=== PATIENT | male | born 1970 | race Hispanic/Latino ===

== ENCOUNTER 2017-09-02 09:49 | Inpatient (IN) | payer MEDICAID ==
[2017-09-02 09:49] VITALS: BMI 30.6
[2017-09-02 10:08] VITALS: O2SAT 96
--- NOTE | 2017-09-02 10:21 | ED PDOC ---
Arrival/HPI - General Chief Complaint: Psychiatric Evaluation Time Seen by Provider: 09/02/17 09:49 Historian: Patient - History of Present Illness Narrative History of Present Illness (Text): 09/02/17 10:13 47yo male with history of Anxiety in ED for anxiety. He notes worsening tremors and agitation. the mother who is by the bedside states he has been pacing a lot and very tremulous. although the patient denies hallucination, the mother states he mentioned seeing his ex on they drive way this morning. Patient medication was recently change this month. He denies SI/HI, drug use, any somatic complaint. Past Medical History - Provider Review Nursing Documentation Reviewed: Yes - Infectious Disease Hx of Infectious Diseases: None - Tetanus Immunization Tetanus Immunization: Unknown - Cardiac Hx Cardiac Disorders: Yes Hx Hypertension: Yes - Pulmonary Hx Respiratory Disorders: Yes Hx Asthma: Yes Hx Chronic Obstructive Pulmonary Disease (COPD): Yes - Neurological Hx Neurological Disorder: Yes Hx Vertigo: Yes - HEENT Hx HEENT Disorder: No - Renal Hx Renal Disorder: No - Endocrine/Metabolic Hx Endocrine Disorders: No - Hematological/Oncological Hx Blood Disorders: No - Integumentary Hx Dermatological Disorder: No - Musculoskeletal/Rheumatological Hx Musculoskeletal Disorders: Yes Hx Arthritis: Yes Hx Back Pain: Yes Other/Comment: degenerative disc disease - Gastrointestinal Hx Gastrointestinal Disorders: No - Genitourinary/Gynecological Hx Genitourinary Disorders: No - Psychiatric Hx Anxiety: Yes Hx Depression: Yes Hx Panic Disorder: Yes Hx Substance Use: No (hx of) - Surgical History Hx Musculoskeletal Surgery: Yes (reconstruction of lower spine) Hx Orthopedic Surgery: Yes (right knee, right shoulder) - Anesthesia Hx Anesthesia: Yes Hx Anesthesia Reactions: No Hx Malignant Hyperthermia: No - Suicidal Assessment Feels Threatened In Home Enviroment: No Family/Social History - Physician Review Nursing Documentation Reviewed: Yes Family/Social History: Unknown Family HX Smoking Status: Current Some Days Smoker Hx Alcohol Use: Yes Frequency of alcohol use: Socially Hx Substance Use: No (hx of) Substance used: cocaine Allergies/Home Meds Allergies/Adverse Reactions: Allergies varenicline [From Chantix] Allergy (Verified 09/02/17 09:57) VOMITING Home Medications: Home Meds Medication Instructions Recorded Confirmed Losartan [Cozaar] 100 mg PO DAILY 10/14/15 09/02/17 QUEtiapine [SEROquel] 100 mg PO HS 10/14/15 09/02/17 Meloxicam [Mobic] 1 tab PO DAILY 09/02/17 09/02/17 Nortriptyline [Pamelor] 10 mg PO DAILY 09/02/17 09/02/17 Orphenadrine [Norflex] 100 mg PO BID 09/02/17 09/02/17 busPIRone [Buspar] 15 mg PO TID PRN 09/02/17 09/02/17 oxyCODONE [oxyCONTIN Extended 50 mg PO QID 09/02/17 09/02/17 Release Tab] Review of Systems - Physician Review All systems were reviewed & negative as marked: Yes - Review of Systems Constitutional: Normal Eyes: Normal ENT: Normal Respiratory: Normal Cardiovascular: Normal Gastrointestinal: Normal Genitourinary Male: Normal Musculoskeletal: Normal Skin: Normal Neurological: Normal Endocrine: Normal Hemo/Lymphatic: Normal Psychiatric: Anxiety Physical Exam Vital Signs Reviewed: Yes Vital Signs Temp Pulse Resp BP Pulse Ox 09/02/17 09:57 98.7 F 110 H 18 142/92 H 96 Temperature: Afebrile Blood Pressure: Normal Pulse: Tachycardic Respiratory Rate: Normal Appearance: Positive for: Well-Appearing, Non-Toxic, Comfortable, Other (Tremor of upper extremity noted) Pain Distress: None Mental Status: Positive for: Alert and Oriented X 3 - Systems Exam Head: Present: Atraumatic, Normocephalic Pupils: Present: PERRL Extroacular Muscles: Present: EOMI Conjunctiva: Present: Normal Mouth: Present: Moist Mucous Membranes Neck: Present: Normal Range of Motion Respiratory/Chest: Present: Clear to Auscultation, Good Air Exchange. No: Respiratory Distress, Accessory Muscle Use Cardiovascular: Present: Regular Rate and Rhythm, Normal S1, S2. No: Murmurs Abdomen: Present: Normal Bowel Sounds. No: Tenderness, Distention, Peritoneal Signs Back: Present: Normal Inspection Upper Extremity: Present: Normal Inspection. No: Cyanosis, Edema Lower Extremity: Present: Normal Inspection. No: Edema Neurological: Present: GCS=15, CN II-XII Intact, Speech Normal Skin: Present: Warm, Dry, Normal Color. No: Rashes Psychiatric: Present: Alert, Oriented x 3, Normal Insight, Normal Concentration , Anxious Medical Decision Making ED Course and Treatment: 09/02/17 11:02 PT present for stated history. He was seen in ED by PES screener Gallo, she DC with Dr. Morrell and she accepted pt for admission for Psychosis. - Lab Interpretations Lab Results: 09/02/17 10:45 Lab Results 09/02/17 10:45: WBC 6.7, RBC 5.39, Hgb 17.4, Hct 48.0, MCV 89.1, MCH 32.3, MCHC 36.3, RDW 12.3, Plt Count 165, MPV 10.7, Gran % 78.0 H, Lymph % (Auto) 16.2 L, [place] % (Auto) 5.1, Eos % (Auto) 0.5 L, Baso % (Auto) 0.2, Gran # 5.19, Lymph # 1.1 L, [place] # 0.3, Eos # 0.0, Baso # 0.01 Disposition/Present on Arrival - Present on Arrival Any Indicators Present on Arrival: No History of DVT/PE: No History of Uncontrolled Diabetes: No Urinary Catheter: No History of Decub. Ulcer: No History Surgical Site Infection Following: None - Disposition Have Diagnosis and Disposition been Completed?: Yes Diagnosis: Psychosis Disposition: HOSPITALIZED Disposition Time: 11:00 Condition: FAIR Referrals: PCP,NO [Primary Care Provider] - Follow up with primary Forms: Qianmi ([place])
[2017-09-02 10:56] LABS: BASO # 0.01 K/mm3 (0.0-2.0); BASO % 0.2 % (0.0-3.0); EOS % 0.5 % (1.5-5.0); GRAN # 5.19 (1.4-6.5); LYMPH # 1.1 (1.2-3.4); LYMPH % 16.2 % (22.0-35.0); MEAN CELL VOLUME 89.1 fl (80.0-105.0); MEAN CORPUSCULAR HEMOGLOBIN 32.3 pg (25.0-35.0); MEAN CORPUSCULAR HGB CONC 36.3 g/dl (31.0-37.0); MEAN PLATELET VOLUME 10.7 fl (7.0-11.0); MONO # 0.3 (0.1-0.6); MONO % 5.1 % (1.0-6.0); RED CELL DISTRIBUTION WIDTH 12.3 % (11.5-14.5); WHITE BLOOD COUNT 6.7 10^3/ul (4.5-11.0)
[2017-09-02 11:15] LABS: ALB/GLOB RATIO 1.7 (1.1-1.8); ALKALINE PHOSPHATASE 77 U/L (38-126); ALT/SGPT 36 U/L (7-56); AST/SGOT 28 U/L (17-59); BLOOD UREA NITROGEN 17 mg/dL (7-21); CALCIUM 9.8 mg/dL (8.4-10.5); CARBON DIOXIDE 28 mmol/L (21-33); CHLORIDE 101 mmol/L (98-107); GFR AFRICAN-AMERICAN > 60; GLUCOSE,RANDOM 164 mg/dL (70-110); POTASSIUM 3.4 mmol/L (3.6-5.0); SODIUM 142 mmol/L (132-148); TOTAL PROTEIN 7.3 g/dL (5.8-8.3)
[2017-09-02] MEDS ORDERED: Albuterol HFA 90 mcg/actuation (8 g) IH PRN (13:11)
[2017-09-02 13:42] LABS: URINE BILIRUBIN SMALL (NEGATIVE); URINE BLOOD NEGATIVE (NEGATIVE); URINE GLUCOSE (UA) NEGATIVE (NEGATIVE); URINE KETONE TRACE mg/dL (NEGATIVE); URINE LEUKOCYTE ESTERASE NEGATIVE Leu/uL (NEGATIVE); URINE PROTEIN 30 mg/dL (<30 mg/dL)
[2017-09-02 13:46] LABS: URINE APPEARANCE CLEAR (CLEAR); URINE COLOR YELLOW (YELLOW)
[2017-09-02 14:06] LABS: URINE BACTERIA TRACE (NEG); URINE CALCIUM OXALATE CRYSTALS FEW /hpf; URINE EPITHELIAL CELLS 0 - 2 /hpf (0-5); URINE RBC NEGATIVE /hpf (0-2); URINE WBC 0 - 2 /hpf (0-6)
--- NOTE | 2017-09-02 15:41 | PCM.BM ---
<Lauren Odom - Last Filed: 09/02/17 19:33> Treatment Plan Problems - Problems identified on initial assessmt ANXIETY Date Initiated: 09/02/17 Time Initiated: 16:30 Assessment reference: NA Status: Active Priority: 1 Treatment assets and liabiliti Patient Assests: cooperative, ADL independent Patient Liabilities: substance abuse - Milieu Protocol Maintain good personal hygiene: daily Encourage regular showers, daily Remind patient to perform daily oral care, daily Assist patient to perform ADL's Maintain personal safety: every shift Educate patient to report safety concerns to staff, every shift Monitor environment for contraband/sharps Medication safety: Monitor for expected outcome, potential side effects: every shift, Assess barriers to learning: every shift, Assess readiness for medication education: every shift Discharge/Continuing Care - Education Needs Education Needs: Patient Medication, Patient Diagnosis/Disease Process, Patient Coping Skills, Patient Community resources, Patient Activities of Daily Living, Patient Pain, Patient Nutrition, Patient Uses of Medical Equipment, Patient Health Practices/Safety, Patient Personal Hygiene/Grooming, Patient Aftercare Safety Plan - Discharge Discharge Criteria: Tolerates medication w/o severe side effects, Free of Suicidal thoughts, Free of Homicidal thoughts, Free of paranoid thoughts, Free of agitation, Normal sleep pattern, Ability to care for self, No longer exhibiting s/s of withdrawal, Reduction of target symptoms Discharge to:: Home <Porsche Gutierrez - Last Filed: 09/05/17 13:53> - Diagnosis (1) Unspecified psychosis Status: Acute Interventions: 09/03/17 15:20 Psychoeducation/psychotherapy Psychopharmacology/adjustment of medications as needed/ monitoring possible side effects Evaluate pt on daily basis Compliance with medications and follow up appointments Long acting medication if pt is noncompliant with pill form Suicide and homicide risk assessment and prevention, coping strategies, safety plan Relapse prevention Reduction of symptoms Improve functional status Possible assertive community treatment Cognitive behavioral therapy Family involvement Possible social skill training as outpatient (2) Bipolar disorder Status: Acute Interventions: 09/03/17 15:20 Psychoeducation Psychopharmacology/adjustment of medications as needed/ monitoring possible side effects Monitor blood level of mood stabilizers Evaluate pt on daily basis Compliance with medications and follow up appointments Suicide and homicide risk assessment and prevention, coping strategies, safety plan Relapse prevention Reduction of symptoms Improve functional status Family involvement As outpatient: cognitive behavioral therapy (3) Substance-induced psychotic disorder with hallucinations Status: Acute Interventions: 09/05/17 13:53 Monitoring withdrawal symptoms Medical detoxification Pharmacotherapy for alcohol/benzos/opioid dependence Maintaining sobriety Relapse prevention Possible rehabilitation Motivational interviewing 12-step programs: AA meetings <Madeline Little Y - Last Filed: 09/05/17 16:08> Family Contact Family involvement: Family/SO is involved Family contact: Patient agrees to contact Family contact name: Estefany Marcelo(mother) Family contacted how many times per week?: 2 - Outside Agency [facility] Care involvment: Not involved Agency contact name: [facility] Agency contact number: [phone]
--- NOTE | 2017-09-02 16:07 | PCM.PSYCH ---
Initial Psychiatric Evaluation - Initial Psychiatric Evaluation Type of Admission: Voluntary Legal Status: Capacity (patient has capacity to sign consent for treatment) Chief Complaint (in patient's own words): "I don't know" Patient's Reaction to Hospitalization: pt was admitted for disorganized thoughts and behavior History of Present Illness and Precipitating Events: shortly pt is 47yo male with self reported h/o panic attacks, third psychiatric admission, most recent was two years ago, multiple medical comorbidities such as degenerative disease of the spine, arthritis and asthma, was admitted to the psychiatric inpatient unit for evaluation of disorganized thoughts and behavior, pt's mother brought pt to the hospital. Due to the severity of patients symptoms and disorganized behavior, pt could not be maintained as outpatient setting, needs further evaluation and stabilization in acute psychiatric unit. PES called for collaterals from mother, pt has recent change in behavior, pacing at night in bedroom, sleep disturbance for past 7 days, responding to internal stimuli, hallucinations, suspects overmedicating. pt was Seen in the treatment team room, remembered this poem writer by name, there is no option to have a meaningful conversation, pt's answers were not related to the questions being asked, pt obviously is disorganized, restless, sweating, pt does not remember the name of medications what he is currently taking, pt also reported his meds were changed recently and pt was feeling very angry about it. pt then said "I don't want to be disrespectful, but I want to go, I had a rough night..." Pt reported no episodes of depression in the past and denied being depressed at the time of the evaluation. Pt denied using drugs, h/o cocaine, but was clean for the past 18 years, UDS was not obtained in the ED, will order stat. no psychotic symptoms were elicited. Past psych h/o: two admissions, denied suicidal attempts Past medical h/o: asthma, chronic back pain, surgeries in the past due to degenerative disc disease, arthritis. Family h/o: anxiety and depression, no suicidality Social: , unemployed, in the relationships now, has 19yo son and has good relationships with him and ex . denied assess to the guns. pt denied smoking Treatment goals: "I don't know" [facility] [place] [phone] seroquel was decreased from 150 to 100mg paxil was decreased from 50mg po to 40mg po hs pt was on xanax 2mg po qid but it was d/c recently pt was on buspar 15mg po tid flonase lozartan 100mg daily entolin prn oxycodone 15mg po qid norflex 100mg po bid nortriptilin 10mg po daily miloxicam 7.5mg daily all meds were filled on August 29 Labs: 09/02/17 10:45 09/02/17 10:45 Lab Results 09/02/17 13:35: Urine Color Yellow, Urine Appearance Clear, Urine pH 6.0, Ur Specific [place] 1.025, Urine Protein 30 H, Urine Glucose (UA) Negative, Urine Ketones Trace H, Urine Blood Negative, Urine Nitrate Negative, Urine Bilirubin Small H, Urine Urobilinogen 1.0 H, Ur Leukocyte Esterase Negative, Urine RBC Negative, Urine WBC 0 - 2, Ur Epithelial Cells 0 - 2, Calcium Oxalate Crystal Few, Urine Bacteria Trace 09/02/17 10:45: Alcohol, Quantitative < 10 09/02/17 10:45: Salicylates < 1 L, Acetaminophen < 10.0 L 09/02/17 10:45: Sodium 142, Potassium 3.4 L, Chloride 101, Carbon Dioxide 28, Anion Gap 16, BUN 17, Creatinine 1.2, Est GFR ( Amer) > 60, Est GFR (Non- Af Amer) > 60, Random Glucose 164 H, Calcium 9.8, Total Bilirubin 1.0, AST 28, ALT 36, Alkaline Phosphatase 77, Total Protein 7.3, Albumin 4.6, Globulin 2.7, Albumin/Globulin Ratio 1.7 09/02/17 10:45: WBC 6.7, RBC 5.39, Hgb 17.4, Hct 48.0, MCV 89.1, MCH 32.3, MCHC 36.3, RDW 12.3, Plt Count 165, MPV 10.7, Gran % 78.0 H, Lymph % (Auto) 16.2 L, [place] % (Auto) 5.1, Eos % (Auto) 0.5 L, Baso % (Auto) 0.2, Gran # 5.19, Lymph # 1.1 L, [place] # 0.3, Eos # 0.0, Baso # 0.01 Vital Signs Temp Pulse Resp BP Pulse Ox 09/02/17 09:57 98.7 F 110 H 18 142/92 H 96 MSE: Pt deemed to be unreliable historian, restless, seems to be either withdrawing or high on drugs, Pt looks stated age, acceptable personal hygiene, good ADLs, psychomotor agitation and irritability is obvious, speech was: disorganized, overproductive, no eye contact, mood described: "I don't know...", affect: constricted, thought process: disorganized, circumstantial and tangential, thought content: pt deneid SI/ HI, pt denied v/a/t hallucinations, denied paranoid ideation, but pt is disorganized, insight/judgment: impaired, impulses are unpredictable. Impression: as per h/o bipolar II h/o cocaine abuse and dependence, reported sobriety for the past 16 years psychosis NOS r/o substance induced psychosis r/o benzos withdrawals Treatment plan: Milieu/structure/supportive therapy Medical consult appreciated, see medical team note for more detailed info consultation for discharge plan and social issues Med management seroquel 150mg hs for mood stabilization paxil will be resumed 40mg po hs for depression and anxiety d.c xanax klonopin 1mg po bid for anxiety will continue buspar 15mg po tid for anxiety flonase will be continued lozartan 100mg daily will be continued oxycodone 15mg po qid will be continued norflex 100mg po bid will be d/c nortriptilin 10mg po daily will be dc miloxicam 7.5mg daily resumed Family involvement Follow up on labs Will monitor closely evaluation for d/c planning Pt was educated about risk/benefits and alternatives of medications, coping strategies (safety plan, suicide prevention), relapse prevention, importance of follow up with psychiatrist and therapist, stay away from drugs/alcohol/smoking Current Medications: Active Medications Generic Name Dose Route Start Last Admin Trade Name Freq PRN Reason Stop Dose Admin Albuterol 2 puff 09/02/17 13:11 Ventolin Hfa 90 Mcg/Actuation (8 G) IH [id number] PRN Shortness of Breath Buspirone HCl 15 mg 09/02/17 18:00 Buspar PO TID MALENA Protocol Clonazepam 1 mg 09/02/17 16:00 Klonopin PO BID MALENA Protocol Fluticasone Propionate 1 actuation 09/03/17 08:00 Flonase NS DAILY MALENA Lorazepam 2 mg 09/02/17 12:42 Ativan PO Q6H PRN Agitation Protocol Lorazepam 2 mg 09/02/17 12:43 Ativan IM Q6H PRN Agitation Protocol Losartan Potassium 100 mg 09/03/17 08:00 Cozaar PO DAILY MALENA Meloxicam 7.5 mg 09/03/17 08:00 Mobic PO DAILY MALENA Paroxetine HCl 40 mg 09/02/17 22:00 Paxil PO HS AMLENA Quetiapine Fumarate 150 mg 09/02/17 22:00 Seroquel PO HS MALENA Protocol Ziprasidone 20 mg 09/02/17 12:44 Geodon Cap PO Q6H PRN Agitation Protocol Ziprasidone 20 mg 09/02/17 12:45 Geodon Inj IM Q6H PRN Agitation Protocol Past Psychiatric History - Past Psychiatric History Pertinent Medical Hx (Current Medical&Sleep Prob, Allergies): Allergies Allergy/AdvReac Type Severity Reaction Status Date / Time varenicline [From Chantix] Allergy VOMITING Verified 09/02/17 09:57 PARoxetine [Paxil] 40 mg PO HS #0 tab 04/27/15 Losartan [Cozaar] 100 mg PO DAILY 10/14/15 QUEtiapine [SEROquel] 100 mg PO HS 10/14/15 Meloxicam [Mobic] 1 tab PO DAILY 09/02/17 Nortriptyline [Pamelor] 10 mg PO DAILY 09/02/17 Orphenadrine [Norflex] 100 mg PO BID 09/02/17 busPIRone [Buspar] 15 mg PO TID PRN 09/02/17 oxyCODONE [oxyCONTIN Extended Release Tab] 50 mg PO QID 09/02/17 DSM 5 DX - Recommended/Plan of Treatment Projected ELOS: 7days Prognosis: guarded Discharge Plan and Discharge Criteria: Pt will be not depressed or manic, will be more hopeful, will be not psychotic or anxious, will be not having thoughts of harming self or others, will be tolerating medications well, will not have major side effects, will be able to function, will not pose threat to self or others. - Smoking Cessation Smoking Cessation Initiated: No Reason for not providing: pt denied smoking
--- NOTE | 2017-09-02 16:17 | CARD ---
APPROVED REPORT EKG Measurement Heart [id number] <Conclusion> Sinus tachycardia PRWP NSSTW changes Prolonged QTc Possible IMI, age unknown
--- NOTE | 2017-09-02 16:19 | CARD ---
APPROVED REPORT EKG Measurement Heart [id number] <Conclusion> Normal sinus rhythm Normal ECG
[2017-09-02] MEDS ORDERED: Magnesium Hydroxide Susp 30 ml UD PO PRN (23:19)
[2017-09-02] MEDS ORDERED: Alum-Mag Hydrox-Simethicone Susp (30 mL) PO PRN (23:19)
[2017-09-03 06:55] VITALS: RESP 20
[2017-09-03] MEDS ORDERED: Potassium Chloride 20 mEq ER Tab PO STA (07:25)
[2017-09-03 08:01] LABS: BLOOD UREA NITROGEN 17 mg/dL (7-21); CALCIUM 9.5 mg/dL (8.4-10.5); CARBON DIOXIDE 26 mmol/L (21-33); CHLORIDE 103 mmol/L (98-107); CHOLESTEROL 170 mg/dL (130-200); GFR AFRICAN-AMERICAN > 60; GLUCOSE,RANDOM 141 mg/dL (70-110); POTASSIUM 3.9 mmol/L (3.6-5.0); SODIUM 140 mmol/L (132-148)
[2017-09-03 08:18] LABS: FREE T4 1.19 ng/dL (0.78-2.19)
[2017-09-03 08:32] LABS: THYROID STIMULATING HORMONE 1.1 mIU/mL (0.46-4.68)
[2017-09-03] MEDS: Potassium Chloride 20 mEq ER Tab PO ONE ×2 (08:56→08:59)
[2017-09-03] MEDS: Meloxicam 7.5 MG TAB PO SCH (08:57)
[2017-09-03] MEDS: Fluticasone Nasal 50 mcg/Spray NS SCH (08:58)
--- NOTE | 2017-09-03 09:19 | CP.PCM.CON ---
<Lyndon Montemayor - Last Filed: 09/03/17 13:17> History of Present Illness - History of Present Illness History of Present Illness: CC: Anxiety HPI: Patient is a 47 year old male with a past medical history that includes anxiety , HTN, COPD, asthma, arthritis and degenerative disc disease who presented to the [facility] for worsening tremors and agitation. Patient was evaluated by psychiatry and admitted to the psychiatric inpatient unit for evaluation of disorganized thoughts and irregular behavior. The patient credits his recent alteration in mood due to a recent change in his medications. The patient reports feeling increased agitation and insomnia over the past week. Per chart checking patient was noted to have auditory hallucinations per his family upon admission. Patient reports chronic history of hypertension that is treated with Losartan 100mg Daily and chronic back pain that is treated with oxycodone 15mg four times a day. Patient denies chest pain, shortness of breath, abdominal discomfort, fever, chills, nausea, vomiting, change in bowel habits. PMH: Asthma, COPD, Chronic back pain, Degenerative disc disease, arthritis, HTN PSH: Right knee surgery, Multiple back surgeries involving pin placement FMH: History of anxiety and depression SocH: Tobacco: Reports current smoker, ETOH: Social, ID: Hx of cocaine use All: Chantix Meds: unable to recall all medications, per chart review - Meloxicam 1 tab daily - Oxycodone 15mg 4xday - Buspirone 15mg TID PRN - Orphenadrine 100mg BID - Nortriptyline 10mg Daily - Quetiapine 100 mg HS - Paroxetine 40mg PO HS - Losartan 100mg Daily PMD: Bijan Campbell Review of Systems - Constitutional Constitutional: absent: Chills, Fever - EENT Eyes: absent: Blurred Vision, Change in Vision Ears: absent: Decreased Hearing Nose/Mouth/Throat: absent: Epistaxis, Nasal Congestion, Nasal Discharge - Cardiovascular Cardiovascular: absent: Chest Pain, Dyspnea, Irregular Heart Rhythm - Respiratory Respiratory: absent: Cough, Dyspnea - Gastrointestinal Gastrointestinal: absent: Abdominal Pain, Change in Bowel Habits, Change in Stool Character - Genitourinary Genitourinary: absent: Difficulty Urinating, Dysuria - Musculoskeletal Musculoskeletal: Back Pain Additional comments: chronic in nature - Neurological Neurological: absent: Focal Weakness, Weakness - Psychiatric Psychiatric: Anxiety. absent: Auditory Hallucinations, Suicidal Ideation, Visual Hallucinations Past Patient History - Infectious Disease Hx of Infectious Diseases: None - Tetanus Immunizations Tetanus Immunization: Unknown - Past Social History Smoking Status: Current Some Days Smoker Alcohol: Social Drugs: Cocaine (history) - CARDIAC Hx Cardiac Disorders: Yes Hx Hypertension: Yes - PULMONARY Hx Asthma: Yes Hx Chronic Obstructive Pulmonary Disease (COPD): Yes Hx Tuberculosis: No - NEUROLOGICAL HX Cerebrovascular Accident: No Hx Seizures: No - HEENT Hx HEENT Problems: No - RENAL Hx Chronic Kidney Disease: No - ENDOCRINE/METABOLIC Hx Endocrine Disorders: No - HEMATOLOGICAL/ONCOLOGICAL Hx Cancer: No Hx Human Immunodeficiency Virus (HIV): No - INTEGUMENTARY Hx Dermatological Problems: No - MUSCULOSKELETAL/RHEUMATOLOGICAL Hx Musculoskeletal Disorders: Yes Hx Arthritis: Yes Hx Back Pain: Yes Other/Comment: degenerative disc disease - GASTROINTESTINAL Hx Gastrointestinal Disorders: No - GENITOURINARY/GYNECOLOGICAL Hx Sexually Transmitted Disorders: No - PSYCHIATRIC Hx Anxiety: Yes Hx Substance Use: Yes - SURGICAL HISTORY Hx Musculoskeletal Surgery: Yes (reconstruction of lower spine) Hx Orthopedic Surgery: Yes (right knee, right shoulder) - ANESTHESIA Hx Anesthesia: Yes Hx Anesthesia Reactions: No Hx Malignant Hyperthermia: No Meds Allergies/Adverse Reactions: Allergies Allergy/AdvReac Type Severity Reaction Status Date / Time varenicline [From Chantix] Allergy VOMITING Verified 09/03/17 00:15 - Medications Medications: Current Medications Acetaminophen (Tylenol 325mg Tab) 650 mg PO Q4H PRN PRN Reason: Pain, Mild (1-3) Al Hydrox/Mg Hydrox/Simethicone (Maalox Plus 30 Ml) 30 ml PO DAILY PRN PRN Reason: Upset Stomach Albuterol (Ventolin Hfa 90 Mcg/Actuation (8 G)) 2 puff IH [id number] PRN PRN Reason: Shortness of Breath Buspirone HCl (Buspar) 15 mg PO TID MALENA PRN Reason: Protocol Last Admin: 09/02/17 17:51 Dose: 15 mg Clonazepam (Klonopin) 1 mg PO BID MALENA PRN Reason: Protocol Last Admin: 09/02/17 17:51 Dose: 1 mg Fluticasone Propionate (Flonase) 1 actuation NS DAILY MALENA Lorazepam (Ativan) 2 mg PO Q6H PRN; Protocol PRN Reason: Agitation Last Admin: 09/03/17 03:52 Dose: 2 mg Lorazepam (Ativan) 2 mg IM Q6H PRN; Protocol PRN Reason: Agitation Losartan Potassium (Cozaar) 100 mg PO DAILY MALENA Magnesium Hydroxide (Milk Of Magnesia) 30 ml PO DAILY PRN PRN Reason: Constipation Meloxicam (Mobic) 7.5 mg PO DAILY MALENA Paroxetine HCl (Paxil) 40 mg PO HS MALENA Last Admin: 09/02/17 21:56 Dose: 40 mg Quetiapine Fumarate (Seroquel) 150 mg PO HS MALENA PRN Reason: Protocol Last Admin: 09/02/17 21:56 Dose: 150 mg Ziprasidone (Geodon Cap) 20 mg PO Q6H PRN; Protocol PRN Reason: Agitation Ziprasidone (Geodon Inj) 20 mg IM Q6H PRN; Protocol PRN Reason: Agitation Physical Exam - Constitutional Appears: Agitated - Head Exam Head Exam: ATRAUMATIC, NORMAL INSPECTION, NORMOCEPHALIC - Eye Exam Eye Exam: EOMI, PERRL - ENT Exam ENT Exam: Mucous Membranes Moist Additional comments: poor dentation - Neck Exam Neck exam: Positive for: Full Rom - Respiratory Exam Respiratory Exam: Clear to Auscultation Bilateral, NORMAL BREATHING PATTERN - Cardiovascular Exam Cardiovascular Exam: REGULAR RHYTHM, +S1, +S2 - GI/Abdominal Exam GI & Abdominal Exam: Normal Bowel Sounds, Soft - Rectal Exam Rectal Exam: Deferred - Extremities Exam Extremities exam: Positive for: full ROM. Negative for: calf tenderness, tenderness - Back Exam Back exam: absent: CVA tenderness (L), CVA tenderness (R) - Neurological Exam Neurological exam: Alert, CN II-XII Intact, Normal Gait, Oriented x3, Reflexes Normal - Psychiatric Exam Psychiatric exam: Anxious Additional comments: Patient exhibited irritability, poor eye contact, circumstantial and tangential speech, denial of suicidal ideation, homicidal ideation, denied visual, auditory hallucinations - Skin Skin Exam: Dry, Normal Color Additional comments: multiple tattoo present Results - Vital Signs Recent Vital Signs: Last Vital Signs Temp 97.7 F 09/03/17 06:52 Pulse 75 09/03/17 06:52 Resp 20 09/03/17 06:52 BP 160/98 H 09/03/17 06:52 Pulse Ox 96 09/02/17 09:57 - Labs Result Diagrams: 09/02/17 10:45 09/03/17 07:00 Labs: Laboratory Results - last 24 hr 09/02/17 09/02/17 09/03/17 13:35 15:50 07:00 Sodium Potassium Chloride Carbon Dioxide Anion Gap BUN Creatinine Est GFR ( Amer) Est GFR (Non-Af Amer) Random Glucose Calcium Triglycerides Cholesterol LDL Cholesterol Direct HDL Cholesterol Free T4 1.19 TSH 3rd Generation 1.10 Urine Color Yellow Urine Appearance Clear Urine pH 6.0 Ur Specific [place] 1.025 Urine Protein 30 H Urine Glucose (UA) Negative Urine Ketones Trace H Urine Blood Negative Urine Nitrate Negative Urine Bilirubin Small H Urine Urobilinogen 1.0 H Ur Leukocyte Esterase Negative Urine RBC Negative Urine WBC 0 - 2 Ur Epithelial Cells 0 - 2 Calcium Oxalate Crystal Few Urine Bacteria Trace Urine Opiates Screen Positive H Urine Methadone Screen Negative Ur Barbiturates Screen Negative Ur Phencyclidine Scrn Negative Ur Amphetamines Screen Negative U Benzodiazepines Scrn Positive H U Oth Cocaine Metabols Negative U Cannabinoids Screen Negative 09/03/17 07:00 Sodium 140 Potassium 3.9 Chloride 103 Carbon Dioxide 26 Anion Gap 15 BUN 17 Creatinine 1.1 Est GFR ( Amer) > 60 Est GFR (Non-Af Amer) > 60 Random Glucose 141 H Calcium 9.5 Triglycerides 131 Cholesterol 170 LDL Cholesterol Direct 127 HDL Cholesterol 32 Free T4 TSH 3rd Generation Urine Color Urine Appearance Urine pH Ur Specific [place] Urine Protein Urine Glucose (UA) Urine Ketones Urine Blood Urine Nitrate Urine Bilirubin Urine Urobilinogen Ur Leukocyte Esterase Urine RBC Urine WBC Ur Epithelial Cells Calcium Oxalate Crystal Urine Bacteria Urine Opiates Screen Urine Methadone Screen Ur Barbiturates Screen Ur Phencyclidine Scrn Ur Amphetamines Screen U Benzodiazepines Scrn U Oth Cocaine Metabols U Cannabinoids Screen Assessment & Plan - Assessment and Plan (Free Text) Assessment: Patient is a 47 year old male with past medical history of asthma, COPD, HTN, degenerative disease of the spine, arthritis and anxiety who was admitted to the inpatient psychiatric unit for treatment of his anxiety and irregular behavior. The patient has a chronic history of hypertension, COPD and chronic back pain secondary to degenerative disc disease and arthritis. Plan: 1. Anxiety and history of bipolar disorder - Management per psychiatry team 2. Hypertension - Continue home dose of Losartan 100mg - Monitor BP, if BP elevated consider adding norvasc 5mg PO Daily - Adhere to 2 gram sodium diet 3. Chronic Back Pain - Patient on home dose of oxycodone 15mg PO four times a day - Dosage confirmed with patient and [facility] where he [place] his medication - Continue his at home medication Case and plan discussed with attending - Date & Time Date: 09/03/17 Time: 09:28 <Iraj Reddy - Last Filed: 09/03/17 15:18> Meds - Medications Medications: Current Medications Acetaminophen (Tylenol 325mg Tab) 650 mg PO Q4H PRN PRN Reason: Pain, Mild (1-3) Al Hydrox/Mg Hydrox/Simethicone (Maalox Plus 30 Ml) 30 ml PO DAILY PRN PRN Reason: Upset Stomach Albuterol (Ventolin Hfa 90 Mcg/Actuation (8 G)) 2 puff IH [id number] PRN PRN Reason: Shortness of Breath Buspirone HCl (Buspar) 15 mg PO TID MALENA PRN Reason: Protocol Last Admin: 09/03/17 13:17 Dose: 15 mg Clonazepam (Klonopin) 1 mg PO BID MALENA PRN Reason: Protocol Last Admin: 09/03/17 08:57 Dose: 1 mg Fluticasone Propionate (Flonase) 1 actuation NS DAILY [facility] Last Admin: 09/03/17 08:58 Dose: 1 spr Lorazepam (Ativan) 2 mg PO Q6H PRN; Protocol PRN Reason: Agitation Last Admin: 09/03/17 03:52 Dose: 2 mg Lorazepam (Ativan) 2 mg IM Q6H PRN; Protocol PRN Reason: Agitation Losartan Potassium (Cozaar) 100 mg PO DAILY [facility] Last Admin: 09/03/17 08:57 Dose: 100 mg Magnesium Hydroxide (Milk Of Magnesia) 30 ml PO DAILY PRN PRN Reason: Constipation Meloxicam (Mobic) 7.5 mg PO DAILY [facility] Last Admin: 09/03/17 08:57 Dose: 7.5 mg Nicotine (Nicoderm Cq) 1 patch TD DAILY [facility] Last Admin: 09/03/17 09:43 Dose: 1 patch Oxycodone HCl (Oxycodone Immediate Release Tab) 15 mg PO QID [facility] Last Admin: 09/03/17 13:10 Dose: 15 mg Paroxetine HCl (Paxil) 40 mg PO HS [facility] Last Admin: 09/02/17 21:56 Dose: 40 mg Quetiapine Fumarate (Seroquel) 150 mg PO AMHS [facility] PRN Reason: Protocol Ziprasidone (Geodon Cap) 20 mg PO Q6H PRN; Protocol PRN Reason: Agitation Ziprasidone (Geodon Inj) 20 mg IM Q6H PRN; Protocol PRN Reason: Agitation Results - Vital Signs Recent Vital Signs: Last Vital Signs Temp 97.7 F 09/03/17 06:52 Pulse 75 09/03/17 06:52 Resp 20 09/03/17 06:52 BP 160/98 H 09/03/17 06:52 Pulse Ox 96 09/02/17 09:57 - Labs Result Diagrams: 09/02/17 10:45 09/03/17 07:00 Labs: Laboratory Results - last 24 hr 09/02/17 09/03/17 09/03/17 15:50 07:00 07:00 Sodium 140 Potassium 3.9 Chloride 103 Carbon Dioxide 26 Anion Gap 15 BUN 17 Creatinine 1.1 Est GFR ( Amer) > 60 Est GFR (Non-Af Amer) > 60 Random Glucose 141 H Calcium 9.5 Triglycerides 131 Cholesterol 170 LDL Cholesterol Direct 127 HDL Cholesterol 32 Free T4 1.19 TSH 3rd Generation 1.10 Urine Opiates Screen Positive H Urine Methadone Screen Negative Ur Barbiturates Screen Negative Ur Phencyclidine Scrn Negative Ur Amphetamines Screen Negative U Benzodiazepines Scrn Positive H U Oth Cocaine Metabols Negative U Cannabinoids Screen Negative Attending/Attestation - Attestation I have personally seen and examined this patient.: Yes I have fully participated in the care of the patient.: Yes I have reviewed all pertinent clinical information: Yes Notes (Text): 09/03/17 15:14 MEDICAL CONSULTATION 47 year old male with past medical history of hypertension, chronic back pain and anxiety who is currently admitted for evaluation for disorganized thoughts and behavior. Continue with management as per psychiatrist. He is on losartan for hypertension. BP is elevated this morning; if persistent can consider adding norvasc. He reports he is on oxycodone for history of chronic back pain. Dose should be confirmed prior to resuming. Chart and labs were reviewed. Initially had mild hypokalemia on admission which improved today. Thank you Dr. Gutierrez for allowing us to participate in the care of this patient. Please re-consult as needed. Iraj Reddy MD Hospitalist.
[2017-09-03] MEDS ORDERED: oxyCODONE 15 mg Immediate Release Tab PO ONE (09:45)
[2017-09-03] MEDS: oxyCODONE 5 mg Immediate Release Tab PO SCH ×3 (13:10→21:40)
--- NOTE | 2017-09-03 15:48 | PCM.PYCHPN ---
Psychiatric Progress Note - Psychiatric Progress Note Patient seen today, length of contact: 30min Patient Chief Complaint: I don't feel like kicking balloons around but I don't feel 100%...I'm like 60/ 40." Medical Problems: asthma, chronic back pain, surgeries in the past due to degenerative disc disease, arthritis. Diagnostic Results: 09/02/17 10:45 09/03/17 07:00 Lab Results 09/03/17 07:00: Sodium 140, Potassium 3.9, Chloride 103, Carbon Dioxide 26, Anion Gap 15, BUN 17, Creatinine 1.1, Est GFR ( Amer) > 60, Est GFR (Non- Af Amer) > 60, Random Glucose 141 H, Calcium 9.5, Triglycerides 131, Cholesterol 170, LDL Cholesterol Direct 127, HDL Cholesterol 32 09/03/17 07:00: Free T4 1.19, TSH 3rd Generation 1.10 09/02/17 15:50: Urine Opiates Screen Positive H, Urine Methadone Screen Negative , Ur Barbiturates Screen Negative, Ur Phencyclidine Scrn Negative, Ur Amphetamines Screen Negative, U Benzodiazepines Scrn Positive H, U Oth Cocaine Metabols Negative, U Cannabinoids Screen Negative 09/02/17 13:35: Urine Color Yellow, Urine Appearance Clear, Urine pH 6.0, Ur Specific [place] 1.025, Urine Protein 30 H, Urine Glucose (UA) Negative, Urine Ketones Trace H, Urine Blood Negative, Urine Nitrate Negative, Urine Bilirubin Small H, Urine Urobilinogen 1.0 H, Ur Leukocyte Esterase Negative, Urine RBC Negative, Urine WBC 0 - 2, Ur Epithelial Cells 0 - 2, Calcium Oxalate Crystal Few, Urine Bacteria Trace 09/02/17 10:45: Alcohol, Quantitative < 10 09/02/17 10:45: Salicylates < 1 L, Acetaminophen < 10.0 L 09/02/17 10:45: Sodium 142, Potassium 3.4 L, Chloride 101, Carbon Dioxide 28, Anion Gap 16, BUN 17, Creatinine 1.2, Est GFR ( Amer) > 60, Est GFR (Non- Af Amer) > 60, Random Glucose 164 H, Calcium 9.8, Total Bilirubin 1.0, AST 28, ALT 36, Alkaline Phosphatase 77, Total Protein 7.3, Albumin 4.6, Globulin 2.7, Albumin/Globulin Ratio 1.7 09/02/17 10:45: WBC 6.7, RBC 5.39, Hgb 17.4, Hct 48.0, MCV 89.1, MCH 32.3, MCHC 36.3, RDW 12.3, Plt Count 165, MPV 10.7, Gran % 78.0 H, Lymph % (Auto) 16.2 L, [place] % (Auto) 5.1, Eos % (Auto) 0.5 L, Baso % (Auto) 0.2, Gran # 5.19, Lymph # 1.1 L, [place] # 0.3, Eos # 0.0, Baso # 0.01 Vital Signs Temp Pulse Resp BP Pulse Ox 09/03/17 06:52 97.7 F 75 20 160/98 H 09/02/17 16:00 73 105/101 H 09/02/17 09:57 98.7 F 110 H 18 142/92 H 96 DSM 5 Symptoms Update: shortly pt is 47yo male with self reported h/o panic attacks, third psychiatric admission, most recent was two years ago, multiple medical comorbidities such as degenerative disease of the spine, arthritis and asthma, was admitted to the psychiatric inpatient unit for evaluation of disorganized thoughts and behavior, pt's mother brought pt to the hospital. pt was see at the treatment team meeting, pt presented to be irritable, angry, pt is very intrusive, pt was cursing, said that he went to the pain management doctor "I suspect to increase dose of medications but she took me off...", this check writer salesperson asked permission to speak to pt's mothers, pt said "make sure you tell her you have a camera", when was asked what does he mean by such statement pt said that his mother thinks that this check writer salesperson is "crazy", then pt said that this check writer salesperson making some tricks by asking if he hears any voices, pt said "I know who they are...they are the nurses at the desk." when was asked about depression "I don't feel like kicking balloons around but I don't feel 100%...I' m like 60/40." pt then said "I am taking at the morning..", when was asked what he takes at the morning, pt was not able to articulate, became tangential and circumstantial, then was fixated on one of the nurses, came very closed to her and pt needed to be escorted from the room. MSE: Pt deemed to be unreliable historian, restless, seems to be either withdrawing or high on drugs, Pt looks stated age, acceptable personal hygiene, good ADLs, psychomotor agitation and irritability is obvious, speech was: disorganized, overproductive, no eye contact, mood described: "I don't feel like kicking balloons around but I don't feel 100%...I'm like 60/40.", affect: constricted, thought process: disorganized, circumstantial and tangential, thought content: pt deneid SI/ HI, pt is hallucinating, paranoid, disorganized, insight/judgment : impaired, impulses are unpredictable. Impression: psychosis NOS as per h/o bipolar II h/o cocaine abuse and dependence, reported sobriety for the past 16 years r/o substance induced psychosis r/o benzos withdrawals Treatment plan: Milieu/structure/supportive therapy Medical consult appreciated, see medical team note for more detailed info consultation for discharge plan and social issues Med management seroquel 150mg amhs for psychosis paxil will be resumed 40mg po hs for depression and anxiety d.c xanax klonopin 1mg po bid for anxiety will continue buspar 15mg po tid for anxiety flonase will be continued lozartan 100mg daily will be continued oxycodone 15mg po qid will be continued miloxicam 7.5mg daily resumed Family involvement Follow up on labs Will monitor closely evaluation for d/c planning Pt was educated about risk/benefits and alternatives of medications, coping strategies (safety plan, suicide prevention), relapse prevention, importance of follow up with psychiatrist and therapist, stay away from drugs/alcohol/smoking Medication Change: Yes (seroquel increased) Medical Record Reviewed: Yes Consults ordered or reviewed: medical consult appreciated Mental Status Examination - Homicidal Ideation Homicidal Ideation: No Goal/Treatment Plan - Goal/Treatment Plan Need for Continued Stay: Remain at risks for inpatient hospitalization, Severe depression anxiety, Discharge may exacerbated symptoms, Severe functional impairment Estimated Date of D/C: 09/08/17
[2017-09-04] MEDS: Fluticasone Nasal 50 mcg/Spray NS SCH (09:02)
[2017-09-04] MEDS: Meloxicam 7.5 MG TAB PO SCH (09:03)
[2017-09-04] MEDS: oxyCODONE 5 mg Immediate Release Tab PO SCH ×4 (09:04→21:37)
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
[2017-09-04 22:37] VITALS: PULSE 78
[2017-09-05 06:57] VITALS: BP 121/88; TEMP 97.1
[2017-09-05] MEDS: Meloxicam 7.5 MG TAB PO SCH (08:00)
[2017-09-05] MEDS: oxyCODONE 5 mg Immediate Release Tab PO SCH ×4 (08:01→22:19)
[2017-09-05] MEDS: Fluticasone Nasal 50 mcg/Spray NS SCH (08:03)
--- NOTE | 2017-09-05 09:05 | RAD ---
HISTORY: for medical clearance COMPARISON: 04/12/2015. FINDINGS: LUNGS: The lungs are well inflated and clear. PLEURA: No significant pleural effusion identified, no pneumothorax apparent. CARDIOVASCULAR: Normal. OSSEOUS STRUCTURES: No significant abnormalities. VISUALIZED UPPER ABDOMEN: Normal. OTHER FINDINGS: None. IMPRESSION: No active pulmonary disease.
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
[2017-09-05] MEDS ORDERED: Influenza Vaccine 60 mcg/0.5 mL SYR (4YR UP) IM ONE (22:06)
--- NOTE | 2017-09-06 10:48 | PCM.PYCHDC ---
Discharge Summary - Discharge Note Reason for Hospitalization: pt is 47yo male with self reported h/o panic attacks, third psychiatric admission, most recent was two years ago, multiple medical comorbidities such as degenerative disease of the spine, arthritis and asthma, was admitted to the psychiatric inpatient unit for evaluation of disorganized thoughts and behavior, pt's mother brought pt to the hospital. Laboratory Data: Laboratory Tests 09/02/17 09/02/17 09/02/17 10:45 10:45 10:45 WBC 6.7 RBC 5.39 Hgb 17.4 Hct 48.0 MCV 89.1 MCH 32.3 MCHC 36.3 RDW 12.3 Plt Count 165 MPV 10.7 Gran % 78.0 H Lymph % (Auto) 16.2 L [place] % (Auto) 5.1 Eos % (Auto) 0.5 L Baso % (Auto) 0.2 Gran # 5.19 Lymph # 1.1 L [place] # 0.3 Eos # 0.0 Baso # 0.01 Sodium 142 Potassium 3.4 L Chloride 101 Carbon Dioxide 28 Anion Gap 16 BUN 17 Creatinine 1.2 Est GFR ( Amer) > 60 Est GFR (Non-Af Amer) > 60 Random Glucose 164 H Calcium 9.8 Total Bilirubin 1.0 AST 28 ALT 36 Alkaline Phosphatase 77 Total Protein 7.3 Albumin 4.6 Globulin 2.7 Albumin/Globulin Ratio 1.7 Triglycerides Cholesterol LDL Cholesterol Direct HDL Cholesterol Free T4 TSH 3rd Generation Urine Color Urine Appearance Urine pH Ur Specific [place] Urine Protein Urine Glucose (UA) Urine Ketones Urine Blood Urine Nitrate Urine Bilirubin Urine Urobilinogen Ur Leukocyte Esterase Urine RBC Urine WBC Ur Epithelial Cells Calcium Oxalate Crystal Urine Bacteria Salicylates < 1 L Urine Opiates Screen Urine Methadone Screen Acetaminophen < 10.0 L Ur Barbiturates Screen Ur Phencyclidine Scrn Ur Amphetamines Screen U Benzodiazepines Scrn U Oth Cocaine Metabols U Cannabinoids Screen Alcohol, Quantitative RPR 09/02/17 09/02/17 09/02/17 10:45 13:35 15:50 WBC RBC Hgb Hct MCV MCH MCHC RDW Plt Count MPV Gran % Lymph % (Auto) [place] % (Auto) Eos % (Auto) Baso % (Auto) Gran # Lymph # [place] # Eos # Baso # Sodium Potassium Chloride Carbon Dioxide Anion Gap BUN Creatinine Est GFR ( Amer) Est GFR (Non-Af Amer) Random Glucose Calcium Total Bilirubin AST ALT Alkaline Phosphatase Total Protein Albumin Globulin Albumin/Globulin Ratio Triglycerides Cholesterol LDL Cholesterol Direct HDL Cholesterol Free T4 TSH 3rd Generation Urine Color Yellow Urine Appearance Clear Urine pH 6.0 Ur Specific [place] 1.025 Urine Protein 30 H Urine Glucose (UA) Negative Urine Ketones Trace H Urine Blood Negative Urine Nitrate Negative Urine Bilirubin Small H Urine Urobilinogen 1.0 H Ur Leukocyte Esterase Negative Urine RBC Negative Urine WBC 0 - 2 Ur Epithelial Cells 0 - 2 Calcium Oxalate Crystal Few Urine Bacteria Trace Salicylates Urine Opiates Screen Positive H Urine Methadone Screen Negative Acetaminophen Ur Barbiturates Screen Negative Ur Phencyclidine Scrn Negative Ur Amphetamines Screen Negative U Benzodiazepines Scrn Positive H U Oth Cocaine Metabols Negative U Cannabinoids Screen Negative Alcohol, Quantitative < 10 RPR 09/03/17 09/03/17 09/03/17 07:00 07:00 07:00 WBC RBC Hgb Hct MCV MCH MCHC RDW Plt Count MPV Gran % Lymph % (Auto) [place] % (Auto) Eos % (Auto) Baso % (Auto) Gran # Lymph # [place] # Eos # Baso # Sodium 140 Potassium 3.9 Chloride 103 Carbon Dioxide 26 Anion Gap 15 BUN 17 Creatinine 1.1 Est GFR ( Amer) > 60 Est GFR (Non-Af Amer) > 60 Random Glucose 141 H Calcium 9.5 Total Bilirubin AST ALT Alkaline Phosphatase Total Protein Albumin Globulin Albumin/Globulin Ratio Triglycerides 131 Cholesterol 170 LDL Cholesterol Direct 127 HDL Cholesterol 32 Free T4 1.19 TSH 3rd Generation 1.10 Urine Color Urine Appearance Urine pH Ur Specific [place] Urine Protein Urine Glucose (UA) Urine Ketones Urine Blood Urine Nitrate Urine Bilirubin Urine Urobilinogen Ur Leukocyte Esterase Urine RBC Urine WBC Ur Epithelial Cells Calcium Oxalate Crystal Urine Bacteria Salicylates Urine Opiates Screen Urine Methadone Screen Acetaminophen Ur Barbiturates Screen Ur Phencyclidine Scrn Ur Amphetamines Screen U Benzodiazepines Scrn U Oth Cocaine Metabols U Cannabinoids Screen Alcohol, Quantitative RPR Nonreactive Consultations:: List each consultation separately and include: 1. Reason for request. 2. Findings. 3. Follow-up Consultations: PATIENT SEEN BY DR. HUNTER AND DR. ASTORGA Summary of Hospital Course include:: 1. Description of specific treatment plan utilized for patients during their course of treatmen. 2. Summarize the time- course for resolution of acute symptoms and/or regressed behaviors. 3. Describe issues identified and worked on during hospitalization. 4. Describe medication utilized. 5. Describe medical problems identified and treated. 6. Reassessment of suicide risk Summary of Hospital Course: PER DR. LOPEZ'S PROGRESS NOTE ON 09/05/17 shortly pt is 47yo male with self reported h/o panic attacks, third psychiatric admission, most recent was two years ago, multiple medical comorbidities such as degenerative disease of the spine, arthritis and asthma, was admitted to the psychiatric inpatient unit for evaluation of disorganized thoughts and behavior, pt's mother brought pt to the hospital. pt submitted 48 hr notice screening by [facility], patient was accepted, waiting for bed to be available. his admission patient presented to be completely psychotic, disorganized, attack nurse twice already. Today patient needed to have I am of Geodon 20 mg and Ativan 2 mg at the morning time. Patient gave permission to talk to his mother Estefany phone number is [phone] Estefany reported that patient did not have similar episodes in the past, her impression was that patient was taking more medication than she should, patient was seeing things and hearing things, these episodes were lasting for past week or may be more, she was not sure. Estefany was notified about screening process and at present moment patient is waiting for a [facility] transfer. Estefany was appreciated. pt calmed down, then ate. MSE: Pt deemed to be unreliable historian, restless, psychomotor agitation and irritability is obvious, speech was: disorganized, overproductive, no eye contact, mood described: "I don't feel like kicking balloons around but I don't feel 100%...I'm like 60/40, I know you deleted all pictures from the computers" , pt is delusional, there is no pictures in the computers, affect: constricted, thought process: disorganized, circumstantial and tangential, thought content: pt deneid SI/ HI, pt is hallucinating, paranoid, disorganized, insight/judgment : impaired, impulses are unpredictable. Impression: psychosis NOS as per h/o bipolar II h/o cocaine abuse and dependence, reported sobriety for the past 16 years r/o substance induced psychosis r/o benzos withdrawals Treatment plan: 1:1 initiated [place] [facility] [place] PRIOR TO THIS DOCTOR'S ARRIVAL ON THE UNIT AT 7 AM. THIS PROVIDER WAS UNABLE TO INTERVIEW PATIENT AND COULD NOT COMPLETE MENTAL STATUS EXAM - Final Diagnosis (DSM 5) Condition upon Discharge: GUARDED DSM 5: psychosis NOS as per h/o bipolar II h/o cocaine abuse and dependence, reported sobriety for the past 16 years r/o substance induced psychosis r/o benzos withdrawals Disposition: OTHER INSTITUTION Follow-up Treatment Plan: [place]SFERR[place] [facility] - Smoking Cessation Smoking Cessation Medication prescribed: No - Antipsychotic Medications Pt discharged on 2 or more routine antipsychotic medications: No
== END 2017-09-06 03:43 | DRG 430 ==
LOC: ED 09:49 → ERH 11:00 → PSYC 11:48
PROVIDERS: ADMIT Psychiatry & Neurology Psychiatry; ATTEND Psychiatry & Neurology Psychiatry
PROC: 3E0234Z Introduction of Serum, Toxoid and Vaccine into Muscle, Percutaneous Approach (ICD-10-PCS; principal; 2017-09-06)
DX: F29 Unspecified psychosis not due to a substance or known physiological condition (principal); F11.20 Opioid dependence, uncomplicated; I10 Essential (primary) hypertension; E87.6 Hypokalemia; J44.9 Chronic obstructive pulmonary disease, unspecified; F31.81 Bipolar II disorder; F14.21 Cocaine dependence, in remission; F17.200 Nicotine dependence, unspecified, uncomplicated; F19.959 Other psychoactive substance use, unspecified with psychoactive substance-induced psychotic disorder, unspecified; F41.0 Panic disorder [episodic paroxysmal anxiety]; G47.00 Insomnia, unspecified; M19.90 Unspecified osteoarthritis, unspecified site; Z79.899 Other long term (current) drug therapy; Z91.19 Patient's noncompliance with other medical treatment and regimen; M51.36 Other intervertebral disc degeneration, lumbar region; R40.2412 Glasgow coma scale score 13-15, at arrival to emergency department; Z88.8 Allergy status to other drugs, medicaments and biological substances; M54.9 Dorsalgia, unspecified; G89.29 Other chronic pain; Z23 Encounter for immunization

== ENCOUNTER 2017-09-22 13:03 | Emergency (ER) | payer MEDICAID ==
[2017-09-22 13:03] VITALS: BMI 30.6
--- NOTE | 2017-09-22 13:52 | ED PDOC ---
Arrival/HPI - General Chief Complaint: Psychiatric Evaluation Time Seen by Provider: 09/22/17 13:26 Historian: Patient - History of Present Illness Narrative History of Present Illness (Text): 09/22/17 13:50 47-year-old male presents today with homicidal ideation. Patient states he was in the hospital a few weeks ago and they did not do any medication adjustments. Patient states over the past few days he's been feeling very angry and wants to hurt people. Patient states he gets evita and excitement out of hurting people. He denies chest pain or shortness of breath. Patient states he has a history of COPD and has cough for 2 days. He states the cough is nonproductive. He denies abdominal pain. No fevers or chills. Denies urinary symptoms. Denies drug use. Denies dizziness or weakness. Denies suicidal ideation. No other complaints Past Medical History - Provider Review Nursing Documentation Reviewed: Yes - Travel History Have you recently traveled outside [place] w/in the past 3 mons?: No - Infectious Disease Hx of Infectious Diseases: None - Tetanus Immunization Tetanus Immunization: Unknown - Cardiac Hx Cardiac Disorders: Yes Hx Hypertension: Yes - Pulmonary Hx Asthma: Yes Hx Chronic Obstructive Pulmonary Disease (COPD): Yes Hx Tuberculosis: No - Neurological HX Cerebrovascular Accident: No Hx Seizures: No - HEENT Hx HEENT Disorder: No - Renal Hx Renal Disorder: No - Endocrine/Metabolic Hx Endocrine Disorders: No - Hematological/Oncological Hx Cancer: No - Integumentary Hx Dermatological Disorder: No - Musculoskeletal/Rheumatological Hx Musculoskeletal Disorders: Yes Hx Arthritis: Yes Hx Back Pain: Yes Other/Comment: degenerative disc disease - Gastrointestinal Hx Gastrointestinal Disorders: No - Genitourinary/Gynecological Hx Sexually Transmitted Diseases: No - Psychiatric Hx Anxiety: Yes Hx Depression: Yes Hx Panic Disorder: Yes Hx Substance Use: Yes Other/Comment: SOCIOPATH - Surgical History Hx Musculoskeletal Surgery: Yes (reconstruction of lower spine) Hx Orthopedic Surgery: Yes (right knee, right shoulder) - Anesthesia Hx Anesthesia: Yes Hx Anesthesia Reactions: No Hx Malignant Hyperthermia: No - Suicidal Assessment Feels Threatened In Home Enviroment: No Family/Social History - Physician Review Nursing Documentation Reviewed: Yes Family/Social History: Unknown Family HX Smoking Status: Current Some Days Smoker Hx Alcohol Use: No Hx Substance Use: Yes Substance used: cocaine Allergies/Home Meds Allergies/Adverse Reactions: Allergies varenicline [From Jhonatanx] Allergy (Verified 09/22/17 13:05) VOMITING Home Medications: Home Meds Medication Instructions Recorded Confirmed Losartan [Cozaar] 100 mg PO DAILY 10/14/15 09/22/17 QUEtiapine [SEROquel] 100 mg PO HS 10/14/15 09/22/17 Meloxicam [Mobic] 1 tab PO DAILY 09/02/17 09/22/17 Nortriptyline [Pamelor] 10 mg PO DAILY 09/02/17 09/22/17 Orphenadrine [Norflex] 100 mg PO BID 09/02/17 09/22/17 busPIRone [Buspar] 15 mg PO TID PRN 09/02/17 09/22/17 oxyCODONE [oxyCONTIN Extended 50 mg PO QID 09/02/17 09/22/17 Release Tab] Review of Systems - Review of Systems Constitutional: absent: Fatigue, Fevers Respiratory: Cough. absent: SOB Cardiovascular: absent: Chest Pain, Palpitations Gastrointestinal: absent: Abdominal Pain, Nausea, Vomiting Genitourinary Male: absent: Dysuria, Frequency, Hematuria Musculoskeletal: absent: Arthralgias, Back Pain, Neck Pain Skin: absent: Rash, Pruritis, Other Neurological: absent: Headache, Dizziness Psychiatric: Other (Homicidal ideation). absent: Anxiety, Depression Physical Exam Vital Signs Reviewed: Yes Vital Signs Temp Pulse Resp BP Pulse Ox 09/22/17 21:22 98.9 F 99 H 18 131/91 H 97 09/22/17 19:46 90 18 118/84 97 09/22/17 18:27 94 H 18 107/81 96 09/22/17 15:51 90 18 124/90 96 09/22/17 13:07 98.5 F 124 H 16 105/70 95 Temperature: Afebrile Blood Pressure: Normal Pulse: Tachycardic Respiratory Rate: Normal Appearance: Positive for: Well-Appearing, Non-Toxic, Comfortable Pain Distress: None Mental Status: Positive for: Alert and Oriented X 3 - Systems Exam Head: Present: Atraumatic Neck: Present: Normal Range of Motion Respiratory/Chest: Present: Clear to Auscultation, Good Air Exchange. No: Respiratory Distress, Accessory Muscle Use Cardiovascular: Present: Tachycardic Abdomen: No: Tenderness, Distention, Rebound, Guarding Back: Present: Normal Inspection Upper Extremity: Present: Normal ROM Lower Extremity: Present: Normal ROM. No: Edema Neurological: Present: GCS=15, Speech Normal Skin: Present: Warm, Dry, Normal Color. No: Rashes Psychiatric: Present: Alert, Oriented x 3, Agitated, Homicidal Ideation. No: Suicidal Ideation Medical Decision Making ED Course and Treatment: 09/22/17 13:52 Patient is nontoxic well-appearing in no distress. tachycardic, agitated. CBC Wbc; 12.8 CMP WNL Tylenol WNL Salicylate WNL Alcohol level WNL Urine drug screen: opiates, benzos UA; wnl cxr: no infiltrate ekg : Sinus tachycardia at 107 bpm normal axis normal intervals no ST elevations pt requesting ativan injection; states he feels very anxious. pt is medically cleared for PES evaluation/admission/transfer Patient was seen and evaluated by PES screener: skylar 09/22/17 20:[address] case signed out to dr[address] mchugh; pending accepting physician for PES transfer. - Lab Interpretations Lab Results: 09/22/17 13:47 09/22/17 13:47 Lab Results 09/22/17 14:09: Urine Opiates Screen Positive H, Urine Methadone Screen Negative , Ur Barbiturates Screen Negative, Ur Phencyclidine Scrn Negative, Ur Amphetamines Screen Negative, U Benzodiazepines Scrn Positive H, U Oth Cocaine Metabols Negative, U Cannabinoids Screen Negative 09/22/17 14:09: Urine Color Yellow, Urine Appearance Clear, Urine pH 6.0, Ur Specific [place] >= 1.030, Urine Protein 30 H, Urine Glucose (UA) Negative, Urine Ketones Trace H, Urine Blood Negative, Urine Nitrate Negative, Urine Bilirubin Small H, Urine Urobilinogen 0.2, Ur Leukocyte Esterase Negative, Urine RBC Negative, Urine WBC 1 - 3, Ur Epithelial Cells 0 - 2, Urine Bacteria Few, Urine Other Mucus 09/22/17 13:47: Alcohol, Quantitative < 10 09/22/17 13:47: Salicylates < 1 L, Acetaminophen < 10.0 L 09/22/17 13:47: Sodium 140, Potassium 3.6, Chloride 100, Carbon Dioxide 26, Anion Gap 18, BUN 17, Creatinine 1.5, Est GFR ( Amer) > 60, Est GFR (Non- Af Amer) 50, Random Glucose 175 H, Calcium 10.1, Total Bilirubin 1.0, AST 20, ALT 27, Alkaline Phosphatase 103, Total Protein 8.1, Albumin 4.5, Globulin 3.6, Albumin/Globulin Ratio 1.3 09/22/17 13:47: WBC 12.8 H D, RBC 5.44, Hgb 17.5, Hct 49.4, MCV 90.8, MCH 32.2, MCHC 35.4, RDW 12.2, Plt Count 196, MPV 9.9, Gran % 81.6 H, Lymph % (Auto) 14.0 L, [place] % (Auto) 3.7, Eos % (Auto) 0.5 L, Baso % (Auto) 0.2, Gran # 10.43 H, Lymph # 1.8, [place] # 0.5, Eos # 0.1, Baso # 0.02 - RAD Interpretation Radiology Orders: 09/22/17 13:29 CHEST PORTABLE [RAD] Stat - Medication Orders Current Medication Orders: Discontinued Medications Albuterol/Ipratropium (Duoneb 3 Mg/0.5 Mg (3 Ml) Ud) 3 ml IH STAT STA Stop: 09/22/17 19:53 Last Admin: 09/22/17 19:58 Dose: 3 ml Lorazepam (Ativan) 1 mg IM ONCE ONE PRN Reason: Protocol Stop: 09/22/17 14:29 Last Admin: 09/22/17 14:59 Dose: 1 mg IM Administration Charges Document 09/22/17 14:59 IT (Rec: 09/22/17 14:59 IT [id number]) Injection Site MAR Injection Site Left Deltoid Charges for Administration # of IM Administrations 1 Lorazepam (Ativan) 1 mg IM ONCE ONE PRN Reason: Protocol Stop: 09/22/17 16:23 Last Admin: 09/22/17 16:35 Dose: 1 mg IM Administration Charges Document 09/22/17 16:35 IT (Rec: 09/22/17 16:35 IT [id number]) Injection Site MAR Injection Site Right Deltoid Charges for Administration # of IM Administrations 1 Lorazepam (Ativan) 1 mg IM ONCE ONE PRN Reason: Protocol Stop: 09/22/17 20:21 Last Admin: 09/22/17 20:47 Dose: 1 mg IM Administration Charges Document 09/22/17 20:47 RD (Rec: 09/22/17 20:47 RD [id number]) Injection Site MAR Injection Site Left Deltoid Charges for Administration # of IM Administrations 1 Disposition/Present on Arrival - Present on Arrival Any Indicators Present on Arrival: No History of DVT/PE: No History of Uncontrolled Diabetes: No Urinary Catheter: No History of Decub. Ulcer: No History Surgical Site Infection Following: None - Disposition Have Diagnosis and Disposition been Completed?: Yes Diagnosis: Homicidal ideation Disposition: Transfer [facility] ([facility]) Disposition Time: 21:30 Patient Plan: Transfer To ([facility]; dr. new) Condition: FAIR Referrals: Patsy Campbell MD [Primary Care Provider] - Follow up with primary Forms: [employer] (Luxembourgish)
[2017-09-22 13:59] LABS: BASO # 0.02 K/mm3 (0.0-2.0); BASO % 0.2 % (0.0-3.0); EOS # 0.1 (0.0-0.7); EOS % 0.5 % (1.5-5.0); GRAN # 10.43 (1.4-6.5); GRAN % 81.6 % (50.0-68.0); HEMATOCRIT 49.4 % (42.0-52.0); LYMPH # 1.8 (1.2-3.4); MEAN CELL VOLUME 90.8 fl (80.0-105.0); MEAN CORPUSCULAR HEMOGLOBIN 32.2 pg (25.0-35.0); MEAN CORPUSCULAR HGB CONC 35.4 g/dl (31.0-37.0); MEAN PLATELET VOLUME 9.9 fl (7.0-11.0); MONO # 0.5 (0.1-0.6); MONO % 3.7 % (1.0-6.0); RED CELL DISTRIBUTION WIDTH 12.2 % (11.5-14.5); WHITE BLOOD COUNT 12.8 10^3/ul (4.5-11.0)
[2017-09-22 14:08] LABS: ALB/GLOB RATIO 1.3 (1.1-1.8); ALKALINE PHOSPHATASE 103 U/L (38-126); ALT/SGPT 27 U/L (7-56); AST/SGOT 20 U/L (17-59); BLOOD UREA NITROGEN 17 mg/dL (7-21); CALCIUM 10.1 mg/dL (8.4-10.5); CARBON DIOXIDE 26 mmol/L (21-33); CHLORIDE 100 mmol/L (98-107); GFR AFRICAN-AMERICAN > 60; GLUCOSE,RANDOM 175 mg/dL (70-110); POTASSIUM 3.6 mmol/L (3.6-5.0); SODIUM 140 mmol/L (132-148); TOTAL PROTEIN 8.1 g/dL (5.8-8.3)
[2017-09-22 14:16] LABS: URINE BILIRUBIN SMALL (NEGATIVE); URINE BLOOD NEGATIVE (NEGATIVE); URINE GLUCOSE (UA) NEGATIVE (NEGATIVE); URINE KETONE TRACE mg/dL (NEGATIVE); URINE LEUKOCYTE ESTERASE NEGATIVE Leu/uL (NEGATIVE); URINE PROTEIN 30 mg/dL (<30 mg/dL); URINE UROBILINOGEN 0.2 E.U./dL (<1 E.U./dL)
[2017-09-22 14:26] LABS: URINE APPEARANCE CLEAR (CLEAR); URINE COLOR YELLOW (YELLOW)
[2017-09-22 14:27] LABS: URINE BACTERIA FEW (NEG); URINE EPITHELIAL CELLS 0 - 2 /hpf (0-5); URINE RBC NEGATIVE /hpf (0-2)
--- NOTE | 2017-09-22 15:04 | RAD ---
HISTORY: pes eval COMPARISON: No prior. FINDINGS: LUNGS: The lungs are well inflated and clear. There are fibrotic changes in the right mid lung and left upper lobe. No focal consolidation. PLEURA: No significant pleural effusion identified, no pneumothorax apparent. CARDIOVASCULAR: Normal. OSSEOUS STRUCTURES: No significant abnormalities. VISUALIZED UPPER ABDOMEN: Normal. OTHER FINDINGS: None. IMPRESSION: No active pulmonary disease.
[2017-09-22 19:47] VITALS: O2SAT 97
[2017-09-22] MEDS ORDERED: Albuterol-Ipratrop 3 mg / 0.5 (3 ml) UD IH STA (19:52)
[2017-09-22 21:22] VITALS: PULSE 99
[2017-09-22 21:23] VITALS: BP 131/91; RESP 18
[2017-09-22 21:25] VITALS: TEMP 98.9
--- NOTE | 2017-09-22 23:11 | CARD ---
APPROVED REPORT EKG Measurement Heart [id number] <Conclusion> Sinus tachycardia Otherwise normal ECG
== END 2017-09-22 21:30 | disposition short-term general hospital (02) ==
LOC: ED 13:03
DX: R45.850 Homicidal ideations (principal); F17.200 Nicotine dependence, unspecified, uncomplicated; I10 Essential (primary) hypertension; J44.9 Chronic obstructive pulmonary disease, unspecified
CPT/HCPCS: 71010; 80053; 80320; 80324; 80329; 80345; 80346; 80349; 80353; 80358; 80361; 81001; 83992; 85025; 90791; 93005; 96372; 99285; J2060

== ENCOUNTER 2017-10-02 21:25 | Observation (INO) | payer MEDICAID ==
[2017-10-02 21:32] VITALS: BMI 30.1
--- NOTE | 2017-10-02 21:48 | ED PDOC ---
Arrival/HPI - General Chief Complaint: Syncope Time Seen by Provider: 10/02/17 21:31 Historian: Patient - History of Present Illness Narrative History of Present Illness (Text): 10/02/17 21:48 47 year old male, whose past medical history includes, Bipolar II disorder, depression, anxiety, TIA, HTN, and COPD, presents to the emergency department complaining of possible seizure today and twitching episodes for the past 2 days. Patient reports he was at the refrigerator when he began to feel dizzy and and fell. He describes the dizziness as a "spinning" sensation but about to pass out. Patient has difficulty describing the episode. He reports he hit his right cheek and right wrist when he fell. Patient reports change in medication after switching PMD and began having twitching episodes in bed witnessed by his mother for the past 2 days. She says that he has been having episodes where he tightens up all his extremities. Patient reports nausea, but denies smoking ( quit for 2 weeks), substance abuse, any fever, loss of consciousness, vision change, chills, chest pain, shortness of breath, vomiting, diarrhea, urinary symptoms, back pain, neck pain, weakness headache, suicidal ideation, homicidal ideation, or any other complaints. PMD: Dr. Patsy Campbell Symptom Onset: Sudden Quality: Unable to Describe Activities at Onset: Light Context: Home Past Medical History - Provider Review Nursing Documentation Reviewed: Yes - Infectious Disease Hx of Infectious Diseases: None - Tetanus Immunization Tetanus Immunization: Unknown - Cardiac Hx Hypertension: Yes - Pulmonary Hx Asthma: Yes Hx Chronic Obstructive Pulmonary Disease (COPD): Yes - Neurological HX Cerebrovascular Accident: No Hx Seizures: No - HEENT Hx HEENT Disorder: No - Renal Hx Renal Disorder: No - Endocrine/Metabolic Hx Endocrine Disorders: No - Hematological/Oncological Hx Anemia: Yes - Integumentary Hx Dermatological Disorder: No - Musculoskeletal/Rheumatological Hx Arthritis: Yes - Gastrointestinal Hx Gastrointestinal Disorders: No - Genitourinary/Gynecological Hx Sexually Transmitted Diseases: No - Psychiatric Hx Anxiety: Yes Hx Depression: Yes Hx Substance Use: No - Surgical History Hx Musculoskeletal Surgery: Yes (reconstruction of lower spine) Hx Orthopedic Surgery: Yes (right knee, right shoulder) - Anesthesia Hx Anesthesia: Yes Hx Anesthesia Reactions: No Hx Malignant Hyperthermia: No - Suicidal Assessment Feels Threatened In Home Enviroment: No Family/Social History - Physician Review Nursing Documentation Reviewed: Yes Family/Social History: Diabetes Smoking Status: Current Some Days Smoker Hx Alcohol Use: Yes Hx Substance Use: No Substance used: cocaine formerly Allergies/Home Meds Allergies/Adverse Reactions: Allergies varenicline [From Chantix] Allergy (Verified 09/22/17 13:05) VOMITING Home Medications: Home Meds Medication Instructions Recorded Confirmed Losartan [Cozaar] 100 mg PO DAILY 10/14/15 10/02/17 Meloxicam [Mobic] 1 tab PO DAILY 09/02/17 10/02/17 Nortriptyline [Pamelor] 10 mg PO DAILY 09/02/17 10/02/17 Orphenadrine [Norflex] 100 mg PO BID 09/02/17 10/02/17 busPIRone [Buspar] 15 mg PO TID PRN 09/02/17 10/02/17 oxyCODONE [oxyCONTIN Extended 50 mg PO QID 09/02/17 10/02/17 Release Tab] Review of Systems - Physician Review All systems were reviewed & negative as marked: Yes - Review of Systems Constitutional: absent: Fevers, Other (Chills) Eyes: absent: Vision Changes Respiratory: absent: SOB Cardiovascular: Other (near syncope). absent: Chest Pain Gastrointestinal: Nausea. absent: Diarrhea, Vomiting Genitourinary Male: absent: Dysuria, Frequency, Hematuria Musculoskeletal: absent: Back Pain, Neck Pain Neurological: Dizziness. absent: Headache, Other (Weakness) Psychiatric: absent: Suicidal Ideation (/homicidal ideation) Physical Exam Vital Signs Reviewed: Yes Vital Signs Temp Pulse Resp BP Pulse Ox 10/02/17 22:08 109 H 18 127/94 H 95 10/02/17 21:32 98.1 F 114 H 18 102/60 95 Temperature: Afebrile Blood Pressure: Normal Pulse: Tachycardic Respiratory Rate: Normal Appearance: Positive for: Well-Appearing, Non-Toxic, Comfortable Pain Distress: None Mental Status: Positive for: Alert and Oriented X 3 - Systems Exam Head: Present: Normocephalic, Abrasion (Small abrasion to the right maxilla and right cheek. ) Pupils: Present: PERRL Extroacular Muscles: Present: EOMI Conjunctiva: Present: Normal Mouth: Present: Moist Mucous Membranes Pharnyx: Present: Normal. No: ERYTHEMA, EXUDATE Neck: Present: Normal Range of Motion Respiratory/Chest: Present: Clear to Auscultation, Good Air Exchange. No: Respiratory Distress, Accessory Muscle Use Cardiovascular: Present: Regular Rate and Rhythm, Normal S1, S2. No: Murmurs Abdomen: Present: Normal Bowel Sounds. No: Tenderness, Distention, Peritoneal Signs Back: Present: Normal Inspection Upper Extremity: Present: Normal Inspection. No: Cyanosis, Edema Lower Extremity: Present: Normal Inspection. No: Edema Neurological: Present: GCS=15, CN II-XII Intact, Speech Normal, Motor Func Grossly Intact, Normal Sensory Function, Normal Cerebellar Funct, Norm Deep Tendon Reflexes, Gait Normal, Memory Normal Skin: Present: Warm, Dry, Normal Color. No: Rashes Psychiatric: Present: Alert, Oriented x 3, Normal Insight, Normal Concentration Medical Decision Making ED Course and Treatment: 10/02/17 21:48 Impression: 47 year old male presents to the emergency department s/p possible reported seizure associated with twitching episodes for the past 2 days. Patient reports change of medication. Differential Diagnosis included but are not limited to: Seizure VS Vertigo VS near-syncopal cardiac etiology Plan: -- CT Head W/O Contrast -- EKG -- Labs -- Antivert -- IV Fluids -- Zofran Inj -- Urinalysis -- Reassess and disposition Prior Visits: Notes and results from previous visits were reviewed. Patient was last seen in the emergency department on 09/22/17 presents complaining of homicidal ideation. Patient was transferred to [facility]. Progress Notes: EKG shows Sinus Tachycardic at 107 BPM with QRS 102. Other intervals normal. Normal axis and no ST/T changes. Interpreted by me. EXAM: CT Head Without Intravenous Contrast Dictated and Authenticated by: Jorge Diamond MD 10/02/2017 10:34 PM IMPRESSION: 1. No acute intracranial abnormality. 2. Incidental/non-acute findings are described above. 10/02/17 23:25 Patient with noted history of near syncope; possible vertigo; given meclizine without any improvement. CT brain negative and normal neuro exam. Labs and ekg are nondiagnostic. Patient with PMHx including HTN and TIA - will observe further on tele for neuro and cardiology assessment, given symptoms. Case discussed with Dr. Denton who is aware and agrees with the plan. Patient will be placed on Telemetry observation for near-syncope episodes. - Lab Interpretations Lab Results: 10/02/17 22:15 10/02/17 22:15 Lab Results 10/02/17 22:52: Urine Opiates Screen Pending, Urine Methadone Screen Negative, Ur Barbiturates Screen Negative, Ur Phencyclidine Scrn Negative, Ur Amphetamines Screen Negative, U Benzodiazepines Scrn Negative, U Oth Cocaine Metabols Negative, U Cannabinoids Screen Negative 10/02/17 22:52: Urine Color Yellow, Urine Appearance Clear, Urine pH 6.5, Ur Specific [place] 1.025, Urine Protein 30 H, Urine Glucose (UA) Negative, Urine Ketones Trace H, Urine Blood Negative, Urine Nitrate Negative, Urine Bilirubin Negative, Urine Urobilinogen 0.2, Ur Leukocyte Esterase Negative, Urine RBC Pending, Urine WBC Pending 10/02/17 22:15: Sodium 140, Potassium 3.8, Chloride 102, Carbon Dioxide 28, Anion Gap 15, BUN 16, Creatinine 1.1, Est GFR ( Amer) > 60, Est GFR (Non- Af Amer) > 60, Random Glucose 114 H, Calcium 10.0, Magnesium 1.9, Total Bilirubin 0.7, AST 27, ALT 35, Alkaline Phosphatase 96, Lactate Dehydrogenase 377, Total Creatine Kinase 53, Troponin I < 0.01, Total Protein 7.5, Albumin 4.2 , Globulin 3.3, Albumin/Globulin Ratio 1.3, Lipase 49 10/02/17 22:15: Alcohol, Quantitative < 10 10/02/17 22:15: WBC 7.8 D, RBC 5.15, Hgb 16.8, Hct 46.3, MCV 89.9, MCH 32.6, MCHC 36.3, RDW 11.9, Plt Count 229, MPV 10.6, Gran % 62.5, Lymph % (Auto) 30.1, [place] % (Auto) 5.9, Eos % (Auto) 1.2 L, Baso % (Auto) 0.3, Gran # 4.89, Lymph # 2.4, [place] # 0.5, Eos # 0.1, Baso # 0.02 I have reviewed the lab results: Yes - RAD Interpretation Radiology Orders: 10/02/17 21:50 HEAD W/O CONTRAST [CT] Stat - EKG Interpretation Interpreted by ED Physician: Yes Type: 12 lead EKG - Medication Orders Current Medication Orders: Discontinued Medications Sodium Chloride (Sodium Chloride 0.9%) 1,000 mls @ 999 mls/hr IV .Q1H1M STA Stop: 10/02/17 22:51 Last Admin: 10/02/17 22:06 Dose: 999 mls/hr eMAR Start Stop Document 10/02/17 22:06 GMD (Rec: 10/02/17 22:06 GMD [id number]) Intravenous Solution Start Date 10/02/17 Start Time 22:06 End Date 10/02/17 End time 23:07 Total Infusion Time 61 Meclizine HCl (Antivert) 25 mg PO STAT STA Stop: 10/02/17 21:52 Last Admin: 10/02/17 22:25 Dose: 25 mg Ondansetron HCl (Zofran Inj) 4 mg IVP STAT STA Stop: 10/02/17 21:52 Last Admin: 10/02/17 22:25 Dose: 4 mg IVP Administration Document 10/02/17 22:25 RD (Rec: 10/02/17 22:25 RD [id number]) Charges for Administration # of IVP Administrations 1 - Scribe Statement The provider has reviewed the documentation as recorded by the Kitty Ignacio Provider Scribe Attestation: All medical record entries made by the Manjeetibsyed were at my direction and personally dictated by me. I have reviewed the chart and agree that the record accurately reflects my personal performance of the history, physical exam, medical decision making, and the department course for this patient. I have also personally directed, reviewed, and agree with the discharge instructions and disposition. Disposition/Present on Arrival - Present on Arrival Any Indicators Present on Arrival: No History of DVT/PE: No History of Uncontrolled Diabetes: No Urinary Catheter: No History of Decub. Ulcer: No History Surgical Site Infection Following: None - Disposition Have Diagnosis and Disposition been Completed?: Yes Diagnosis: Near syncope Disposition: HOSPITALIZED Disposition Time: 23:20 Patient Plan: Observation, Telemetry Patient Problems: Current Active Problems Problem Status Onset Near syncope Acute Condition: FAIR Referrals: Patsy Campbell MD [Primary Care Provider] - Follow up with primary Forms: [id number] (Thai)
[2017-10-02] MEDS ORDERED: Sodium Chloride 0.9% 1,000 ML IV STA (21:51)
[2017-10-02 22:31] LABS: BASO # 0.02 K/mm3 (0.0-2.0); BASO % 0.3 % (0.0-3.0); EOS # 0.1 (0.0-0.7); EOS % 1.2 % (1.5-5.0); GRAN # 4.89 (1.4-6.5); GRAN % 62.5 % (50.0-68.0); HEMATOCRIT 46.3 % (42.0-52.0); LYMPH # 2.4 (1.2-3.4); LYMPH % 30.1 % (22.0-35.0); MEAN CELL VOLUME 89.9 fl (80.0-105.0); MEAN CORPUSCULAR HEMOGLOBIN 32.6 pg (25.0-35.0); MEAN CORPUSCULAR HGB CONC 36.3 g/dl (31.0-37.0); MEAN PLATELET VOLUME 10.6 fl (7.0-11.0); MONO # 0.5 (0.1-0.6); MONO % 5.9 % (1.0-6.0); RED CELL DISTRIBUTION WIDTH 11.9 % (11.5-14.5); WHITE BLOOD COUNT 7.8 10^3/ul (4.5-11.0)
--- NOTE | 2017-10-02 22:34 | CT ---
EXAM: CT Head Without Intravenous Contrast CLINICAL HISTORY: 47 years old, male; Signs and symptoms; Dizziness and other: Siezure; Additional info: Dizziness and seizure TECHNIQUE: Axial computed tomography images of the head/brain without intravenous contrast. All CT scans at this facility use one or more dose reduction techniques, viz.: automated exposure control; ma/kV adjustment per patient size (including targeted exams where dose is matched to indication; i.e. head); or iterative reconstruction technique. COMPARISON: No relevant prior studies available. FINDINGS: Brain: Mild atrophy. No intracranial hemorrhage. No mass. No definite edema. Ventricles: No hydrocephalus. Bones/joints: No acute fracture. Chronic deformity floor of LEFT orbit. Soft tissues: Unremarkable. Sinuses: Scattered minimal mucosal thickening. Mastoid air cells: No mastoid effusion. Orbits: Unremarkable as visualized. IMPRESSION: 1. No acute intracranial abnormality. 2. Incidental/non-acute findings are described above.
[2017-10-02 22:53] LABS: ALB/GLOB RATIO 1.3 (1.1-1.8); ALKALINE PHOSPHATASE 96 U/L (38-126); ALT/SGPT 35 U/L (7-56); AST/SGOT 27 U/L (17-59); BILIRUBIN,TOTAL 0.7 mg/dL (0.2-1.3); BLOOD UREA NITROGEN 16 mg/dL (7-21); CARBON DIOXIDE 28 mmol/L (21-33); CHLORIDE 102 mmol/L (98-107); GFR AFRICAN-AMERICAN > 60; GLUCOSE,RANDOM 114 mg/dL (70-110); LIPASE 49 U/L (23-300); MAGNESIUM 1.9 mg/dL (1.7-2.2); POTASSIUM 3.8 mmol/L (3.6-5.0); SODIUM 140 mmol/L (132-148); TOTAL PROTEIN 7.5 g/dL (5.8-8.3)
[2017-10-02 23:04] LABS: TROPONIN I < 0.01 ng/mL
[2017-10-02 23:13] LABS: PH,URINE 6.5 (4.7-8.0); URINE BILIRUBIN NEGATIVE (NEGATIVE); URINE BLOOD NEGATIVE (NEGATIVE); URINE GLUCOSE (UA) NEGATIVE (NEGATIVE); URINE KETONE TRACE mg/dL (NEGATIVE); URINE LEUKOCYTE ESTERASE NEGATIVE Leu/uL (NEGATIVE); URINE PROTEIN 30 mg/dL (<30 mg/dL); URINE UROBILINOGEN 0.2 E.U./dL (<1 E.U./dL)
[2017-10-02 23:18] LABS: URINE APPEARANCE CLEAR (CLEAR); URINE COLOR YELLOW (YELLOW)
[2017-10-02 23:37] LABS: URINE RBC 0 - 2 /hpf (0-2)
[2017-10-02 23:38] LABS: URINE WBC 0 - 2 /hpf (0-6)
[2017-10-02 23:41] LABS: URINE BACTERIA FEW (NEG)
[2017-10-03] MEDS ORDERED: Albuterol-Ipratrop 3 mg / 0.5 (3 ml) UD IH PRN (00:42)
[2017-10-03] MEDS ORDERED: ORPHENADRINE 100 MG PO SCH (00:45)
--- NOTE | 2017-10-03 00:47 | CP.PCM.HP ---
<Chong Garcia - Last Filed: 10/03/17 01:35> History of Present Illness - History of Present Illness History of Present Illness: Mr. Marcelo is a 47yo M with PMH bipolar disorder, anxiety, psychosis, TIA, HTN, COPD, asthma, arthritis and DJD for which he is on chronic opiates who presents to ED for symptoms of shakiness that wakes him from his sleep, feeling like he is "being folded up", feeling like his "breath is sucked out of him" x2 days and dizziness and a fall that occurred today. pt states that he has recently seen in the psych unit at [facility] and his medications were adjusted. Pt also states that he sees a psych PA who took him off his buspirone, orphenadrine , nortriptyline and only kept him on Paroxetine and Seroquel because he was taking too many medications. The patient states that the PA did not ask him how he felt about this adjustment in medication and he is not pleased with the change. The pt also states that his PMD Bijan Campbell won't write any prescriptions for him; when asked why, he states he doesn't know. Patient also has a pain MD Dr. Mac in [place]. pt denies any loss of urine/bowel control , tongue biting, foaming at the mouth, LOC or head trauma. pt denies cp, sob ( except for when he experiences those episodes), fevers/chills, abdominal pain or focal weakness/deficits. 12-pt ROS was reviewed and is otherwise unremarkable. In ED, pt was given Zofran and Meclizine. 1 L NS bolus was also given. PMD: Dr. Patsy Campbell PMH as above PSH: 12 screws in his spine, Right knee surgery Meds: Seroquel, Paxil, Oxycodone IR 15mg PO QID and Losartan SHx: current smoker, denies ETOH, former cocaine but denies ever using heroin Present on Admission - Present on Admission Any Indicators Present on Admission: No History of DVT/PE: No History of Uncontrolled Diabetes: No Urinary Catheter: No Decubitus Ulcer Present: No Review of Systems - Review of Systems All systems: reviewed and no additional remarkable complaints except (as per HPI ) Past Patient History - Infectious Disease Hx of Infectious Diseases: None - Tetanus Immunizations Tetanus Immunization: Unknown - Past Social History Smoking Status: Current Some Days Smoker Alcohol: None Drugs: Denies Home Situation {Lives}: With Family - CARDIAC Hx Hypertension: Yes - PULMONARY Hx Asthma: Yes Hx Chronic Obstructive Pulmonary Disease (COPD): Yes - NEUROLOGICAL HX Cerebrovascular Accident: No Hx Seizures: No Hx Transient Ischemic Attacks (TIA): Yes - HEENT Hx HEENT Problems: No - RENAL Hx Chronic Kidney Disease: No - ENDOCRINE/METABOLIC Hx Endocrine Disorders: No - INTEGUMENTARY Hx Dermatological Problems: No - MUSCULOSKELETAL/RHEUMATOLOGICAL Hx Arthritis: Yes Hx Back Pain: Yes Hx Degenerative Joint Disease: Yes - GASTROINTESTINAL Hx Gastrointestinal Disorders: No - GENITOURINARY/GYNECOLOGICAL Hx Genitourinary Disorders: No - PSYCHIATRIC Hx Anxiety: Yes Hx Bipolar Disorder: Yes Hx Substance Use: No - SURGICAL HISTORY Hx Surgeries: Yes Hx Musculoskeletal Surgery: Yes (reconstruction of lower spine) Hx Orthopedic Surgery: Yes (right knee, right shoulder) - ANESTHESIA Hx Anesthesia: Yes Hx Anesthesia Reactions: No Hx Malignant Hyperthermia: No Meds Allergies/Adverse Reactions: Allergies Allergy/AdvReac Type Severity Reaction Status Date / Time varenicline [From Chantix] Allergy VOMITING Verified 09/22/17 13:05 Physical Exam - Constitutional Appears: Well, Non-toxic, No Acute Distress - Head Exam Head Exam: ATRAUMATIC, NORMAL INSPECTION, NORMOCEPHALIC - Eye Exam Eye Exam: EOMI, Normal appearance, PERRL Pupil Exam: NORMAL ACCOMODATION - ENT Exam ENT Exam: Mucous Membranes Moist, Normal Exam - Neck Exam Neck exam: Positive for: Normal Inspection - Respiratory Exam Respiratory Exam: Clear to Auscultation Bilateral, NORMAL BREATHING PATTERN. absent: Rales, Rhonchi, Wheezes - Cardiovascular Exam Cardiovascular Exam: Tachycardia, REGULAR RHYTHM, +S1, +S2 - GI/Abdominal Exam GI & Abdominal Exam: Normal Bowel Sounds, Soft. absent: Distended, Tenderness - Extremities Exam Extremities exam: Positive for: normal inspection. Negative for: pedal edema - Back Exam Back exam: NORMAL INSPECTION - Neurological Exam Neurological exam: Alert, Oriented x3 - Psychiatric Exam Psychiatric exam: Normal Affect, Normal Mood - Skin Skin Exam: Normal Color, Warm Results - Vital Signs Recent Vital Signs: Last Vital Signs Temp 98.1 F 10/02/17 21:32 Pulse 94 H 10/03/17 00:16 Resp 16 10/03/17 00:16 BP 134/75 10/03/17 00:16 Pulse Ox 95 10/03/17 00:16 - Labs Result Diagrams: 10/02/17 22:15 10/02/17 22:15 Assessment & Plan - Assessment and Plan (Free Text) Assessment: 47yo M with PMH bipolar disorder with recent psych med adjustment, anxiety, psychosis, TIA, HTN, COPD, asthma, arthritis and DJD for which he is on chronic opiates who presents to the ED due to dizziness and periodic limb movements. CT Head was negative for intracranial abnormalities. History provided does not support seizures. Labs ordered to rule out metabolite or infectious abnormalities. Sleep disturbance, irritability and anxiety likely due to polypharmacy and medication adjustment, likely benzo withdrawal (since xanax was recently removed). Plan: 1. Sleep disturbance, periodic limb movements and irritability - likely 2/2 benzo withdrawals due to abrupt cessation - psych consulted for medication adjustment, recs appreciated - ativan prn - seizure precautions - neuro checks q4 - thiamine, RF, DUARTE and iron deficiency work up ordered as electrolyte abnormalities could cause similar symptoms - Magnesium was wnl - pt admitted to telemetry for monitoring - CT Head showed no intracranial abnormalities - EKG showed sinus tachycardia - UA unremarkable - UDS positive only for opiates - Thyroid panel from 09/22/17 showed normal TSH 1.1 and free T4 1.19 - will not consulted neurology or cardiology at this time, as symptoms seem medication-induced - PT eval 2. Hx chronic back pain on opiates - continue oxycodone IR 15mg QID (Verified on last visit) - Motrin PRN 3. Hx HTN - continue Losartan 100mg PO daily - monitor VS - low salt heart healthy diet 4. COPD/Asthma - not currently wheezing and O2sat is good on RA - Duoneb PRN 5. Bipolar/Anxiety disorder - cont Paxil 40mg daily - cont Seroquel 200mg HS - psych is consulted PTX/SCDs HHD Patient was seen, examined and discussed with attending, Dr. Jesse Garcia PGY1 <Moiz Denton - Last Filed: 10/05/17 00:26> Results - Vital Signs Recent Vital Signs: Last Vital Signs Temp 99.2 F 10/04/17 06:00 Pulse 109 H 10/04/17 10:00 Resp 20 10/04/17 06:00 BP 135/87 10/04/17 06:00 Pulse Ox 95 10/04/17 06:00 - Labs Result Diagrams: 10/04/17 05:45 10/04/17 05:45 Labs: Laboratory Results - last 24 hr 10/03/17 10/04/17 10/04/17 05:30 05:45 05:45 WBC 8.8 D RBC 5.14 Hgb 16.6 Hct 45.6 MCV 88.7 MCH 32.3 MCHC 36.4 RDW 11.9 Plt Count 208 MPV 10.6 Sodium 139 Potassium 3.5 L Chloride 102 Carbon Dioxide 26 Anion Gap 15 BUN 12 Creatinine 1.0 Est GFR ( Amer) > 60 Est GFR (Non-Af Amer) > 60 Random Glucose 120 H Calcium 9.8 Total Bilirubin 1.0 AST 19 ALT 32 Alkaline Phosphatase 83 Total Protein 7.2 Albumin 4.0 Globulin 3.2 Albumin/Globulin Ratio 1.3 Rheumatoid Factor <14
[2017-10-03] MEDS: Pantoprazole 40 mg EC Tab PO SCH (05:39)
[2017-10-03] MEDS: oxyCODONE 15 mg Immediate Release Tab PO PRN ×3 (05:39→20:47)
[2017-10-03 05:56] LABS: HEMATOCRIT 43.4 % (42.0-52.0); MEAN CELL VOLUME 90.8 fl (80.0-105.0); MEAN CORPUSCULAR HGB CONC 35.3 g/dl (31.0-37.0); MEAN PLATELET VOLUME 10.3 fl (7.0-11.0); WHITE BLOOD COUNT 6.7 10^3/ul (4.5-11.0)
[2017-10-03 06:53] LABS: ALB/GLOB RATIO 1.2 (1.1-1.8); ALKALINE PHOSPHATASE 86 U/L (38-126); ALT/SGPT 40 U/L (7-56); AST/SGOT 21 U/L (17-59); BILIRUBIN,TOTAL 0.6 mg/dL (0.2-1.3); BLOOD UREA NITROGEN 16 mg/dL (7-21); CALCIUM 9.3 mg/dL (8.4-10.5); CARBON DIOXIDE 28 mmol/L (21-33); CHLORIDE 105 mmol/L (98-107); GFR AFRICAN-AMERICAN > 60; GLUCOSE,RANDOM 120 mg/dL (70-110); POTASSIUM 3.7 mmol/L (3.6-5.0); SODIUM 141 mmol/L (132-148); TOTAL PROTEIN 6.7 g/dL (5.8-8.3)
[2017-10-03] MEDS ORDERED: Meloxicam 7.5 MG TAB PO SCH (10:00)
--- NOTE | 2017-10-03 11:28 | CP.PCM.PN ---
Subjective - Date & Time of Evaluation Date of Evaluation: 10/03/17 Time of Evaluation: 11:23 - Subjective Subjective: Patient A1C is 6.8. Will need o/p follow up for diabetes. Current glucose is 120. Objective - Vital Signs/Intake and Output Vital Signs (last 24 hours): Temp Pulse Resp BP Pulse Ox 98.2 F 104 H 20 126/89 94 L 10/03/17 06:00 10/03/17 10:00 10/03/17 06:00 10/03/17 06:00 10/03/17 06:00 Intake and Output: 10/03/17 10/03/17 06:59 18:59 Intake Total 240 Balance 240 - Medications Medications: Current Medications Albuterol/Ipratropium (Duoneb 3 Mg/0.5 Mg (3 Ml) Ud) 3 ml IH [id number] PRN PRN Reason: Shortness of Breath Ibuprofen (Motrin Tab) 400 mg PO Q6H PRN PRN Reason: Pain, Mild (1-3) Lorazepam (Ativan) 2 mg IVP Q4H PRN; Protocol PRN Reason: Anxiety Last Admin: 10/03/17 05:40 Dose: 2 mg Losartan Potassium (Cozaar) 100 mg PO DAILY [facility] Last Admin: 10/03/17 09:10 Dose: 100 mg Oxycodone HCl (Oxycodone Immediate Release Tab) 15 mg PO Q6H PRN PRN Reason: Pain, severe (8-10) Last Admin: 10/03/17 05:39 Dose: 15 mg Pantoprazole Sodium (Protonix Ec Tab) 40 mg PO 0600 [facility] Last Admin: 10/03/17 05:39 Dose: 40 mg Paroxetine HCl (Paxil) 40 mg PO DAILY [facility] Last Admin: 10/03/17 09:10 Dose: 40 mg Quetiapine Fumarate (Seroquel Xr) 200 mg PO HS [facility] PRN Reason: Protocol - Labs Labs: 10/03/17 05:30 10/03/17 05:30
[2017-10-03 11:42] LABS: FOLATE > 20.0 ng/mL
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
[2017-10-03 21:30] LABS: URINE BILIRUBIN NEGATIVE (NEGATIVE); URINE BLOOD NEGATIVE (NEGATIVE); URINE GLUCOSE (UA) NEGATIVE (NEGATIVE); URINE KETONE NEGATIVE (NEGATIVE); URINE LEUKOCYTE ESTERASE NEGATIVE Leu/uL (NEGATIVE); URINE PROTEIN NEGATIVE mg/dL (<30 mg/dL); URINE UROBILINOGEN 0.2 E.U./dL (<1 E.U./dL)
[2017-10-03 21:36] LABS: URINE APPEARANCE CLEAR (CLEAR); URINE COLOR YELLOW (YELLOW)
[2017-10-03] MEDS ORDERED: QUETIAPINE 200 MG PO SCH (22:00)
[2017-10-03] MEDS ORDERED: QUEtiapine 200 mg XR Tab PO SCH (22:00)
[2017-10-03 23:07] VITALS: RESP 20
[2017-10-04] MEDS: oxyCODONE 15 mg Immediate Release Tab PO PRN (06:07)
[2017-10-04 06:15] LABS: HEMATOCRIT 45.6 % (42.0-52.0); MEAN CELL VOLUME 88.7 fl (80.0-105.0); MEAN CORPUSCULAR HEMOGLOBIN 32.3 pg (25.0-35.0); MEAN CORPUSCULAR HGB CONC 36.4 g/dl (31.0-37.0); MEAN PLATELET VOLUME 10.6 fl (7.0-11.0); RED CELL DISTRIBUTION WIDTH 11.9 % (11.5-14.5); WHITE BLOOD COUNT 8.8 10^3/ul (4.5-11.0)
[2017-10-04 06:30] LABS: ALB/GLOB RATIO 1.3 (1.1-1.8); ALKALINE PHOSPHATASE 83 U/L (38-126); ALT/SGPT 32 U/L (7-56); AST/SGOT 19 U/L (17-59); BLOOD UREA NITROGEN 12 mg/dL (7-21); CALCIUM 9.8 mg/dL (8.4-10.5); CARBON DIOXIDE 26 mmol/L (21-33); CHLORIDE 102 mmol/L (98-107); GFR AFRICAN-AMERICAN > 60; GLUCOSE,RANDOM 120 mg/dL (70-110); POTASSIUM 3.5 mmol/L (3.6-5.0); SODIUM 139 mmol/L (132-148); TOTAL PROTEIN 7.2 g/dL (5.8-8.3)
[2017-10-04] MEDS: Pantoprazole 40 mg EC Tab PO SCH (06:42)
[2017-10-04 07:53] VITALS: BP 135/87; TEMP 99.2; O2SAT 95
[2017-10-04] MEDS ORDERED: Potassium Chloride 20 mEq ER Tab PO SCH (08:00)
--- NOTE | 2017-10-04 09:34 | CARD ---
APPROVED REPORT EKG Measurement Heart [id number] <Conclusion> Sinus tachycardia PRWP No change
[2017-10-04] MEDS ORDERED: Influenza Vaccine 60 mcg/0.5 mL SYR (4YR UP) IM ONE (10:47)
[2017-10-04 11:18] VITALS: PULSE 109
--- NOTE | 2017-10-04 13:35 | CP.PCM.DIS ---
<Toni Romero - Last Filed: 10/04/17 13:21> Provider - Provider Date of Admission: 10/02/17 23:25 Attending physician: Tatyana Denton MD Primary care physician: Patsy Campbell MD Consults: Psych - Dr. Gutierrez Time Spent in preparation of Discharge (in minutes): 45 Diagnosis - Discharge Diagnosis (1) Bipolar disorder Status: Chronic Priority: Medium (2) Depression Status: Chronic Priority: Low (3) FAYE (generalized anxiety disorder) Status: Chronic Priority: Low (4) Panic attack Status: Chronic Priority: Medium Hospital Course - Lab Results Lab Results: Most Recent Lab Values WBC 8.8 10^3/ul (4.5-11.0) D 10/04/17 05:45 RBC 5.14 10^6/uL (3.5-6.1) 10/04/17 05:45 Hgb 16.6 g/dL (14.0-18.0) 10/04/17 05:45 Hct 45.6 % (42.0-52.0) 10/04/17 05:45 MCV 88.7 fl (80.0-105.0) 10/04/17 05:45 MCH 32.3 pg (25.0-35.0) 10/04/17 05:45 MCHC 36.4 g/dl (31.0-37.0) 10/04/17 05:45 RDW 11.9 % (11.5-14.5) 10/04/17 05:45 Plt Count 208 10^3/uL (120.0-450.0) 10/04/17 05:45 MPV 10.6 fl (7.0-11.0) 10/04/17 05:45 Gran % 62.5 % (50.0-68.0) 10/02/17 22:15 Lymph % (Auto) 30.1 % (22.0-35.0) 10/02/17 22:15 Carroll % (Auto) 5.9 % (1.0-6.0) 10/02/17 22:15 Eos % (Auto) 1.2 % (1.5-5.0) L 10/02/17 22:15 Baso % (Auto) 0.3 % (0.0-3.0) 10/02/17 22:15 Gran # 4.89 (1.4-6.5) 10/02/17 22:15 Lymph # 2.4 (1.2-3.4) 10/02/17 22:15 Carroll # 0.5 (0.1-0.6) 10/02/17 22:15 Eos # 0.1 (0.0-0.7) 10/02/17 22:15 Baso # 0.02 K/mm3 (0.0-2.0) 10/02/17 22:15 Sodium 139 mmol/L (132-148) 10/04/17 05:45 Potassium 3.5 mmol/L (3.6-5.0) L 10/04/17 05:45 Chloride 102 mmol/L (98-107) 10/04/17 05:45 Carbon Dioxide 26 mmol/L (21-33) 10/04/17 05:45 Anion Gap 15 (10-20) 10/04/17 05:45 BUN 12 mg/dL (7-21) 10/04/17 05:45 Creatinine 1.0 mg/dl (0.8-1.5) 10/04/17 05:45 Est GFR ( Amer) > 60 10/04/17 05:45 Est GFR (Non-Af Amer) > 60 10/04/17 05:45 Random Glucose 120 mg/dL (70-110) H 10/04/17 05:45 Hemoglobin A1c 6.8 % (4.2-6.5) H 10/03/17 05:30 Calcium 9.8 mg/dL (8.4-10.5) 10/04/17 05:45 Magnesium 1.9 mg/dL (1.7-2.2) 10/02/17 22:15 Iron 71 ug/dL (45-180) 10/03/17 05:30 TIBC 248.3 ug/dL (250-450) L 10/03/17 05:30 % Saturation 29 (20-55) 10/03/17 05:30 Transferrin 188.80 mg/dL (206-381) L 10/03/17 05:30 Ferritin 308.0 ng/mL 10/03/17 05:30 Total Bilirubin 1.0 mg/dL (0.2-1.3) 10/04/17 05:45 AST 19 U/L (17-59) 10/04/17 05:45 ALT 32 U/L (7-56) 10/04/17 05:45 Alkaline Phosphatase 83 U/L (38-126) 10/04/17 05:45 Lactate Dehydrogenase 377 U/L (333-699) 10/02/17 22:15 Total Creatine Kinase 53 U/L (35-230) 10/02/17 22:15 Troponin I < 0.01 ng/mL 10/02/17 22:15 Total Protein 7.2 g/dL (5.8-8.3) 10/04/17 05:45 Albumin 4.0 g/dL (3.0-4.8) 10/04/17 05:45 Globulin 3.2 gm/dL 10/04/17 05:45 Albumin/Globulin Ratio 1.3 (1.1-1.8) 10/04/17 05:45 Lipase 49 U/L (23-300) 10/02/17 22:15 Folate > 20.0 ng/mL 10/03/17 05:30 Urine Color Yellow (YELLOW) 10/03/17 21:25 Urine Appearance Clear (CLEAR) 10/03/17 21:25 Urine pH 6.0 (4.7-8.0) 10/03/17 21:25 Ur Specific [place] <= 1.005 (1.005-1.035) 10/03/17 21:25 Urine Protein Negative mg/dL (<30 mg/dL) 10/03/17 21:25 Urine Glucose (UA) Negative mg/dL (NEGATIVE) 10/03/17 21:25 Urine Ketones Negative mg/dL (NEGATIVE) 10/03/17 21:25 Urine Blood Negative (NEGATIVE) 10/03/17 21:25 Urine Nitrate Negative (NEGATIVE) 10/03/17 21:25 Urine Bilirubin Negative (NEGATIVE) 10/03/17 21:25 Urine Urobilinogen 0.2 E.U./dL (<1 E.U./dL) 10/03/17 21:25 Ur Leukocyte Esterase Negative Sharath/uL (NEGATIVE) 10/03/17 21:25 Urine RBC 0 - 2 /hpf (0-2) 10/02/17 22:52 Urine WBC 0 - 2 /hpf (0-6) 10/02/17 22:52 Urine Bacteria Few (NEG) 10/02/17 22:52 Urine Opiates Screen Positive (NEGATIVE) H 10/02/17 22:52 Urine Methadone Screen Negative (NEGATIVE) 10/02/17 22:52 Ur Barbiturates Screen Negative (NEGATIVE) 10/02/17 22:52 Ur Phencyclidine Scrn Negative (NEGATIVE) 10/02/17 22:52 Ur Amphetamines Screen Negative (NEGATIVE) 10/02/17 22:52 U Benzodiazepines Scrn Negative (NEGATIVE) 10/02/17 22:52 U Oth Cocaine Metabols Negative (NEGATIVE) 10/02/17 22:52 U Cannabinoids Screen Negative (NEGATIVE) 10/02/17 22:52 Alcohol, Quantitative < 10 mg/dL (0-10) 10/02/17 22:15 Rheumatoid Factor <14 IU/mL (<14) 10/03/17 05:30 - Hospital Course Hospital Course: 47 y/o M with PMH of bipolar disorder with recent psych med adjustment, anxiety , psychosis, TIA, HTN, COPD, asthma, arthritis and DJD for which he is on chronic opiates who presented with dizziness and periodic limb movements, admitted for possible seizures. Pt's story did not appear to demonstrate seizure like activity. CT Head was negative for intracranial abnormalities. Pt was recently seen by a psych PA who adjusted his medications by stopping a few medications. This may have contributed to his symptoms of dizziness and periodic limb movement. Patients UDS was positive for opiates. There were no electrolyte abnormalities. Pt was found to have elevated HgA1c of 6.8% and lifestyle modifications were suggested. Pt was also seen psychiatrist, who stated patient may possibly be misusing and abusing benzodiazepines and painkillers. Psychiatry recommended patient take medication as prescribed and to continue current medical regimen. Pt should follow up with PMD within 1 week and Neurology for possible restless leg syndrome. Pt should also continue to take medications as prescribed. Discharge Exam - Head Exam Head Exam: ATRAUMATIC, NORMAL INSPECTION, NORMOCEPHALIC - ENT Exam ENT Exam: Mucous Membranes Moist - Respiratory Exam Respiratory Exam: NORMAL BREATHING PATTERN, UNREMARKABLE - Cardiovascular Exam Cardiovascular Exam: RRR, +S1, +S2 - GI/Abdominal Exam GI & Abdominal Exam: Normal Bowel Sounds, Soft. absent: Tenderness - Extremities Exam Extremities exam: normal inspection - Neurological Exam Neurological exam: Alert, CN II-XII Intact, Oriented x3 - Psychiatric Exam Psychiatric exam: Normal Affect, Normal Mood - Skin Skin Exam: Intact, Normal Color, Warm Discharge Plan - Follow Up Plan Condition: FAIR Disposition: HOME/ ROUTINE Instructions: Bipolar Disorder (DC), Depression (DC), Near Syncope (ED) Additional Instructions: Follow up with PMD within 1 week Follow up with Psychiatrist within 2 weeks Follow up with PMD to schedule outpatient sleep study Follow up with PMD/Neurologist for diagnosis of restless leg syndrome Please take medications as prescribed Referrals: Patsy Campbell MD [Primary Care Provider] - <Tatyana Denton - Last Filed: 10/04/17 16:15> Provider - Provider Date of Admission: 10/02/17 23:25 Attending physician: Tatyana Denton MD Primary care physician: Patsy Campbell MD Hospital Course - Lab Results Lab Results: Most Recent Lab Values WBC 8.8 10^3/ul (4.5-11.0) D 10/04/17 05:45 RBC 5.14 10^6/uL (3.5-6.1) 10/04/17 05:45 Hgb 16.6 g/dL (14.0-18.0) 10/04/17 05:45 Hct 45.6 % (42.0-52.0) 10/04/17 05:45 MCV 88.7 fl (80.0-105.0) 10/04/17 05:45 MCH 32.3 pg (25.0-35.0) 10/04/17 05:45 MCHC 36.4 g/dl (31.0-37.0) 10/04/17 05:45 RDW 11.9 % (11.5-14.5) 10/04/17 05:45 Plt Count 208 10^3/uL (120.0-450.0) 10/04/17 05:45 MPV 10.6 fl (7.0-11.0) 10/04/17 05:45 Gran % 62.5 % (50.0-68.0) 10/02/17 22:15 Lymph % (Auto) 30.1 % (22.0-35.0) 10/02/17 22:15 Carroll % (Auto) 5.9 % (1.0-6.0) 10/02/17 22:15 Eos % (Auto) 1.2 % (1.5-5.0) L 10/02/17 22:15 Baso % (Auto) 0.3 % (0.0-3.0) 10/02/17 22:15 Gran # 4.89 (1.4-6.5) 10/02/17 22:15 Lymph # 2.4 (1.2-3.4) 10/02/17 22:15 Carroll # 0.5 (0.1-0.6) 10/02/17 22:15 Eos # 0.1 (0.0-0.7) 10/02/17 22:15 Baso # 0.02 K/mm3 (0.0-2.0) 10/02/17 22:15 Sodium 139 mmol/L (132-148) 10/04/17 05:45 Potassium 3.5 mmol/L (3.6-5.0) L 10/04/17 05:45 Chloride 102 mmol/L (98-107) 10/04/17 05:45 Carbon Dioxide 26 mmol/L (21-33) 10/04/17 05:45 Anion Gap 15 (10-20) 10/04/17 05:45 BUN 12 mg/dL (7-21) 10/04/17 05:45 Creatinine 1.0 mg/dl (0.8-1.5) 10/04/17 05:45 Est GFR ( Amer) > 60 10/04/17 05:45 Est GFR (Non-Af Amer) > 60 10/04/17 05:45 Random Glucose 120 mg/dL (70-110) H 10/04/17 05:45 Hemoglobin A1c 6.8 % (4.2-6.5) H 10/03/17 05:30 Calcium 9.8 mg/dL (8.4-10.5) 10/04/17 05:45 Magnesium 1.9 mg/dL (1.7-2.2) 10/02/17 22:15 Iron 71 ug/dL (45-180) 10/03/17 05:30 TIBC 248.3 ug/dL (250-450) L 10/03/17 05:30 % Saturation 29 (20-55) 10/03/17 05:30 Transferrin 188.80 mg/dL (206-381) L 10/03/17 05:30 Ferritin 308.0 ng/mL 10/03/17 05:30 Total Bilirubin 1.0 mg/dL (0.2-1.3) 10/04/17 05:45 AST 19 U/L (17-59) 10/04/17 05:45 ALT 32 U/L (7-56) 10/04/17 05:45 Alkaline Phosphatase 83 U/L (38-126) 10/04/17 05:45 Lactate Dehydrogenase 377 U/L (333-699) 10/02/17 22:15 Total Creatine Kinase 53 U/L (35-230) 10/02/17 22:15 Troponin I < 0.01 ng/mL 10/02/17 22:15 Total Protein 7.2 g/dL (5.8-8.3) 10/04/17 05:45 Albumin 4.0 g/dL (3.0-4.8) 10/04/17 05:45 Globulin 3.2 gm/dL 10/04/17 05:45 Albumin/Globulin Ratio 1.3 (1.1-1.8) 10/04/17 05:45 Lipase 49 U/L (23-300) 10/02/17 22:15 Folate > 20.0 ng/mL 10/03/17 05:30 Urine Color Yellow (YELLOW) 10/03/17 21:25 Urine Appearance Clear (CLEAR) 10/03/17 21:25 Urine pH 6.0 (4.7-8.0) 10/03/17 21:25 Ur Specific [place] <= 1.005 (1.005-1.035) 10/03/17 21:25 Urine Protein Negative mg/dL (<30 mg/dL) 10/03/17 21:25 Urine Glucose (UA) Negative mg/dL (NEGATIVE) 10/03/17 21: Urine Ketones Negative mg/dL (NEGATIVE) 10/03/17 21:25 Urine Blood Negative (NEGATIVE) 10/03/17 21:25 Urine Nitrate Negative (NEGATIVE) 10/03/17 21: Urine Bilirubin Negative (NEGATIVE) 10/03/17 21:25 Urine Urobilinogen 0.2 E.U./dL (<1 E.U./dL) 10/03/17 21:25 Ur Leukocyte Esterase Negative Sharath/uL (NEGATIVE) 10/03/17 21:25 Urine RBC 0 - 2 /hpf (0-2) 10/02/17 22:52 Urine WBC 0 - 2 /hpf (0-6) 10/02/17 22:52 Urine Bacteria Few (NEG) 10/02/17 22:52 Urine Opiates Screen Positive (NEGATIVE) H 10/02/17 22:52 Urine Methadone Screen Negative (NEGATIVE) 10/02/17 22:52 Ur Barbiturates Screen Negative (NEGATIVE) 10/02/17 22:52 Ur Phencyclidine Scrn Negative (NEGATIVE) 10/02/17 22:52 Ur Amphetamines Screen Negative (NEGATIVE) 10/02/17 22:52 U Benzodiazepines Scrn Negative (NEGATIVE) 10/02/17 22:52 U Oth Cocaine Metabols Negative (NEGATIVE) 10/02/17 22:52 U Cannabinoids Screen Negative (NEGATIVE) 10/02/17 22:52 Alcohol, Quantitative < 10 mg/dL (0-10) 10/02/17 22:15 Rheumatoid Factor <14 IU/mL (<14) 10/03/17 05:30 Attending/Attestation - Attestation I have personally seen and examined this patient.: Yes I have fully participated in the care of the patient.: Yes I have reviewed all pertinent clinical information, including history, physical exam and plan: Yes Notes (Text): I have seen and examined the patient at bedside. Agree with the above note with the following additions/ exceptions: Briefly this is 47 year old male with history of bipolar disorder, anxiety, psychosis, HTN, COPD, asthma, athritis and DJD s/p back surgery, chronic pain who was admitted with periodic involuntary limb movement during sleep which was waking him up from sleep. Overnight, nurses did not report any of these episodes. He reports that he had multiple sleep studies in the past which was normal. He does not drink caffeine. Iron studies were also normal. Psych consult was obtained who recommended to continue all the medications. As per psychiatrist, there is no indication to adjust medications. This patient is known to psychiatrist who evaluated the patient and he appears much better than his last visit therefore no medications were adjusted. This morning patient feels better and reports that he was able to sleep. His HBA1C was 6.8. Life style modifications were advised. He needs to have a repeat a1c in 2-3 months. Advised patient to follow up with Dr Adrian Guardado within [address] Tatyana Denton
== END 2017-10-04 11:34 | disposition home or self-care (01) ==
LOC: ED 21:25 → ERH 23:25 → 2RSO 10-03 00:31
PROVIDERS: ADMIT Hospitalist; ATTEND Hospitalist
DX: R55 Syncope and collapse (principal); F31.9 Bipolar disorder, unspecified; F41.0 Panic disorder [episodic paroxysmal anxiety]; F41.1 Generalized anxiety disorder; J44.9 Chronic obstructive pulmonary disease, unspecified; I10 Essential (primary) hypertension; G89.29 Other chronic pain; M54.9 Dorsalgia, unspecified; M19.90 Unspecified osteoarthritis, unspecified site; G47.61 Periodic limb movement disorder; R42 Dizziness and giddiness; Z79.891 Long term (current) use of opiate analgesic; Z86.73 Personal history of transient ischemic attack (TIA), and cerebral infarction without residual deficits
CPT/HCPCS: 36415; 70450; 80053; 80320; 80324; 80345; 80346; 80349; 80353; 80358; 80361; 81001; 81003; 82550; 82728; 82746; 83036; 83615; 83690; 83735; 83992; 84425; 84466; 84484; 85025; 85027; 86039; 86431; 87086; 93005; 96361; 96374; 96375; 96376; 97116; 97161; 99285; G0378; G8978; G8979; G8980; J2060; J2405; J7040

== ENCOUNTER 2017-10-10 21:30 | Emergency (ER) | payer MEDICAID ==
[2017-10-10 21:35] VITALS: BMI 28.7
[2017-10-10 22:28] LABS: BASO # 0.02 K/mm3 (0.0-2.0); BASO % 0.2 % (0.0-3.0); EOS # 0.1 (0.0-0.7); EOS % 1.5 % (1.5-5.0); GRAN # 5.97 (1.4-6.5); GRAN % 65.6 % (50.0-68.0); HEMATOCRIT 47.6 % (42.0-52.0); LYMPH # 2.5 (1.2-3.4); LYMPH % 26.9 % (22.0-35.0); MEAN CELL VOLUME 89.5 fl (80.0-105.0); MEAN CORPUSCULAR HEMOGLOBIN 32.5 pg (25.0-35.0); MEAN CORPUSCULAR HGB CONC 36.3 g/dl (31.0-37.0); MEAN PLATELET VOLUME 10.6 fl (7.0-11.0); MONO # 0.5 (0.1-0.6); MONO % 5.8 % (1.0-6.0); RED CELL DISTRIBUTION WIDTH 12.1 % (11.5-14.5); WHITE BLOOD COUNT 9.1 10^3/ul (4.5-11.0)
[2017-10-10 23:00] LABS: ALB/GLOB RATIO 1.4 (1.1-1.8); ALKALINE PHOSPHATASE 82 U/L (38-126); ALT/SGPT 31 U/L (7-56); AST/SGOT 22 U/L (17-59); BILIRUBIN,TOTAL 0.9 mg/dL (0.2-1.3); BLOOD UREA NITROGEN 16 mg/dL (7-21); CALCIUM 9.6 mg/dL (8.4-10.5); CARBON DIOXIDE 24 mmol/L (21-33); CHLORIDE 104 mmol/L (98-107); GFR AFRICAN-AMERICAN > 60; GLUCOSE,RANDOM 112 mg/dL (70-110); POTASSIUM 3.6 mmol/L (3.6-5.0); SODIUM 142 mmol/L (132-148); TOTAL PROTEIN 7.7 g/dL (5.8-8.3)
[2017-10-10] MEDS ORDERED: oxyCODONE 15 mg Immediate Release Tab PO STA (23:49)
[2017-10-11 02:14] LABS: URINE BILIRUBIN NEGATIVE (NEGATIVE); URINE BLOOD NEGATIVE (NEGATIVE); URINE GLUCOSE (UA) NEGATIVE (NEGATIVE); URINE KETONE NEGATIVE (NEGATIVE); URINE LEUKOCYTE ESTERASE NEGATIVE Leu/uL (NEGATIVE); URINE PROTEIN 30 mg/dL (<30 mg/dL)
[2017-10-11 02:17] LABS: URINE APPEARANCE CLEAR (CLEAR); URINE COLOR YELLOW (YELLOW)
[2017-10-11 02:49] LABS: URINE RBC 0 - 2 /hpf (0-2)
--- NOTE | 2017-10-11 03:05 | ED PDOC ---
Arrival/HPI - General Historian: Patient - General Chief Complaint: Shortness Of Breath Time Seen by Provider: 10/10/17 22:27 - History of Present Illness Narrative History of Present Illness (Text): 10/11/17 03:03 47-year-old male with past medical history of bipolar disorder, presents to the emergency room requesting PES evaluation. Patient states that he feels anxious today and he feels that he is suffocating, he states that he wants to be admitted at this hospital for inpatient psychiatric care. At this time he denies any suicidal ideation, homicide ideation, auditory or visual hallucinations. Otherwise denies any headache, dizziness, fever, chest pain, shortness of breath, nausea, vomiting, abdominal pain. Has no additional complaints otherwise. PMD Dr. Campbell (Tiffanie Estrella PA-C) Past Medical History - Provider Review Nursing Documentation Reviewed: Yes - Infectious Disease Hx of Infectious Diseases: None - Tetanus Immunization Tetanus Immunization: Unknown - Cardiac Hx Hypertension: Yes - Pulmonary Hx Asthma: Yes Hx Chronic Obstructive Pulmonary Disease (COPD): Yes - Neurological HX Cerebrovascular Accident: No Hx Seizures: No Hx Transient Ischemic Attacks (TIA): Yes - HEENT Hx HEENT Disorder: No - Renal Hx Renal Disorder: No - Endocrine/Metabolic Hx Endocrine Disorders: No - Hematological/Oncological Hx Anemia: Yes - Integumentary Hx Dermatological Disorder: No - Musculoskeletal/Rheumatological Hx Arthritis: Yes Hx Back Pain: Yes Hx Degenerative Joint Disease: Yes - Gastrointestinal Hx Gastrointestinal Disorders: No - Genitourinary/Gynecological Hx Genitourinary Disorders: No - Psychiatric Hx Anxiety: Yes Hx Bipolar Disorder: Yes Hx Substance Use: No Other/Comment: OCD - Surgical History Hx Musculoskeletal Surgery: Yes (reconstruction of lower spine) Hx Orthopedic Surgery: Yes (right knee, right shoulder) - Anesthesia Hx Anesthesia: Yes Hx Anesthesia Reactions: No Hx Malignant Hyperthermia: No - Suicidal Assessment Feels Threatened In Home Enviroment: No Family/Social History - Physician Review Nursing Documentation Reviewed: Yes Family/Social History: Unknown Family HX Smoking Status: Former Smoker Hx Alcohol Use: Yes Hx Substance Use: No Substance used: cocaine formerly Allergies/Home Meds Allergies/Adverse Reactions: Allergies carisoprodol [From Soma] Allergy (Verified 10/10/17 21:35) DIZZINESS varenicline [From Chantix] Allergy (Verified 09/22/17 13:05) VOMITING Home Medications: Home Meds Medication Instructions Recorded Confirmed QUEtiapine [Seroquel XR] 200 mg PO HS 10/03/17 10/10/17 oxyCODONE [oxyCODONE Immediate 15 mg PO Q6H 10/03/17 10/10/17 Release Tab] Albuterol HFA [Ventolin HFA 90 1 puff IH QID 10/10/17 10/10/17 mcg/actuation (8 g)] Losartan [Cozaar] 1 tab PO DAILY 10/10/17 10/10/17 Nortriptyline [Pamelor] 1 tab PO DAILY 10/10/17 10/10/17 Paroxetine HCl [Paxil] 1 tab PO DAILY 10/10/17 10/10/17 clonazePAM [Klonopin] 1 tab PO QID 10/10/17 10/10/17 Review of Systems - Review of Systems Constitutional: Normal. absent: Fatigue, Weight Change, Fevers Respiratory: Normal. absent: SOB, Cough, Wheezing Cardiovascular: Normal. absent: Chest Pain, Palpitations, Edema Gastrointestinal: Normal. absent: Abdominal Pain, Diarrhea, Vomiting Musculoskeletal: Normal. absent: Arthralgias, Back Pain, Neck Pain Skin: Normal Neurological: Normal. absent: Headache, Dizziness, Focal Weakness Psychiatric: Normal, Other (History of bipolar disorder). absent: Anxiety, Depression Physical Exam - Physical Exam Narrative Physical Exam (Text): 10/11/17 03:05 GENERAL APPEARANCE: Patient is awake, alert, oriented x 3, in no acute distress. SKIN: Warm, dry; (-) cyanosis. HEAD: (-) scalp swelling, (-) scalp tenderness. EYES: (-) conjunctival pallor, (-) scleral icterus, (-) nystagmus. ENMT: Mucous membranes moist. Airway patent: (-) stridor. NECK: (-) tenderness, (-) stiffness, (-) lymphadenopathy. CHEST AND RESPIRATORY: (-) rales, (-) rhonchi, (-) wheezes; breath sounds equal. ABDOMEN: Soft, (-) distention, (-) tenderness, (-) guarding. NEURO AND PSYCH: Mental status as above. Affect: normal. Memory: Intact. decontamination worker: Pupils equal and reactive; EOMI; (-) facial asymmetry; tongue and uvula midline. Strength and DTRs symmetric. (Sameer DONALD,Tiffanie Leach) Vital Signs Temp Pulse Resp BP Pulse Ox 10/11/17 00:26 155/101 H 10/10/17 21:42 157/117 H 10/10/17 21:41 98.2 F 113 H 18 163/109 H 96 Medical Decision Making ED Course and Treatment: 10/11/17 03:06 47-year-old male with past medical history of bipolar disorder, presents to the emergency room requesting PES evaluation. Plan: -- Labs -- IV -- Urinalysis -- EKG -- CXR -- PES evaluation Patient is requesting his dose of his Klonopin 2 mg and oxycodone IR 15 mg which he both takes in the evening. Patient given a dose of both medications. CXR : NAD, as read by MINI EKG: NSR at 92 bpm, (-) acute ST changes, as read by MINI. Labs reviewed and are wnl : pt's urine drug screen is (+) for opiates Patient is medically cleared for PES evaluation. Patient seen and evaluated by PES. On re-evaluation, patient is awake, alert and oriented x3, sitting comfortably in bed in no acute distress, states that he currently feels anxious and is requesting for a dose of Ativan and Haldol at this time. Patient given a dose of ativan 1 mg IM and haldol 5 mg IM. Disposition by PES is still pending, case endorsed to Dr. Engel. (Tiffanie Estrella PA-C) 10/11/17 03:18 Case endorsed to me by MINI Estrella. Pending PES Evaluation. (Gerard Engel) - Lab Interpretations Lab Results: 10/10/17 22:15 10/10/17 22:15 Lab Results 10/11/17 02:03: Urine Opiates Screen Positive H, Urine Methadone Screen Negative , Ur Barbiturates Screen Negative, Ur Phencyclidine Scrn Negative, Ur Amphetamines Screen Negative, U Benzodiazepines Scrn Negative, U Oth Cocaine Metabols Negative, U Cannabinoids Screen Negative 10/11/17 02:03: Urine Color Yellow, Urine Appearance Clear, Urine pH 6.0, Ur Specific [place] >= 1.030, Urine Protein 30 H, Urine Glucose (UA) Negative, Urine Ketones Negative, Urine Blood Negative, Urine Nitrate Negative, Urine Bilirubin Negative, Urine Urobilinogen 1.0 H, Ur Leukocyte Esterase Negative, Urine RBC 0 - 2, Urine WBC 1 - 3, Ur Epithelial Cells None 10/10/17 22:23: Alcohol, Quantitative < 10 10/10/17 22:15: Salicylates Cancelled, Acetaminophen Cancelled 10/10/17 22:15: Sodium 142, Potassium 3.6, Chloride 104, Carbon Dioxide 24, Anion Gap 18, BUN 16, Creatinine 1.0, Est GFR ( Amer) > 60, Est GFR (Non- Af Amer) > 60, Random Glucose 112 H, Calcium 9.6, Total Bilirubin 0.9, AST 22, ALT 31, Alkaline Phosphatase 82, Total Protein 7.7, Albumin 4.4, Globulin 3.3, Albumin/Globulin Ratio 1.4 10/10/17 22:15: WBC 9.1, RBC 5.32, Hgb 17.3, Hct 47.6, MCV 89.5, MCH 32.5, MCHC 36.3, RDW 12.1, Plt Count 197, MPV 10.6, Gran % 65.6, Lymph % (Auto) 26.9, [place] % (Auto) 5.8, Eos % (Auto) 1.5, Baso % (Auto) 0.2, Gran # 5.97, Lymph # 2.5, Carter # 0.5, Eos # 0.1, Baso # 0.02 - RAD Interpretation Radiology Orders: 10/10/17 22:08 CHEST ONE VIEW [RAD] Stat - Medication Orders Current Medication Orders: Discontinued Medications Clonazepam (Klonopin) 2 mg PO STAT STA PRN Reason: Protocol Stop: 10/10/17 23:50 Last Admin: 10/11/17 00:22 Dose: 2 mg Haloperidol Lactate (Haldol) 5 mg IM STAT STA PRN Reason: Protocol Stop: 10/11/17 03:12 Last Admin: 10/11/17 04:11 Dose: 5 mg IM Administration Charges Document 10/11/17 04:11 MARCIA (Rec: 10/11/17 04:11 MARCIA [id number]) Injection Site MAR Injection Site Left Deltoid Charges for Administration # of IM Administrations 1 Lorazepam (Ativan) 1 mg IM ONCE ONE PRN Reason: Protocol Stop: 10/11/17 03:12 Last Admin: 10/11/17 04:11 Dose: 1 mg IM Administration Charges Document 10/11/17 04:11 MARCIA (Rec: 10/11/17 04:12 MARCIA [id number]) Injection Site MAR Injection Site Left Deltoid Charges for Administration # of IM Administrations 1 Oxycodone HCl (Oxycodone Immediate Release Tab) 15 mg PO STAT STA Stop: 10/10/17 23:50 Last Admin: 10/11/17 00:22 Dose: 15 mg - PA / SOFTWARE REVERSE ENGINEER / Resident Statement / has reviewed & agrees with the documentation as recorded. Disposition/Present on Arrival - Present on Arrival Any Indicators Present on Arrival: No History of DVT/PE: No History of Uncontrolled Diabetes: No Urinary Catheter: No History of Decub. Ulcer: No History Surgical Site Infection Following: None - Disposition Have Diagnosis and Disposition been Completed?: Yes Disposition Time: 03:00 - Disposition Diagnosis: Bipolar disorder Patient Problems: Current Active Problems Problem Status Onset Bipolar disorder Chronic Condition: STABLE Forms: [employer]s (Croatian)
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
--- NOTE | 2017-10-11 08:39 | RAD ---
HISTORY: sob COMPARISON: Chest x-ray performed 09/22/17 TECHNIQUE: Chest, one view. FINDINGS: Examination limited by habitus. LUNGS: No focal consolidation. Please note that chest x-ray has limited sensitivity for the detection of pulmonary masses. PLEURA: No significant pleural effusion identified. No definite pneumothorax . CARDIOVASCULAR: The cardiomediastinal silhouette appears within normal limits of size. OSSEOUS STRUCTURES: No acute osseous abnormality identified. VISUALIZED UPPER ABDOMEN: Unremarkable. OTHER FINDINGS: None. IMPRESSION: No focal consolidation, significant pleural effusion, or definite pneumothorax identified.
[2017-10-11] MEDS ORDERED: oxyCODONE 15 mg Immediate Release Tab PO STA ×2 (08:43→17:07)
--- NOTE | 2017-10-11 19:30 | ED PDOC ---
Physical Exam Vital Signs Temp Pulse Resp BP Pulse Ox 10/11/17 22:51 88 18 121/72 97 10/11/17 17:22 94 H 18 125/80 96 10/11/17 12:00 79 18 140/79 98 10/11/17 10:00 98.4 F 80 18 140/80 98 10/11/17 08:00 98.6 F 84 18 136/84 98 10/11/17 06:00 88 18 146/84 99 10/11/17 00:26 155/101 H 10/10/17 21:42 157/117 H 10/10/17 21:41 98.2 F 113 H 18 163/109 H 96 Medical Decision Making ED Course and Treatment: 10/11/17 19:15 The patient was transferred [place] Dr. Cor[place]es, the patient is currently pending [facility] screening. 10/12/17 05:10 Pt seen by [facility] screener, and re-evaluated by [facility] screener. Psychiatrist requesting addtional [facility] screening. 10/12/[address] Corrales, pending additional [facility] screening. - Lab Interpretations Lab Results: 10/10/17 22:15 10/10/17 22:15 Lab Results 10/11/17 05:57: Salicylates < 1 L, Acetaminophen < 10.0 L 10/11/17 02:03: Urine Opiates Screen Positive H, Urine Methadone Screen Negative , Ur Barbiturates Screen Negative, Ur Phencyclidine Scrn Negative, Ur Amphetamines Screen Negative, U Benzodiazepines Scrn Negative, U Oth Cocaine Metabols Negative, U Cannabinoids Screen Negative 10/11/17 02:03: Urine Color Yellow, Urine Appearance Clear, Urine pH 6.0, Ur Specific [place] >= 1.030, Urine Protein 30 H, Urine Glucose (UA) Negative, Urine Ketones Negative, Urine Blood Negative, Urine Nitrate Negative, Urine Bilirubin Negative, Urine Urobilinogen 1.0 H, Ur Leukocyte Esterase Negative, Urine RBC 0 - 2, Urine WBC 1 - 3, Ur Epithelial Cells None 10/10/17 22:23: Alcohol, Quantitative < 10 10/10/17 22:15: Salicylates Cancelled, Acetaminophen Cancelled 10/10/17 22:15: Sodium 142, Potassium 3.6, Chloride 104, Carbon Dioxide 24, Anion Gap 18, BUN 16, Creatinine 1.0, Est GFR ( Amer) > 60, Est GFR (Non- Af Amer) > 60, Random Glucose 112 H, Calcium 9.6, Total Bilirubin 0.9, AST 22, ALT 31, Alkaline Phosphatase 82, Total Protein 7.7, Albumin 4.4, Globulin 3.3, Albumin/Globulin Ratio 1.4 10/10/17 22:15: WBC 9.1, RBC 5.32, Hgb 17.3, Hct 47.6, MCV 89.5, MCH 32.5, MCHC 36.3, RDW 12.1, Plt Count 197, MPV 10.6, Gran % 65.6, Lymph % (Auto) 26.9, [place] % (Auto) 5.8, Eos % (Auto) 1.5, Baso % (Auto) 0.2, Gran # 5.97, Lymph # 2.5, [place] # 0.5, Eos # 0.1, Baso # 0.02 - RAD Interpretation Radiology Orders: 10/10/17 22:08 CHEST ONE VIEW [RAD] Stat - Medication Orders Current Medication Orders: Paroxetine HCl (Paxil) 30 mg PO HS MALENA Last Admin: 10/11/17 20:50 Dose: Discontinued Medications Clonazepam (Klonopin) 2 mg PO STAT STA PRN Reason: Protocol Stop: 10/10/17 23:50 Last Admin: 10/11/17 00:22 Dose: 2 mg Clonazepam (Klonopin) 2 mg PO STAT STA PRN Reason: Protocol Stop: 10/11/17 10:10 Last Admin: 10/11/17 10:21 Dose: 2 mg Clonazepam (Klonopin) 1 mg PO STAT STA PRN Reason: Protocol Stop: 10/11/17 17:08 Last Admin: 10/11/17 17:29 Dose: 1 mg Clonazepam (Klonopin) 2 mg PO STAT STA PRN Reason: Protocol Stop: 10/12/17 06:04 Last Admin: 10/12/17 06:33 Dose: 2 mg Haloperidol Lactate (Haldol) 5 mg IM STAT STA PRN Reason: Protocol Stop: 10/11/17 03:12 Last Admin: 10/11/17 04:11 Dose: 5 mg IM Administration Charges Document 10/11/17 04:11 MARCIA (Rec: 10/11/17 04:11 MARCIA [id number]) Injection Site MAR Injection Site Left Deltoid Charges for Administration # of IM Administrations 1 Haloperidol Lactate (Haldol) 5 mg IM STAT STA PRN Reason: Protocol Stop: 10/11/17 20:58 Last Admin: 10/11/17 21:50 Dose: 5 mg IM Administration Charges Document 10/11/17 21:50 GMD (Rec: 10/11/17 21:50 [id number] Injection Site MAR Injection Site Left Deltoid Charges for Administration # of IM Administrations 1 Lorazepam (Ativan) 1 mg IM ONCE ONE PRN Reason: Protocol Stop: 10/11/17 03:12 Last Admin: 10/11/17 04:11 Dose: 1 mg IM Administration Charges Document 10/11/17 04:11 MARCIA (Rec: 10/11/17 04:12 MARCIA [id number]) Injection Site MAR Injection Site Left Deltoid Charges for Administration # of IM Administrations 1 Lorazepam (Ativan) 1 mg IM ONCE ONE Stop: 10/11/17 20:57 Last Admin: 10/11/17 21:50 Dose: 1 mg IM Administration Charges Document 10/11/17 21:50 GMD (Rec: 10/11/17 21:50 GMD [id number] Injection Site MAR Injection Site Left Deltoid Charges for Administration # of IM Administrations 1 Nortriptyline HCl (Pamelor) 10 mg PO STAT STA Stop: 10/11/17 17:08 Last Admin: 10/11/17 17:29 Dose: 10 mg Oxycodone HCl (Oxycodone Immediate Release Tab) 15 mg PO STAT STA Stop: 10/10/17 23:50 Last Admin: 10/11/17 00:22 Dose: 15 mg Oxycodone HCl (Oxycodone Immediate Release Tab) 15 mg PO STAT STA Stop: 10/11/17 08:44 Last Admin: 10/11/17 09:09 Dose: 15 mg Oxycodone HCl (Oxycodone Immediate Release Tab) 15 mg PO STAT STA Stop: 10/11/17 17:08 Last Admin: 10/11/17 17:29 Dose: 15 mg Oxycodone HCl (Oxycodone Immediate Release Tab) 15 mg PO STAT STA Stop: 10/12/17 02:20 Last Admin: 10/12/17 02:32 Dose: 15 mg Paroxetine HCl (Paxil) 10 mg PO STAT STA Stop: 10/11/17 17:17 Last Admin: 10/11/17 17:29 Dose: 10 mg Paroxetine HCl (Paxil) 40 mg PO HS MALENA Quetiapine Fumarate (Seroquel Xr) 150 mg PO STAT STA PRN Reason: Protocol Stop: 10/11/17 18:37 Last Admin: 10/12/17 01:41 Dose: 150 mg - Scribe Statement The provider has reviewed the documentation as recorded by the Manjeetibsyed Pederson Provider Scribe Attestation: All medical record entries made by the Kitty were at my direction and personally dictated by me. I have reviewed the chart and agree that the record accurately reflects my personal performance of the history, physical exam, medical decision making, and the department course for this patient. I have also personally directed, reviewed, and agree with the discharge instructions and disposition. Disposition/Present on Arrival - Present on Arrival Any Indicators Present on Arrival: No History of DVT/PE: No History of Uncontrolled Diabetes: No Urinary Catheter: No History of Decub. Ulcer: No History Surgical Site Infection Following: None - Disposition Have Diagnosis and Disposition been Completed?: No Diagnosis: Bipolar disorder Disposition Time: 07:00 Patient Problems: Current Active Problems Problem Status Onset Bipolar disorder Chronic Condition: STABLE Forms: [employer] (Irish)
[2017-10-11] MEDS: QUEtiapine 150 mg XR Tab PO STA (20:51)
--- NOTE | 2017-10-11 22:01 | CARD ---
APPROVED REPORT EKG Measurement Heart [id number] <Conclusion> Normal sinus rhythm Normal ECG
[2017-10-12] MEDS: QUEtiapine 150 mg XR Tab PO STA (01:41)
[2017-10-12] MEDS ORDERED: oxyCODONE 15 mg Immediate Release Tab PO STA ×2 (02:19→09:00)
--- NOTE | 2017-10-12 07:42 | ED PDOC ---
Physical Exam Vital Signs Temp Pulse Resp BP Pulse Ox 10/12/17 06:58 83 16 127/83 96 10/11/17 22:51 88 18 121/72 97 10/11/17 17:22 94 H 18 125/80 96 10/11/17 12:00 79 18 140/79 98 10/11/17 10:00 98.4 F 80 18 140/80 98 10/11/17 08:00 98.6 F 84 18 136/84 98 10/11/17 06:00 88 18 146/84 99 10/11/17 00:26 155/101 H 10/10/17 21:42 157/117 H 10/10/17 21:41 98.2 F 113 H 18 163/109 H 96 Medical Decision Making ED Course and Treatment: 10/12/17 07:05 Case endorsed to me by Dr. Escudero, pending additional [facility] screening. Patient was medically cleared and seen by [facility]. 10/12/17 08:12 Patient is seen by P[facility] Dr. Mercedes directly. Patient is not accepted to [facility] and is cleared for discharge. - Lab Interpretations Lab Results: 10/10/17 22:15 10/10/17 22:15 Lab Results 10/11/17 05:57: Salicylates < 1 L, Acetaminophen < 10.0 L 10/11/17 02:03: Urine Opiates Screen Positive H, Urine Methadone Screen Negative , Ur Barbiturates Screen Negative, Ur Phencyclidine Scrn Negative, Ur Amphetamines Screen Negative, U Benzodiazepines Scrn Negative, U Oth Cocaine Metabols Negative, U Cannabinoids Screen Negative 10/11/17 02:03: Urine Color Yellow, Urine Appearance Clear, Urine pH 6.0, Ur Specific [place] >= 1.030, Urine Protein 30 H, Urine Glucose (UA) Negative, Urine Ketones Negative, Urine Blood Negative, Urine Nitrate Negative, Urine Bilirubin Negative, Urine Urobilinogen 1.0 H, Ur Leukocyte Esterase Negative, Urine RBC 0 - 2, Urine WBC 1 - 3, Ur Epithelial Cells None 10/10/17 22:23: Alcohol, Quantitative < 10 10/10/17 22:15: Salicylates Cancelled, Acetaminophen Cancelled 10/10/17 22:15: Sodium 142, Potassium 3.6, Chloride 104, Carbon Dioxide 24, Anion Gap 18, BUN 16, Creatinine 1.0, Est GFR ( Amer) > 60, Est GFR (Non- Af Amer) > 60, Random Glucose 112 H, Calcium 9.6, Total Bilirubin 0.9, AST 22, ALT 31, Alkaline Phosphatase 82, Total Protein 7.7, Albumin 4.4, Globulin 3.3, Albumin/Globulin Ratio 1.4 10/10/17 22:15: WBC 9.1, RBC 5.32, Hgb 17.3, Hct 47.6, MCV 89.5, MCH 32.5, MCHC 36.3, RDW 12.1, Plt Count 197, MPV 10.6, Gran % 65.6, Lymph % (Auto) 26.9, [place] % (Auto) 5.8, Eos % (Auto) 1.5, Baso % (Auto) 0.2, Gran # 5.97, Lymph # 2.5, [place] # 0.5, Eos # 0.1, Baso # 0.02 - RAD Interpretation Radiology Orders: 10/10/17 22:08 CHEST ONE VIEW [RAD] Stat - Medication Orders Current Medication Orders: Paroxetine HCl (Paxil) 30 mg PO HS MALENA Last Admin: 10/11/17 20:50 Dose: Discontinued Medications Clonazepam (Klonopin) 2 mg PO STAT STA PRN Reason: Protocol Stop: 10/10/17 23:50 Last Admin: 10/11/17 00:22 Dose: 2 mg Clonazepam (Klonopin) 2 mg PO STAT STA PRN Reason: Protocol Stop: 10/11/17 10:10 Last Admin: 10/11/17 10:21 Dose: 2 mg Clonazepam (Klonopin) 1 mg PO STAT STA PRN Reason: Protocol Stop: 10/11/17 17:08 Last Admin: 10/11/17 17:29 Dose: 1 mg Clonazepam (Klonopin) 2 mg PO STAT STA PRN Reason: Protocol Stop: 10/12/17 06:04 Last Admin: 10/12/17 06:33 Dose: 2 mg Haloperidol Lactate (Haldol) 5 mg IM STAT STA PRN Reason: Protocol Stop: 10/11/17 03:12 Last Admin: 10/11/17 04:11 Dose: 5 mg IM Administration Charges Document 10/11/17 04:11 MARCIA (Rec: 10/11/17 04:11 MARCIA [id number]) Injection Site MAR Injection Site Left Deltoid Charges for Administration # of IM Administrations 1 Haloperidol Lactate (Haldol) 5 mg IM STAT STA PRN Reason: Protocol Stop: 10/11/17 20:58 Last Admin: 10/11/17 21:50 Dose: 5 mg IM Administration Charges Document 10/11/17 21:50 GMD (Rec: 10/11/17 21:50 [facility]MD [id number] Injection Site MAR Injection Site Left Deltoid Charges for Administration # of IM Administrations 1 Lorazepam (Ativan) 1 mg IM ONCE ONE PRN Reason: Protocol Stop: 10/11/17 03:12 Last Admin: 10/11/17 04:11 Dose: 1 mg IM Administration Charges Document 10/11/17 04:11 MARCIA (Rec: 10/11/17 04:12 MARCIA [id number]) Injection Site MAR Injection Site Left Deltoid Charges for Administration # of IM Administrations 1 Lorazepam (Ativan) 1 mg IM ONCE ONE Stop: 10/11/17 20:57 Last Admin: 10/11/17 21:50 Dose: 1 mg IM Administration Charges Document 10/11/17 21:50 GMD (Rec: 10/11/17 21:50 GMD [facility] [place]-[id number]) Injection Site MAR Injection Site Left Deltoid Charges for Administration # of IM Administrations 1 Nortriptyline HCl (Pamelor) 10 mg PO STAT STA Stop: 10/11/17 17:08 Last Admin: 10/11/17 17:29 Dose: 10 mg Oxycodone HCl (Oxycodone Immediate Release Tab) 15 mg PO STAT STA Stop: 10/10/17 23:50 Last Admin: 10/11/17 00:22 Dose: 15 mg Oxycodone HCl (Oxycodone Immediate Release Tab) 15 mg PO STAT STA Stop: 10/11/17 08:44 Last Admin: 10/11/17 09:09 Dose: 15 mg Oxycodone HCl (Oxycodone Immediate Release Tab) 15 mg PO STAT STA Stop: 10/11/17 17:08 Last Admin: 10/11/17 17:29 Dose: 15 mg Oxycodone HCl (Oxycodone Immediate Release Tab) 15 mg PO STAT STA Stop: 10/12/17 02:20 Last Admin: 10/12/17 02:32 Dose: 15 mg Paroxetine HCl (Paxil) 10 mg PO STAT STA Stop: 10/11/17 17:17 Last Admin: 10/11/17 17:29 Dose: 10 mg Paroxetine HCl (Paxil) 40 mg PO HS MALENA Quetiapine Fumarate (Seroquel Xr) 150 mg PO STAT STA PRN Reason: Protocol Stop: 10/11/17 18:37 Last Admin: 10/12/17 01:41 Dose: 150 mg - Scribe Statement The provider has reviewed the documentation as recorded by the Kitty Ignacio Provider Scribe Attestation: All medical record entries made by the Kitty were at my direction and personally dictated by me. I have reviewed the chart and agree that the record accurately reflects my personal performance of the history, physical exam, medical decision making, and the department course for this patient. I have also personally directed, reviewed, and agree with the discharge instructions and disposition. Disposition/Present on Arrival - Present on Arrival Any Indicators Present on Arrival: No History of DVT/PE: No History of Uncontrolled Diabetes: No Urinary Catheter: No History of Decub. Ulcer: No History Surgical Site Infection Following: None - Disposition Have Diagnosis and Disposition been Completed?: Yes Diagnosis: Bipolar disorder Disposition: HOME/ ROUTINE Disposition Time: 08:00 Condition: STABLE Discharge Instructions (ExitCare): Bipolar Disorder (ED) Additional Instructions: follow up as directed by pysch worker. return to er with worsening symptoms or concerns. Referrals: Community Mental Health [Outside] - Follow up with primary [facility] at [facility] [place] [place] [Outside] - Follow up with primary Forms: [email or web address] (Korean)
[2017-10-12 08:32] VITALS: BP 132/72; PULSE 70; RESP 18; TEMP 98; O2SAT 97
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
== END 2017-10-12 09:19 | disposition home or self-care (01) ==
LOC: ED 21:30
DX: F31.9 Bipolar disorder, unspecified (principal); I10 Essential (primary) hypertension; Z87.891 Personal history of nicotine dependence
CPT/HCPCS: 71010; 80053; 80320; 80324; 80329; 80345; 80346; 80349; 80353; 80358; 80361; 81001; 83992; 85025; 90791; 93005; 96372; 99285; J1630; J2060

== ENCOUNTER 2018-03-11 21:03 | Observation (INO) | payer MEDICAID ==
[2018-03-11 21:24] VITALS: BMI 29.0
--- NOTE | 2018-03-11 23:11 | ED PDOC ---
Arrival/HPI <Demarcus Escudero - Last Filed: 03/12/18 00:44> - General Historian: Patient - History of Present Illness Time/Duration: Other (3 days) Symptom Onset: Gradual Symptom Course: Worsening <Tracey Ag - Last Filed: 03/12/18 01:49> - General Chief Complaint: Anxiety Time Seen by Provider: 03/11/18 21:39 - History of Present Illness Narrative History of Present Illness (Text): 03/11/18 23:10 47-year-old male presents today complaining of anxiety. Patient states he's been feeling dizzy for a few days and today after getting out of the shower he believes he had a syncopal episode. Patient states he fell forward and thinks he protected his case with his hands. Patient denies headaches dizziness or weakness. He denies chest pain or shortness of breath. He denies abdominal pain. No nausea or vomiting. Patient denies suicidal or homicidal ideation. Patient states he's been feeling very anxious and just hasn't been feeling well lately. He denies URI symptoms. No other complaints (Tracey Ag) Past Medical History - Provider Review Nursing Documentation Reviewed: Yes - Travel History Have you recently traveled outside [place] w/in the past 3 mons?: No - Infectious Disease Hx of Infectious Diseases: None - Tetanus Immunization Tetanus Immunization: Unknown - Cardiac Hx Hypertension: Yes - Pulmonary Hx Asthma: Yes Hx Chronic Obstructive Pulmonary Disease (COPD): Yes - Neurological Hx Seizures: No Hx Transient Ischemic Attacks (TIA): Yes - HEENT Hx HEENT Disorder: No - Renal Hx Renal Disorder: No - Endocrine/Metabolic Hx Endocrine Disorders: No - Hematological/Oncological Hx Anemia: Yes - Integumentary Hx Dermatological Disorder: No - Musculoskeletal/Rheumatological Hx Arthritis: Yes Hx Fractures: Yes - Gastrointestinal Hx Gastrointestinal Disorders: No - Genitourinary/Gynecological Hx Sexually Transmitted Diseases: No - Psychiatric Hx Anxiety: Yes Hx Bipolar Disorder: Yes Hx Depression: Yes Hx Substance Use: No - Surgical History Hx Musculoskeletal Surgery: Yes (reconstruction of lower spine) Hx Orthopedic Surgery: Yes (right knee, right shoulder) - Anesthesia Hx Anesthesia: Yes Hx Anesthesia Reactions: No Hx Malignant Hyperthermia: No - Suicidal Assessment Feels Threatened In Home Enviroment: No <Tracey Ag - Last Filed: 03/12/18 01:49> Family/Social History - Physician Review Nursing Documentation Reviewed: Yes Family/Social History: Unknown Family HX Smoking Status: Current Some Days Smoker Hx Alcohol Use: Yes Hx Substance Use: No Substance used: cocaine formerly <Tracey Ag - Last Filed: 03/12/18 01:49> Allergies/Home Meds <Demarcus Escudero - Last Filed: 03/12/18 00:44> <Tracey Ag - Last Filed: 03/12/18 01:49> Allergies/Adverse Reactions: Allergies carisoprodol [From Soma] Allergy (Verified 10/10/17 21:35) DIZZINESS varenicline [From Chantix] Allergy (Verified 09/22/17 13:05) VOMITING Home Medications: Home Meds Medication Instructions Recorded Confirmed QUEtiapine [Seroquel XR] 200 mg PO HS 10/03/17 11/04/17 oxyCODONE [oxyCODONE Immediate 10 mg PO Q6H 10/03/17 11/04/17 Release Tab] Albuterol HFA [Ventolin HFA 90 2 puff IH Q6 PRN 10/10/17 11/04/17 mcg/actuation (8 g)] Losartan [Cozaar] 1 tab PO DAILY 10/10/17 11/04/17 Nortriptyline [Pamelor] 1 tab PO DAILY 10/10/17 11/04/17 Paroxetine HCl [Paxil] 1 tab PO DAILY 10/10/17 11/04/17 clonazePAM [Klonopin] 0.5 tab PO QID 10/10/17 11/04/17 Albuterol Sulfate 2.5 mg NEB Q6 PRN 11/04/17 11/04/17 Diclofenac Sodium 1 applic TP BID 11/04/17 11/04/17 Fluticasone Nasal [Flonase] 2 spr NS BID 11/04/17 11/04/17 Haloperidol [Haldol] 5 mg PO BID 11/04/17 11/04/17 Pantoprazole [Protonix] 40 mg PO DAILY 11/04/17 11/04/17 Review of Systems - Review of Systems Constitutional: absent: Fatigue, Fevers Eyes: absent: Vision Changes, Photophobia, Eye Pain ENT: absent: Sore Throat, Sinus Congestion Respiratory: absent: SOB, Cough Cardiovascular: Syncope. absent: Chest Pain, Palpitations Gastrointestinal: absent: Abdominal Pain, Nausea, Vomiting Genitourinary Male: absent: Dysuria Musculoskeletal: absent: Arthralgias, Back Pain, Neck Pain Skin: absent: Rash, Pruritis Neurological: Headache, Dizziness Psychiatric: Anxiety, Depression. absent: Suicidal Ideation <Tracey Ag - Last Filed: 03/12/18 01:49> Physical Exam Vital Signs Reviewed: Yes Temperature: Afebrile Blood Pressure: Hypertensive Pulse: Tachycardic Respiratory Rate: Normal Appearance: Positive for: Well-Appearing, Non-Toxic, Comfortable Pain Distress: None Mental Status: Positive for: Alert and Oriented X 3 - Systems Exam Head: Present: Atraumatic Pupils: Present: PERRL Extroacular Muscles: Present: EOMI Mouth: Present: Moist Mucous Membranes Pharnyx: Present: Normal Nose (External): Present: Atraumatic Nose (Internal): Present: Normal Inspection Neck: Present: Normal Range of Motion, Trachea Midline. No: MIDLINE TENDERNESS , Paraspinal Tenderness Respiratory/Chest: Present: Clear to Auscultation, Good Air Exchange. No: Respiratory Distress, Accessory Muscle Use Cardiovascular: Present: Regular Rate and Rhythm, Normal S1, S2. No: Murmurs Abdomen: No: Tenderness, Distention, Rebound, Guarding Back: Present: Normal Inspection. No: Midline Tenderness, Paraspinal Tenderness Upper Extremity: Present: Normal Inspection, Normal ROM Lower Extremity: Present: Normal Inspection, Normal ROM Neurological: Present: GCS=15, Speech Normal Skin: Present: Warm, Dry, Normal Color. No: Rashes Psychiatric: Present: Alert, Oriented x 3, Anxious. No: Suicidal Ideation, Homicidal Ideation <Tracey Ag - Last Filed: 03/12/18 01:49> Vital Signs Temp Pulse Resp BP Pulse Ox 03/12/18 01:09 102 H 18 134/83 100 03/12/18 00:30 101 H 18 149/78 100 03/11/18 21:19 98.1 F 106 H 18 156/84 H 99 Medical Decision Making <Demarcus Escudero - Last Filed: 03/12/18 00:44> <Tracey Ag - Last Filed: 03/12/18 01:49> ED Course and Treatment: 03/11/18 23:18 47-year-old male with Syncopal episode and anxiety. Patient complaining of anxiety and a syncopal episode in the morning. Tachycardic slightly hypertensive otherwise stable vitals. Denies suicidal or homicidal ideations CAT scan of the head: FINDINGS: Mild stable atrophy. No intracranial hemorrhage. No intracranial edema. No evidence of infarct. The sinuses and mastoid air cells are clear. There is deformity of the left orbital floor that appears chronic. IMPRESSION: No acute findings. Patient is nontoxic well-appearing in no distress vital signs are stable. xanax given for anxiety. CBC WNL CMP WNL Tylenol WNL Salicylate WNL Alcohol level WNL Urine drug screen wnl UA; wnl cxr: wnl ekg: sinus tachycardia at [address] elevations normal axis and QTC 473 asa given Po case discussed with dr. srinivasan accepts observational status admission to tele for syncope with order picker and PES consult. impression; syncope, anxiety admit observational status to tele. (Tracey Ag) - Lab Interpretations Lab Results: 03/11/18 23:08 03/11/18 23:08 Lab Results 03/12/18 00:08: Urine Opiates Screen Negative, Urine Methadone Screen Negative, Ur Barbiturates Screen Negative, Ur Phencyclidine Scrn Negative, Ur Amphetamines Screen Negative, U Benzodiazepines Scrn Negative, U Oth Cocaine Metabols Negative, U Cannabinoids Screen Negative 03/12/18 00:08: Urine Color Yellow, Urine Appearance Clear, Urine pH 6.5, Ur Specific [place] <= 1.005, Urine Protein Negative, Urine Glucose (UA) Negative, Urine Ketones Negative, Urine Blood Negative, Urine Nitrate Negative, Urine Bilirubin Negative, Urine Urobilinogen 0.2, Ur Leukocyte Esterase Negative 03/11/18 23:08: PT 11.6, INR 1.02, APTT 25.1 03/11/18 23:08: Alcohol, Quantitative < 10 03/11/18 23:08: Salicylates < 1 L, Acetaminophen < 10.0 L 03/11/18 23:08: Sodium 136, Potassium 3.4 L, Chloride 99, Carbon Dioxide 24, Anion Gap 17, BUN 20, Creatinine 1.2, Est GFR ( Amer) > 60, Est GFR (Non- Af Amer) > 60, Random Glucose 277 H, Calcium 9.7, Total Bilirubin 1.0, AST 25, ALT 33, Alkaline Phosphatase 81, Lactate Dehydrogenase 414, Total Creatine Kinase 86, Troponin I < 0.01, Total Protein 7.4, Albumin 4.3, Globulin 3.0, Albumin/Globulin Ratio 1.4 03/11/18 23:08: WBC 10.9, RBC 5.27, Hgb 17.1, Hct 46.8, MCV 88.8, MCH 32.4, MCHC 36.5, RDW 12.8, Plt Count 193, MPV 10.6, Gran % 71.3 H, Lymph % (Auto) 23.7 , Trinity % (Auto) 4.8, Eos % (Auto) 0.1 L, Baso % (Auto) 0.1, Gran # 7.74 H, Lymph # (Auto) 2.6, Trinity # (Auto) 0.5, Eos # (Auto) 0.0, Baso # (Auto) 0.01 - RAD Interpretation Radiology Orders: 03/11/18 21:40 CHEST PORTABLE [RAD] Stat 03/11/18 22:32 HEAD W/O CONTRAST [CT] Stat - Medication Orders Current Medication Orders: Aspirin (Aspirin) 325 mg PO STAT STA Stop: 03/12/18 01:40 Potassium Chloride (K-Dur 20 Meq Er Tab) 40 meq PO STAT ONE Stop: 03/12/18 01:38 Discontinued Medications Alprazolam (Xanax) 0.5 mg PO STAT STA PRN Reason: Protocol Stop: 03/11/18 23:08 Last Admin: 03/11/18 23:54 Dose: 0.5 mg - PA / SILK SCREEN REPAIRER / Resident Statement SHMUEL has reviewed & agrees with the documentation as recorded. SHMUEL has examined the patient and agrees with the treatment plan. <Demarcus Escudero - Last Filed: 03/12/18 00:44> Disposition/Present on Arrival <Demarcus Escudero - Last Filed: 03/12/18 00:44> - Present on Arrival Any Indicators Present on Arrival: No History of DVT/PE: No History of Uncontrolled Diabetes: No Urinary Catheter: No History of Decub. Ulcer: No History Surgical Site Infection Following: None - Disposition Have Diagnosis and Disposition been Completed?: Yes Disposition Time: 01:49 Patient Plan: Observation, Telemetry <Tracey Ag - Last Filed: 03/12/18 01:49> - Disposition Diagnosis: Syncope, Anxiety Disposition: HOSPITALIZED Condition: FAIR Discharge Instructions (ExitCare): Syncope (ED) Referrals: Patsy Campbell MD [Primary Care Provider] - Follow up with primary Forms: [employer] ([place])
[2018-03-12 00:04] LABS: INR 1.02 (0.93-1.08); PARTIAL THROMBOPLASTIN TIME 25.1 Seconds (25.1-36.5); PROTHROMBIN TIME 11.6 SECONDS (9.4-12.5)
[2018-03-12 00:05] LABS: ACETAMINOPHEN < 10.0 ug/ml (10.0-20.0); SALICYLATE < 1 mg/dL (2.0-20.0)
[2018-03-12 00:10] LABS: ALB/GLOB RATIO 1.4 (1.1-1.8); ALBUMIN 4.3 g/dL (3.0-4.8); ALT/SGPT 33 U/L (7-56); AST/SGOT 25 U/L (17-59); BLOOD UREA NITROGEN 20 mg/dL (7-21); CALCIUM 9.7 mg/dL (8.4-10.5); GFR AFRICAN-AMERICAN > 60; GFR NON-AFRICAN AMERICAN > 60
[2018-03-12 00:18] LABS: TROPONIN I < 0.01 ng/mL
[2018-03-12 00:24] LABS: BASO # 0.01 K/mm3 (0.0-2.0); BASO % 0.1 % (0.0-3.0); EOS % 0.1 % (1.5-5.0); GRAN # 7.74 (1.4-6.5); GRAN % 71.3 % (50.0-68.0); HEMOGLOBIN 17.1 g/dL (14.0-18.0); LYMPH # 2.6 (1.2-3.4); LYMPH % 23.7 % (22.0-35.0); MEAN CELL VOLUME 88.8 fl (80.0-105.0); MEAN CORPUSCULAR HEMOGLOBIN 32.4 pg (25.0-35.0); MEAN CORPUSCULAR HGB CONC 36.5 g/dl (31.0-37.0); MEAN PLATELET VOLUME 10.6 fl (7.0-11.0); MONO # 0.5 (0.1-0.6); MONO % 4.8 % (1.0-6.0); RBC 5.27 10^6/uL (3.5-6.1); RED CELL DISTRIBUTION WIDTH 12.8 % (11.5-14.5); WHITE BLOOD COUNT 10.9 10^3/ul (4.5-11.0)
[2018-03-12 00:25] LABS: PH,URINE 6.5 (4.7-8.0); URINE BILIRUBIN NEGATIVE (NEGATIVE); URINE BLOOD NEGATIVE (NEGATIVE); URINE GLUCOSE (UA) NEGATIVE (NEGATIVE); URINE LEUKOCYTE ESTERASE NEGATIVE Leu/uL (NEGATIVE); URINE PROTEIN NEGATIVE mg/dL (<30 mg/dL); URINE UROBILINOGEN 0.2 E.U./dL (<1 E.U./dL)
[2018-03-12 00:27] LABS: URINE APPEARANCE CLEAR (CLEAR); URINE COLOR YELLOW (YELLOW)
[2018-03-12 00:41] LABS: PHENCYCLIDINE, UR NEGATIVE (NEGATIVE)
[2018-03-12 00:47] LABS: BARBITURATES, UR NEGATIVE (NEGATIVE); BENZODIAZEPINES, UR NEGATIVE (NEGATIVE); OPIATES, UR NEGATIVE (NEGATIVE)
--- NOTE | 2018-03-12 01:22 | CT ---
EXAM: CT Head Without Intravenous Contrast EXAM DATE/TIME: 03/11/2018 10:32 PM CLINICAL HISTORY: 47 years old, male; Signs and symptoms; Syncope and collapse TECHNIQUE: Axial computed tomography images of the head/brain without intravenous contrast. All CT scans at this facility use one or more dose reduction techniques, viz.: automated exposure control; ma/kV adjustment per patient size (including targeted exams where dose is matched to indication; i.e. head); or iterative reconstruction technique. Coronal and sagittal reformatted images were created and reviewed. COMPARISON: CT - HEAD W/O CONTRAST 2017-10-02 22:12 FINDINGS: Mild stable atrophy. No intracranial hemorrhage. No intracranial edema. No evidence of infarct. The sinuses and mastoid air cells are clear. There is deformity of the left orbital floor that appears chronic. IMPRESSION: No acute findings.
[2018-03-12] MEDS ORDERED: Potassium Chloride 20 mEq ER Tab PO ONE ×2 (01:37→15:22)
--- NOTE | 2018-03-12 01:54 | CP.PCM.HP ---
<Kofi Khan - Last Filed: 03/12/18 02:30> History of Present Illness - History of Present Illness History of Present Illness: This patient is a 47 year old male with a PMHx of BiPolar Disease, anxiety, Psychosis, Vertigo, TIA, HTN, COPD, Asthma, arthritis and DJD who presents due to a pre-syncopal episode. Patient states when he got out of the shower, he got dizzy and fell. Patient states he was able to break his fall with his hands , although he is unsure if he lost his consciousness. Patient states that he felt like his legs weighed 200lbs. He denies any tongue biting or urinary/ bowel incontinence. Patient denies any fevers, chills, headache, SOB, chest pain, palpitations, abdominal pain, nausea, vomiting, diarrhea, constipation, or any urinary symptoms. At the time of examination patient rated is dizziness a 1 out of 10. ROS: As stated above PMHx: BiPolar Disease, anxiety, Psychosis, Vertigo, TIA, HTN, COPD, Asthma, arthritis and DJD PSHx: 12 screws in spine, Right knee surgery Allergies: Carisoprodol, varenicline Social Hx: 1/2 PPD for 21 years. Denies alcohol or illicit drug use. Hos: 2016 for possible seizure. History of Psych admissions FamHx: Mother/Father - Heart Disease and Diabetes Meds: Reviewed. Patient states medications have not changed since last visit. Present on Admission - Present on Admission Any Indicators Present on Admission: No Review of Systems - Review of Systems All systems: reviewed and no additional remarkable complaints except (As per HPI ) Review of Systems: As HPI Past Patient History - Infectious Disease Hx of Infectious Diseases: None - Tetanus Immunizations Tetanus Immunization: Unknown - Past Social History Smoking Status: Current Some Days Smoker - CARDIAC Hx Hypertension: Yes - PULMONARY Hx Asthma: Yes Hx Chronic Obstructive Pulmonary Disease (COPD): Yes - NEUROLOGICAL Hx Seizures: No Hx Transient Ischemic Attacks (TIA): Yes - HEENT Hx HEENT Problems: No - RENAL Hx Chronic Kidney Disease: No - ENDOCRINE/METABOLIC Hx Endocrine Disorders: No - HEMATOLOGICAL/ONCOLOGICAL Hx Anemia: Yes - INTEGUMENTARY Hx Dermatological Problems: No - MUSCULOSKELETAL/RHEUMATOLOGICAL Hx Arthritis: Yes Hx Fractures: Yes - GASTROINTESTINAL Hx Gastrointestinal Disorders: No - GENITOURINARY/GYNECOLOGICAL Hx Sexually Transmitted Disorders: No - PSYCHIATRIC Hx Anxiety: Yes Hx Bipolar Disorder: Yes Hx Depression: Yes Hx Substance Use: No - SURGICAL HISTORY Hx Musculoskeletal Surgery: Yes (reconstruction of lower spine) Hx Orthopedic Surgery: Yes (right knee, right shoulder) - ANESTHESIA Hx Anesthesia: Yes Hx Anesthesia Reactions: No Hx Malignant Hyperthermia: No Meds Allergies/Adverse Reactions: Allergies Allergy/AdvReac Type Severity Reaction Status Date / Time carisoprodol [From Soma] Allergy DIZZINESS Verified 10/10/17 21:35 varenicline [From Chantix] Allergy VOMITING Verified 09/22/17 13:05 Physical Exam - Constitutional Appears: Well, Non-toxic, No Acute Distress - Head Exam Head Exam: ATRAUMATIC, NORMAL INSPECTION, NORMOCEPHALIC - Eye Exam Eye Exam: EOMI, Normal appearance, PERRL. absent: Nystagmus, Scleral icterus Pupil Exam: NORMAL ACCOMODATION - ENT Exam ENT Exam: Mucous Membranes Moist - Neck Exam Neck exam: Positive for: Normal Inspection. Negative for: Lymphadenopathy, Thyromegaly - Respiratory Exam Respiratory Exam: Clear to Auscultation Bilateral, NORMAL BREATHING PATTERN. absent: Accessory Muscle Use, Chest Wall Tenderness, Wheezes - Cardiovascular Exam Cardiovascular Exam: Tachycardia, REGULAR RHYTHM, +S1, +S2. absent: JVD Additional comments: No Carotid Bruit - GI/Abdominal Exam GI & Abdominal Exam: Normal Bowel Sounds, Soft. absent: Tenderness - Extremities Exam Extremities exam: Positive for: normal capillary refill, normal inspection, pedal pulses present. Negative for: pedal edema, tenderness - Neurological Exam Neurological exam: Alert, CN II-XII Intact, Normal Gait, Oriented x3 Additional comments: No Motor or sensory deficit. - Psychiatric Exam Psychiatric exam: Anxious, Normal Affect - Skin Skin Exam: Dry, Intact, Normal Color, Warm Results - Vital Signs Recent Vital Signs: Last Vital Signs Temp 98.1 F 03/11/18 21:19 Pulse 102 H 03/12/18 01:09 Resp 18 03/12/18 01:09 BP 134/83 03/12/18 01:09 Pulse Ox 100 03/12/18 01:09 - Labs Result Diagrams: 03/11/18 23:08 03/11/18 23:08 Assessment & Plan - Assessment and Plan (Free Text) Assessment: 47 year old male with a PMHx of BiPolar Disease, anxiety, Psychosis, Vertigo, TIA, HTN, COPD, Asthma, arthritis and DJD admitted for evaluation and treatment of pre-syncopal episode. Plan: Pre-Syncopy Likely VasoVagal vs Vertigo vs medication induced CT Head: NEGATIVE EKG: Sinus Tachycardia with no acute ST/T wave changes Orthostatics Carotid US NeuroChecks Q4H Neurology Consult (Dr. Levine) Elevated Glucose Patient denies diabetic history HgBA1C Diabetic Education/Consumer Insight Analyst Referral if above 6.5 Hypokalemia Replenished with 40meQ Hx of HTN Home Losartan Daily Hx of COPD/Asthma DuoNebs PRN Hx of DJD/Chronic Pain Home Oxycodone Motrin PRN Hx of Bipolar disease,Psychosis,Anxiety Consider Psych Consult Home Meds: Klonopin Haloperidol Nortriptyline Seroquel Paxil Proph Lovenox Protonix Heart Healthy Moderate Cons. Diet Patient discussed with Attending (Dr. Lidia Denton) Kofi Khan, PGY-1 <Moiz Denton - Last Filed: 03/12/18 03:36> Results - Vital Signs Recent Vital Signs: Last Vital Signs Temp 98.1 F 03/11/18 21:19 Pulse 102 H 03/12/18 01:09 Resp 18 03/12/18 01:09 BP 134/83 03/12/18 01:09 Pulse Ox 100 03/12/18 01:09 - Labs Result Diagrams: 03/11/18 23:08 03/11/18 23:08
[2018-03-12] MEDS ORDERED: Albuterol 0.083% Inhal Sol (2.5 mg/3 mL) UD IH PRN (02:48)
[2018-03-12] MEDS ORDERED: Albuterol HFA 90 mcg/actuation (8 g) IH PRN (02:48)
[2018-03-12] MEDS ORDERED: Albuterol-Ipratrop 3 mg / 0.5 (3 ml) UD IH PRN (02:51)
[2018-03-12] MEDS: Pantoprazole 40 mg EC Tab PO SCH (05:36)
[2018-03-12] MEDS: oxyCODONE 10 mg Immediate Release Tab PO PRN ×4 (05:36→23:52)
[2018-03-12 06:09] LABS: BASO # 0.01 K/mm3 (0.0-2.0); BASO % 0.1 % (0.0-3.0); EOS # 0.1 (0.0-0.7); EOS % 0.7 % (1.5-5.0); GRAN # 5.75 (1.4-6.5); GRAN % 57.8 % (50.0-68.0); LYMPH # 3.4 (1.2-3.4); LYMPH % 34.4 % (22.0-35.0); MEAN PLATELET VOLUME 10.6 fl (7.0-11.0); MONO # 0.7 (0.1-0.6); RED CELL DISTRIBUTION WIDTH 12.6 % (11.5-14.5)
[2018-03-12 06:20] LABS: ALB/GLOB RATIO 1.5 (1.1-1.8); ALBUMIN 4.4 g/dL (3.0-4.8); ALT/SGPT 39 U/L (7-56); AST/SGOT 21 U/L (17-59); BLOOD UREA NITROGEN 18 mg/dL (7-21); CALCIUM 9.6 mg/dL (8.4-10.5); GFR AFRICAN-AMERICAN > 60; GFR NON-AFRICAN AMERICAN > 60
--- NOTE | 2018-03-12 07:24 | RAD ---
HISTORY: Pes COMPARISON: Portable chest 10/10/2017. FINDINGS: LUNGS: No active pulmonary disease. Trace left apical and right perihilar fibrosis noted. PLEURA: No significant pleural effusion identified, no pneumothorax apparent. CARDIOVASCULAR: Normal. OSSEOUS STRUCTURES: No significant abnormalities. VISUALIZED UPPER ABDOMEN: Normal. OTHER FINDINGS: None. IMPRESSION: No interval acute cardiopulmonary disease appreciated.
[2018-03-12] MEDS: Enoxaparin 40 mg Syringe SC SCH (09:22)
[2018-03-12 09:44] LABS: HDL CHOLESTEROL 27 mg/dL (29-60)
[2018-03-12 09:54] LABS: LDL CHOLESTEROL 120 mg/dL (0-129)
[2018-03-12] MEDS ORDERED: PAROXETINE HCL PO SCH (10:00)
[2018-03-12] MEDS: Fluticasone Nasal 50 mcg/Spray NS SCH (11:32)
--- NOTE | 2018-03-12 12:46 | CP.PCM.CON ---
History of Present Illness - History of Present Illness History of Present Illness: Neurology Consult Note - Dr. Levine CC: pre-syncopal episode HPI: 47 M with a PMHx of bipolar disorder, anxiety, vertigo, TIA, cardiac arrest , medication non-complaince, withdrawal seizures x2, and asthma presented to [facility] with complaints of a pre-syncopal episode. Pt states that he has been feeling dizzy and lightheaded for the past couple of days and his feet have felt heavier than usual. Pt was in the shower yesterday and when he went to exit the shower, his feet felt heavier, he felt himself spinning, and wound up falling but broke his fall with his arms. He denied any trauma to the head, tongue biting, urinary incontinence. He has a history of medication non- compliance. He stopped all of his medications 10/2016 and suffered 2 seizures subsequently. He also suffered a cardiac arrest roughly around the same time. He was treated at [facility] and was in rehab at [facility] until the beginning of November 2017. He started his medcations at that time and claims to have continued them until present day. He denied any trauma. He denied any similar episodes in the past. He denies any tongue biting or urinary/bowel incontinence. Patient denies any dizziness, lightheadedness, fevers, chills, headache, SOB, chest pain, palpitations, abdominal pain, nausea, vomiting, diarrhea, constipation, or any urinary symptoms. PMHx: bipolar disorder, anxiety, vertigo, TIA, cardiac arrest, medication non- complaince, withdrawal seizures x2, and asthma PSHx: 12 screws in spine, Right knee surgery SHx: 1/2 PPD for 21 years. Denies alcohol or illicit drug use. FamHx: HTN, DM Meds: MAR Reviewed Allergies: Carisoprodol, varenicline Review of Systems - Review of Systems Review of Systems: as per HPI otherwise negative Past Patient History - Infectious Disease Hx of Infectious Diseases: None - Tetanus Immunizations Tetanus Immunization: Unknown - Past Social History Smoking Status: Light Smoker < 10 Cigarettes Daily - CARDIAC Hx Cardiac Disorders: No Hx Angina: No Hx Cardia Arrhythmia: No Hx Circulatory Problems: No Hx Congestive Heart Failure: No Hx Heart Murmur: No Hx Heart Transplant: No Hx Hypercholesterolemia: No Hx Hypertension: Yes Hx Internal Defibrillator: No Hx Mitral Valve Prolapse: No Hx Pacemaker: No Hx Peripheral Edema: No Hx Peripheral Vascular Disease: No - PULMONARY Hx Respiratory Disorders: No Hx Asthma: Yes Hx Bronchitis: No Hx Chronic Obstructive Pulmonary Disease (COPD): Yes Hx Emphysema: No Hx Pneumonia: No Hx Respiratory Aspiration: No Hx Respiratory Tract Infection: No Hx Sleep Apnea: No Hx Tuberculosis: No - NEUROLOGICAL Hx Neurological Disorder: No Hx Alzheimer's Disease: No HX Cerebrovascular Accident: No Hx Dementia: No Hx Dizziness: No Hx Meningitis: No Hx Migraine: No Hx Parkinson's Disease: No Hx Seizures: No Hx Transient Ischemic Attacks (TIA): Yes - HEENT Hx HEENT Problems: No Hx Blind: No Hx Cataracts: No Hx Deafness: No Hx Difficulty Chewing: No Hx Epistaxis: No Hx Glaucoma: No Hx Macular Degeneration: No - RENAL Hx Chronic Kidney Disease: No Hx Dialysis: No Hx Kidney Stones: No Hx Neurogenic Bladder: No Hx Pyelonephritis: No Hx Renal (Kidney) Cancer: No Hx Renal Failure: No - ENDOCRINE/METABOLIC Hx Endocrine Disorders: No Hx Adrenal Cancer: No Hx Diabetes Insipidus: No Hx Diabetes Mellitus Type 1: No Hx Diabetes Mellitus Type 2: No Hx Hyperthyroidism: No Hx Hypothyroidism: No Hx Systemic Lupus Erythematosus: No - HEMATOLOGICAL/ONCOLOGICAL Hx Blood Disorders: No Hx AIDS: No Hx Anemia: Yes Hx Cancer: No Hx Chemotherapy: No Hx Cirrhosis: No Hx Hemophilia: No Hx Hepatitis A: No Hx Hepatitis B: No Hx Hepatitis C: No Hx Human Immunodeficiency Virus (HIV): No Hx Metastesis: No Hx Shingles: No Hx Sickle Cell Disease: No Hx Unexplained Bleeding: No - INTEGUMENTARY Hx Dermatological Problems: No Hx Basil Cell: No Hx Eczema: No Hx Melanoma: No Hx Psoriasis: No Hx Squamous Cell: No - MUSCULOSKELETAL/RHEUMATOLOGICAL Hx Arthritis: Yes Hx Back Pain: No Hx Degenerative Joint Disease: Yes Hx Falls: Yes Hx Fractures: No Hx Gout: No Hx Herniated Disk: No Hx Myasthenia Gravis: No Hx Osteoarthritis: No Hx Osteomyelitis: No Hx Osteoporosis: No Hx Rhabdomyolysis: No Hx Spinal Stenosis: No Hx Unsteady Gait: No - GASTROINTESTINAL Hx Gastrointestinal Disorders: No Hx Colostomy: No Hx Crohn's Disease: No Hx Diverticulitis: No Hx Gall Bladder Disease: No Hx Gastroesophageal Reflux: No Hx Ileostomy: No Hx Liver Failure: No Hx Pancreatitis: No HX Swallowing Problems: No Hx Ulcer: No - GENITOURINARY/GYNECOLOGICAL Hx Genitourinary Disorders: No Hx Hematuria: No Hx Incontinence: No Hx Prostate Problems: No Hx Sexually Transmitted Disorders: No Hx Urinary Tract Infection: No - PSYCHIATRIC Hx Psychophysiologic Disorder: Yes Hx Anxiety: Yes Hx Bipolar Disorder: Yes Hx Depression: Yes Hx Emotional Abuse: No Hx Hallucinations: No Hx Panic Symptoms: Yes Hx Paranoia: No Hx Post Traumatic Stress Disorder: No Hx Psychosis: No Hx Physical Abuse: No Hx Schizophrenia: No Hx Sexual Abuse: No Hx Substance Use: No - SURGICAL HISTORY Hx Cardiac Catheterization: No Hx Coronary Stent: No - ANESTHESIA Hx Anesthesia: Yes Hx Anesthesia Reactions: No Hx Malignant Hyperthermia: No Meds Allergies/Adverse Reactions: Allergies Allergy/AdvReac Type Severity Reaction Status Date / Time carisoprodol [From Soma] Allergy DIZZINESS Verified 10/10/17 21:35 varenicline [From Chantix] Allergy VOMITING Verified 09/22/17 13:05 - Medications Medications: Current Medications Albuterol/Ipratropium (Duoneb 3 Mg/0.5 Mg (3 Ml) Ud) 3 ml IH Q2H PRN PRN Reason: Shortness of Breath Clonazepam (Klonopin) 0.5 mg PO QID [facility] PRN Reason: Protocol Last Admin: 03/12/18 09:23 Dose: 0.5 mg Enoxaparin Sodium (Lovenox) 40 mg SC DAILY [facility] PRN Reason: Protocol Last Admin: 03/12/18 09:22 Dose: 40 mg Fluticasone Propionate (Flonase) 2 actuation NS DAILY [facility] Last Admin: 03/12/18 11:32 Dose: 1 unit Haloperidol (Haldol) 5 mg PO BID [facility] PRN Reason: Protocol Last Admin: 03/12/18 09:23 Dose: 5 mg Ibuprofen (Motrin Tab) 600 mg PO Q6H PRN PRN Reason: Pain, moderate (4-7) Losartan Potassium (Cozaar) 50 mg PO DAILY [facility] Nortriptyline HCl (Pamelor) 10 mg PO DAILY [facility] Last Admin: 03/12/18 09:23 Dose: 10 mg Oxycodone HCl (Oxycodone Immediate Release Tab) 10 mg PO Q6H PRN PRN Reason: Pain, severe (8-10) Last Admin: 03/12/18 11:44 Dose: 10 mg Pantoprazole Sodium (Protonix Ec Tab) 40 mg PO 0600 [facility] Last Admin: 03/12/18 05:36 Dose: 40 mg Paroxetine HCl (Paxil) 40 mg PO DAILY [facility] Last Admin: 03/12/18 09:22 Dose: 40 mg Quetiapine Fumarate (Seroquel Xr) 200 mg PO HS [facility] PRN Reason: Protocol Physical Exam - Constitutional Appears: No Acute Distress - Head Exam Head Exam: ATRAUMATIC, NORMAL INSPECTION, NORMOCEPHALIC - Eye Exam Eye Exam: EOMI, Normal appearance, PERRL Pupil Exam: NORMAL ACCOMODATION, PERRL - ENT Exam ENT Exam: Mucous Membranes Moist, Normal Exam - Respiratory Exam Respiratory Exam: Clear to Auscultation Bilateral, NORMAL BREATHING PATTERN - Cardiovascular Exam Cardiovascular Exam: REGULAR RHYTHM, +S1, +S2 - GI/Abdominal Exam GI & Abdominal Exam: Normal Bowel Sounds, Soft. absent: Tenderness - Neurological Exam Neurological exam: Alert, CN II-XII Intact, Normal Gait, Oriented x3, Reflexes Normal - Psychiatric Exam Psychiatric exam: Normal Affect, Normal Mood - Skin Skin Exam: Dry, Intact, Normal Color, Warm Results - Vital Signs Recent Vital Signs: Last Vital Signs Temp 97.5 F L 03/12/18 05:48 Pulse 86 03/12/18 05:48 Resp 22 03/12/18 05:48 BP 121/81 03/12/18 05:48 Pulse Ox 98 03/12/18 05:48 - Labs Result Diagrams: 03/12/18 05:55 03/12/18 05:55 Labs: Laboratory Results - last 24 hr 03/12/18 03/12/18 03/12/18 05:55 05:55 06:00 WBC 10.0 RBC 5.00 Hgb 16.0 Hct 44.5 MCV 89.0 MCH 32.0 MCHC 36.0 RDW 12.6 Plt Count 194 MPV 10.6 Gran % 57.8 Lymph % (Auto) 34.4 [place] % (Auto) 7.0 H Eos % (Auto) 0.7 L Baso % (Auto) 0.1 Gran # 5.75 Lymph # (Auto) 3.4 [place] # (Auto) 0.7 H Eos # (Auto) 0.1 Baso # (Auto) 0.01 Sodium 138 Potassium 3.5 L Chloride 99 Carbon Dioxide 25 Anion Gap 18 BUN 18 Creatinine 1.2 Est GFR ( Amer) > 60 Est GFR (Non-Af Amer) > 60 Random Glucose 211 H Calcium 9.6 Total Bilirubin 1.0 AST 21 ALT 39 Alkaline Phosphatase 80 Total Protein 7.4 Albumin 4.4 Globulin 3.0 Albumin/Globulin Ratio 1.5 Triglycerides 252 H Cholesterol 181 LDL Cholesterol Direct 120 HDL Cholesterol 27 L Assessment & Plan - Assessment and Plan (Free Text) Assessment: 47 M with a PMHx of bipolar disorder, anxiety, vertigo, TIA, cardiac arrest, medication non-complaince, withdrawal seizures x2, and asthma presented to [facility] with complaints of a pre-syncopal episode, found to have orthostatic hypotension, likely from medications vs dehydration. We will order a CTA head and neck to assess for any vertebrobasilar insufficiency. Encourage plenty of fluids, ivf. PT/OT, consider psych eval for medications.
--- NOTE | 2018-03-12 15:29 | US ---
PROCEDURE: Bilateral carotid artery duplex ultrasound HISTORY: Carotid stenosis syncope P PHYSICIAN(S): Brian Gallegos MD. TECHNIQUE: Duplex sonography and color-flow Doppler were used to evaluate the carotid bifurcations and limited segments of the vertebral arteries bilaterally. FINDINGS: There is mild diffuse smooth hypoechoic plaque noted at the carotid bifurcations bilaterally. The peak systolic velocity in the proximal right internal carotid artery is 64 cm/sec. This corresponds to a 20 to 39% proximal right ICA stenosis. Normal systolic velocities are noted in the proximal right external carotid artery. There is antegrade flow in the right vertebral artery. The peak systolic velocity in the proximal left internal carotid artery is 60 cm/sec. This corresponds to a 20 to 39% proximal left ICA stenosis. Normal systolic velocities are noted in the proximal left external carotid artery. There is antegrade flow in the left vertebral artery. IMPRESSION: 1. Bilateral 20-39% proximal ICA stenoses. 2. Antegrade flow in both vertebral arteries.
[2018-03-12] MEDS: Insulin Lispro (humaLOG) LOW Coverage SC SCH ×2 (17:12→21:11)
[2018-03-12] MEDS ORDERED: QUEtiapine 200 mg XR Tab PO SCH (22:00)
--- NOTE | 2018-03-12 22:48 | CARD ---
APPROVED REPORT EKG Measurement Heart [id number] [id number] <Conclusion> Sinus tachycardia Low voltage QRS Nonspecific T wave abnormality Abnormal ECG
[2018-03-13] MEDS: oxyCODONE 10 mg Immediate Release Tab PO PRN (05:58)
[2018-03-13] MEDS: Pantoprazole 40 mg EC Tab PO SCH (05:58)
[2018-03-13 06:06] LABS: BASO # 0.02 K/mm3 (0.0-2.0); BASO % 0.2 % (0.0-3.0); EOS # 0.1 (0.0-0.7); EOS % 1.1 % (1.5-5.0); GRAN # 5.66 (1.4-6.5); GRAN % 60.4 % (50.0-68.0); HEMOGLOBIN 17.1 g/dL (14.0-18.0); LYMPH # 3.1 (1.2-3.4); MEAN CELL VOLUME 89.2 fl (80.0-105.0); MEAN CORPUSCULAR HEMOGLOBIN 31.9 pg (25.0-35.0); MEAN CORPUSCULAR HGB CONC 35.8 g/dl (31.0-37.0); MEAN PLATELET VOLUME 10.7 fl (7.0-11.0); MONO # 0.5 (0.1-0.6); MONO % 5.3 % (1.0-6.0); RBC 5.36 10^6/uL (3.5-6.1); RED CELL DISTRIBUTION WIDTH 12.7 % (11.5-14.5); WHITE BLOOD COUNT 9.4 10^3/ul (4.5-11.0)
[2018-03-13] MEDS ORDERED: Sodium Chloride 0.9% 1,000 ML IV SCH (07:15)
[2018-03-13 07:37] LABS: ALB/GLOB RATIO 1.4 (1.1-1.8); ALBUMIN 4.4 g/dL (3.0-4.8); ALT/SGPT 39 U/L (7-56); AST/SGOT 32 U/L (17-59); BLOOD UREA NITROGEN 18 mg/dL (7-21); CALCIUM 9.4 mg/dL (8.4-10.5); GFR AFRICAN-AMERICAN > 60; GFR NON-AFRICAN AMERICAN > 60
[2018-03-13] MEDS: Insulin Lispro (humaLOG) LOW Coverage SC SCH ×2 (07:54→12:06)
[2018-03-13 09:21] VITALS: RESP 18; O2SAT 98
[2018-03-13] MEDS: Enoxaparin 40 mg Syringe SC SCH ×2 (10:05→10:12)
[2018-03-13] MEDS: Fluticasone Nasal 50 mcg/Spray NS SCH (10:05)
--- NOTE | 2018-03-13 10:16 | CP.PCM.DIS ---
Addendum entered and electronically signed by Alisha Coronado DO 03/13/18 14:28: Patient was complaining of atypical right sided chest pain that lasted a few seconds. Patient described the pain as a muscle spasm. EKG was unremarkable and troponin was negative. Patient states that symptoms resolved. We recommend patient go for outpatient stress test. Patient was discharged home with discharge instructions. Original Note: <Alisha Coronado - Last Filed: 03/13/18 13:02> Provider - Provider Date of Admission: 03/12/18 01:44 Attending physician: Miriam Wilkinson MD Primary care physician: Patsy Campbell MD Consults: Neuro: Dr Levine Time Spent in preparation of Discharge (in minutes): 32 Hospital Course - Lab Results Lab Results: Most Recent Lab Values WBC 9.4 10^3/ul (4.5-11.0) 03/13/18 05:15 RBC 5.36 10^6/uL (3.5-6.1) 03/13/18 05:15 Hgb 17.1 g/dL (14.0-18.0) 03/13/18 05:15 Hct 47.8 % (42.0-52.0) 03/13/18 05:15 MCV 89.2 fl (80.0-105.0) 03/13/18 05:15 MCH 31.9 pg (25.0-35.0) 03/13/18 05:15 MCHC 35.8 g/dl (31.0-37.0) 03/13/18 05:15 RDW 12.7 % (11.5-14.5) 03/13/18 05:15 Plt Count 208 10^3/uL (120.0-450.0) 03/13/18 05:15 MPV 10.7 fl (7.0-11.0) 03/13/18 05:15 Gran % 60.4 % (50.0-68.0) 03/13/18 05:15 Lymph % (Auto) 33.0 % (22.0-35.0) 03/13/18 05:15 [place] % (Auto) 5.3 % (1.0-6.0) 03/13/18 05:15 Eos % (Auto) 1.1 % (1.5-5.0) L 03/13/18 05:15 Baso % (Auto) 0.2 % (0.0-3.0) 03/13/18 05:15 Gran # 5.66 (1.4-6.5) 03/13/18 05:15 Lymph # (Auto) 3.1 (1.2-3.4) 03/13/18 05:15 [place] # (Auto) 0.5 (0.1-0.6) 03/13/18 05:15 Eos # (Auto) 0.1 (0.0-0.7) 03/13/18 05:15 Baso # (Auto) 0.02 K/mm3 (0.0-2.0) 03/13/18 05:15 PT 11.6 SECONDS (9.4-12.5) 03/11/18 23:08 INR 1.02 (0.93-1.08) 03/11/18 23:08 APTT 25.1 Seconds (25.1-36.5) 03/11/18 23:08 Sodium 137 mmol/L (132-148) 03/13/18 05:15 Potassium 4.0 mmol/L (3.6-5.0) 03/13/18 05:15 Chloride 101 mmol/L (98-107) 03/13/18 05:15 Carbon Dioxide 24 mmol/L (21-33) 03/13/18 05:15 Anion Gap 16 (10-20) 03/13/18 05:15 BUN 18 mg/dL (7-21) 03/13/18 05:15 Creatinine 1.1 mg/dl (0.8-1.5) 03/13/18 05:15 Est GFR ( Amer) > 60 03/13/18 05:15 Est GFR (Non-Af Amer) > 60 03/13/18 05:15 POC Glucose (mg/dL) 207 mg/dL (65-110) H 03/13/18 07:14 Random Glucose 216 mg/dL (70-110) H 03/13/18 05:15 Hemoglobin A1c 9.5 % (4.2-6.5) H D 03/11/18 23:08 Calcium 9.4 mg/dL (8.4-10.5) 03/13/18 05:15 Total Bilirubin 1.1 mg/dL (0.2-1.3) 03/13/18 05:15 AST 32 U/L (17-59) 03/13/18 05:15 ALT 39 U/L (7-56) 03/13/18 05:15 Alkaline Phosphatase 86 U/L (38-126) 03/13/18 05:15 Lactate Dehydrogenase 414 U/L (333-699) 03/11/18 23:08 Total Creatine Kinase 86 U/L (35-230) 03/11/18 23:08 Troponin I < 0.01 ng/mL 03/11/18 23:08 Total Protein 7.5 g/dL (5.8-8.3) 03/13/18 05:15 Albumin 4.4 g/dL (3.0-4.8) 03/13/18 05:15 Globulin 3.1 gm/dL 03/13/18 05:15 Albumin/Globulin Ratio 1.4 (1.1-1.8) 03/13/18 05:15 Triglycerides 252 mg/dL (35-160) H 03/12/18 06:00 Cholesterol 181 mg/dL (130-200) 03/12/18 06:00 LDL Cholesterol Direct 120 mg/dL (0-129) 03/12/18 06:00 HDL Cholesterol 27 mg/dL (29-60) L 03/12/18 06:00 Urine Color Yellow (YELLOW) 03/12/18 00:08 Urine Appearance Clear (CLEAR) 03/12/18 00:08 Urine pH 6.5 (4.7-8.0) 03/12/18 00:08 Ur Specific [place] <= 1.005 (1.005-1.035) 03/12/18 00:08 Urine Protein Negative mg/dL (<30 mg/dL) 03/12/18 00:08 Urine Glucose (UA) Negative mg/dL (NEGATIVE) 03/12/18 00:08 Urine Ketones Negative mg/dL (NEGATIVE) 03/12/18 00:08 Urine Blood Negative (NEGATIVE) 03/12/18 00:08 Urine Nitrate Negative (NEGATIVE) 03/12/18 00:08 Urine Bilirubin Negative (NEGATIVE) 03/12/18 00:08 Urine Urobilinogen 0.2 E.U./dL (<1 E.U./dL) 03/12/18 00:08 Ur Leukocyte Esterase Negative Sharath/uL (NEGATIVE) 03/12/18 00:08 Salicylates < 1 mg/dL (2.0-20.0) L 03/11/18 23:08 Urine Opiates Screen Negative (NEGATIVE) 03/12/18 00:08 Urine Methadone Screen Negative (NEGATIVE) 03/12/18 00:08 Acetaminophen < 10.0 ug/ml (10.0-20.0) L 03/11/18 23:08 Ur Barbiturates Screen Negative (NEGATIVE) 03/12/18 00:08 Ur Phencyclidine Scrn Negative (NEGATIVE) 03/12/18 00:08 Ur Amphetamines Screen Negative (NEGATIVE) 03/12/18 00:08 U Benzodiazepines Scrn Negative (NEGATIVE) 03/12/18 00:08 U Oth Cocaine Metabols Negative (NEGATIVE) 03/12/18 00:08 U Cannabinoids Screen Negative (NEGATIVE) 03/12/18 00:08 Alcohol, Quantitative < 10 mg/dL (0-10) 03/11/18 23:08 - Hospital Course Hospital Course: History of Present Illness: Patient is a 47 year old male with a PMHx of Bipolar Disease, anxiety, Psychosis , Vertigo, TIA, HTN, COPD, Asthma, arthritis and DJD who presents due to a pre- syncopal episode. Patient states when he got out of the shower, he got dizzy and fell. Patient states he was able to break his fall with his hands, although he is unsure if he lost his consciousness. Patient states that he felt like his legs weighed 200lbs. He denies any tongue biting or urinary/ bowel incontinence. Patient denies any fevers, chills, headache, SOB, chest pain, palpitations, abdominal pain, nausea, vomiting, diarrhea, constipation, or any urinary symptoms. At the time of examination patient rated is dizziness a 1 out of 10. Hospital Course: Patient was admitted to Telemetry. CT head was negative. Neurology was consulted. Carotid doppler showed 20-39% proximal ICA stenosis. Patient was found to have orthostatic hypotension which is likely multifactorial. We decreased his Cozaar to 50mg PO daily. During this admission, patient was diagnosed with Diabetes Mellitus. HgA1C was 9.5. Patient was started on Metformin and seen by Inventory Control Analyst. Prescription for Glucometer, Test strips, and Lancets were given. Patient advised that he will need to maintain diabetic diet, check his blood sugars twice a day and keep a log. Patient was also found to have hypertriglyceridemia, we started him on Lipitor 10mg PO HS. He was seen by Physical Therapy, who recommended home for disposition. On day of discharge, patient was doing well. Ambulating without difficulty, and tolerating diet. Dizziness improved. Patient requesting to have his psych medications refilled, hes specifically requested Haldol and Clonopin. Patient was told that he will need to follow up with his psychiatrist within 1 week for discharge for medication reconcilation and refills. Patient to also follow up with PMD within 1 week. Discharge Medications: Cozaar 50mg PO daily Haldol 5mg PO BID x 1 week Clonopin 0.5mg PO QID x 3 days Lipitor 10mg PO HS Discharge Diagnosis: Orthostatic Hypotension Diabetes Mellitus Hypertriglyeridemia Low HDL Discharge Exam - Head Exam Head Exam: ATRAUMATIC, NORMAL INSPECTION, NORMOCEPHALIC - Eye Exam Eye Exam: EOMI, Normal appearance Pupil Exam: NORMAL ACCOMODATION - ENT Exam ENT Exam: Mucous Membranes Moist - Neck Exam Neck exam: Full Rom - Respiratory Exam Respiratory Exam: Clear to PA & Lateral, NORMAL BREATHING PATTERN, UNREMARKABLE. absent: Rales, Rhonchi, Wheezes - Cardiovascular Exam Cardiovascular Exam: REGULAR RHYTHM, +S1, +S2 - GI/Abdominal Exam GI & Abdominal Exam: Normal Bowel Sounds, Soft, Unremarkable. absent: Guarding , Rebound, Rigid, Tenderness - Extremities Exam Extremities exam: normal inspection - Back Exam Back exam: NORMAL INSPECTION - Neurological Exam Neurological exam: Alert, Normal Gait, Oriented x3 - Psychiatric Exam Psychiatric exam: Normal Affect, Normal Mood - Skin Skin Exam: Dry, Normal Color, Warm Discharge Plan - Discharge Medications Prescriptions: Atorvastatin [Lipitor] 10 mg PO DIN #30 tab Clonazepam [Klonopin] 0.5 mg PO QID #12 tablet Haloperidol [Haldol] 5 mg PO BID #14 tab Losartan [Cozaar] 50 mg PO DAILY #30 tab metFORMIN [glucOPHAGE] 500 mg PO BID #60 tab - Follow Up Plan Condition: FAIR Disposition: HOME/ ROUTINE Instructions: Type 2 Diabetes, Heart Healthy Diet, Quitting Smoking, Diabetic Meal Planning , Syncope (ED) Additional Instructions: 1. Patient is cleared for discharge home 2. For Newly diagnosed Diabetes: Please check your blood sugar twice/day, continue Metformin as prescribed; 3. For Orthostatic Hypotension: We decreased your dose of Cozaar to 50mg PO daily, when going from laying to sitting, wait 1 minute, when going from sitting to standing, wait 1 minute, then you can ambulate 4. For Elevated Triglycerides: Please continue Lipitor 10mg PO daily 5. Please follow up with PMD within 1 week of discharge 6. Recommending outpatient stress test 7. If having any worsening symptoms, return to the ER. Referrals: Patsy Campbell MD [Primary Care Provider] - <Miriam Wilkinson - Last Filed: 03/13/18 17:01> Provider - Provider Date of Admission: 03/12/18 01:44 Attending physician: Miriam Wilkinson MD Primary care physician: Patsy Campbell MD Hospital Course - Lab Results Lab Results: Most Recent Lab Values WBC 9.4 10^3/ul (4.5-11.0) 03/13/18 05:15 RBC 5.36 10^6/uL (3.5-6.1) 03/13/18 05:15 Hgb 17.1 g/dL (14.0-18.0) 03/13/18 05:15 Hct 47.8 % (42.0-52.0) 03/13/18 05:15 MCV 89.2 fl (80.0-105.0) 03/13/18 05:15 MCH 31.9 pg (25.0-35.0) 03/13/18 05:15 MCHC 35.8 g/dl (31.0-37.0) 03/13/18 05:15 RDW 12.7 % (11.5-14.5) 03/13/18 05:15 Plt Count 208 10^3/uL (120.0-450.0) 03/13/18 05:15 MPV 10.7 fl (7.0-11.0) 03/13/18 05:15 Gran % 60.4 % (50.0-68.0) 03/13/18 05:15 Lymph % (Auto) 33.0 % (22.0-35.0) 03/13/18 05:15 [place] % (Auto) 5.3 % (1.0-6.0) 03/13/18 05:15 Eos % (Auto) 1.1 % (1.5-5.0) L 03/13/18 05:15 Baso % (Auto) 0.2 % (0.0-3.0) 03/13/18 05:15 Gran # 5.66 (1.4-6.5) 03/13/18 05:15 Lymph # (Auto) 3.1 (1.2-3.4) 03/13/18 05:15 [place] # (Auto) 0.5 (0.1-0.6) 03/13/18 05:15 Eos # (Auto) 0.1 (0.0-0.7) 03/13/18 05:15 Baso # (Auto) 0.02 K/mm3 (0.0-2.0) 03/13/18 05:15 PT 11.6 SECONDS (9.4-12.5) 03/11/18 23:08 INR 1.02 (0.93-1.08) 03/11/18 23:08 APTT 25.1 Seconds (25.1-36.5) 03/11/18 23:08 Sodium 137 mmol/L (132-148) 03/13/18 05:15 Potassium 4.0 mmol/L (3.6-5.0) 03/13/18 05:15 Chloride 101 mmol/L (98-107) 03/13/18 05:15 Carbon Dioxide 24 mmol/L (21-33) 03/13/18 05:15 Anion Gap 16 (10-20) 03/13/18 05:15 BUN 18 mg/dL (7-21) 03/13/18 05:15 Creatinine 1.1 mg/dl (0.8-1.5) 03/13/18 05:15 Est GFR ( Amer) > 60 03/13/18 05:15 Est GFR (Non-Af Amer) > 60 03/13/18 05:15 POC Glucose (mg/dL) 248 mg/dL (65-110) H 03/13/18 11:52 Random Glucose 216 mg/dL (70-110) H 03/13/18 05:15 Hemoglobin A1c 9.5 % (4.2-6.5) H D 03/11/18 23:08 Calcium 9.4 mg/dL (8.4-10.5) 03/13/18 05:15 Total Bilirubin 1.1 mg/dL (0.2-1.3) 03/13/18 05:15 AST 32 U/L (17-59) 03/13/18 05:15 ALT 39 U/L (7-56) 03/13/18 05:15 Alkaline Phosphatase 86 U/L (38-126) 03/13/18 05:15 Lactate Dehydrogenase 414 U/L (333-699) 03/11/18 23:08 Total Creatine Kinase 86 U/L (35-230) 03/11/18 23:08 Troponin I < 0.01 ng/mL 03/13/18 13:15 Total Protein 7.5 g/dL (5.8-8.3) 03/13/18 05:15 Albumin 4.4 g/dL (3.0-4.8) 03/13/18 05:15 Globulin 3.1 gm/dL 03/13/18 05:15 Albumin/Globulin Ratio 1.4 (1.1-1.8) 03/13/18 05:15 Triglycerides 252 mg/dL (35-160) H 03/12/18 06:00 Cholesterol 181 mg/dL (130-200) 03/12/18 06:00 LDL Cholesterol Direct 120 mg/dL (0-129) 03/12/18 06:00 HDL Cholesterol 27 mg/dL (29-60) L 03/12/18 06:00 Urine Color Yellow (YELLOW) 03/12/18 00:08 Urine Appearance Clear (CLEAR) 03/12/18 00:08 Urine pH 6.5 (4.7-8.0) 03/12/18 00:08 Ur Specific [place] <= 1.005 (1.005-1.035) 03/12/18 00:08 Urine Protein Negative mg/dL (<30 mg/dL) 03/12/18 00:08 Urine Glucose (UA) Negative mg/dL (NEGATIVE) 03/12/18 00:08 Urine Ketones Negative mg/dL (NEGATIVE) 03/12/18 00:08 Urine Blood Negative (NEGATIVE) 03/12/18 00:08 Urine Nitrate Negative (NEGATIVE) 03/12/18 00:08 Urine Bilirubin Negative (NEGATIVE) 03/12/18 00:08 Urine Urobilinogen 0.2 E.U./dL (<1 E.U./dL) 03/12/18 00:08 Ur Leukocyte Esterase Negative Sharath/uL (NEGATIVE) 03/12/18 00:08 Salicylates < 1 mg/dL (2.0-20.0) L 03/11/18 23:08 Urine Opiates Screen Negative (NEGATIVE) 03/12/18 00:08 Urine Methadone Screen Negative (NEGATIVE) 03/12/18 00:08 Acetaminophen < 10.0 ug/ml (10.0-20.0) L 03/11/18 23:08 Ur Barbiturates Screen Negative (NEGATIVE) 03/12/18 00:08 Ur Phencyclidine Scrn Negative (NEGATIVE) 03/12/18 00:08 Ur Amphetamines Screen Negative (NEGATIVE) 03/12/18 00:08 U Benzodiazepines Scrn Negative (NEGATIVE) 03/12/18 00:08 U Oth Cocaine Metabols Negative (NEGATIVE) 03/12/18 00:08 U Cannabinoids Screen Negative (NEGATIVE) 03/12/18 00:08 Alcohol, Quantitative < 10 mg/dL (0-10) 03/11/18 23:08 Attending/Attestation - Attestation I have personally seen and examined this patient.: Yes I have fully participated in the care of the patient.: Yes I have reviewed all pertinent clinical information, including history, physical exam and plan: Yes Notes (Text): 03/13/18 16:54 Medical record note made by the resident after discussion with my direction and input after the patient was personally seen and examined by me. I have reviewed the chart and agree that the record accurately reflects by personal performance of the history, physical exam, data review, and medical decision-making, in the course for the patient. I have also personally directed the plan of care. 47 year old male with a PMHx of Bipolar Disease, anxiety, Psychosis, Vertigo, TIA, HTN, chronic smoking was admitted with lightheadedness, dizziness and Pre syncope due to orthostatic hypotension.Patient cozaar dose was reduced to 50 mg po daily.His dizziness has improved.His blood pressure is stable at the time of discharge. Patient had episode of chest pain prior to discharge.Patient describe chest pain as cramping pain on right side of chest lasted only few second .EKG was negative for ischemic changes.Cardiac enzymes are normal.Patient is pain free and is ambulatory.He has been advised to follow up with his PCP and can have out patient stress test. The issue of compliance with medication, and dietary compliance was discussed in detail with the patient. The issue of ongoing smoking was also discussed in detail. Management plan was discussed in detail with patient. Education was provided
[2018-03-13 11:19] VITALS: BP 118/80; TEMP 98.1
[2018-03-13 14:58] VITALS: PULSE 88
--- NOTE | 2018-03-13 18:48 | CARD ---
APPROVED REPORT EKG Measurement Heart [id number] <Conclusion> Normal sinus rhythm Normal ECG
== END 2018-03-13 15:20 | disposition home or self-care (01) ==
LOC: ED 21:03 → ERH 03-12 01:44 → 2RNO 03-12 03:23
PROVIDERS: ADMIT Internal Medicine; ATTEND Internal Medicine
DX: I95.1 Orthostatic hypotension (principal); I65.23 Occlusion and stenosis of bilateral carotid arteries; E11.9 Type 2 diabetes mellitus without complications; F31.9 Bipolar disorder, unspecified; I10 Essential (primary) hypertension; F41.9 Anxiety disorder, unspecified; J44.9 Chronic obstructive pulmonary disease, unspecified; R07.9 Chest pain, unspecified; Z91.14 Patient's other noncompliance with medication regimen; Z86.73 Personal history of transient ischemic attack (TIA), and cerebral infarction without residual deficits
CPT/HCPCS: 36415; 70450; 71045; 80053; 80061; 80320; 80324; 80329; 80345; 80346; 80349; 80353; 80358; 80361; 81003; 82550; 82948; 83036; 83615; 83992; 84484; 85025; 85610; 85730; 93005; 93880; 96372; 97116; 97161; 97530; 99285; G0378; G8978; G8979; G8980; J1650; J7040

== ENCOUNTER 2018-04-21 08:56 | Emergency (ER) | payer MEDICAID ==
[2018-04-21 08:57] VITALS: BMI 28.7
[2018-04-21 09:13] VITALS: RESP 18; TEMP 98.6
--- NOTE | 2018-04-21 09:47 | ED PDOC ---
Arrival/HPI - General Chief Complaint: Lower Extremity Problem/Injury Time Seen by Provider: 04/21/18 09:06 Historian: Patient - History of Present Illness Narrative History of Present Illness (Text): 04/21/18 09:47 This 47 yo male with pmh bipolar, presents to this ED c/o ankle and lower leg pain since yesterday. Patient stated he slipped and fell down in his house. He said he twisted his ankle. He feels pain on his posterior ankle, and lateral knee. Denies head injury, syncope, dizziness, sob, cp, abdominal pain, neck pain, back pain, or CMS. Time/Duration: Other (see hpi) Context: Home Past Medical History - Provider Review Nursing Documentation Reviewed: Yes - Infectious Disease Hx of Infectious Diseases: None - Tetanus Immunization Tetanus Immunization: Unknown - Cardiac Hx Hypertension: Yes - Pulmonary Hx Chronic Obstructive Pulmonary Disease (COPD): Yes - Neurological Hx Neurological Disorder: No Hx Alzheimer's Disease: No HX Cerebrovascular Accident: No Hx Dementia: No Hx Dizziness: No Hx Meningitis: No Hx Migraine: No Hx Parkinson's Disease: No Hx Seizures: No Hx Transient Ischemic Attacks (TIA): Yes - HEENT Hx HEENT Disorder: No Hx Blind: No Hx Cataracts: No Hx Deafness: No Hx Difficulty Chewing: No Hx Epistaxis: No Hx Glaucoma: No Hx Macular Degeneration: No - Renal Hx Renal Disorder: No Hx Dialysis: No Hx Kidney Stones: No Hx Neurogenic Bladder: No Hx Pyelonephritis: No Hx Renal Cancer: No Hx Renal Failure: No - Endocrine/Metabolic Hx Endocrine Disorders: No Hx Adrenal Cancer: No Hx Diabetes Insipidus: No Hx Diabetes Mellitus Type 1: No Hx Diabetes Mellitus Type 2: No Hx Hyperthyroidism: No Hx Hypothyroidism: No Hx Systemic Lupus Erythematosus: No - Hematological/Oncological Hx Blood Disorders: No Hx AIDS: No Hx Anemia: Yes Hx Cancer: No Hx Chemotherapy: No Hx Cirrhosis: No Hx Hemophilia: No Hx Hepatitis A: No Hx Hepatitis B: No Hx Hepatitis C: No Hx Metastasis: No Hx Shingles: No Hx Sickle Cell Disease: No Hx Unexplained Bleeding: No - Integumentary Hx Dermatological Disorder: No Hx Basal Cell Carcinoma: No Hx Eczema: No Hx Melanoma: No Hx Psoriasis: No Hx Squamous Cell Carcinoma: No - Musculoskeletal/Rheumatological Hx Arthritis: Yes - Gastrointestinal Hx Gastrointestinal Disorders: No Hx Colostomy: No Hx Crohn's Disease: No Hx Diverticulitis: No Hx Gall Bladder Disease: No Hx Gastroesophageal Reflux: No Hx Ileostomy: No Hx Liver Failure: No Hx Pancreatitis: No HX Swallowing Problems: No - Genitourinary/Gynecological Hx Genitourinary Disorders: No Hx Hematuria: No Hx Incontinence: No Hx Prostate Problems: No Hx Sexually Transmitted Diseases: No Hx Urinary Tract Infection: No - Psychiatric Hx Psychophysiologic Disorder: Yes Hx Anxiety: Yes Hx Bipolar Disorder: Yes Hx Depression: Yes Hx Emotional Abuse: No Hx Hallucinations: No Hx Panic Disorder: Yes Hx Post Traumatic Stress Disorder: No Hx Psychosis: No Hx Physical Abuse: No Hx Schizophrenia: No Hx Sexual Abuse: No Hx Substance Use: No - Surgical History Hx Cardiac Catheterization: No Hx Coronary Stent: No - Anesthesia Hx Anesthesia: Yes Hx Anesthesia Reactions: No Hx Malignant Hyperthermia: No - Suicidal Assessment Feels Threatened In Home Enviroment: No Family/Social History - Physician Review Nursing Documentation Reviewed: Yes Family/Social History: Other (noncontributory) Smoking Status: Light Smoker < 10 Cigarettes Daily Hx Alcohol Use: No Hx Substance Use: No Substance used: cocaine formerly Allergies/Home Meds Allergies/Adverse Reactions: Allergies carisoprodol [From Soma] Allergy (Verified 10/10/17 21:35) DIZZINESS varenicline [From Chantix] Allergy (Verified 09/22/17 13:05) VOMITING Review of Systems - Review of Systems Constitutional: Normal. absent: Fatigue, Weight Change, Fevers, Night Sweats Eyes: Normal ENT: Normal Respiratory: Normal Cardiovascular: Normal Gastrointestinal: Normal Genitourinary Male: Normal Musculoskeletal: Other (ankle and knee pain) Skin: Normal Neurological: Normal Endocrine: Normal Hemo/Lymphatic: Normal Psychiatric: Normal Physical Exam Vital Signs Temp Pulse Resp BP Pulse Ox 04/21/18 08:57 98.6 F 109 H 18 150/93 H 99 Temperature: Afebrile Blood Pressure: Normal Pulse: Regular Respiratory Rate: Normal Appearance: Positive for: Well-Appearing, Non-Toxic, Comfortable Pain Distress: None Mental Status: Positive for: Alert and Oriented X 3 - Systems Exam Head: Present: Atraumatic, Normocephalic Pupils: Present: PERRL Extroacular Muscles: Present: EOMI Conjunctiva: Present: Normal Mouth: Present: Moist Mucous Membranes Neck: Present: Normal Range of Motion Respiratory/Chest: Present: Clear to Auscultation, Good Air Exchange. No: Respiratory Distress, Accessory Muscle Use Cardiovascular: Present: Regular Rate and Rhythm, Normal S1, S2. No: Murmurs Abdomen: No: Tenderness, Distention, Peritoneal Signs Back: Present: Normal Inspection Upper Extremity: Present: Normal Inspection, Normal ROM, NORMAL PULSES, Neurovascularly Intact, Capillary Refill < 2s. No: Cyanosis, Edema Lower Extremity: Present: NORMAL PULSES, Tenderness, Swelling, Neurovascularly Intact, Capillary Refill < 2 s, Other ((+) mild swelling with ecchymosis at left medial malleoulus area. Tenderness over posterior and medial left ankle, as well as left prox. fibula area.). No: Edema, CALF TENDERNESS, Normal ROM, Erythema, Deformity Neurological: Present: GCS=15, CN II-XII Intact, Speech Normal, Motor Func Grossly Intact, Normal Sensory Function, Normal Cerebellar Funct, Norm Deep Tendon Reflexes, Memory Normal Skin: Present: Warm, Dry, Normal Color. No: Rashes Psychiatric: Present: Alert, Oriented x 3, Normal Insight, Normal Concentration Medical Decision Making ED Course and Treatment: 04/21/18 12:01 Re-evaluation. Patient feels better. Discussed results and plan with patient who expresses understanding. All questions answered and there is agreement with the plan to discharge home with instructions. Patient stable for discharge. Return if symptoms persist or worsen. Patient did not want to wait for Dr. Cole call back. He said he will call Dr. Cole office later today. Re-evaluation Time: 12:02 Reassessment Condition: Re-examined, Improved - RAD Interpretation Narrative RAD Interpretations (Text): 04/21/18 11:27 Tib Fib x-rays: (+) Maisonneuve fracture Radiology Orders: 04/21/18 09:46 ANKLE LEFT 3 VIEWS ROUTINE [RAD] Stat 04/21/18 09:47 KNEE WITH PATELLA LEFT 3 VIEW [RAD] Stat 04/21/18 09:52 TIBIA FIBULA LEFT [RAD] Stat - Medication Orders Current Medication Orders: Discontinued Medications Ketorolac Tromethamine (Toradol) 30 mg IM STAT STA Stop: 04/21/18 09:54 Last Admin: 04/21/18 10:02 Dose: 30 mg MAR Pain Assessment Document 04/21/18 10:02 EQ (Rec: 04/21/18 10:02 EQ [id number]) Pain Reassessment Is this a pain reassessment? No Sleep Is patient sleeping during reassessment? No Presence of Pain Presence of Pain Yes IM Administration Charges Document 04/21/18 10:02 EQ (Rec: 04/21/18 10:02 EQ [id number]) Charges for Administration # of IM Administrations 1 Disposition/Present on Arrival - Present on Arrival Any Indicators Present on Arrival: No History of DVT/PE: No History of Uncontrolled Diabetes: No Urinary Catheter: No History of Decub. Ulcer: No History Surgical Site Infection Following: None - Disposition Have Diagnosis and Disposition been Completed?: Yes Diagnosis: Ma[place]neuve fracture of left lower extremity Disposition: HOME/ ROUTINE Disposition Time: 12:03 Patient Plan: Discharge Condition: GOOD Discharge Instructions (ExitCare): Ankle Fracture (DC) Additional Instructions: Call private doctor for follow up visit in 1-[address] Cole Orthopedist office for follow up visit in 1-2 days. Keep ankle elevated, ice, rest, crutches. Do not wet splint. Return to emergency if pain worsen Prescriptions: Ibuprofen [Motrin] 600 mg PO Q8 PRN #20 tab PRN Reason: Pain, Severe (8-10) Referrals: Winston Cole MD [Staff Provider] - Follow up with primary Forms: [employer] ([place]ian), WORK NOTE
--- NOTE | 2018-04-21 11:41 | RAD ---
PROCEDURE: Left Ankle Radiographs. HISTORY: pain COMPARISON: None FINDINGS: BONES: There is a nondisplaced vertically oriented fracture through the posterior malleolus JOINTS: Normal. No osteoarthritis. Ankle mortise maintained. Talar dome intact SOFT TISSUES: Normal. OTHER FINDINGS: None. IMPRESSION: There is a nondisplaced vertically oriented fracture through the posterior malleolus
--- NOTE | 2018-04-21 11:43 | RAD ---
PROCEDURE: Radiographs of the left tibia and fibula. HISTORY: pain COMPARISON: None available. TECHNIQUE: Frontal and lateral views obtained. FINDINGS: BONES: There is an obliquely oriented fracture through the proximal fibula. There is minimal displacement JOINT SPACES: Unremarkable. OTHER FINDINGS: None. IMPRESSION: There is an obliquely oriented fracture through the proximal fibula. There is minimal displacement
--- NOTE | 2018-04-21 11:44 | RAD ---
PROCEDURE: Left Knee Radiographs. HISTORY: Pain. COMPARISON: None. FINDINGS: BONES: There is an obliquely oriented fracture through the proximal fibula. There is minimal displacement JOINTS: Normal. No osteoarthritis. JOINT EFFUSION: None. OTHER FINDINGS: None. IMPRESSION: There is an obliquely oriented fracture through the proximal fibula. There is minimal displacement
[2018-04-21 12:17] VITALS: BP 137/74; PULSE 91; O2SAT 98
== END 2018-04-21 12:15 | disposition home or self-care (01) ==
LOC: ED 08:56
DX: S82.862A Displaced Maisonneuve's fracture of left leg, initial encounter for closed fracture (principal); W01.0XXA Fall on same level from slipping, tripping and stumbling without subsequent striking against object, initial encounter; Y92.009 Unspecified place in unspecified non-institutional (private) residence as the place of occurrence of the external cause; I10 Essential (primary) hypertension; F17.210 Nicotine dependence, cigarettes, uncomplicated
CPT/HCPCS: 73562; 73590; 73610; 96372; 99285; J1885

== ENCOUNTER 2018-05-09 05:21 | Emergency (ER) | payer MEDICAID ==
[2018-05-09 05:31] VITALS: BMI 28.8
--- NOTE | 2018-05-09 05:55 | ED PDOC ---
Arrival/HPI - General Chief Complaint: Psychiatric Evaluation Time Seen by Provider: 05/09/18 05:44 Historian: Patient - History of Present Illness Narrative History of Present Illness (Text): 05/09/18 05:51 A 48 year old male, whose past medical history includes bipolar disorder, hypertension, and pre-diabetes, presents to the emergency department complaining of feeling anxious with pressured speech. Patient notes that he has not been sleeping well the last few nights, and has been feeling frustrated. He notes that he fractured his leg and is unable to work as a result of his injury. He notes that he feels frustrated about not being able to work. The patient denies alcohol/drug use, fevers, chills, headache, dizziness, chest pain , shortness of breath, dyspnea on exertion, cough, abdominal pain, nausea, vomiting, diarrhea, back pain, neck pain, urinary/bowel changes, suicidal/ homicidal ideation, visual/auditory hallucination or any other complaint. Time/Duration: Prior to Arrival Symptom Onset: Gradual Symptom Course: Unchanged Activities at Onset: Rest, Light Context: Home Past Medical History - Provider Review Nursing Documentation Reviewed: Yes - Infectious Disease Hx of Infectious Diseases: None - Tetanus Immunization Tetanus Immunization: Unknown - Cardiac Hx Hypertension: Yes - Pulmonary Hx Chronic Obstructive Pulmonary Disease (COPD): Yes - Neurological Hx Neurological Disorder: No Hx Alzheimer's Disease: No HX Cerebrovascular Accident: No Hx Dementia: No Hx Dizziness: No Hx Meningitis: No Hx Migraine: No Hx Parkinson's Disease: No Hx Seizures: No Hx Transient Ischemic Attacks (TIA): Yes - HEENT Hx HEENT Disorder: No Hx Blind: No Hx Cataracts: No Hx Deafness: No Hx Difficulty Chewing: No Hx Epistaxis: No Hx Glaucoma: No Hx Macular Degeneration: No - Renal Hx Renal Disorder: No Hx Dialysis: No Hx Kidney Stones: No Hx Neurogenic Bladder: No Hx Pyelonephritis: No Hx Renal Cancer: No Hx Renal Failure: No - Endocrine/Metabolic Hx Endocrine Disorders: No Hx Adrenal Cancer: No Hx Diabetes Insipidus: No Hx Diabetes Mellitus Type 1: No Hx Diabetes Mellitus Type 2: No Hx Hyperthyroidism: No Hx Hypothyroidism: No Hx Systemic Lupus Erythematosus: No - Hematological/Oncological Hx Blood Disorders: No Hx AIDS: No Hx Anemia: Yes Hx Cancer: No Hx Chemotherapy: No Hx Cirrhosis: No Hx Hemophilia: No Hx Hepatitis A: No Hx Hepatitis B: No Hx Hepatitis C: No Hx Metastasis: No Hx Shingles: No Hx Sickle Cell Disease: No Hx Unexplained Bleeding: No - Integumentary Hx Dermatological Disorder: No Hx Basal Cell Carcinoma: No Hx Eczema: No Hx Melanoma: No Hx Psoriasis: No Hx Squamous Cell Carcinoma: No - Musculoskeletal/Rheumatological Hx Arthritis: Yes - Gastrointestinal Hx Gastrointestinal Disorders: No Hx Colostomy: No Hx Crohn's Disease: No Hx Diverticulitis: No Hx Gall Bladder Disease: No Hx Gastroesophageal Reflux: No Hx Ileostomy: No Hx Liver Failure: No Hx Pancreatitis: No HX Swallowing Problems: No - Genitourinary/Gynecological Hx Genitourinary Disorders: No Hx Hematuria: No Hx Incontinence: No Hx Prostate Problems: No Hx Sexually Transmitted Diseases: No Hx Urinary Tract Infection: No - Psychiatric Hx Psychophysiologic Disorder: Yes Hx Anxiety: Yes Hx Bipolar Disorder: Yes Hx Depression: Yes Hx Emotional Abuse: No Hx Hallucinations: No Hx Panic Disorder: Yes Hx Post Traumatic Stress Disorder: No Hx Psychosis: No Hx Physical Abuse: No Hx Schizophrenia: No Hx Sexual Abuse: No Hx Substance Use: No - Surgical History Hx Cardiac Catheterization: No Hx Coronary Stent: No - Anesthesia Hx Anesthesia: Yes Hx Anesthesia Reactions: No Hx Malignant Hyperthermia: No - Suicidal Assessment Feels Threatened In Home Enviroment: No Family/Social History - Physician Review Nursing Documentation Reviewed: Yes Family/Social History: No Known Family HX Smoking Status: Light Smoker < 10 Cigarettes Daily Hx Alcohol Use: No Hx Substance Use: No Substance used: cocaine formerly Allergies/Home Meds Allergies/Adverse Reactions: Allergies carisoprodol [From Soma] Allergy (Verified 10/10/17 21:35) DIZZINESS varenicline [From Chantix] Allergy (Verified 09/22/17 13:05) VOMITING Home Medications: Home Meds Medication Instructions Recorded Confirmed Alprazolam [Xanax] 2 mg PO QID PRN 05/09/18 05/09/18 Haloperidol [Haldol] 5 mg PO DAILY 05/09/18 05/09/18 Oxycodone HCl [Roxicodone] 15 mg PO QID 05/09/18 05/09/18 Pantoprazole Sodium [Protonix] 40 mg PO DAILY 05/09/18 05/09/18 Paroxetine HCl [Paxil] 40 mg PO DAILY 05/09/18 05/09/18 Sitagliptin Phos/Metformin HCl 1 each PO BID 05/09/18 05/09/18 [Janumet 50-500 mg Tablet] chlorproMAZINE [chlorPROMAZINE HCL] 5 mg PO DAILY 05/09/18 05/09/18 Review of Systems - Physician Review All systems were reviewed & negative as marked: Yes - Review of Systems Constitutional: absent: Fevers, Night Sweats ENT: absent: Sore Throat Respiratory: absent: SOB, Cough Cardiovascular: absent: Chest Pain, HARMON Gastrointestinal: absent: Abdominal Pain, Stool Changes, Diarrhea, Nausea, Vomiting Genitourinary Male: absent: Urinary Output Changes Musculoskeletal: absent: Back Pain, Neck Pain Neurological: absent: Headache, Dizziness Psychiatric: Anxiety, Other (Pressured speech.). absent: Suicidal Ideation Physical Exam Vital Signs Temp Pulse Resp BP Pulse Ox 05/09/18 06:00 98.1 F 88 18 144/83 98 Appearance: Positive for: Well-Appearing, Non-Toxic, Comfortable Pain Distress: None Mental Status: Positive for: Alert and Oriented X 3 - Systems Exam Head: Present: Atraumatic, Normocephalic Pupils: Present: PERRL Extroacular Muscles: Present: EOMI Conjunctiva: Present: Normal Mouth: Present: Moist Mucous Membranes Neck: Present: Normal Range of Motion Respiratory/Chest: Present: Clear to Auscultation, Good Air Exchange. No: Respiratory Distress, Accessory Muscle Use Cardiovascular: Present: Regular Rate and Rhythm, Normal S1, S2. No: Murmurs Abdomen: No: Tenderness, Distention, Peritoneal Signs Back: Present: Normal Inspection Upper Extremity: Present: Normal Inspection. No: Cyanosis, Edema Lower Extremity: Present: Normal Inspection. No: Edema Neurological: Present: GCS=15, CN II-XII Intact, Speech Normal (Pressured Speech ) Skin: Present: Warm, Dry, Normal Color, Diaphoretic, Other (Tatoos throughout his chest, arms, and legs. No external evidence of IV drug use. ). No: Rashes Psychiatric: Present: Alert, Oriented x 3, Normal Insight, Normal Concentration Medical Decision Making ED Course and Treatment: 05/09/18 05:57 Impression: A 48 year old male presents to the emergency department for a complaint and further evaluation of anxiety. Plan: -- EKG -- Chest X-ray -- Labs -- Urinalysis -- Reassess and disposition Progress Notes: 05/09/18 05:58 EKG: Ordered, reviewed, and independently interpreted the EKG. Rate : 104 BPM Rhythm : Sinus Tachycardia Interpretation : No acute ST-T wave changes. No ectopy. Normal [place]. Intervals all within normal limits. - Lab Interpretations Narrative Lab Interpretation (Text): 05/09/18 06:39 Pt with nonketotic hyperglycemia.He does not want to receive further treatment.Insists on leaving.He is competent to refuse further tx Lab Results: 05/09/18 05:35 05/09/18 05:35 Lab Results 05/09/18 05:45: Urine Color Yellow, Urine Appearance Clear, Urine pH 6.0, Ur Specific [place] 1.025, Urine Protein Trace H, Urine Glucose (UA) >=1000, Urine Ketones Trace H, Urine Blood Negative, Urine Nitrate Negative, Urine Bilirubin Negative, Urine Urobilinogen 0.2, Ur Leukocyte Esterase Negative, Urine RBC Pending, Urine WBC Pending 05/09/18 05:35: Alcohol, Quantitative < 10 05/09/18 05:35: Salicylates < 1 L, Acetaminophen 10.0 05/09/18 05:35: Sodium 138, Potassium 3.9, Chloride 99, Carbon Dioxide 23, Anion Gap 19, BUN 22 H, Creatinine 1.1, Est GFR ( Amer) > 60, Est GFR ( Non-Af Amer) > 60, Random Glucose 431 H* D, Calcium 9.7, Total Bilirubin 0.6, AST 20, ALT 23, Alkaline Phosphatase 137 H D, Total Protein 7.2, Albumin 4.5, Globulin 2.7, Albumin/Globulin Ratio 1.7 05/09/18 05:35: WBC 11.7 H D, RBC 5.08, Hgb 16.7, Hct 45.5, MCV 89.6, MCH 32.9, MCHC 36.7, RDW 12.3, Plt Count 245, MPV 11.2 H, Gran % 69.2 H, Lymph % (Auto) 25.0, [place] % (Auto) 4.7, Eos % (Auto) 0.8 L, Baso % (Auto) 0.3, Gran # 8.13 H, Lymph # (Auto) 2.9, [place] # (Auto) 0.6, Eos # (Auto) 0.1, Baso # (Auto) 0.03 I have reviewed the lab results: Yes Interpretation: Abnormal lab values - RAD Interpretation Radiology Orders: 05/09/18 05:51 CHEST ONE VIEW [RAD] Stat - EKG Interpretation Interpreted by ED Physician: Yes Type: 12 lead EKG Comparison: No previous EKG avail. - Medication Orders Current Medication Orders: Discontinued Medications Alprazolam (Xanax) 0.5 mg PO STAT STA PRN Reason: Protocol Stop: 05/09/18 06:04 Last Admin: 05/09/18 06:17 Dose: 0.5 mg Insulin Human Regular (Humulin R) 8 units SC STAT STA Stop: 05/09/18 06:32 Last Admin: 05/09/18 06:35 Dose: Not Given Non-Admin Reason: Patient Refused - Scribe Statement The provider has reviewed the documentation as recorded by the Scribe Carmelita Roman Provider Scribe Attestation: All medical record entries made by the Scribe were at my direction and personally dictated by me. I have reviewed the chart and agree that the record accurately reflects my personal performance of the history, physical exam, medical decision making, and the department course for this patient. I have also personally directed, reviewed, and agree with the discharge instructions and disposition. Disposition/Present on Arrival - Present on Arrival Any Indicators Present on Arrival: No History of DVT/PE: No History of Uncontrolled Diabetes: No Urinary Catheter: No History of Decub. Ulcer: No History Surgical Site Infection Following: None - Disposition Have Diagnosis and Disposition been Completed?: Yes Diagnosis: Anxiety, Hyperglycemia Disposition: HOME/ ROUTINE Disposition Time: 06:41 Patient Plan: Discharge Patient Problems: Current Active Problems Problem Status Onset Anxiety Acute Hyperglycemia Acute Condition: FAIR Discharge Instructions (ExitCare): Hyperglycemia, Adult, Anxiety, Adult (DC) Print Language: UKRAINIAN Referrals: [facility] [Outside] - Follow up with primary Forms: [employer] (Brazilian)
[2018-05-09 06:10] VITALS: RESP 18; TEMP 98.1
[2018-05-09 06:13] LABS: BASO # 0.03 K/mm3 (0.0-2.0); BASO % 0.3 % (0.0-3.0); EOS # 0.1 (0.0-0.7); EOS % 0.8 % (1.5-5.0); GRAN # 8.13 (1.4-6.5); GRAN % 69.2 % (50.0-68.0); HEMOGLOBIN 16.7 g/dL (14.0-18.0); LYMPH # 2.9 (1.2-3.4); MEAN CELL VOLUME 89.6 fl (80.0-105.0); MEAN CORPUSCULAR HEMOGLOBIN 32.9 pg (25.0-35.0); MEAN CORPUSCULAR HGB CONC 36.7 g/dl (31.0-37.0); MEAN PLATELET VOLUME 11.2 fl (7.0-11.0); MONO # 0.6 (0.1-0.6); MONO % 4.7 % (1.0-6.0); RBC 5.08 10^6/uL (3.5-6.1); RED CELL DISTRIBUTION WIDTH 12.3 % (11.5-14.5); WHITE BLOOD COUNT 11.7 10^3/ul (4.5-11.0)
[2018-05-09 06:15] LABS: URINE BILIRUBIN NEGATIVE (NEGATIVE); URINE BLOOD NEGATIVE (NEGATIVE); URINE GLUCOSE (UA) >=1000 mg/dL (NEGATIVE); URINE LEUKOCYTE ESTERASE NEGATIVE Leu/uL (NEGATIVE); URINE PROTEIN TRACE mg/dL (<30 mg/dL); URINE UROBILINOGEN 0.2 E.U./dL (<1 E.U./dL)
[2018-05-09 06:16] LABS: URINE COLOR YELLOW (YELLOW)
[2018-05-09 06:17] LABS: URINE APPEARANCE CLEAR (CLEAR)
[2018-05-09 06:22] LABS: SALICYLATE < 1 mg/dL (2.0-20.0)
[2018-05-09 06:24] LABS: ALB/GLOB RATIO 1.7 (1.1-1.8); ALBUMIN 4.5 g/dL (3.0-4.8); ALT/SGPT 23 U/L (7-56); AST/SGOT 20 U/L (17-59); BLOOD UREA NITROGEN 22 mg/dL (7-21); CALCIUM 9.7 mg/dL (8.4-10.5); GFR AFRICAN-AMERICAN > 60; GFR NON-AFRICAN AMERICAN > 60
[2018-05-09] MEDS ORDERED: Insulin Regular 1 UNITS/0.01 ML ML SC STA (06:31)
[2018-05-09 06:43] VITALS: BP 135/85; PULSE 85; O2SAT 100
[2018-05-09 06:49] LABS: BARBITURATES, UR NEGATIVE (NEGATIVE); BENZODIAZEPINES, UR NEGATIVE (NEGATIVE); OPIATES, UR NEGATIVE (NEGATIVE); PHENCYCLIDINE, UR NEGATIVE (NEGATIVE)
[2018-05-09 06:53] LABS: URINE RBC 0 - 2 /hpf (0-2); URINE WBC 0 - 2 /hpf (0-6)
[2018-05-09 06:54] LABS: URINE BACTERIA OCC (NEG)
--- NOTE | 2018-05-09 09:19 | RAD ---
PROCEDURE: CHEST RADIOGRAPH, 1 VIEW HISTORY: psych COMPARISON: 03/11/2018 FINDINGS: LUNGS: Clear. PLEURA: No pneumothorax or pleural fluid seen. CARDIOVASCULAR: Normal. OSSEOUS STRUCTURES: No significant abnormalities. VISUALIZED UPPER ABDOMEN: Normal. OTHER FINDINGS: None. IMPRESSION: No active disease. No acute/significant interval changes.
--- NOTE | 2018-05-09 22:46 | CARD ---
APPROVED REPORT EKG Measurement Heart [id number] <Conclusion> Sinus tachycardia Otherwise normal ECG
== END 2018-05-09 06:42 | disposition home or self-care (01) ==
LOC: ED 05:21
DX: F41.9 Anxiety disorder, unspecified (principal); R73.9 Hyperglycemia, unspecified; I10 Essential (primary) hypertension; R73.03 Prediabetes; F17.210 Nicotine dependence, cigarettes, uncomplicated

== ENCOUNTER 2018-05-11 17:27 | Inpatient (IN) | payer MEDICAID ==
[2018-05-11] MEDS ORDERED: Metoprolol 1 mg/ml Inj IVP ONE (18:29)
[2018-05-11] MEDS ORDERED: Insulin Regular 1 UNITS/0.01 ML ML ONE ×2 (18:31→22:43)
[2018-05-11] MEDS ORDERED: Insulin Regular 1 UNITS/0.01 ML ML IVP STA (18:31)
[2018-05-11] MEDS ORDERED: Metoprolol 1 mg/ml Inj IVP STA (18:39)
[2018-05-11 18:44] LABS: BASO # 0.02 K/mm3 (0.0-2.0); BASO % 0.2 % (0.0-3.0); EOS # 0.1 (0.0-0.7); EOS % 0.4 % (1.5-5.0); GRAN # 9.69 (1.4-6.5); GRAN % 74.7 % (50.0-68.0); HEMOGLOBIN 17.8 g/dL (14.0-18.0); LYMPH # 2.6 (1.2-3.4); LYMPH % 20.1 % (22.0-35.0); MEAN CELL VOLUME 89.3 fl (80.0-105.0); MEAN CORPUSCULAR HEMOGLOBIN 32.9 pg (25.0-35.0); MEAN CORPUSCULAR HGB CONC 36.9 g/dl (31.0-37.0); MEAN PLATELET VOLUME 11.5 fl (7.0-11.0); MONO # 0.6 (0.1-0.6); MONO % 4.6 % (1.0-6.0); RBC 5.41 10^6/uL (3.5-6.1); RED CELL DISTRIBUTION WIDTH 12.3 % (11.5-14.5)
--- NOTE | 2018-05-11 18:56 | RAD ---
HISTORY: r/o infiltrate COMPARISON: Chest radiograph dated 05/09/2018. FINDINGS: LUNGS: No active pulmonary disease. PLEURA: No significant pleural effusion identified, no pneumothorax apparent. CARDIOVASCULAR: Normal. OSSEOUS STRUCTURES: Unchanged. VISUALIZED UPPER ABDOMEN: Normal. OTHER FINDINGS: None. IMPRESSION: No active disease.
--- NOTE | 2018-05-11 19:03 | ED PDOC ---
Arrival/HPI - General Chief Complaint: Syncope Time Seen by Provider: 05/11/18 18:12 Historian: Patient - History of Present Illness Narrative History of Present Illness (Text): 05/11/18 18:31 A 48 year old male, whose past medical history includes bipolar disorder, hypertension, and pre-diabetes, presents to the Emergency department complaining of dizziness since today. Patient states feeling dizzy at 3pm today which spontaneously resolved. However, the episode occurred again approximately 30-40 minutes after prompting him to present to the Emergency department for evaluation. Patient denies any fall, loss of consciousness, chest pain, shortness of breath, nausea, vomiting, diarrhea, abdominal pain or any other complaints. Time/Duration: Prior to Arrival Symptom Onset: Gradual Symptom Course: Unchanged Activities at Onset: Light Context: Home Past Medical History - Provider Review Nursing Documentation Reviewed: Yes - Infectious Disease Hx of Infectious Diseases: None - Tetanus Immunization Tetanus Immunization: Unknown - Cardiac Hx Hypertension: Yes - Pulmonary Hx Chronic Obstructive Pulmonary Disease (COPD): Yes - Neurological Hx Neurological Disorder: No Hx Alzheimer's Disease: No HX Cerebrovascular Accident: No Hx Dementia: No Hx Dizziness: No Hx Meningitis: No Hx Migraine: No Hx Parkinson's Disease: No Hx Seizures: No Hx Transient Ischemic Attacks (TIA): Yes - HEENT Hx HEENT Disorder: No Hx Blind: No Hx Cataracts: No Hx Deafness: No Hx Difficulty Chewing: No Hx Epistaxis: No Hx Glaucoma: No Hx Macular Degeneration: No - Renal Hx Renal Disorder: No Hx Dialysis: No Hx Kidney Stones: No Hx Neurogenic Bladder: No Hx Pyelonephritis: No Hx Renal Cancer: No Hx Renal Failure: No - Endocrine/Metabolic Hx Endocrine Disorders: No Hx Adrenal Cancer: No Hx Diabetes Insipidus: No Hx Diabetes Mellitus Type 1: No Hx Diabetes Mellitus Type 2: No Hx Hyperthyroidism: No Hx Hypothyroidism: No Hx Systemic Lupus Erythematosus: No - Hematological/Oncological Hx Blood Disorders: No Hx AIDS: No Hx Anemia: Yes Hx Cancer: No Hx Chemotherapy: No Hx Cirrhosis: No Hx Hemophilia: No Hx Hepatitis A: No Hx Hepatitis B: No Hx Hepatitis C: No Hx Metastasis: No Hx Shingles: No Hx Sickle Cell Disease: No Hx Unexplained Bleeding: No - Integumentary Hx Dermatological Disorder: No Hx Basal Cell Carcinoma: No Hx Eczema: No Hx Melanoma: No Hx Psoriasis: No Hx Squamous Cell Carcinoma: No - Musculoskeletal/Rheumatological Hx Arthritis: Yes - Gastrointestinal Hx Gastrointestinal Disorders: No Hx Colostomy: No Hx Crohn's Disease: No Hx Diverticulitis: No Hx Gall Bladder Disease: No Hx Gastroesophageal Reflux: No Hx Ileostomy: No Hx Liver Failure: No Hx Pancreatitis: No HX Swallowing Problems: No - Genitourinary/Gynecological Hx Genitourinary Disorders: No Hx Hematuria: No Hx Incontinence: No Hx Prostate Problems: No Hx Sexually Transmitted Diseases: No Hx Urinary Tract Infection: No - Psychiatric Hx Psychophysiologic Disorder: Yes Hx Anxiety: Yes Hx Bipolar Disorder: Yes Hx Depression: Yes Hx Emotional Abuse: No Hx Hallucinations: No Hx Panic Disorder: Yes Hx Post Traumatic Stress Disorder: No Hx Psychosis: No Hx Physical Abuse: No Hx Schizophrenia: No Hx Sexual Abuse: No Hx Substance Use: No - Surgical History Hx Cardiac Catheterization: No Hx Coronary Stent: No - Anesthesia Hx Anesthesia: Yes Hx Anesthesia Reactions: No Hx Malignant Hyperthermia: No - Suicidal Assessment Feels Threatened In Home Enviroment: No Family/Social History - Physician Review Nursing Documentation Reviewed: Yes Family/Social History: No Known Family HX Smoking Status: Light Smoker < 10 Cigarettes Daily Hx Alcohol Use: No Hx Substance Use: No Substance used: cocaine formerly Allergies/Home Meds Allergies/Adverse Reactions: Allergies carisoprodol [From Soma] Allergy (Verified 05/11/18 17:57) DIZZINESS varenicline [From Chantix] Allergy (Verified 05/11/18 17:57) VOMITING Home Medications: Home Meds Medication Instructions Recorded Confirmed Alprazolam [Xanax] 2 mg PO QID PRN 05/09/18 05/11/18 Haloperidol [Haldol] 5 mg PO DAILY 05/09/18 05/11/18 Oxycodone HCl [Roxicodone] 15 mg PO QID 05/09/18 05/11/18 Pantoprazole Sodium [Protonix] 40 mg PO DAILY 05/09/18 05/11/18 Paroxetine HCl [Paxil] 40 mg PO DAILY 05/09/18 05/11/18 Sitagliptin Phos/Metformin HCl 1 each PO BID 05/09/18 05/11/18 [Janumet 50-500 mg Tablet] chlorproMAZINE [chlorPROMAZINE HCL] 5 mg PO DAILY 05/09/18 05/11/18 Review of Systems - Physician Review All systems were reviewed & negative as marked: Yes - Review of Systems Constitutional: Normal. absent: Fevers Eyes: Normal ENT: Normal Respiratory: Normal. absent: SOB Cardiovascular: Normal. absent: Chest Pain Gastrointestinal: Normal. absent: Abdominal Pain, Diarrhea, Nausea, Vomiting Genitourinary Male: Normal Musculoskeletal: Normal Skin: Normal Neurological: Dizziness Endocrine: Normal Hemo/Lymphatic: Normal Psychiatric: Normal Physical Exam Vital Signs Reviewed: Yes Vital Signs Temp Pulse Resp BP Pulse Ox 05/11/18 21:48 91 H 18 108/72 99 05/11/18 21:11 90 18 110/70 100 05/11/18 21:03 89 18 78/52 L 100 05/11/18 20:39 93 H 18 78/42 L 99 05/11/18 18:30 135 H 97/65 L 05/11/18 17:52 98.9 F 124 H 18 94/62 L 98 Temperature: Afebrile Blood Pressure: Hypotensive Pulse: Tachycardic Respiratory Rate: Normal Appearance: Positive for: Well-Appearing, Non-Toxic, Comfortable Pain Distress: None Mental Status: Positive for: Alert and Oriented X 3 Finger Stick Blood Glucose: 474 - Systems Exam Head: Present: Atraumatic, Normocephalic Pupils: Present: PERRL Extroacular Muscles: Present: EOMI Conjunctiva: Present: Normal Mouth: Present: Moist Mucous Membranes Neck: Present: Normal Range of Motion Respiratory/Chest: Present: Clear to Auscultation, Good Air Exchange. No: Respiratory Distress, Accessory Muscle Use Cardiovascular: Present: Regular Rate and Rhythm, Normal S1, S2. No: Murmurs Abdomen: No: Tenderness, Distention, Peritoneal Signs Back: Present: Normal Inspection Upper Extremity: Present: Normal Inspection. No: Cyanosis, Edema Lower Extremity: Present: Normal Inspection. No: Edema Neurological: Present: GCS=15, CN II-XII Intact, Speech Normal Skin: Present: Warm, Dry, Normal Color. No: Rashes Psychiatric: Present: Alert, Oriented x 3, Normal Insight, Normal Concentration Medical Decision Making ED Course and Treatment: 05/11/18 18:30 Impression: 48 year old male presents to the Emergency department for dizziness. Plan: -- EKG -- Labs -- Chest X-ray -- Aspirin -- Lopressor -- Insulin -- Urinalysis -- Reassess and disposition Prior Visits: Notes and results from previous visits were reviewed. Progress Notes: 05/11/18 18:05 EKG: Ordered, reviewed, and independently interpreted the EKG. Rate : 132 BPM Rhythm : Sinus Tachycardia. Interpretation : Questionable elevated 2,3 aVF. 05/11/18 18:06 Dr. Zapien was paged for consult. 05/11/18 18:23 Dr. Zapien was paged multiple times including on his cell phone with no answer. 05/11/18 19:[address] Zapien, who is aware of EKG results (images sent) and agrees with Emergency department management plan, recommends B-gisella, aspirin and heparin. As per Dr. Zapien, no cardiac intervention at this time. - Lab Interpretations Lab Results: 05/11/18 18:43 05/11/18 18:43 Lab Results 05/11/18 20:14: pO2 49, VBG pH 7.36, VBG pCO2 35.0 L, VBG HCO3 19.8 L, VBG Total CO2 20.9 L, VBG O2 Sat (Calc) 90.0 H, VBG Base Excess -4.9 L, VBG Potassium 3.7, Glucose 358 H, Lactate 3.5 H, FiO2 21.0, Sodium 132.0, Chloride 102.0, Venous Blood Potassium 3.7 05/11/18 20:01: Blood Type O POSITIVE, Antibody Screen Negative, BBK History Checked Patient has bt 05/11/18 18:43: Serum Osmolality 295 05/11/18 18:43: PT 11.3, INR 0.99, APTT 24.7 L 05/11/18 18:43: Sodium 131 L, Potassium 4.3, Chloride 94 L, Carbon Dioxide 16 L , Anion Gap 25 H, BUN 22 H, Creatinine 1.1, Est GFR ( Amer) > 60, Est GFR (Non-Af Amer) > 60, Random Glucose 572 H* D, Calcium 9.6, Magnesium 1.6 L, Total Bilirubin 1.0, AST 26, ALT 25, Alkaline Phosphatase 108, Lactate Dehydrogenase 357, Total Creatine Kinase 35, Troponin I < 0.01, Total Protein 7.3, Albumin 4.5, Globulin 2.8, Albumin/Globulin Ratio 1.6 05/11/18 18:43: WBC 13.0 H, RBC 5.41, Hgb 17.8, Hct 48.3, MCV 89.3, MCH 32.9, MCHC 36.9, RDW 12.3, Plt Count 246, MPV 11.5 H, Gran % 74.7 H, Lymph % (Auto) 20.1 L, [facility] [facility] % (Auto) 4.6, Eos % (Auto) 0.4 L, Baso % (Auto) 0.2, Gran # 9.69 H , Lymph # (Auto) 2.6, [facility] [facility] # (Auto) 0.6, Eos # (Auto) 0.1, Baso # (Auto) 0.02 05/11/18 18:20: POC Glucose (mg/dL) 474 H* - RAD Interpretation Radiology Orders: 05/11/18 18:31 CHEST PORTABLE [RAD] Stat - Medication Orders Current Medication Orders: Alprazolam (Xanax) 2 mg PO QID PRN PRN Reason: Anxiety Aspirin (Aspirin Chewable) 81 mg PO DAILY MALENA Last Admin: 05/12/18 09:32 Dose: Atorvastatin Calcium (Lipitor) 20 mg PO DIN MALENA Chlorpromazine (Thorazine) 100 mg PO BID MALENA PRN Reason: Protocol Haloperidol (Haldol) 5 mg PO BID MALENA PRN Reason: Protocol Heparin Sodium/Sodium Chloride (Heparin 59270 Units/250ml 1/2 Normal Saline) 25 ,000 units in 250 mls @ 11.746 mls/hr IV .[id number] MALENA; 12 UNITS/KG/HR PRN Reason: Protocol Last Titration: 05/12/18 06:52 Dose: 14 units/kg/hr, 13.704 mls/hr Titration Intervention Document 05/12/18 06:52 QES (Rec: 05/12/18 06:53 QES [id number]) Titration Intake Container Volume 125 Titration Dosing Titration Dose 14 IV Rate 13.704 Intake/Decrease Started Vancomycin HCl (Vancomycin 1gm) 1 gm in 250 mls @ 167 mls/hr IVPB Q12H MALENA PRN Reason: Protocol Last Admin: 05/12/18 10:50 Dose: Piperacillin Sod/Tazobactam Sod (Zosyn 3.375 In Ns 100ml) 100 mls @ 200 mls/hr IVPB Q6 MALENA PRN Reason: Protocol Stop: 05/21/18 12:01 Insulin Human Regular (Humulin R Low) 0 units SC ACHS MALENA PRN Reason: Protocol Last Admin: 05/12/18 08:22 Dose: 2 units MAR Blood Glucose Document 05/12/18 08:22 [email or web address] (Rec: 05/12/18 08:23 [id number] ) Blood Glucose Finger Stick Blood Glucose (70-120) 222 Subcutaneous Administrations Document 05/12/18 08:22 [email or web address] (Rec: 05/12/18 08:23 [id number] ) Injection Site MAR Injection Site Left Abdomen Charges for Administration # of Subcutaneous Administrations 1 Oxycodone HCl (Oxycodone Immediate Release Tab) 15 mg PO QID [facility] Last Admin: 05/12/18 09:50 Dose: 15 mg Pantoprazole Sodium (Protonix Inj) 40 mg IVP DAILY [facility] Last Admin: 05/12/18 09:35 Dose: 40 mg IVP Administration Document 05/12/18 09:35 [email or web address] (Rec: 05/12/18 09:36 [id number] ) Charges for Administration # of IVP Administrations 1 Paroxetine HCl (Paxil) 40 mg PO DAILY MALENA Potassium Chloride (Potassium Chloride Oral Soln) 40 meq PO Q4H MALENA Stop: 05/12/18 11:16 Last Admin: 05/12/18 08:01 Dose: 40 meq Discontinued Medications Aspirin (Aspirin) 325 mg PO STAT STA Stop: 05/11/18 18:32 Last Admin: 05/11/18 18:32 Dose: 325 mg Aspirin (Ecotrin) 81 mg PO STAT STA Stop: 05/12/18 08:01 Last Admin: 05/12/18 08:17 Dose: Clopidogrel Bisulfate (Plavix) 600 mg PO STAT STA Stop: 05/12/18 07:34 Last Admin: 05/12/18 08:01 Dose: 600 mg Heparin Sodium (Porcine) (Heparin) 3,600 units IV ONCE ONE Stop: 05/12/18 06:43 Last Admin: 05/12/18 06:51 Dose: 3,600 units eMAR Start Stop Document 05/12/18 06:51 QES (Rec: 05/12/18 06:51 QES [id number]) Intravenous Solution Start Date 05/12/18 Start Time 06:51 End Date 05/12/18 End time 06:53 Total Infusion Time 2 Heparin Sodium/Sodium Chloride (Heparin 55795 Units/250ml 1/2 Normal Saline) 25 ,000 units in 250 mls @ 12.084 mls/hr IV .[id number] MALENA; 12 UNITS/KG/HR PRN Reason: Protocol Last Admin: 05/11/18 21:26 Dose: Sodium Chloride (Sodium Chloride 0.9%) 1,000 mls @ 999 mls/hr IV .Q1H1M STA Stop: 05/11/18 20:54 Last Admin: 05/11/18 20:25 Dose: 999 mls/hr eMAR Start Stop Document 05/11/18 20:25 LA (Rec: 05/11/18 20:25 LA [id number]) Intravenous Solution Start Date 05/11/18 Start Time 20:25 End Date 05/11/18 End time 21:26 Total Infusion Time 61 Sodium Chloride (Sodium Chloride 0.9%) 1,000 mls @ 999 mls/hr IV .Q1H1M STA Stop: 05/11/18 20:55 Last Admin: 05/11/18 20:26 Dose: 999 mls/hr eMAR Start Stop Document 05/11/18 20:26 LA (Rec: 05/11/18 20:26 LA [id number]) Intravenous Solution Start Date 05/11/18 Start Time 20:26 End Date 05/11/18 End time 21:27 Total Infusion Time 61 Sodium Chloride (Sodium Chloride 0.9%) 1,000 mls @ 999 mls/hr IV .Q1H1M STA Stop: 05/11/18 22:13 Last Admin: 05/11/18 21:25 Dose: 999 mls/hr eMAR Start Stop Document 05/11/18 21:25 MARCIA (Rec: 05/11/18 21:25 MARCIA [id number]) Intravenous Solution Start Date 05/11/18 Start Time 21:25 End Date 05/11/18 End time 22:25 Total Infusion Time 60 Ceftriaxone Sodium (Rocephin 1 Gram Ivpb) 1 gm in 100 mls @ 200 mls/hr IV ONCE STA PRN Reason: Protocol Stop: 05/11/18 21:59 Last Admin: 05/11/18 21:53 Dose: 200 mls/hr eMAR Start Stop Document 05/11/18 21:53 MARCIA (Rec: 05/11/18 21:53 MARCIA [id number]) Intravenous Solution Start Date 05/11/18 Start Time 21:53 End Date 05/11/18 End time 22:23 Total Infusion Time 30 Magnesium 2 gm/50 ml NS (Magnesium Sulfate 2 Gm/50 Ml Ns) 2 gm in 50 mls @ 50 mls/hr IVPB ONCE ONE Stop: 05/11/18 22:53 Last Admin: 05/11/18 22:28 Dose: 50 mls/hr eMAR Start Stop Document 05/11/18 22:28 MARCIA (Rec: 05/11/18 22:28 MARCIA [id number]) Intravenous Solution Start Date 05/11/18 Start Time 22:28 End Date 05/11/18 End time 23:28 Total Infusion Time 60 Piperacillin Sod/Tazobactam Sod (Zosyn 4.5 Gm In Ns 100ml) 4.5 gm in 100 mls @ 200 mls/hr IVPB Q6 MALENA PRN Reason: Protocol Stop: 05/12/18 06:29 Last Admin: 05/12/18 06:49 Dose: 200 mls/hr eMAR Start Stop Document 05/12/18 06:49 QES (Rec: 05/12/18 06:50 QES [id number]) Intravenous Solution Start Date 05/12/18 Start Time 06:49 End Date 05/12/18 End time 07:19 Total Infusion Time 30 Insulin Human Regular 100 (units/ Sodium Chloride) 100 mls @ 2 mls/hr IV .Q24H PRN; Protocol; 2 UNITS/HR PRN Reason: TITRATE PER MD ORDER Last Titration: 05/12/18 05:00 Dose: 0 units/hr, 0 mls/hr Titration Intervention Document 05/12/18 05:00 QES (Rec: 05/12/18 08:26 QES [id number]) Titration Intake Titration Intake 1 Cumulative Intake 6 Cumulative Intake (Rx) 6 Waste Amount 0 Container Volume 94 Titration Dosing Titration Dose 0 IV Rate 0 Intake/Decrease Paused Cumulative Dose 6 Dextrose/Sodium Chloride (Dextrose 5%/0.45% Ns 1000 Ml) 1,000 mls @ 100 mls/hr IV .Q10H MALENA Last Admin: 05/12/18 01:51 Dose: 100 mls/hr eMAR Start Stop Document 05/12/18 01:51 QES (Rec: 05/12/18 01:51 QES [id number]) Intravenous Solution Start Date 05/12/18 Start Time 01:51 Magnesium Sulfate/Dextrose (Magnesium Sulfate 1 Gm/100 Ml D5w) 1 gm in 100 mls @ 100 mls/hr IVPB ONCE ONE Stop: 05/12/18 08:12 Last Admin: 05/12/18 08:23 Dose: 100 mls/hr eMAR Start Stop Document 05/12/18 08:23 [id number] (Rec: 05/12/18 08:23 [email or web address] [id number] ) Intravenous Solution Start Date 05/12/18 Start Time 08:23 End Date 05/12/18 End time 09:23 Total Infusion Time 60 Insulin Human Lispro (Humalog Low) 0 units SC ACHS MALENA PRN Reason: Protocol Last Admin: 05/11/18 22:44 Dose: Not Given Non-Admin Reason: Blood Sugar Parameter MAR Blood Glucose Document 05/11/18 22:44 MARCIA (Rec: 05/11/18 22:45 MARCIA [id number]) Blood Glucose Finger Stick Blood Glucose (70-120) 244 Subcutaneous Administrations Document 05/11/18 22:44 MARCIA (Rec: 05/11/18 22:45 MARCIA [id number]) Charges for Administration # of Subcutaneous Administrations 0 Insulin Human Regular (Humulin R) 8 units IVP STAT STA Stop: 05/11/18 18:32 Last Admin: 05/11/18 18:32 Dose: 8 units MAR Blood Glucose Document 05/11/18 18:32 LA (Rec: 05/11/18 19:30 LA [id number]) Blood Glucose Finger Stick Blood Glucose (70-120) 474 IVP Administration Document 05/11/18 18:32 LA (Rec: 05/11/18 19:30 LA [id number]) Charges for Administration # of IVP Administrations 1 Metoprolol Tartrate (Lopressor) 5 mg IVP STAT STA Stop: 05/11/18 18:40 Last Admin: 05/11/18 19:31 Dose: Oxycodone HCl (Oxycodone Immediate Release Tab) 15 mg PO STAT STA Stop: 05/11/18 20:25 Last Admin: 05/11/18 21:17 Dose: 15 mg MAR Pain Assessment Document 05/11/18 21:17 MARCIA (Rec: 05/11/18 21:17 MARCIA [id number]) Pain Reassessment Is this a pain reassessment? No Pneumococcal Polyvalent Vaccine (Pneumovax 23 Vaccine) 0.5 ml IM .ONCE ONE Stop: 05/12/18 03:41 - Scribe Statement The provider has reviewed the documentation as recorded by the Scribe Yusef Ceballos. All medical record entries made by the Scribe were at my direction and personally dictated by me. I have reviewed the chart and agree that the record accurately reflects my personal performance of the history, physical exam, medical decision making, and the department course for this patient. I have also personally directed, reviewed, and agree with the discharge instructions and disposition. Disposition/Present on Arrival - Present on Arrival Any Indicators Present on Arrival: Yes History of DVT/PE: No History of Uncontrolled Diabetes: Yes Urinary Catheter: No History of Decub. Ulcer: No History Surgical Site Infection Following: None - Disposition Have Diagnosis and Disposition been Completed?: Yes Diagnosis: Dehydration, Hyperglycemia, ACS (acute coronary syndrome), Dizziness Disposition: HOSPITALIZED Disposition Time: 19:00 Patient Problems: Current Active Problems Problem Status Onset Dehydration Acute Hyperglycemia Acute ACS (acute coronary syndrome) Acute Dizziness Acute Condition: GUARDED
[2018-05-11] MEDS ORDERED: Heparin25000 units/250ml 1/2NS 25,000 UNITS/250 ML BAG IV SCH (19:15)
[2018-05-11 19:24] LABS: TROPONIN I < 0.01 ng/mL
[2018-05-11 19:26] LABS: ALB/GLOB RATIO 1.6 (1.1-1.8); ALBUMIN 4.5 g/dL (3.0-4.8); ALT/SGPT 25 U/L (7-56); AST/SGOT 26 U/L (17-59); BLOOD UREA NITROGEN 22 mg/dL (7-21); CALCIUM 9.6 mg/dL (8.4-10.5); GFR AFRICAN-AMERICAN > 60; GFR NON-AFRICAN AMERICAN > 60
[2018-05-11 19:46] LABS: INR 0.99 (0.93-1.08); PARTIAL THROMBOPLASTIN TIME 24.7 Seconds (25.1-36.5); PROTHROMBIN TIME 11.3 SECONDS (9.4-12.5)
--- NOTE | 2018-05-11 19:46 | ED PDOC ---
Physical Exam Vital Signs Reviewed: Yes Vital Signs Temp Pulse Resp BP Pulse Ox 05/11/18 21:11 90 18 110/70 100 05/11/18 21:03 89 18 78/52 L 100 05/11/18 20:39 93 H 18 78/42 L 99 05/11/18 18:30 135 H 97/65 L 05/11/18 17:52 98.9 F 124 H 18 94/62 L 98 Temperature: Afebrile Blood Pressure: Hypotensive Pulse: Tachycardic Respiratory Rate: Normal Appearance: Positive for: Well-Appearing, Non-Toxic, Comfortable Pain Distress: None Mental Status: Positive for: Alert and Oriented X 3 Finger Stick Blood Glucose: 474 - Systems Exam Head: Present: Atraumatic, Normocephalic Pupils: Present: PERRL Extroacular Muscles: Present: EOMI Conjunctiva: Present: Normal Mouth: Present: Moist Mucous Membranes Neck: Present: Normal Range of Motion Respiratory/Chest: Present: Clear to Auscultation, Good Air Exchange. No: Respiratory Distress, Accessory Muscle Use Cardiovascular: Present: Regular Rate and Rhythm, Normal S1, S2. No: Murmurs Abdomen: No: Tenderness, Distention, Peritoneal Signs Back: Present: Normal Inspection Upper Extremity: Present: Normal Inspection. No: Cyanosis, Edema Lower Extremity: Present: Normal Inspection. No: Edema Neurological: Present: GCS=15, CN II-XII Intact, Speech Normal Skin: Present: Warm, Dry, Normal Color. No: Rashes Psychiatric: Present: Alert, Oriented x 3, Normal Insight, Normal Concentration Medical Decision Making ED Course and Treatment: 05/11/18 19:00 Case endorsed to me by Dr. Samayoa for pending chemistry results and final disposition. Patient is a 48 year old male with history of diabetes, hypertension and bipolar disorder, presented to the Emergency department complaining of episodes of dizziness earlier today. As per Dr. Samayoa, EKG was performed and showed possible acute inferior IN. Dr. Samayoa discussed case with Dr. Zapien, who states patient does not require acute intervention. Dr. Zapien recommended medications, which were ordered for the patient. Patient is currently stable without any chest pain as before. Patient is in no acute distress and states no new complaints. 05/11/18 21:10 Labs reviewed. Elevated lactate and elevated WBC noted, pt tachycardic with low blood pressure. Code Sepsis called. Pt will be given IV fluids and cultures ordered. 05/11/18 21:24 Pt. was seen and evaluated by medical claims processor and felt carbonizer.Pt. with stabilization of vital signs following fluid administration.Stable for telemetry admission. to hospitalist service. - Lab Interpretations Lab Results: 05/11/18 18:43 05/11/18 18:43 Lab Results 05/11/18 20:14: pO2 49, VBG pH 7.36, VBG pCO2 35.0 L, VBG HCO3 19.8 L, VBG Total CO2 20.9 L, VBG O2 Sat (Calc) 90.0 H, VBG Base Excess -4.9 L, VBG Potassium 3.7, Glucose 358 H, Lactate 3.5 H, FiO2 21.0, Sodium 132.0, Chloride 102.0, Venous Blood Potassium 3.7 05/11/18 20:01: Blood Type O POSITIVE, Antibody Screen Negative, BBK History Checked Patient has bt 05/11/18 18:43: PT 11.3, INR 0.99, APTT 24.7 L 05/11/18 18:43: Sodium 131 L, Potassium 4.3, Chloride 94 L, Carbon Dioxide 16 L , Anion Gap 25 H, BUN 22 H, Creatinine 1.1, Est GFR ( Amer) > 60, Est GFR (Non-Af Amer) > 60, Random Glucose 572 H* D, Calcium 9.6, Magnesium 1.6 L, Total Bilirubin 1.0, AST 26, ALT 25, Alkaline Phosphatase 108, Lactate Dehydrogenase 357, Total Creatine Kinase 35, Troponin I < 0.01, Total Protein 7.3, Albumin 4.5, Globulin 2.8, Albumin/Globulin Ratio 1.6 05/11/18 18:43: WBC 13.0 H, RBC 5.41, Hgb 17.8, Hct 48.3, MCV 89.3, MCH 32.9, MCHC 36.9, RDW 12.3, Plt Count 246, MPV 11.5 H, Gran % 74.7 H, Lymph % (Auto) 20.1 L, [place] % (Auto) 4.6, Eos % (Auto) 0.4 L, Baso % (Auto) 0.2, Gran # 9.69 H , Lymph # (Auto) 2.6, [place] # (Auto) 0.6, Eos # (Auto) 0.1, Baso # (Auto) 0.02 05/11/18 18:20: POC Glucose (mg/dL) 474 H* - RAD Interpretation Radiology Orders: 05/11/18 18:31 CHEST PORTABLE [RAD] Stat 05/11/18 21:31 HEAD W/O CONTRAST [CT] Stat - Medication Orders Current Medication Orders: Heparin Sodium/Sodium Chloride (Heparin 62686 Units/250ml 1/2 Normal Saline) 25 ,000 units in 250 mls @ 11.746 mls/hr IV .[id number] MALENA; 12 UNITS/KG/HR PRN Reason: Protocol Last Admin: 05/11/18 20:22 Dose: 11.746 mls/hr eMAR Start Stop Document 05/11/18 20:22 LA (Rec: 05/11/18 20:23 LA [id number]) Intravenous Solution Start Date 05/11/18 Start Time 20:23 MAR aPTT Document 05/11/18 20:22 LA (Rec: 05/11/18 20:23 LA [id number]) aPTT aPTT (secs) 24.7 Sodium Chloride (Sodium Chloride 0.9%) 1,000 mls @ 999 mls/hr IV .Q1H1M STA Stop: 05/11/18 22:13 Last Admin: 05/11/18 21:25 Dose: 999 mls/hr eMAR Start Stop Document 05/11/18 21:25 MARCIA (Rec: 05/11/18 21:25 MARCIA [id number]) Intravenous Solution Start Date 05/11/18 Start Time 21:25 End Date 05/11/18 End time 22:25 Total Infusion Time 60 Ceftriaxone Sodium (Rocephin 1 Gram Ivpb) 1 gm in 100 mls @ 200 mls/hr IV ONCE STA PRN Reason: Protocol Stop: 05/11/18 21:59 Discontinued Medications Aspirin (Aspirin) 325 mg PO STAT STA Stop: 05/11/18 18:32 Last Admin: 05/11/18 18:32 Dose: 325 mg Heparin Sodium/Sodium Chloride (Heparin 08985 Units/250ml 1/2 Normal Saline) 25 ,000 units in 250 mls @ 12.084 mls/hr IV .[id number] MALENA; 12 UNITS/KG/HR PRN Reason: Protocol Last Admin: 05/11/18 21:26 Dose: Sodium Chloride (Sodium Chloride 0.9%) 1,000 mls @ 999 mls/hr IV .Q1H1M STA Stop: 05/11/18 20:54 Last Admin: 05/11/18 20:25 Dose: 999 mls/hr eMAR Start Stop Document 05/11/18 20:25 LA (Rec: 05/11/18 20:25 LA [id number]) Intravenous Solution Start Date 05/11/18 Start Time 20:25 End Date 05/11/18 End time 21:26 Total Infusion Time 61 Sodium Chloride (Sodium Chloride 0.9%) 1,000 mls @ 999 mls/hr IV .Q1H1M STA Stop: 05/11/18 20:55 Last Admin: 05/11/18 20:26 Dose: 999 mls/hr eMAR Start Stop Document 05/11/18 20:26 LA (Rec: 05/11/18 20:26 BELKYS [id number]) Intravenous Solution Start Date 05/11/18 Start Time 20:26 End Date 05/11/18 End time 21:27 Total Infusion Time 61 Insulin Human Regular (Humulin R) 8 units IVP STAT STA Stop: 05/11/18 18:32 Last Admin: 05/11/18 18:32 Dose: 8 units MAR Blood Glucose Document 05/11/18 18:32 LA (Rec: 05/11/18 19:30 LA [id number]) Blood Glucose Finger Stick Blood Glucose (70-120) 474 IVP Administration Document 05/11/18 18:32 LA (Rec: 05/11/18 19:30 LA [id number]) Charges for Administration # of IVP Administrations 1 Metoprolol Tartrate (Lopressor) 5 mg IVP STAT STA Stop: 05/11/18 18:40 Last Admin: 05/11/18 19:31 Dose: Oxycodone HCl (Oxycodone Immediate Release Tab) 15 mg PO STAT STA Stop: 05/11/18 20:25 Last Admin: 05/11/18 21:17 Dose: 15 mg MAR Pain Assessment Document 05/11/18 21:17 MARCIA (Rec: 05/11/18 21:17 MARCIA [id number]) Pain Reassessment Is this a pain reassessment? No - Scribe Statement The provider has reviewed the documentation as recorded by the Scribe Yusef Ceballos. All medical record entries made by the Scribe were at my direction and personally dictated by me. I have reviewed the chart and agree that the record accurately reflects my personal performance of the history, physical exam, medical decision making, and the department course for this patient. I have also personally directed, reviewed, and agree with the discharge instructions and disposition. Disposition/Present on Arrival - Present on Arrival Any Indicators Present on Arrival: No History of DVT/PE: No History of Uncontrolled Diabetes: No Urinary Catheter: No History of Decub. Ulcer: No History Surgical Site Infection Following: None - Disposition Have Diagnosis and Disposition been Completed?: Yes Diagnosis: Dehydration, Hyperglycemia, ACS (acute coronary syndrome), Dizziness Disposition: HOSPITALIZED Disposition Time: 21:29 Patient Problems: Current Active Problems Problem Status Onset ACS (acute coronary syndrome) Acute Dehydration Acute Hyperglycemia Acute Condition: STABLE Referrals: Patsy Campbell MD [Primary Care Provider] - Follow up with primary Forms: [employer] (Turkmen)
[2018-05-11] MEDS ORDERED: Sodium Chloride 0.9% 1,000 ML IV STA ×3 (19:54→21:13)
[2018-05-11] MEDS ORDERED: oxyCODONE 10 mg Immediate Release Tab PO STA (20:24)
[2018-05-11] MEDS ORDERED: Heparin 25,000units in 1/2NS 250 ML BAG IV SCH (20:30)
[2018-05-11 20:31] LABS: VENOUS BLOOD GAS BASE EXCESS -4.9 mmol/L (0.0-2.0); VENOUS BLOOD GAS PO2 49 mm/Hg (30-55); VENOUS BLOOD PH 7.36 (7.32-7.43)
[2018-05-11] MEDS ORDERED: cefTRIAXone 1 gm 1 GM/100 ML BAG IV STA (21:30)
[2018-05-11] MEDS ORDERED: Magnesium 2 gm/50 ml NS 2 GM/50 ML BAG IVPB ONE (21:54)
[2018-05-11] MEDS ORDERED: Insulin Lispro (humaLOG) LOW Coverage SC SCH (22:00)
[2018-05-11] MEDS ORDERED: Sodium Chloride 0.9% 1,000 ML IV SCH (22:00)
--- NOTE | 2018-05-11 22:54 | CP.PCM.HP ---
History of Present Illness - History of Present Illness History of Present Illness: CC: dizziness/s/p falls HPI: Mr. Marcelo is a 48 year old male with PMH of BiPolar Disease, anxiety, Psychosis, Vertigo, TIA, HTN, COPD, Asthma, arthritis and DJD who presents due to dizziness and s/p fall x2. Patient states that he felt dizzy all day and then fell twice and hit the back of his head both times. Prior to feeling dizzy , he described blurry vision. Patient states that he had a severe seizure on requiring resuscitation coded for 8 minutes. However, he has not been following with a neurologist. Patient states that his BPs at home have been mostly in the 150s/110s. Patient has a vague history of seizures twice before but not currently on any medication. He denies tongue biting, or bowel/bladder incontinence during these episodes. He denies fever, chills, CP, SOB, nausea/ vomiting/diarrhea. PMHx: BiPolar Disease, anxiety, Psychosis, Vertigo, TIA, HTN, COPD, Asthma, arthritis and DJD PSHx: 12 screws in spine, R knee surgery Allergies: Carisoprodol, varenicline Shx: 1/2 PPD for 21 years. Denies alcohol or illicit drug use. FamHx: Mother/Father - Heart Disease and Diabetes Meds: Reviewed. Patient is now taking Januvia and Metformin but he is unsure of the doses. Call pharmacy to verify. Present on Admission - Present on Admission Any Indicators Present on Admission: Yes History of DVT/PE: No History of Uncontrolled Diabetes: Yes Urinary Catheter: No Decubitus Ulcer Present: No Review of Systems - Review of Systems Review of Systems: ROS: 12 point ROS was reviewed with patient and negative except as stated in HPI. Past Patient History - Infectious Disease Hx of Infectious Diseases: None - Tetanus Immunizations Tetanus Immunization: Unknown - Past Medical History & Family History Past Medical History?: Yes - Past Social History Smoking Status: Light Smoker < 10 Cigarettes Daily - CARDIAC Hx Hypertension: Yes - PULMONARY Hx Chronic Obstructive Pulmonary Disease (COPD): Yes - NEUROLOGICAL Hx Neurological Disorder: No Hx Alzheimer's Disease: No HX Cerebrovascular Accident: No Hx Dementia: No Hx Dizziness: No Hx Meningitis: No Hx Migraine: No Hx Parkinson's Disease: No Hx Seizures: No Hx Transient Ischemic Attacks (TIA): Yes - HEENT Hx HEENT Problems: No Hx Blind: No Hx Cataracts: No Hx Deafness: No Hx Difficulty Chewing: No Hx Epistaxis: No Hx Glaucoma: No Hx Macular Degeneration: No - RENAL Hx Chronic Kidney Disease: No Hx Dialysis: No Hx Kidney Stones: No Hx Neurogenic Bladder: No Hx Pyelonephritis: No Hx Renal (Kidney) Cancer: No Hx Renal Failure: No - ENDOCRINE/METABOLIC Hx Endocrine Disorders: No Hx Adrenal Cancer: No Hx Diabetes Insipidus: No Hx Diabetes Mellitus Type 1: No Hx Diabetes Mellitus Type 2: No Hx Hyperthyroidism: No Hx Hypothyroidism: No Hx Systemic Lupus Erythematosus: No - HEMATOLOGICAL/ONCOLOGICAL Hx Blood Disorders: No Hx AIDS: No Hx Anemia: Yes Hx Cancer: No Hx Chemotherapy: No Hx Cirrhosis: No Hx Hemophilia: No Hx Hepatitis A: No Hx Hepatitis B: No Hx Hepatitis C: No Hx Metastesis: No Hx Shingles: No Hx Sickle Cell Disease: No Hx Unexplained Bleeding: No - INTEGUMENTARY Hx Dermatological Problems: No Hx Basil Cell: No Hx Eczema: No Hx Melanoma: No Hx Psoriasis: No Hx Squamous Cell: No - MUSCULOSKELETAL/RHEUMATOLOGICAL Hx Arthritis: Yes - GASTROINTESTINAL Hx Gastrointestinal Disorders: No Hx Colostomy: No Hx Crohn's Disease: No Hx Diverticulitis: No Hx Gall Bladder Disease: No Hx Gastroesophageal Reflux: No Hx Ileostomy: No Hx Liver Failure: No Hx Pancreatitis: No HX Swallowing Problems: No - GENITOURINARY/GYNECOLOGICAL Hx Genitourinary Disorders: No Hx Hematuria: No Hx Incontinence: No Hx Prostate Problems: No Hx Sexually Transmitted Disorders: No Hx Urinary Tract Infection: No - PSYCHIATRIC Hx Psychophysiologic Disorder: Yes Hx Anxiety: Yes Hx Bipolar Disorder: Yes Hx Depression: Yes Hx Emotional Abuse: No Hx Hallucinations: No Hx Panic Symptoms: Yes Hx Post Traumatic Stress Disorder: No Hx Psychosis: No Hx Physical Abuse: No Hx Schizophrenia: No Hx Sexual Abuse: No Hx Substance Use: No - SURGICAL HISTORY Hx Cardiac Catheterization: No Hx Coronary Stent: No - ANESTHESIA Hx Anesthesia: Yes Hx Anesthesia Reactions: No Hx Malignant Hyperthermia: No Meds Allergies/Adverse Reactions: Allergies Allergy/AdvReac Type Severity Reaction Status Date / Time carisoprodol [From Soma] Allergy DIZZINESS Verified 05/11/18 17:57 varenicline [From Chantix] Allergy VOMITING Verified 05/11/18 17:57 Physical Exam - Constitutional Appears: No Acute Distress - Head Exam Head Exam: ATRAUMATIC, NORMAL INSPECTION, NORMOCEPHALIC - Eye Exam Eye Exam: Normal appearance Pupil Exam: NORMAL ACCOMODATION - ENT Exam ENT Exam: Mucous Membranes Dry - Neck Exam Neck exam: Positive for: Normal Inspection - Respiratory Exam Respiratory Exam: Clear to Auscultation Bilateral, NORMAL BREATHING PATTERN. absent: Accessory Muscle Use, Chest Wall Tenderness, Decreased Breath Sounds, Prolonged Expiratory Phase, Rales, Rhonchi, Wheezes, Respiratory Distress, Stridor - Cardiovascular Exam Cardiovascular Exam: REGULAR RHYTHM, RRR, +S1, +S2. absent: Diastolic murmur, Gallop, JVD, Rubs, Systolic Murmur - GI/Abdominal Exam GI & Abdominal Exam: Normal Bowel Sounds, Soft. absent: Guarding, Organomegaly , Rebound - Extremities Exam Extremities exam: Positive for: tenderness. Negative for: joint swelling, pedal edema Additional comments: tenderness on L lower - Back Exam Back exam: NORMAL INSPECTION - Neurological Exam Neurological exam: Alert, Oriented x3 - Psychiatric Exam Psychiatric exam: Normal Affect, Normal Mood - Skin Skin Exam: Dry, Normal Color, Warm Results - Vital Signs Recent Vital Signs: Last Vital Signs Temp 98.9 F 05/11/18 17:52 Pulse 91 H 05/11/18 21:48 Resp 18 05/11/18 21:48 BP 108/72 05/11/18 21:48 Pulse Ox 99 05/11/18 21:48 - Labs Result Diagrams: 05/11/18 18:43 05/11/18 18:43 Labs: Laboratory Results - last 24 hr 05/11/18 21:35 POC Glucose (mg/dL) 270 H Assessment & Plan - Assessment and Plan (Free Text) Assessment: Mr. Marcelo is a 48 year old male with PMHx of BiPolar Disease, anxiety, Psychosis , Vertigo, TIA, HTN, COPD, Asthma, arthritis and DJD with dizziness and s/p fall x2 found to have sepsis, (lactate 3.5, BP 78/42 and HR of 135) and DKA with anion gap of 21. 1. Sepsis (lactate 3.5, BP 78/42 and HR of 135) -s/p 3 boluses of NS -Continue broad spectrum Vanc/zosyn -ID consulted for sepsis -Sepsis w/u ordered 2. DKA -Insulin drip started -current anion gap of 21 -Started IVF with D5 1/2 NS of 100 mL/hr -F/u Hgb A1c -Continue to monitor anion gaps -F/u CMP Q4h -Will require monitoring in ICU -Q1h finger sticks 3. Non specific inferior lead ST elevation -ED physician discussed case with animal care provider Dr. Zapien who recommends B-gisella , aspirin and heparin -Continue heparin drip -Repeat EKG -Echo ordered -F/u Cardiology consult recs 4. Dizziness -Was last seen for similar complaint 03/26 -Recent carotid u/s negative -F/u neuro consult recs -F/u orthostatic VS -F/u CT head -F/u echo 5. Hx of HTN -Hold all antihypertensive medications 6. Hx of seizures -EEG ordered -neurology consulted 7. Hypomagnesemia -Repleted with MgSO4 of 2g Patient is currently HD stable. Requires insulin drip for DKA will monitor in the ICU. Case discussed with attending Dr. Jesse Denton
[2018-05-11] MEDS ORDERED: Insulin Regular 100 UNITS in Sodium Chloride 0.9% 99 ML IV PRN (22:55)
[2018-05-11] MEDS ORDERED: Dextrose 5%/0.45% NS 1,000 ML IV SCH (23:00)
[2018-05-12 01:00] LABS: VENOUS BLOOD GAS PO2 63 mm/Hg (30-55)
[2018-05-12 01:05] LABS: ALB/GLOB RATIO 1.3 (1.1-1.8); ALBUMIN 2.9 g/dL (3.0-4.8); ALT/SGPT 23 U/L (7-56); AST/SGOT 14 U/L (17-59); BLOOD UREA NITROGEN 20 mg/dL (7-21); CALCIUM 7.7 mg/dL (8.4-10.5); GFR AFRICAN-AMERICAN > 60; GFR NON-AFRICAN AMERICAN > 60
[2018-05-12] MEDS: Vancomycin 1gm in NS 250ml 1 GM/250 ML BAG IVPB SCH ×5 (01:30→23:41)
[2018-05-12 01:43] LABS: TROPONIN I 0.21 ng/mL
--- NOTE | 2018-05-12 01:48 | CT ---
EXAM: CT Head Without Intravenous Contrast EXAM DATE/TIME: 05/11/2018 9:31 PM CLINICAL HISTORY: The patient age is 48 years old and is male; Signs and symptoms; Syncope and collapse; Additional info: Near syncope Facility exam id and description: Ct heads head w/o contrast TECHNIQUE: Axial computed tomography images of the head/brain without intravenous contrast. All CT scans at this facility use at least one of these dose optimization techniques: automated exposure control; mA and/or kV adjustment per patient size (includes targeted exams where dose is matched to clinical indication); or iterative reconstruction. Coronal and sagittal reformatted images were created and reviewed. COMPARISON: CT - HEAD W/O CONTRAST 2018-03-12 00:17 FINDINGS: Brain: The white-carey differentiation is preserved demonstrating no acute territorial type infarct. No acute intracranial hemorrhage is seen. No significant white matter disease is visualized. There is a small hypodense dilated perivascular space below the right basal ganglia. Midline shift: There is no midline shift. Ventricles: No ventriculomegaly. Bones/joints: There is a blowout fracture of the inferior left orbital wall, stable compared to the prior study. Soft tissues: No acute abnormality. Sinuses: Unremarkable as visualized. No acute sinusitis. Mastoid air cells: No mastoid effusion. IMPRESSION: 1. No acute intracranial abnormality. 2. There is a blowout fracture of the inferior left orbital wall, stable compared to the prior study. 3. [facility] Stroke Program Early CT Score (ASPECTS) = 10
[2018-05-12] MEDS: Piperacill/Tazo 4.5gm in NS 4.5 GM/100 ML BAG IVPB SCH ×2 (02:30→06:49)
[2018-05-12 03:40] VITALS: BMI 28.6
[2018-05-12] MEDS ORDERED: Pneumococcal 23-Valent Vaccine IM ONE (03:40)
[2018-05-12 04:57] LABS: BASO # 0.03 K/mm3 (0.0-2.0); BASO % 0.3 % (0.0-3.0); EOS # 0.1 (0.0-0.7); EOS % 1.3 % (1.5-5.0); GRAN # 5.7 (1.4-6.5); GRAN % 56.5 % (50.0-68.0); LYMPH # 3.7 (1.2-3.4); LYMPH % 36.5 % (22.0-35.0); MEAN CELL VOLUME 89.3 fl (80.0-105.0); MEAN CORPUSCULAR HEMOGLOBIN 32.1 pg (25.0-35.0); MEAN CORPUSCULAR HGB CONC 35.9 g/dl (31.0-37.0); MEAN PLATELET VOLUME 10.8 fl (7.0-11.0); MONO # 0.5 (0.1-0.6); MONO % 5.4 % (1.0-6.0); RBC 4.58 10^6/uL (3.5-6.1); RED CELL DISTRIBUTION WIDTH 12.4 % (11.5-14.5); WHITE BLOOD COUNT 10.1 10^3/ul (4.5-11.0)
[2018-05-12 05:00] LABS: HEMOGLOBIN 14.7 g/dL (14.0-18.0)
[2018-05-12 05:20] LABS: ALB/GLOB RATIO 1.2 (1.1-1.8); ALT/SGPT 22 U/L (7-56); AST/SGOT 13 U/L (17-59); BLOOD UREA NITROGEN 20 mg/dL (7-21); GFR AFRICAN-AMERICAN > 60; GFR NON-AFRICAN AMERICAN > 60
[2018-05-12 05:20] LABS: URINE BILIRUBIN NEGATIVE (NEGATIVE); URINE BLOOD NEGATIVE (NEGATIVE); URINE GLUCOSE (UA) >=1000 mg/dL (NEGATIVE); URINE LEUKOCYTE ESTERASE NEGATIVE Leu/uL (NEGATIVE); URINE PROTEIN TRACE mg/dL (<30 mg/dL); URINE UROBILINOGEN 0.2 E.U./dL (<1 E.U./dL)
[2018-05-12 05:26] LABS: URINE APPEARANCE CLEAR (CLEAR); URINE COLOR YELLOW (YELLOW)
[2018-05-12 05:27] LABS: OSMOLALITY,URINE 276 mosm/kg (300-1000)
[2018-05-12 05:37] LABS: URINE EPITHELIAL CELLS 0 - 2 /hpf (0-5); URINE RBC 0 - 2 /hpf (0-2); URINE WBC 0 - 2 /hpf (0-6)
[2018-05-12 05:42] LABS: TROPONIN I 0.37 ng/mL
[2018-05-12 06:48] LABS: VENOUS BLOOD GAS BASE EXCESS -2.9 mmol/L (0.0-2.0); VENOUS BLOOD GAS PO2 176 mm/Hg (30-55); VENOUS BLOOD PH 7.35 (7.32-7.43)
[2018-05-12] MEDS ORDERED: Magnesium Sulfate 1 gm in D5W 1 GM/100 ML BAG IVPB ONE (07:13)
[2018-05-12] MEDS: Potassium Chloride 40 mEq/30 ml LIQ UD PO SCH ×2 (08:01→14:08)
[2018-05-12] MEDS: Insulin Reg-LOW-Coverage SC SCH ×2 (08:22→11:30)
--- NOTE | 2018-05-12 09:44 | CP.PCM.CON ---
History of Present Illness - History of Present Illness History of Present Illness: Neurology Consult Note - Dr. Tapia CC: Pre-syncopal episode HPI: 48 year old male with past medical history of bipolar disorder, anxiety, vertigo, TIA, cardiac arrest in 10/2017, asthma and withdrawal seizures x2 secondary to medication noncompliance who presented to [facility] ED for dizziness associated with loss of balance and trauma to his head. Patient was evaluated in ED and found to have elevated blood glucose and anion gap. Patient was admitted and treated for DKA and placed on heparin drip for elevation of enzymes and concerning changes on EKG. Patient reported he was at his home yesterday when felt sudden onset of dizziness with blurry vision and spinning sensation while ambulating. Patient reports falling and hitting the back of his head as a result. He denies LOC, biting of tongue, urine or bowel incontinence, palpitations, shortness of breath. He indicates he has had previous episodes of similar dizziness and near syncope in his past. Patient was previously seen at [facility] in 03/2018 where he was evaluated for syncope. US carotids at that time showed no significant stenosis, Head CT showed no acute intracranial findings. At time of interview patient denied dizziness, lightheadedness, fevers, chills, headache, SOB, palpitations, abdominal pain, nausea, vomiting, diarrhea, constipation, or any urinary symptoms. PMH: bipolar disorder, anxiety, vertigo, TIA, cardiac arrest, medication non- compliance associated with withdrawal seizures x2, and asthma PSHx: 12 screws in spine, Right knee surgery SocH: 1/2 PPD for 21 years. Denies alcohol or illicit drug use. FMH: Mother: CAD s/p "15 stents" and CABG, Other: HTN, DM Allergies: Carisoprodol, varenicline Meds: MAR Reviewed Review of Systems - Review of Systems All systems: reviewed and no additional remarkable complaints except (as mentioned in HPI) Past Patient History - Infectious Disease Hx of Infectious Diseases: None - Tetanus Immunizations Tetanus Immunization: Unknown - Past Medical History & Family History Past Medical History?: Yes - Past Social History Smoking Status: Current Some Days Smoker - CARDIAC Hx Cardiac Disorders: Yes (s/p Code Blue 10/2017) Hx Hypertension: Yes - PULMONARY Hx Respiratory Disorders: Yes Hx Asthma: Yes Hx Chronic Obstructive Pulmonary Disease (COPD): Yes - NEUROLOGICAL Hx Neurological Disorder: Yes Hx Dizziness: Yes Hx Transient Ischemic Attacks (TIA): Yes (04/2016.) - HEENT Hx HEENT Problems: No - RENAL Hx Chronic Kidney Disease: No - ENDOCRINE/METABOLIC Hx Endocrine Disorders: Yes Hx Diabetes Mellitus Type 2: Yes - HEMATOLOGICAL/ONCOLOGICAL Hx Blood Disorders: Yes Hx Anemia: Yes (Denied by pt.) - INTEGUMENTARY Hx Dermatological Problems: Yes (Allergy to red tattoo dye.) - MUSCULOSKELETAL/RHEUMATOLOGICAL Hx Musculoskeletal Disorders: Yes Hx Arthritis: Yes (B/L hips/ Rt shld/ Lower Back/ LLE.) Hx Back Pain: Yes Hx Degenerative Joint Disease: Yes Hx Falls: Yes Hx Fractures: Yes (L leg) - GASTROINTESTINAL Hx Gastrointestinal Disorders: No - GENITOURINARY/GYNECOLOGICAL Hx Genitourinary Disorders: No - PSYCHIATRIC Hx Psychophysiologic Disorder: Yes (Substance Abuse Disorder.) Hx Anxiety: Yes Hx Bipolar Disorder: Yes Hx Depression: Yes Hx Panic Symptoms: Yes Hx Substance Use: No (Denied by patient.) - SURGICAL HISTORY Hx Surgeries: Yes Hx Orthopedic Surgery: Yes (Lower Back reconstructive Sz/ L knee synovitis/ Rt shld Rt Knee Sx.) - ANESTHESIA Hx Anesthesia: Yes Hx Anesthesia Reactions: No Hx Malignant Hyperthermia: No Meds Allergies/Adverse Reactions: Allergies Allergy/AdvReac Type Severity Reaction Status Date / Time carisoprodol [From Soma] Allergy DIZZINESS Verified 05/11/18 17:57 varenicline [From Chantix] Allergy VOMITING Verified 05/11/18 17:57 - Medications Medications: Current Medications Aspirin (Aspirin Chewable) 81 mg PO DAILY [facility] Last Admin: 05/12/18 08:01 Dose: 81 mg Heparin Sodium/Sodium Chloride (Heparin 86250 Units/250ml 1/2 Normal Saline) 25 ,000 units in 250 mls @ 11.746 mls/hr IV .[id number] MALENA; 12 UNITS/KG/HR PRN Reason: Protocol Last Titration: 05/12/18 06:52 Dose: 14 units/kg/hr, 13.704 mls/hr Vancomycin HCl (Vancomycin 1gm) 1 gm in 250 mls @ 167 mls/hr IVPB Q12H MALENA PRN Reason: Protocol Last Admin: 05/12/18 01:30 Dose: 167 mls/hr Piperacillin Sod/Tazobactam Sod (Zosyn 3.375 In Ns 100ml) 100 mls @ 200 mls/hr IVPB Q6 MALENA PRN Reason: Protocol Stop: 05/21/18 12:01 Insulin Human Regular (Humulin R Low) 0 units SC ACHS MALENA PRN Reason: Protocol Last Admin: 05/12/18 08:22 Dose: 2 units Pantoprazole Sodium (Protonix Inj) 40 mg IVP DAILY [facility] Potassium Chloride (Potassium Chloride Oral Soln) 40 meq PO Q4H MALENA Stop: 05/12/18 11:16 Last Admin: 05/12/18 08:01 Dose: 40 meq Physical Exam - Constitutional Appears: Non-toxic, No Acute Distress - Head Exam Head Exam: ATRAUMATIC, NORMAL INSPECTION, NORMOCEPHALIC - Eye Exam Eye Exam: EOMI, PERRL - Neck Exam Neck exam: Positive for: Full Rom - Respiratory Exam Respiratory Exam: Clear to Auscultation Bilateral, NORMAL BREATHING PATTERN. absent: Rhonchi, Wheezes - Cardiovascular Exam Cardiovascular Exam: REGULAR RHYTHM, +S1, +S2 - GI/Abdominal Exam GI & Abdominal Exam: Normal Bowel Sounds, Soft. absent: Tenderness - Extremities Exam Extremities exam: Positive for: normal capillary refill, pedal pulses present. Negative for: calf tenderness - Neurological Exam Neurological exam: Alert, CN II-XII Intact, Oriented x3, Reflexes Normal Additional comments: Strength 4/5 in left leg secondary to pain Strength 5/5 in RLE, LUE, RUE Heel to chand appropriate b/l Coordination intact - Psychiatric Exam Psychiatric exam: Normal Affect, Normal Mood - Skin Skin Exam: Dry, Intact Results - Vital Signs Recent Vital Signs: Last Vital Signs Temp 97.8 F 05/12/18 06:00 Pulse 82 05/12/18 07:20 Resp 9 L 05/12/18 07:20 BP 150/88 05/12/18 06:01 Pulse Ox 100 05/12/18 07:20 - Labs Result Diagrams: 05/12/18 04:30 05/12/18 15:00 Labs: Laboratory Results - last 24 hr 05/11/18 05/11/18 05/12/18 21:35 22:37 00:45 WBC RBC Hgb Hct MCV MCH MCHC RDW Plt Count MPV Gran % Lymph % (Auto) Mobile % (Auto) Eos % (Auto) Baso % (Auto) Gran # Lymph # (Auto) Mobile # (Auto) Eos # (Auto) Baso # (Auto) APTT pO2 63 H VBG pH 7.30 L VBG pCO2 46.0 VBG HCO3 22.6 VBG Total CO2 24.0 VBG O2 Sat (Calc) 94.7 H VBG Base Excess -4.0 L VBG Potassium 3.8 Sodium 133.0 Chloride 105.0 Glucose 303 H Lactate 2.3 H FiO2 21.0 Potassium Carbon Dioxide Anion Gap BUN Creatinine Est GFR ( Amer) Est GFR (Non-Af Amer) POC Glucose (mg/dL) 270 H 244 H Random Glucose Calcium Phosphorus Magnesium Total Bilirubin AST ALT Alkaline Phosphatase Troponin I Total Protein Albumin Globulin Albumin/Globulin Ratio Triglycerides Cholesterol LDL Cholesterol Direct HDL Cholesterol TSH 3rd Generation Venous Blood Potassium 3.8 Urine Color Urine Appearance Urine pH Ur Specific [place] Urine Protein Urine Glucose (UA) Urine Ketones Urine Blood Urine Nitrate Urine Bilirubin Urine Urobilinogen Ur Leukocyte Esterase Urine RBC Urine WBC Ur Epithelial Cells Urine Osmolality Ur Random Sodium 05/12/18 05/12/18 05/12/18 00:45 01:28 02:17 WBC RBC Hgb Hct MCV MCH MCHC RDW Plt Count MPV Gran % Lymph % (Auto) Mobile % (Auto) Eos % (Auto) Baso % (Auto) Gran # Lymph # (Auto) Mobile # (Auto) Eos # (Auto) Baso # (Auto) APTT pO2 VBG pH VBG pCO2 VBG HCO3 VBG Total CO2 VBG O2 Sat (Calc) VBG Base Excess VBG Potassium Sodium 135 Chloride 104 Glucose Lactate FiO2 Potassium 3.9 Carbon Dioxide 22 Anion Gap 14 BUN 20 Creatinine 0.9 Est GFR ( Amer) > 60 Est GFR (Non-Af Amer) > 60 POC Glucose (mg/dL) 246 H 255 H Random Glucose 278 H Calcium 7.7 L Phosphorus Magnesium Total Bilirubin 0.4 AST 14 L D ALT 23 Alkaline Phosphatase 71 Troponin I 0.21 H* D Total Protein 5.2 L Albumin 2.9 L Globulin 2.3 Albumin/Globulin Ratio 1.3 Triglycerides Cholesterol LDL Cholesterol Direct HDL Cholesterol TSH 3rd Generation Venous Blood Potassium Urine Color Urine Appearance Urine pH Ur Specific [place] Urine Protein Urine Glucose (UA) Urine Ketones Urine Blood Urine Nitrate Urine Bilirubin Urine Urobilinogen Ur Leukocyte Esterase Urine RBC Urine WBC Ur Epithelial Cells Urine Osmolality Ur Random Sodium 05/12/18 05/12/18 05/12/18 03:29 04:22 04:30 WBC 10.1 D RBC 4.58 Hgb 14.7 D Hct 40.9 L MCV 89.3 MCH 32.1 MCHC 35.9 RDW 12.4 Plt Count 192 MPV 10.8 Gran % 56.5 Lymph % (Auto) 36.5 H Mobile % (Auto) 5.4 Eos % (Auto) 1.3 L Baso % (Auto) 0.3 Gran # 5.70 Lymph # (Auto) 3.7 H Mobile # (Auto) 0.5 Eos # (Auto) 0.1 Baso # (Auto) 0.03 APTT pO2 VBG pH VBG pCO2 VBG HCO3 VBG Total CO2 VBG O2 Sat (Calc) VBG Base Excess VBG Potassium Sodium Chloride Glucose Lactate FiO2 Potassium Carbon Dioxide Anion Gap BUN Creatinine Est GFR ( Amer) Est GFR (Non-Af Amer) POC Glucose (mg/dL) 219 H 201 H Random Glucose Calcium Phosphorus Magnesium Total Bilirubin AST ALT Alkaline Phosphatase Troponin I Total Protein Albumin Globulin Albumin/Globulin Ratio Triglycerides Cholesterol LDL Cholesterol Direct HDL Cholesterol TSH 3rd Generation Venous Blood Potassium Urine Color Urine Appearance Urine pH Ur Specific [place] Urine Protein Urine Glucose (UA) Urine Ketones Urine Blood Urine Nitrate Urine Bilirubin Urine Urobilinogen Ur Leukocyte Esterase Urine RBC Urine WBC Ur Epithelial Cells Urine Osmolality Ur Random Sodium 05/12/18 05/12/18 05/12/18 04:30 04:30 04:30 WBC RBC Hgb Hct MCV MCH MCHC RDW Plt Count MPV Gran % Lymph % (Auto) Mobile % (Auto) Eos % (Auto) Baso % (Auto) Gran # Lymph # (Auto) Mobile # (Auto) Eos # (Auto) Baso # (Auto) APTT 36.1 pO2 VBG pH VBG pCO2 VBG HCO3 VBG Total CO2 VBG O2 Sat (Calc) VBG Base Excess VBG Potassium Sodium 136 Chloride 104 Glucose Lactate FiO2 Potassium 3.4 L Carbon Dioxide 23 Anion Gap 13 BUN 20 Creatinine 0.8 Est GFR ( Amer) > 60 Est GFR (Non-Af Amer) > 60 POC Glucose (mg/dL) Random Glucose 214 H Calcium 8.0 L Phosphorus Magnesium 1.8 Total Bilirubin 0.4 AST 13 L ALT 22 Alkaline Phosphatase 74 Troponin I 0.37 H* D Total Protein 5.4 L Albumin 3.0 Globulin 2.4 Albumin/Globulin Ratio 1.2 Triglycerides Cholesterol LDL Cholesterol Direct HDL Cholesterol TSH 3rd Generation 1.44 Venous Blood Potassium Urine Color Urine Appearance Urine pH Ur Specific [place] Urine Protein Urine Glucose (UA) Urine Ketones Urine Blood Urine Nitrate Urine Bilirubin Urine Urobilinogen Ur Leukocyte Esterase Urine RBC Urine WBC Ur Epithelial Cells Urine Osmolality Ur Random Sodium 05/12/18 05/12/18 05/12/18 04:40 04:40 05:30 WBC RBC Hgb Hct MCV MCH MCHC RDW Plt Count MPV Gran % Lymph % (Auto) Mobile % (Auto) Eos % (Auto) Baso % (Auto) Gran # Lymph # (Auto) Mobile # (Auto) Eos # (Auto) Baso # (Auto) APTT pO2 VBG pH VBG pCO2 VBG HCO3 VBG Total CO2 VBG O2 Sat (Calc) VBG Base Excess VBG Potassium Sodium Chloride Glucose Lactate FiO2 Potassium Carbon Dioxide Anion Gap BUN Creatinine Est GFR ( Amer) Est GFR (Non-Af Amer) POC Glucose (mg/dL) Random Glucose Calcium Phosphorus 3.0 Magnesium Total Bilirubin AST ALT Alkaline Phosphatase Troponin I Total Protein Albumin Globulin Albumin/Globulin Ratio Triglycerides 258 H Cholesterol 106 L LDL Cholesterol Direct 55 HDL Cholesterol 23 L TSH 3rd Generation Venous Blood Potassium Urine Color Yellow Urine Appearance Clear Urine pH 6.0 Ur Specific [place] 1.025 Urine Protein Trace H Urine Glucose (UA) >=1000 Urine Ketones Negative Urine Blood Negative Urine Nitrate Negative Urine Bilirubin Negative Urine Urobilinogen 0.2 Ur Leukocyte Esterase Negative Urine RBC 0 - 2 Urine WBC 0 - 2 Ur Epithelial Cells 0 - 2 Urine Osmolality 276 L Ur Random Sodium 164 05/12/18 05/12/18 06:15 07:24 WBC RBC Hgb Hct MCV MCH MCHC RDW Plt Count MPV Gran % Lymph % (Auto) Mobile % (Auto) Eos % (Auto) Baso % (Auto) Gran # Lymph # (Auto) Mobile # (Auto) Eos # (Auto) Baso # (Auto) APTT pO2 176 H VBG pH 7.35 VBG pCO2 41.0 VBG HCO3 22.6 VBG Total CO2 23.9 VBG O2 Sat (Calc) 99.9 H VBG Base Excess -2.9 L VBG Potassium 3.4 L Sodium 134.0 Chloride 106.0 Glucose 185 H Lactate 1.7 FiO2 21.0 Potassium Carbon Dioxide Anion Gap BUN Creatinine Est GFR ( Amer) Est GFR (Non-Af Amer) POC Glucose (mg/dL) 222 H Random Glucose Calcium Phosphorus Magnesium Total Bilirubin AST ALT Alkaline Phosphatase Troponin I Total Protein Albumin Globulin Albumin/Globulin Ratio Triglycerides Cholesterol LDL Cholesterol Direct HDL Cholesterol TSH 3rd Generation Venous Blood Potassium 3.4 L Urine Color Urine Appearance Urine pH Ur Specific [place] Urine Protein Urine Glucose (UA) Urine Ketones Urine Blood Urine Nitrate Urine Bilirubin Urine Urobilinogen Ur Leukocyte Esterase Urine RBC Urine WBC Ur Epithelial Cells Urine Osmolality Ur Random Sodium Assessment & Plan - Assessment and Plan (Free Text) Assessment: 48 year old male with past medical history of bipolar disorder, anxiety, vertigo , TIA, cardiac arrest in 10/2017, asthma and withdrawal seizures x2 secondary to medication noncompliance admitted for sepsis, DKA, elevated troponin with EKG changes suggestive of acute inferior DE with pre-syncope and dizziness Abnormal EEG - Epileptiform discharge of the left Parietal lobe - Suggestive of focal abnormality - MRI brain - Load with Depakote 1 gm today - Begin Depakote 500mg BID tomorrow Pre-syncope - Carotid US from 03/2018 showing no significant stenosis - Head CT showing stable orbital blow fracture of the left inferior orbit wall, no acute intracranial abn - EKG showing sinus tachycardia, elevation inferior leads - Suspect secondary to dehydration secondary to DKA - f/u orthostatic VS Further recs per Dr. Tapia Case and plan to be discussed with Dr. Regina Montemayor PGY-2 - Date & Time Date: 05/12/18 Time: 09:48
--- NOTE | 2018-05-12 09:49 | CARD ---
APPROVED REPORT EKG Measurement Heart [id number] <Conclusion> Sinus tachycardia ST elevation 2,3,F, new, R/O acute ME
[2018-05-12] MEDS: oxyCODONE 15 mg Immediate Release Tab PO SCH ×4 (09:50→21:40)
--- NOTE | 2018-05-12 10:11 | CARD ---
APPROVED REPORT EKG Measurement Heart [id number] <Conclusion> Normal sinus rhythm Nonspecific ST abnormality Slight ST elevations 2,3,F Prolonged QTc
--- NOTE | 2018-05-12 10:52 | CP.CCUPN ---
<BradySteve - Last Filed: 05/12/18 12:02> CCU Subjective - Physician Review Subjective (Free Text): Steve Abreu PGY1 ICU Progress Note for Dr. Hess Patient was examined at bedside this morning. He denied dizziness, palpatations , chest pain, shortness of breath, polyuria, and polydipsia. As per patient, he claims that he had a "severe seizure" in the past around October, where he was resuscitated. 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 Patient said that he had never had an EEG or echo done before. He also states that he was taken off his diabetes medications by his PMD Dr. Patsy Campbell about two weeks ago for a test. Full 12 point ROS was reviewed and unremarkable except as stated above. CCU Objective - Vital Signs / Intake & Output Vital Signs (Last 4 hours): Vital Signs Pulse Resp Pulse Ox 05/12/18 07:20 82 9 L 100 05/12/18 07:10 84 14 100 05/12/18 07:00 81 99 05/12/18 06:55 84 12 05/12/18 06:54 85 12 05/12/18 06:53 84 13 05/12/18 06:50 86 17 91 L 05/12/18 06:49 92 H 16 05/12/18 06:48 84 14 05/12/18 06:40 83 13 100 Intake and Output (Last 8hrs): Intake & Output 05/11/18 05/12/18 05/12/18 22:59 06:59 14:59 Intake Total 737 Output Total 550 Balance 187 Weight 223 lb Intake: IV 531 Left Antecubital 125 Left Forearm 400 Right Antecubital 0 Oral 0 Tube Feeding 0 TPN/PPN 0 Blood Product 0 Lipid 0 Albumin 0 Other 206 Output: Urine 550 Urine, Voided 550 Stool 0 Urine/Stool Mix 0 Emesis 0 Oral Regurgitation 0 Other 0 Other: Voiding Method Urinal # Voids Urine, Voided 1 # Bowel Movements 0 - Physical Exam Head: Positive for: Atraumatic, Normocephalic Pupils: Positive for: PERRL Conjunctiva: Positive for: Normal Mouth: Positive for: Moist Mucous Membranes Respiratory/Chest: Positive for: Clear to Auscultation, Good Air Exchange. Negative for: Wheezes, Rales, Rhonchi Cardiovascular: Positive for: Regular Rate and Rhythm, Normal S1, S2. Negative for: Murmurs Abdomen: Positive for: Normal Bowel Sounds. Negative for: Tenderness, Distention, Peritoneal Signs Upper Extremity: Positive for: Normal Inspection. Negative for: Cyanosis, Edema Lower Extremity: Positive for: Normal Inspection. Negative for: Edema Neurological: Positive for: GCS=15, CN II-XII Intact, Speech Normal Skin: Positive for: Warm, Dry Psychiatric: Positive for: Alert, Oriented x 3 - Medications Active Medications: Active Medications Generic Name Dose Route Start Last Admin Trade Name Freq PRN Reason Stop Dose Admin Alprazolam 2 mg 05/12/18 09:35 Xanax PO QID PRN Anxiety Aspirin 81 mg 05/12/18 10:00 05/12/18 09:32 Aspirin Chewable PO Not Given DAILY [facility] Atorvastatin Calcium 20 mg 05/12/18 17:00 Lipitor PO DIN [facility] Chlorpromazine 5 mg 05/12/18 10:00 Thorazine PO DAILY [facility] Protocol Haloperidol 5 mg 05/12/18 10:00 Haldol PO DAILY [facility] Protocol Heparin Sodium/Sodium Chloride 25,000 units in 250 mls @ 11.746 mls/hr 20:30 05/12/18 06:52 Heparin 48019 Units/250ml 1/2 Normal Saline IV 14 units/kg/hr .[id number] [facility] 13.704 mls/hr Protocol Titration 12 UNITS/KG/HR Vancomycin HCl 1 gm in 250 mls @ 167 mls/hr 05/11/18 22:45 05/12/18 09:36 Vancomycin 1gm IVPB 167 mls/hr Q12H [facility] Administration Protocol Piperacillin Sod/Tazobactam Sod 100 mls @ 200 mls/hr 05/12/18 12:00 Zosyn 3.375 In Ns 100ml IVPB 05/21/18 12:01 Q6 [facility] Protocol Insulin Human Regular 0 units 05/12/18 07:30 05/12/18 08:22 Humulin R Low SC 2 units ACHS [facility] Administration Protocol Oxycodone HCl 15 mg 05/12/18 10:00 05/12/18 09:50 Oxycodone Immediate Release Tab PO 15 mg QID [facility] Administration Pantoprazole Sodium 40 mg 05/12/18 10:00 05/12/18 09:35 Protonix Inj IVP 40 mg DAILY [facility] Administration Paroxetine HCl 40 mg 05/12/18 10:00 Paxil PO DAILY [facility] Potassium Chloride 40 meq 05/12/18 07:15 05/12/18 08:01 Potassium Chloride Oral Soln PO 05/12/18 11:16 40 meq Q4H [facility] Administration - Patient Studies Lab Studies: Lab Studies 05/12/18 05/12/18 05/12/18 Range/Units 09:51 07:24 06:15 WBC (4.5-11.0) 10^3/ul RBC (3.5-6.1) 10^6/uL Hgb (14.0-18.0) g/dL Hct (42.0-52.0) % MCV (80.0-105.0) fl MCH (25.0-35.0) pg MCHC (31.0-37.0) g/dl RDW (11.5-14.5) % Plt Count (120.0-450.0) 10^3/uL MPV (7.0-11.0) fl Gran % (50.0-68.0) % Lymph % (Auto) (22.0-35.0) % [place] % (Auto) (1.0-6.0) % Eos % (Auto) (1.5-5.0) % Baso % (Auto) (0.0-3.0) % Gran # (1.4-6.5) Lymph # (Auto) (1.2-3.4) [place] # (Auto) (0.1-0.6) Eos # (Auto) (0.0-0.7) Baso # (Auto) (0.0-2.0) K/mm3 APTT (25.1-36.5) Seconds pO2 176 H (30-55) mm/Hg VBG pH 7.35 (7.32-7.43) VBG pCO2 41.0 (40-60) VBG HCO3 22.6 (21-28) mmol/l VBG Total CO2 23.9 (22-28) mmol.L VBG O2 Sat (Calc) 99.9 H (40-65) % VBG Base Excess -2.9 L (0.0-2.0) mmol/L VBG Potassium 3.4 L (3.6-5.2) mmol/L Sodium 134.0 (132-148) mmol/L Chloride 106.0 (98-107) mmol/L Glucose 185 H (75-110) mg/dl Lactate 1.7 (0.7-2.1) mmol/L FiO2 21.0 % Potassium (3.6-5.0) mmol/L Carbon Dioxide (21-33) mmol/L Anion Gap (10-20) BUN (7-21) mg/dL Creatinine (0.8-1.5) mg/dl Est GFR ( Amer) Est GFR (Non-Af Amer) POC Glucose (mg/dL) 358 H 222 H (65-110) mg/dL Random Glucose (70-110) mg/dL Calcium (8.4-10.5) mg/dL Phosphorus (2.5-4.5) mg/dL Magnesium (1.7-2.2) mg/dL Total Bilirubin (0.2-1.3) mg/dL AST (17-59) U/L ALT (7-56) U/L Alkaline Phosphatase (38-126) U/L Troponin I ng/mL Total Protein (5.8-8.3) g/dL Albumin (3.0-4.8) g/dL Globulin gm/dL Albumin/Globulin Ratio (1.1-1.8) Triglycerides (35-160) mg/dL Cholesterol (130-200) mg/dL LDL Cholesterol Direct (0-129) mg/dL HDL Cholesterol (29-60) mg/dL TSH 3rd Generation (0.46-4.68) mIU/mL Venous Blood Potassium 3.4 L (3.6-5.2) mmol/L Urine Color (YELLOW) Urine Appearance (CLEAR) Urine pH (4.7-8.0) Ur Specific [place] (1.005-1.035) Urine Protein (<30 mg/dL) mg/dL Urine Glucose (UA) (NEGATIVE) mg/dL Urine Ketones (NEGATIVE) mg/dL Urine Blood (NEGATIVE) Urine Nitrate (NEGATIVE) Urine Bilirubin (NEGATIVE) Urine Urobilinogen (<1 E.U./dL) E.U./dL Ur Leukocyte Esterase (NEGATIVE) Sharath/uL Urine RBC (0-2) /hpf Urine WBC (0-6) /hpf Ur Epithelial Cells (0-5) /hpf Urine Osmolality (300-1000) mosm/kg Ur Random Sodium meq/L 05/12/18 05/12/18 05/12/18 Range/Units 05:30 04:40 04:40 WBC (4.5-11.0) 10^3/ul RBC (3.5-6.1) 10^6/uL Hgb (14.0-18.0) g/dL Hct (42.0-52.0) % MCV (80.0-105.0) fl MCH (25.0-35.0) pg MCHC (31.0-37.0) g/dl RDW (11.5-14.5) % Plt Count (120.0-450.0) 10^3/uL MPV (7.0-11.0) fl Gran % (50.0-68.0) % Lymph % (Auto) (22.0-35.0) % [place] % (Auto) (1.0-6.0) % Eos % (Auto) (1.5-5.0) % Baso % (Auto) (0.0-3.0) % Gran # (1.4-6.5) Lymph # (Auto) (1.2-3.4) [place] # (Auto) (0.1-0.6) Eos # (Auto) (0.0-0.7) Baso # (Auto) (0.0-2.0) K/mm3 APTT (25.1-36.5) Seconds pO2 (30-55) mm/Hg VBG pH (7.32-7.43) VBG pCO2 (40-60) VBG HCO3 (21-28) mmol/l VBG Total CO2 (22-28) mmol.L VBG O2 Sat (Calc) (40-65) % VBG Base Excess (0.0-2.0) mmol/L VBG Potassium (3.6-5.2) mmol/L Sodium (132-148) mmol/L Chloride (98-107) mmol/L Glucose (75-110) mg/dl Lactate (0.7-2.1) mmol/L FiO2 % Potassium (3.6-5.0) mmol/L Carbon Dioxide (21-33) mmol/L Anion Gap (10-20) BUN (7-21) mg/dL Creatinine (0.8-1.5) mg/dl Est GFR ( Amer) Est GFR (Non-Af Amer) POC Glucose (mg/dL) (65-110) mg/dL Random Glucose (70-110) mg/dL Calcium (8.4-10.5) mg/dL Phosphorus 3.0 (2.5-4.5) mg/dL Magnesium (1.7-2.2) mg/dL Total Bilirubin (0.2-1.3) mg/dL AST (17-59) U/L ALT (7-56) U/L Alkaline Phosphatase (38-126) U/L Troponin I ng/mL Total Protein (5.8-8.3) g/dL Albumin (3.0-4.8) g/dL Globulin gm/dL Albumin/Globulin Ratio (1.1-1.8) Triglycerides 258 H (35-160) mg/dL Cholesterol 106 L (130-200) mg/dL LDL Cholesterol Direct 55 (0-129) mg/dL HDL Cholesterol 23 L (29-60) mg/dL TSH 3rd Generation (0.46-4.68) mIU/mL Venous Blood Potassium (3.6-5.2) mmol/L Urine Color Yellow (YELLOW) Urine Appearance Clear (CLEAR) Urine pH 6.0 (4.7-8.0) Ur Specific [place] 1.025 (1.005-1.035) Urine Protein Trace H (<30 mg/dL) mg/dL Urine Glucose (UA) >=1000 (NEGATIVE) mg/dL Urine Ketones Negative (NEGATIVE) mg/dL Urine Blood Negative (NEGATIVE) Urine Nitrate Negative (NEGATIVE) Urine Bilirubin Negative (NEGATIVE) Urine Urobilinogen 0.2 (<1 E.U./dL) E.U./dL Ur Leukocyte Esterase Negative (NEGATIVE) Sharath/uL Urine RBC 0 - 2 (0-2) /hpf Urine WBC 0 - 2 (0-6) /hpf Ur Epithelial Cells 0 - 2 (0-5) /hpf Urine Osmolality 276 L (300-1000) mosm/kg Ur Random Sodium 164 meq/L 05/12/18 05/12/18 05/12/18 Range/Units 04:30 04:30 04:30 WBC (4.5-11.0) 10^3/ul RBC (3.5-6.1) 10^6/uL Hgb (14.0-18.0) g/dL Hct (42.0-52.0) % MCV (80.0-105.0) fl MCH (25.0-35.0) pg MCHC (31.0-37.0) g/dl RDW (11.5-14.5) % Plt Count (120.0-450.0) 10^3/uL MPV (7.0-11.0) fl Gran % (50.0-68.0) % Lymph % (Auto) (22.0-35.0) % [place] % (Auto) (1.0-6.0) % Eos % (Auto) (1.5-5.0) % Baso % (Auto) (0.0-3.0) % Gran # (1.4-6.5) Lymph # (Auto) (1.2-3.4) [place] # (Auto) (0.1-0.6) Eos # (Auto) (0.0-0.7) Baso # (Auto) (0.0-2.0) K/mm3 APTT 36.1 (25.1-36.5) Seconds pO2 (30-55) mm/Hg VBG pH (7.32-7.43) VBG pCO2 (40-60) VBG HCO3 (21-28) mmol/l VBG Total CO2 (22-28) mmol.L VBG O2 Sat (Calc) (40-65) % VBG Base Excess (0.0-2.0) mmol/L VBG Potassium (3.6-5.2) mmol/L Sodium 136 (132-148) mmol/L Chloride 104 (98-107) mmol/L Glucose (75-110) mg/dl Lactate (0.7-2.1) mmol/L FiO2 % Potassium 3.4 L (3.6-5.0) mmol/L Carbon Dioxide 23 (21-33) mmol/L Anion Gap 13 (10-20) BUN 20 (7-21) mg/dL Creatinine 0.8 (0.8-1.5) mg/dl Est GFR ( Amer) > 60 Est GFR (Non-Af Amer) > 60 POC Glucose (mg/dL) (65-110) mg/dL Random Glucose 214 H (70-110) mg/dL Calcium 8.0 L (8.4-10.5) mg/dL Phosphorus (2.5-4.5) mg/dL Magnesium 1.8 (1.7-2.2) mg/dL Total Bilirubin 0.4 (0.2-1.3) mg/dL AST 13 L (17-59) U/L ALT 22 (7-56) U/L Alkaline Phosphatase 74 (38-126) U/L Troponin I 0.37 H* D ng/mL Total Protein 5.4 L (5.8-8.3) g/dL Albumin 3.0 (3.0-4.8) g/dL Globulin 2.4 gm/dL Albumin/Globulin Ratio 1.2 (1.1-1.8) Triglycerides (35-160) mg/dL Cholesterol (130-200) mg/dL LDL Cholesterol Direct (0-129) mg/dL HDL Cholesterol (29-60) mg/dL TSH 3rd Generation 1.44 (0.46-4.68) mIU/mL Venous Blood Potassium (3.6-5.2) mmol/L Urine Color (YELLOW) Urine Appearance (CLEAR) Urine pH (4.7-8.0) Ur Specific [place] (1.005-1.035) Urine Protein (<30 mg/dL) mg/dL Urine Glucose (UA) (NEGATIVE) mg/dL Urine Ketones (NEGATIVE) mg/dL Urine Blood (NEGATIVE) Urine Nitrate (NEGATIVE) Urine Bilirubin (NEGATIVE) Urine Urobilinogen (<1 E.U./dL) E.U./dL Ur Leukocyte Esterase (NEGATIVE) Sharath/uL Urine RBC (0-2) /hpf Urine WBC (0-6) /hpf Ur Epithelial Cells (0-5) /hpf Urine Osmolality (300-1000) mosm/kg Ur Random Sodium meq/L 05/12/18 05/12/18 05/12/18 Range/Units 04:30 04:22 03:29 WBC 10.1 D (4.5-11.0) 10^3/ul RBC 4.58 (3.5-6.1) 10^6/uL Hgb 14.7 D (14.0-18.0) g/dL Hct 40.9 L (42.0-52.0) % MCV 89.3 (80.0-105.0) fl MCH 32.1 (25.0-35.0) pg MCHC 35.9 (31.0-37.0) g/dl RDW 12.4 (11.5-14.5) % Plt Count 192 (120.0-450.0) 10^3/uL MPV 10.8 (7.0-11.0) fl Gran % 56.5 (50.0-68.0) % Lymph % (Auto) 36.5 H (22.0-35.0) % [place] % (Auto) 5.4 (1.0-6.0) % Eos % (Auto) 1.3 L (1.5-5.0) % Baso % (Auto) 0.3 (0.0-3.0) % Gran # 5.70 (1.4-6.5) Lymph # (Auto) 3.7 H (1.2-3.4) [place] # (Auto) 0.5 (0.1-0.6) Eos # (Auto) 0.1 (0.0-0.7) Baso # (Auto) 0.03 (0.0-2.0) K/mm3 APTT (25.1-36.5) Seconds pO2 (30-55) mm/Hg VBG pH (7.32-7.43) VBG pCO2 (40-60) VBG HCO3 (21-28) mmol/l VBG Total CO2 (22-28) mmol.L VBG O2 Sat (Calc) (40-65) % VBG Base Excess (0.0-2.0) mmol/L VBG Potassium (3.6-5.2) mmol/L Sodium (132-148) mmol/L Chloride (98-107) mmol/L Glucose (75-110) mg/dl Lactate (0.7-2.1) mmol/L FiO2 % Potassium (3.6-5.0) mmol/L Carbon Dioxide (21-33) mmol/L Anion Gap (10-20) BUN (7-21) mg/dL Creatinine (0.8-1.5) mg/dl Est GFR ( Amer) Est GFR (Non-Af Amer) POC Glucose (mg/dL) 201 H 219 H (65-110) mg/dL Random Glucose (70-110) mg/dL Calcium (8.4-10.5) mg/dL Phosphorus (2.5-4.5) mg/dL Magnesium (1.7-2.2) mg/dL Total Bilirubin (0.2-1.3) mg/dL AST (17-59) U/L ALT (7-56) U/L Alkaline Phosphatase (38-126) U/L Troponin I ng/mL Total Protein (5.8-8.3) g/dL Albumin (3.0-4.8) g/dL Globulin gm/dL Albumin/Globulin Ratio (1.1-1.8) Triglycerides (35-160) mg/dL Cholesterol (130-200) mg/dL LDL Cholesterol Direct (0-129) mg/dL HDL Cholesterol (29-60) mg/dL TSH 3rd Generation (0.46-4.68) mIU/mL Venous Blood Potassium (3.6-5.2) mmol/L Urine Color (YELLOW) Urine Appearance (CLEAR) Urine pH (4.7-8.0) Ur Specific [place] (1.005-1.035) Urine Protein (<30 mg/dL) mg/dL Urine Glucose (UA) (NEGATIVE) mg/dL Urine Ketones (NEGATIVE) mg/dL Urine Blood (NEGATIVE) Urine Nitrate (NEGATIVE) Urine Bilirubin (NEGATIVE) Urine Urobilinogen (<1 E.U./dL) E.U./dL Ur Leukocyte Esterase (NEGATIVE) Sharath/uL Urine RBC (0-2) /hpf Urine WBC (0-6) /hpf Ur Epithelial Cells (0-5) /hpf Urine Osmolality (300-1000) mosm/kg Ur Random Sodium meq/L 05/12/18 05/12/18 05/12/18 Range/Units 02:17 01:28 00:45 WBC (4.5-11.0) 10^3/ul RBC (3.5-6.1) 10^6/uL Hgb (14.0-18.0) g/dL Hct (42.0-52.0) % MCV (80.0-105.0) fl MCH (25.0-35.0) pg MCHC (31.0-37.0) g/dl RDW (11.5-14.5) % Plt Count (120.0-450.0) 10^3/uL MPV (7.0-11.0) fl Gran % (50.0-68.0) % Lymph % (Auto) (22.0-35.0) % [place] % (Auto) (1.0-6.0) % Eos % (Auto) (1.5-5.0) % Baso % (Auto) (0.0-3.0) % Gran # (1.4-6.5) Lymph # (Auto) (1.2-3.4) [place] # (Auto) (0.1-0.6) Eos # (Auto) (0.0-0.7) Baso # (Auto) (0.0-2.0) K/mm3 APTT (25.1-36.5) Seconds pO2 (30-55) mm/Hg VBG pH (7.32-7.43) VBG pCO2 (40-60) VBG HCO3 (21-28) mmol/l VBG Total CO2 (22-28) mmol.L VBG O2 Sat (Calc) (40-65) % VBG Base Excess (0.0-2.0) mmol/L VBG Potassium (3.6-5.2) mmol/L Sodium 135 (132-148) mmol/L Chloride 104 (98-107) mmol/L Glucose (75-110) mg/dl Lactate (0.7-2.1) mmol/L FiO2 % Potassium 3.9 (3.6-5.0) mmol/L Carbon Dioxide 22 (21-33) mmol/L Anion Gap 14 (10-20) BUN 20 (7-21) mg/dL Creatinine 0.9 (0.8-1.5) mg/dl Est GFR ( Amer) > 60 Est GFR (Non-Af Amer) > 60 POC Glucose (mg/dL) 255 H 246 H (65-110) mg/dL Random Glucose 278 H (70-110) mg/dL Calcium 7.7 L (8.4-10.5) mg/dL Phosphorus (2.5-4.5) mg/dL Magnesium (1.7-2.2) mg/dL Total Bilirubin 0.4 (0.2-1.3) mg/dL AST 14 L D (17-59) U/L ALT 23 (7-56) U/L Alkaline Phosphatase 71 (38-126) U/L Troponin I 0.21 H* D ng/mL Total Protein 5.2 L (5.8-8.3) g/dL Albumin 2.9 L (3.0-4.8) g/dL Globulin 2.3 gm/dL Albumin/Globulin Ratio 1.3 (1.1-1.8) Triglycerides (35-160) mg/dL Cholesterol (130-200) mg/dL LDL Cholesterol Direct (0-129) mg/dL HDL Cholesterol (29-60) mg/dL TSH 3rd Generation (0.46-4.68) mIU/mL Venous Blood Potassium (3.6-5.2) mmol/L Urine Color (YELLOW) Urine Appearance (CLEAR) Urine pH (4.7-8.0) Ur Specific [place] (1.005-1.035) Urine Protein (<30 mg/dL) mg/dL Urine Glucose (UA) (NEGATIVE) mg/dL Urine Ketones (NEGATIVE) mg/dL Urine Blood (NEGATIVE) Urine Nitrate (NEGATIVE) Urine Bilirubin (NEGATIVE) Urine Urobilinogen (<1 E.U./dL) E.U./dL Ur Leukocyte Esterase (NEGATIVE) Sharath/uL Urine RBC (0-2) /hpf Urine WBC (0-6) /hpf Ur Epithelial Cells (0-5) /hpf Urine Osmolality (300-1000) mosm/kg Ur Random Sodium meq/L 05/12/18 05/11/18 05/11/18 Range/Units 00:45 22:37 21:35 WBC (4.5-11.0) 10^3/ul RBC (3.5-6.1) 10^6/uL Hgb (14.0-18.0) g/dL Hct (42.0-52.0) % MCV (80.0-105.0) fl MCH (25.0-35.0) pg MCHC (31.0-37.0) g/dl RDW (11.5-14.5) % Plt Count (120.0-450.0) 10^3/uL MPV (7.0-11.0) fl Gran % (50.0-68.0) % Lymph % (Auto) (22.0-35.0) % [place] % (Auto) (1.0-6.0) % Eos % (Auto) (1.5-5.0) % Baso % (Auto) (0.0-3.0) % Gran # (1.4-6.5) Lymph # (Auto) (1.2-3.4) [place] # (Auto) (0.1-0.6) Eos # (Auto) (0.0-0.7) Baso # (Auto) (0.0-2.0) K/mm3 APTT (25.1-36.5) Seconds pO2 63 H (30-55) mm/Hg VBG pH 7.30 L (7.32-7.43) VBG pCO2 46.0 (40-60) VBG HCO3 22.6 (21-28) mmol/l VBG Total CO2 24.0 (22-28) mmol.L VBG O2 Sat (Calc) 94.7 H (40-65) % VBG Base Excess -4.0 L (0.0-2.0) mmol/L VBG Potassium 3.8 (3.6-5.2) mmol/L Sodium 133.0 (132-148) mmol/L Chloride 105.0 (98-107) mmol/L Glucose 303 H (75-110) mg/dl Lactate 2.3 H (0.7-2.1) mmol/L FiO2 21.0 % Potassium (3.6-5.0) mmol/L Carbon Dioxide (21-33) mmol/L Anion Gap (10-20) BUN (7-21) mg/dL Creatinine (0.8-1.5) mg/dl Est GFR ( Amer) Est GFR (Non-Af Amer) POC Glucose (mg/dL) 244 H 270 H (65-110) mg/dL Random Glucose (70-110) mg/dL Calcium (8.4-10.5) mg/dL Phosphorus (2.5-4.5) mg/dL Magnesium (1.7-2.2) mg/dL Total Bilirubin (0.2-1.3) mg/dL AST (17-59) U/L ALT (7-56) U/L Alkaline Phosphatase (38-126) U/L Troponin I ng/mL Total Protein (5.8-8.3) g/dL Albumin (3.0-4.8) g/dL Globulin gm/dL Albumin/Globulin Ratio (1.1-1.8) Triglycerides (35-160) mg/dL Cholesterol (130-200) mg/dL LDL Cholesterol Direct (0-129) mg/dL HDL Cholesterol (29-60) mg/dL TSH 3rd Generation (0.46-4.68) mIU/mL Venous Blood Potassium 3.8 (3.6-5.2) mmol/L Urine Color (YELLOW) Urine Appearance (CLEAR) Urine pH (4.7-8.0) Ur Specific [place] (1.005-1.035) Urine Protein (<30 mg/dL) mg/dL Urine Glucose (UA) (NEGATIVE) mg/dL Urine Ketones (NEGATIVE) mg/dL Urine Blood (NEGATIVE) Urine Nitrate (NEGATIVE) Urine Bilirubin (NEGATIVE) Urine Urobilinogen (<1 E.U./dL) E.U./dL Ur Leukocyte Esterase (NEGATIVE) Sharath/uL Urine RBC (0-2) /hpf Urine WBC (0-6) /hpf Ur Epithelial Cells (0-5) /hpf Urine Osmolality (300-1000) mosm/kg Ur Random Sodium meq/L Laboratory Results - last 24 hr 05/11/18 05/11/18 05/12/18 21:35 22:37 00:45 WBC RBC Hgb Hct MCV MCH MCHC RDW Plt Count MPV Gran % Lymph % (Auto) [place] % (Auto) Eos % (Auto) Baso % (Auto) Gran # Lymph # (Auto) [place] # (Auto) Eos # (Auto) Baso # (Auto) APTT pO2 63 H VBG pH 7.30 L VBG pCO2 46.0 VBG HCO3 22.6 VBG Total CO2 24.0 VBG O2 Sat (Calc) 94.7 H VBG Base Excess -4.0 L VBG Potassium 3.8 Sodium 133.0 Chloride 105.0 Glucose 303 H Lactate 2.3 H FiO2 21.0 Potassium Carbon Dioxide Anion Gap BUN Creatinine Est GFR ( Amer) Est GFR (Non-Af Amer) POC Glucose (mg/dL) 270 H 244 H Random Glucose Calcium Phosphorus Magnesium Total Bilirubin AST ALT Alkaline Phosphatase Troponin I Total Protein Albumin Globulin Albumin/Globulin Ratio Triglycerides Cholesterol LDL Cholesterol Direct HDL Cholesterol TSH 3rd Generation Venous Blood Potassium 3.8 Urine Color Urine Appearance Urine pH Ur Specific [place] Urine Protein Urine Glucose (UA) Urine Ketones Urine Blood Urine Nitrate Urine Bilirubin Urine Urobilinogen Ur Leukocyte Esterase Urine RBC Urine WBC Ur Epithelial Cells Urine Osmolality Ur Random Sodium 05/12/18 05/12/18 05/12/18 00:45 01:28 02:17 WBC RBC Hgb Hct MCV MCH MCHC RDW Plt Count MPV Gran % Lymph % (Auto) [place] % (Auto) Eos % (Auto) Baso % (Auto) Gran # Lymph # (Auto) [place] # (Auto) Eos # (Auto) Baso # (Auto) APTT pO2 VBG pH VBG pCO2 VBG HCO3 VBG Total CO2 VBG O2 Sat (Calc) VBG Base Excess VBG Potassium Sodium 135 Chloride 104 Glucose Lactate FiO2 Potassium 3.9 Carbon Dioxide 22 Anion Gap 14 BUN 20 Creatinine 0.9 Est GFR ( Amer) > 60 Est GFR (Non-Af Amer) > 60 POC Glucose (mg/dL) 246 H 255 H Random Glucose 278 H Calcium 7.7 L Phosphorus Magnesium Total Bilirubin 0.4 AST 14 L D ALT 23 Alkaline Phosphatase 71 Troponin I 0.21 H* D Total Protein 5.2 L Albumin 2.9 L Globulin 2.3 Albumin/Globulin Ratio 1.3 Triglycerides Cholesterol LDL Cholesterol Direct HDL Cholesterol TSH 3rd Generation Venous Blood Potassium Urine Color Urine Appearance Urine pH Ur Specific [place] Urine Protein Urine Glucose (UA) Urine Ketones Urine Blood Urine Nitrate Urine Bilirubin Urine Urobilinogen Ur Leukocyte Esterase Urine RBC Urine WBC Ur Epithelial Cells Urine Osmolality Ur Random Sodium 05/12/18 05/12/18 05/12/18 03:29 04:22 04:30 WBC 10.1 D RBC 4.58 Hgb 14.7 D Hct 40.9 L MCV 89.3 MCH 32.1 MCHC 35.9 RDW 12.4 Plt Count 192 MPV 10.8 Gran % 56.5 Lymph % (Auto) 36.5 H [place] % (Auto) 5.4 Eos % (Auto) 1.3 L Baso % (Auto) 0.3 Gran # 5.70 Lymph # (Auto) 3.7 H [place] # (Auto) 0.5 Eos # (Auto) 0.1 Baso # (Auto) 0.03 APTT pO2 VBG pH VBG pCO2 VBG HCO3 VBG Total CO2 VBG O2 Sat (Calc) VBG Base Excess VBG Potassium Sodium Chloride Glucose Lactate FiO2 Potassium Carbon Dioxide Anion Gap BUN Creatinine Est GFR ( Amer) Est GFR (Non-Af Amer) POC Glucose (mg/dL) 219 H 201 H Random Glucose Calcium Phosphorus Magnesium Total Bilirubin AST ALT Alkaline Phosphatase Troponin I Total Protein Albumin Globulin Albumin/Globulin Ratio Triglycerides Cholesterol LDL Cholesterol Direct HDL Cholesterol TSH 3rd Generation Venous Blood Potassium Urine Color Urine Appearance Urine pH Ur Specific [place] Urine Protein Urine Glucose (UA) Urine Ketones Urine Blood Urine Nitrate Urine Bilirubin Urine Urobilinogen Ur Leukocyte Esterase Urine RBC Urine WBC Ur Epithelial Cells Urine Osmolality Ur Random Sodium 05/12/18 05/12/18 05/12/18 04:30 04:30 04:30 WBC RBC Hgb Hct MCV MCH MCHC RDW Plt Count MPV Gran % Lymph % (Auto) [place] % (Auto) Eos % (Auto) Baso % (Auto) Gran # Lymph # (Auto) [place] # (Auto) Eos # (Auto) Baso # (Auto) APTT 36.1 pO2 VBG pH VBG pCO2 VBG HCO3 VBG Total CO2 VBG O2 Sat (Calc) VBG Base Excess VBG Potassium Sodium 136 Chloride 104 Glucose Lactate FiO2 Potassium 3.4 L Carbon Dioxide 23 Anion Gap 13 BUN 20 Creatinine 0.8 Est GFR ( Amer) > 60 Est GFR (Non-Af Amer) > 60 POC Glucose (mg/dL) Random Glucose 214 H Calcium 8.0 L Phosphorus Magnesium 1.8 Total Bilirubin 0.4 AST 13 L ALT 22 Alkaline Phosphatase 74 Troponin I 0.37 H* D Total Protein 5.4 L Albumin 3.0 Globulin 2.4 Albumin/Globulin Ratio 1.2 Triglycerides Cholesterol LDL Cholesterol Direct HDL Cholesterol TSH 3rd Generation 1.44 Venous Blood Potassium Urine Color Urine Appearance Urine pH Ur Specific [place] Urine Protein Urine Glucose (UA) Urine Ketones Urine Blood Urine Nitrate Urine Bilirubin Urine Urobilinogen Ur Leukocyte Esterase Urine RBC Urine WBC Ur Epithelial Cells Urine Osmolality Ur Random Sodium 05/12/18 05/12/18 05/12/18 04:40 04:40 05:30 WBC RBC Hgb Hct MCV MCH MCHC RDW Plt Count MPV Gran % Lymph % (Auto) [place] % (Auto) Eos % (Auto) Baso % (Auto) Gran # Lymph # (Auto) [place] # (Auto) Eos # (Auto) Baso # (Auto) APTT pO2 VBG pH VBG pCO2 VBG HCO3 VBG Total CO2 VBG O2 Sat (Calc) VBG Base Excess VBG Potassium Sodium Chloride Glucose Lactate FiO2 Potassium Carbon Dioxide Anion Gap BUN Creatinine Est GFR ( Amer) Est GFR (Non-Af Amer) POC Glucose (mg/dL) Random Glucose Calcium Phosphorus 3.0 Magnesium Total Bilirubin AST ALT Alkaline Phosphatase Troponin I Total Protein Albumin Globulin Albumin/Globulin Ratio Triglycerides 258 H Cholesterol 106 L LDL Cholesterol Direct 55 HDL Cholesterol 23 L TSH 3rd Generation Venous Blood Potassium Urine Color Yellow Urine Appearance Clear Urine pH 6.0 Ur Specific [place] 1.025 Urine Protein Trace H Urine Glucose (UA) >=1000 Urine Ketones Negative Urine Blood Negative Urine Nitrate Negative Urine Bilirubin Negative Urine Urobilinogen 0.2 Ur Leukocyte Esterase Negative Urine RBC 0 - 2 Urine WBC 0 - 2 Ur Epithelial Cells 0 - 2 Urine Osmolality 276 L Ur Random Sodium 164 05/12/18 05/12/18 05/12/18 06:15 07:24 09:51 WBC RBC Hgb Hct MCV MCH MCHC RDW Plt Count MPV Gran % Lymph % (Auto) [place] % (Auto) Eos % (Auto) Baso % (Auto) Gran # Lymph # (Auto) [place] # (Auto) Eos # (Auto) Baso # (Auto) APTT pO2 176 H VBG pH 7.35 VBG pCO2 41.0 VBG HCO3 22.6 VBG Total CO2 23.9 VBG O2 Sat (Calc) 99.9 H VBG Base Excess -2.9 L VBG Potassium 3.4 L Sodium 134.0 Chloride 106.0 Glucose 185 H Lactate 1.7 FiO2 21.0 Potassium Carbon Dioxide Anion Gap BUN Creatinine Est GFR ( Amer) Est GFR (Non-Af Amer) POC Glucose (mg/dL) 222 H 358 H Random Glucose Calcium Phosphorus Magnesium Total Bilirubin AST ALT Alkaline Phosphatase Troponin I Total Protein Albumin Globulin Albumin/Globulin Ratio Triglycerides Cholesterol LDL Cholesterol Direct HDL Cholesterol TSH 3rd Generation Venous Blood Potassium 3.4 L Urine Color Urine Appearance Urine pH Ur Specific [place] Urine Protein Urine Glucose (UA) Urine Ketones Urine Blood Urine Nitrate Urine Bilirubin Urine Urobilinogen Ur Leukocyte Esterase Urine RBC Urine WBC Ur Epithelial Cells Urine Osmolality Ur Random Sodium EKG/Cardiology Studies: Cardiology / EKG Studies 05/11/18 21:47 ELECTROCARDIOGRAM Stat Comment: Reason For Exam: syncope 05/12/18 03:39 ELECTROCARDIOGRAM Stat Comment: Reason For Exam: positive troponins Fingerstick Blood Sugar Results: 222 Review of Systems - Review of Systems All systems: reviewed and no additional remarkable complaints except (as per HPI ) Critical Care Progress Note - Prophylaxis GI Prophylaxis GI: PPI - Prophylaxis DVT Prophylaxis DVT: Ambulatory - Nutrition Nutrition: Nutrition Category Date Time Status NPO Diet [DIET] Diets 05/12/18 Breakfast Ordered Assessment/Plan - Assessment and Plan (Free Text) Assessment: Patient is a 48 y/o M with PMHx of bipolar disorder, anxiety, psychosis, vertigo , TIA, HTN, COPD, Asthma, Arthritis, DJD who presented to the ED for dizziness s /p fall x2. Upon admission, patient was under suspicion of DKA (AG 21) but AG resolved upon initiation of insulin gtt. Patient was also hypotensive on admission (BP 78/42 with lactate 3.5), but was responsive to fluid resuscitation. Patient also had elevated troponin levels (trop .37) and mild inferior lead ST elevation on EKG - as per Cardio (Dr. Zapien), recommended beta gisella, ASA, and heparin gtt since patient wasn't having active chest pain. Patient was admitted to ICU for DKA management, AG closed and acidosis resolved ; patient now on ISS. Patient was loaded with Plavix and ASA and pending cardiac cath procedure. Plan: Neuro: - Patient p/w dizziness s/p fall x2, currently not dizzy - EEG done (05/12/18), f/u official read - Neuro consulted, recs appreciated - CT Head negative for acute hemorrhage Pulm: - Maintain O2Sat > 95% - CXR negative Cardio: - Inferior Lead ST elevation on EKG - Pending cardiac cath (05/12) - started on heparin, statin, - lipid panel pending - A1C pending - f/u cardio recs (Dr. Zapien) - Echo is ordered, will f/u - Orthostatic vital signs ordered, will f/u GI: -GI ppx - NPO for cath; afterward, can resume HHD (carb consistent) Renal: - replete lytes as needed - should hold Meformin post cath for 3 days Heme: - on Heparin drip for assumed OR - pt is ambulatory not requiring DVT ppx ID: SIRS criteria met - ID consulted, recs appreciated - c/w vanco/zosyn - lactate trending down - CXR negative for infiltrates - UA negative for UTI - Blood and urine Cxs pending Endo: - DKA - AG closed (21 --> 9) - urine ketones negative (after fluid resuscitation) - Maintain euglycemia - TSH ordered - A1c ordered - Accuchecks - started on ISS Psych: - c/w home meds: Haldol, Paxil, Thorazine Dispo: Patient is undergoing cardiac cath procedure today to investigate inferior lead ST elevation. Will make further decisions per Cardio and PMD teams. Case was reviewed and discussed with Attending Physician - Dr. Hess. <Colt Hess - Last Filed: 05/12/18 12:09> CCU Objective - Vital Signs / Intake & Output Vital Signs (Last 4 hours): Vital Signs Temp 05/12/18 11:51 98 F Intake and Output (Last 8hrs): Intake & Output 05/11/18 05/12/18 05/12/18 22:59 06:59 14:59 Intake Total 737 Output Total 550 Balance 187 Weight 223 lb Intake: IV 531 Left Antecubital 125 Left Forearm 400 Right Antecubital 0 Oral 0 Tube Feeding 0 TPN/PPN 0 Blood Product 0 Lipid 0 Albumin 0 Other 206 Output: Urine 550 Urine, Voided 550 Stool 0 Urine/Stool Mix 0 Emesis 0 Oral Regurgitation 0 Other 0 Other: Voiding Method Urinal # Voids Urine, Voided 1 # Bowel Movements 0 - Medications Active Medications: Active Medications Generic Name Dose Route Start Last Admin Trade Name Freq PRN Reason Stop Dose Admin Alprazolam 2 mg 05/12/18 09:35 Xanax PO QID PRN Anxiety Aspirin 81 mg 05/12/18 10:00 05/12/18 09:32 Aspirin Chewable PO Not Given DAILY MALENA Atorvastatin Calcium 20 mg 05/12/18 17:00 Lipitor PO DIN MALENA Chlorpromazine 100 mg 05/12/18 18:00 Thorazine PO BID MALENA Protocol Haloperidol 5 mg 05/12/18 18:00 Haldol PO BID MALENA Protocol Heparin Sodium/Sodium Chloride 25,000 units in 250 mls @ 11.746 mls/hr 20:30 05/12/18 06:52 Heparin 64891 Units/250ml 1/2 Normal Saline IV 14 units/kg/hr .[id number] MALENA 13.704 mls/hr Protocol Titration 12 UNITS/KG/HR Vancomycin HCl 1 gm in 250 mls @ 167 mls/hr 05/11/18 22:45 05/12/18 10:50 Vancomycin 1gm IVPB Not Given Q12H MALENA Protocol Piperacillin Sod/Tazobactam Sod 100 mls @ 200 mls/hr 05/12/18 12:00 Zosyn 3.375 In Ns 100ml IVPB 05/21/18 12:01 Q6 MALENA Protocol Insulin Human Regular 0 units 05/12/18 07:30 05/12/18 08:22 Humulin R Low SC 2 units ACHS MALENA Administration Protocol Oxycodone HCl 15 mg 05/12/18 10:00 05/12/18 09:50 Oxycodone Immediate Release Tab PO 15 mg QID MALENA Administration Pantoprazole Sodium 40 mg 05/12/18 10:00 05/12/18 09:35 Protonix Inj IVP 40 mg DAILY MALENA Administration Paroxetine HCl 40 mg 05/12/18 10:00 Paxil PO DAILY MALENA - Patient Studies Lab Studies: Lab Studies 05/12/18 05/12/18 05/12/18 Range/Units 11:13 09:51 07:24 WBC (4.5-11.0) 10^3/ul RBC (3.5-6.1) 10^6/uL Hgb (14.0-18.0) g/dL Hct (42.0-52.0) % MCV (80.0-105.0) fl MCH (25.0-35.0) pg MCHC (31.0-37.0) g/dl RDW (11.5-14.5) % Plt Count (120.0-450.0) 10^3/uL MPV (7.0-11.0) fl Gran % (50.0-68.0) % Lymph % (Auto) (22.0-35.0) % [place] % (Auto) (1.0-6.0) % Eos % (Auto) (1.5-5.0) % Baso % (Auto) (0.0-3.0) % Gran # (1.4-6.5) Lymph # (Auto) (1.2-3.4) [place] # (Auto) (0.1-0.6) Eos # (Auto) (0.0-0.7) Baso # (Auto) (0.0-2.0) K/mm3 APTT (25.1-36.5) Seconds pO2 (30-55) mm/Hg VBG pH (7.32-7.43) VBG pCO2 (40-60) VBG HCO3 (21-28) mmol/l VBG Total CO2 (22-28) mmol.L VBG O2 Sat (Calc) (40-65) % VBG Base Excess (0.0-2.0) mmol/L VBG Potassium (3.6-5.2) mmol/L Sodium (132-148) mmol/L Chloride (98-107) mmol/L Glucose (75-110) mg/dl Lactate (0.7-2.1) mmol/L FiO2 % Potassium (3.6-5.0) mmol/L Carbon Dioxide (21-33) mmol/L Anion Gap (10-20) BUN (7-21) mg/dL Creatinine (0.8-1.5) mg/dl Est GFR ( Amer) Est GFR (Non-Af Amer) POC Glucose (mg/dL) 293 H 358 H 222 H (65-110) mg/dL Random Glucose (70-110) mg/dL Calcium (8.4-10.5) mg/dL Phosphorus (2.5-4.5) mg/dL Magnesium (1.7-2.2) mg/dL Total Bilirubin (0.2-1.3) mg/dL AST (17-59) U/L ALT (7-56) U/L Alkaline Phosphatase (38-126) U/L Troponin I ng/mL Total Protein (5.8-8.3) g/dL Albumin (3.0-4.8) g/dL Globulin gm/dL Albumin/Globulin Ratio (1.1-1.8) Triglycerides (35-160) mg/dL Cholesterol (130-200) mg/dL LDL Cholesterol Direct (0-129) mg/dL HDL Cholesterol (29-60) mg/dL TSH 3rd Generation (0.46-4.68) mIU/mL Venous Blood Potassium (3.6-5.2) mmol/L Urine Color (YELLOW) Urine Appearance (CLEAR) Urine pH (4.7-8.0) Ur Specific [place] (1.005-1.035) Urine Protein (<30 mg/dL) mg/dL Urine Glucose (UA) (NEGATIVE) mg/dL Urine Ketones (NEGATIVE) mg/dL Urine Blood (NEGATIVE) Urine Nitrate (NEGATIVE) Urine Bilirubin (NEGATIVE) Urine Urobilinogen (<1 E.U./dL) E.U./dL Ur Leukocyte Esterase (NEGATIVE) Sharath/uL Urine RBC (0-2) /hpf Urine WBC (0-6) /hpf Ur Epithelial Cells (0-5) /hpf Urine Osmolality (300-1000) mosm/kg Ur Random Sodium meq/L 05/12/18 05/12/18 05/12/18 Range/Units 06:15 05:30 04:40 WBC (4.5-11.0) 10^3/ul RBC (3.5-6.1) 10^6/uL Hgb (14.0-18.0) g/dL Hct (42.0-52.0) % MCV (80.0-105.0) fl MCH (25.0-35.0) pg MCHC (31.0-37.0) g/dl RDW (11.5-14.5) % Plt Count (120.0-450.0) 10^3/uL MPV (7.0-11.0) fl Gran % (50.0-68.0) % Lymph % (Auto) (22.0-35.0) % [place] % (Auto) (1.0-6.0) % Eos % (Auto) (1.5-5.0) % Baso % (Auto) (0.0-3.0) % Gran # (1.4-6.5) Lymph # (Auto) (1.2-3.4) [place] # (Auto) (0.1-0.6) Eos # (Auto) (0.0-0.7) Baso # (Auto) (0.0-2.0) K/mm3 APTT (25.1-36.5) Seconds pO2 176 H (30-55) mm/Hg VBG pH 7.35 (7.32-7.43) VBG pCO2 41.0 (40-60) VBG HCO3 22.6 (21-28) mmol/l VBG Total CO2 23.9 (22-28) mmol.L VBG O2 Sat (Calc) 99.9 H (40-65) % VBG Base Excess -2.9 L (0.0-2.0) mmol/L VBG Potassium 3.4 L (3.6-5.2) mmol/L Sodium 134.0 (132-148) mmol/L Chloride 106.0 (98-107) mmol/L Glucose 185 H (75-110) mg/dl Lactate 1.7 (0.7-2.1) mmol/L FiO2 21.0 % Potassium (3.6-5.0) mmol/L Carbon Dioxide (21-33) mmol/L Anion Gap (10-20) BUN (7-21) mg/dL Creatinine (0.8-1.5) mg/dl Est GFR ( Amer) Est GFR (Non-Af Amer) POC Glucose (mg/dL) (65-110) mg/dL Random Glucose (70-110) mg/dL Calcium (8.4-10.5) mg/dL Phosphorus 3.0 (2.5-4.5) mg/dL Magnesium (1.7-2.2) mg/dL Total Bilirubin (0.2-1.3) mg/dL AST (17-59) U/L ALT (7-56) U/L Alkaline Phosphatase (38-126) U/L Troponin I ng/mL Total Protein (5.8-8.3) g/dL Albumin (3.0-4.8) g/dL Globulin gm/dL Albumin/Globulin Ratio (1.1-1.8) Triglycerides 258 H (35-160) mg/dL Cholesterol 106 L (130-200) mg/dL LDL Cholesterol Direct 55 (0-129) mg/dL HDL Cholesterol 23 L (29-60) mg/dL TSH 3rd Generation (0.46-4.68) mIU/mL Venous Blood Potassium 3.4 L (3.6-5.2) mmol/L Urine Color (YELLOW) Urine Appearance (CLEAR) Urine pH (4.7-8.0) Ur Specific [place] (1.005-1.035) Urine Protein (<30 mg/dL) mg/dL Urine Glucose (UA) (NEGATIVE) mg/dL Urine Ketones (NEGATIVE) mg/dL Urine Blood (NEGATIVE) Urine Nitrate (NEGATIVE) Urine Bilirubin (NEGATIVE) Urine Urobilinogen (<1 E.U./dL) E.U./dL Ur Leukocyte Esterase (NEGATIVE) Sharath/uL Urine RBC (0-2) /hpf Urine WBC (0-6) /hpf Ur Epithelial Cells (0-5) /hpf Urine Osmolality 276 L (300-1000) mosm/kg Ur Random Sodium 164 meq/L 05/12/18 05/12/18 05/12/18 Range/Units 04:40 04:30 04:30 WBC (4.5-11.0) 10^3/ul RBC (3.5-6.1) 10^6/uL Hgb (14.0-18.0) g/dL Hct (42.0-52.0) % MCV (80.0-105.0) fl MCH (25.0-35.0) pg MCHC (31.0-37.0) g/dl RDW (11.5-14.5) % Plt Count (120.0-450.0) 10^3/uL MPV (7.0-11.0) fl Gran % (50.0-68.0) % Lymph % (Auto) (22.0-35.0) % [place] % (Auto) (1.0-6.0) % Eos % (Auto) (1.5-5.0) % Baso % (Auto) (0.0-3.0) % Gran # (1.4-6.5) Lymph # (Auto) (1.2-3.4) [place] # (Auto) (0.1-0.6) Eos # (Auto) (0.0-0.7) Baso # (Auto) (0.0-2.0) K/mm3 APTT 36.1 (25.1-36.5) Seconds pO2 (30-55) mm/Hg VBG pH (7.32-7.43) VBG pCO2 (40-60) VBG HCO3 (21-28) mmol/l VBG Total CO2 (22-28) mmol.L VBG O2 Sat (Calc) (40-65) % VBG Base Excess (0.0-2.0) mmol/L VBG Potassium (3.6-5.2) mmol/L Sodium (132-148) mmol/L Chloride (98-107) mmol/L Glucose (75-110) mg/dl Lactate (0.7-2.1) mmol/L FiO2 % Potassium (3.6-5.0) mmol/L Carbon Dioxide (21-33) mmol/L Anion Gap (10-20) BUN (7-21) mg/dL Creatinine (0.8-1.5) mg/dl Est GFR ( Amer) Est GFR (Non-Af Amer) POC Glucose (mg/dL) (65-110) mg/dL Random Glucose (70-110) mg/dL Calcium (8.4-10.5) mg/dL Phosphorus (2.5-4.5) mg/dL Magnesium (1.7-2.2) mg/dL Total Bilirubin (0.2-1.3) mg/dL AST (17-59) U/L ALT (7-56) U/L Alkaline Phosphatase (38-126) U/L Troponin I ng/mL Total Protein (5.8-8.3) g/dL Albumin (3.0-4.8) g/dL Globulin gm/dL Albumin/Globulin Ratio (1.1-1.8) Triglycerides (35-160) mg/dL Cholesterol (130-200) mg/dL LDL Cholesterol Direct (0-129) mg/dL HDL Cholesterol (29-60) mg/dL TSH 3rd Generation 1.44 (0.46-4.68) mIU/mL Venous Blood Potassium (3.6-5.2) mmol/L Urine Color Yellow (YELLOW) Urine Appearance Clear (CLEAR) Urine pH 6.0 (4.7-8.0) Ur Specific [place] 1.025 (1.005-1.035) Urine Protein Trace H (<30 mg/dL) mg/dL Urine Glucose (UA) >=1000 (NEGATIVE) mg/dL Urine Ketones Negative (NEGATIVE) mg/dL Urine Blood Negative (NEGATIVE) Urine Nitrate Negative (NEGATIVE) Urine Bilirubin Negative (NEGATIVE) Urine Urobilinogen 0.2 (<1 E.U./dL) E.U./dL Ur Leukocyte Esterase Negative (NEGATIVE) Sharath/uL Urine RBC 0 - 2 (0-2) /hpf Urine WBC 0 - 2 (0-6) /hpf Ur Epithelial Cells 0 - 2 (0-5) /hpf Urine Osmolality (300-1000) mosm/kg Ur Random Sodium meq/L 05/12/18 05/12/18 05/12/18 Range/Units 04:30 04:30 04:22 WBC 10.1 D (4.5-11.0) 10^3/ul RBC 4.58 (3.5-6.1) 10^6/uL Hgb 14.7 D (14.0-18.0) g/dL Hct 40.9 L (42.0-52.0) % MCV 89.3 (80.0-105.0) fl MCH 32.1 (25.0-35.0) pg MCHC 35.9 (31.0-37.0) g/dl RDW 12.4 (11.5-14.5) % Plt Count 192 (120.0-450.0) 10^3/uL MPV 10.8 (7.0-11.0) fl Gran % 56.5 (50.0-68.0) % Lymph % (Auto) 36.5 H (22.0-35.0) % [place] % (Auto) 5.4 (1.0-6.0) % Eos % (Auto) 1.3 L (1.5-5.0) % Baso % (Auto) 0.3 (0.0-3.0) % Gran # 5.70 (1.4-6.5) Lymph # (Auto) 3.7 H (1.2-3.4) [place] # (Auto) 0.5 (0.1-0.6) Eos # (Auto) 0.1 (0.0-0.7) Baso # (Auto) 0.03 (0.0-2.0) K/mm3 APTT (25.1-36.5) Seconds pO2 (30-55) mm/Hg VBG pH (7.32-7.43) VBG pCO2 (40-60) VBG HCO3 (21-28) mmol/l VBG Total CO2 (22-28) mmol.L VBG O2 Sat (Calc) (40-65) % VBG Base Excess (0.0-2.0) mmol/L VBG Potassium (3.6-5.2) mmol/L Sodium 136 (132-148) mmol/L Chloride 104 (98-107) mmol/L Glucose (75-110) mg/dl Lactate (0.7-2.1) mmol/L FiO2 % Potassium 3.4 L (3.6-5.0) mmol/L Carbon Dioxide 23 (21-33) mmol/L Anion Gap 13 (10-20) BUN 20 (7-21) mg/dL Creatinine 0.8 (0.8-1.5) mg/dl Est GFR ( Amer) > 60 Est GFR (Non-Af Amer) > 60 POC Glucose (mg/dL) 201 H (65-110) mg/dL Random Glucose 214 H (70-110) mg/dL Calcium 8.0 L (8.4-10.5) mg/dL Phosphorus (2.5-4.5) mg/dL Magnesium 1.8 (1.7-2.2) mg/dL Total Bilirubin 0.4 (0.2-1.3) mg/dL AST 13 L (17-59) U/L ALT 22 (7-56) U/L Alkaline Phosphatase 74 (38-126) U/L Troponin I 0.37 H* D ng/mL Total Protein 5.4 L (5.8-8.3) g/dL Albumin 3.0 (3.0-4.8) g/dL Globulin 2.4 gm/dL Albumin/Globulin Ratio 1.2 (1.1-1.8) Triglycerides (35-160) mg/dL Cholesterol (130-200) mg/dL LDL Cholesterol Direct (0-129) mg/dL HDL Cholesterol (29-60) mg/dL TSH 3rd Generation (0.46-4.68) mIU/mL Venous Blood Potassium (3.6-5.2) mmol/L Urine Color (YELLOW) Urine Appearance (CLEAR) Urine pH (4.7-8.0) Ur Specific [place] (1.005-1.035) Urine Protein (<30 mg/dL) mg/dL Urine Glucose (UA) (NEGATIVE) mg/dL Urine Ketones (NEGATIVE) mg/dL Urine Blood (NEGATIVE) Urine Nitrate (NEGATIVE) Urine Bilirubin (NEGATIVE) Urine Urobilinogen (<1 E.U./dL) E.U./dL Ur Leukocyte Esterase (NEGATIVE) Sharath/uL Urine RBC (0-2) /hpf Urine WBC (0-6) /hpf Ur Epithelial Cells (0-5) /hpf Urine Osmolality (300-1000) mosm/kg Ur Random Sodium meq/L 05/12/18 05/12/18 05/12/18 Range/Units 03:29 02:17 01:28 WBC (4.5-11.0) 10^3/ul RBC (3.5-6.1) 10^6/uL Hgb (14.0-18.0) g/dL Hct (42.0-52.0) % MCV (80.0-105.0) fl MCH (25.0-35.0) pg MCHC (31.0-37.0) g/dl RDW (11.5-14.5) % Plt Count (120.0-450.0) 10^3/uL MPV (7.0-11.0) fl Gran % (50.0-68.0) % Lymph % (Auto) (22.0-35.0) % [place] % (Auto) (1.0-6.0) % Eos % (Auto) (1.5-5.0) % Baso % (Auto) (0.0-3.0) % Gran # (1.4-6.5) Lymph # (Auto) (1.2-3.4) [place] # (Auto) (0.1-0.6) Eos # (Auto) (0.0-0.7) Baso # (Auto) (0.0-2.0) K/mm3 APTT (25.1-36.5) Seconds pO2 (30-55) mm/Hg VBG pH (7.32-7.43) VBG pCO2 (40-60) VBG HCO3 (21-28) mmol/l VBG Total CO2 (22-28) mmol.L VBG O2 Sat (Calc) (40-65) % VBG Base Excess (0.0-2.0) mmol/L VBG Potassium (3.6-5.2) mmol/L Sodium (132-148) mmol/L Chloride (98-107) mmol/L Glucose (75-110) mg/dl Lactate (0.7-2.1) mmol/L FiO2 % Potassium (3.6-5.0) mmol/L Carbon Dioxide (21-33) mmol/L Anion Gap (10-20) BUN (7-21) mg/dL Creatinine (0.8-1.5) mg/dl Est GFR ( Amer) Est GFR (Non-Af Amer) POC Glucose (mg/dL) 219 H 255 H 246 H (65-110) mg/dL Random Glucose (70-110) mg/dL Calcium (8.4-10.5) mg/dL Phosphorus (2.5-4.5) mg/dL Magnesium (1.7-2.2) mg/dL Total Bilirubin (0.2-1.3) mg/dL AST (17-59) U/L ALT (7-56) U/L Alkaline Phosphatase (38-126) U/L Troponin I ng/mL Total Protein (5.8-8.3) g/dL Albumin (3.0-4.8) g/dL Globulin gm/dL Albumin/Globulin Ratio (1.1-1.8) Triglycerides (35-160) mg/dL Cholesterol (130-200) mg/dL LDL Cholesterol Direct (0-129) mg/dL HDL Cholesterol (29-60) mg/dL TSH 3rd Generation (0.46-4.68) mIU/mL Venous Blood Potassium (3.6-5.2) mmol/L Urine Color (YELLOW) Urine Appearance (CLEAR) Urine pH (4.7-8.0) Ur Specific [place] (1.005-1.035) Urine Protein (<30 mg/dL) mg/dL Urine Glucose (UA) (NEGATIVE) mg/dL Urine Ketones (NEGATIVE) mg/dL Urine Blood (NEGATIVE) Urine Nitrate (NEGATIVE) Urine Bilirubin (NEGATIVE) Urine Urobilinogen (<1 E.U./dL) E.U./dL Ur Leukocyte Esterase (NEGATIVE) Sharath/uL Urine RBC (0-2) /hpf Urine WBC (0-6) /hpf Ur Epithelial Cells (0-5) /hpf Urine Osmolality (300-1000) mosm/kg Ur Random Sodium meq/L 05/12/18 05/12/18 05/11/18 Range/Units 00:45 00:45 22:37 WBC (4.5-11.0) 10^3/ul RBC (3.5-6.1) 10^6/uL Hgb (14.0-18.0) g/dL Hct (42.0-52.0) % MCV (80.0-105.0) fl MCH (25.0-35.0) pg MCHC (31.0-37.0) g/dl RDW (11.5-14.5) % Plt Count (120.0-450.0) 10^3/uL MPV (7.0-11.0) fl Gran % (50.0-68.0) % Lymph % (Auto) (22.0-35.0) % [place] % (Auto) (1.0-6.0) % Eos % (Auto) (1.5-5.0) % Baso % (Auto) (0.0-3.0) % Gran # (1.4-6.5) Lymph # (Auto) (1.2-3.4) [place] # (Auto) (0.1-0.6) Eos # (Auto) (0.0-0.7) Baso # (Auto) (0.0-2.0) K/mm3 APTT (25.1-36.5) Seconds pO2 63 H (30-55) mm/Hg VBG pH 7.30 L (7.32-7.43) VBG pCO2 46.0 (40-60) VBG HCO3 22.6 (21-28) mmol/l VBG Total CO2 24.0 (22-28) mmol.L VBG O2 Sat (Calc) 94.7 H (40-65) % VBG Base Excess -4.0 L (0.0-2.0) mmol/L VBG Potassium 3.8 (3.6-5.2) mmol/L Sodium 135 133.0 (132-148) mmol/L Chloride 104 105.0 (98-107) mmol/L Glucose 303 H (75-110) mg/dl Lactate 2.3 H (0.7-2.1) mmol/L FiO2 21.0 % Potassium 3.9 (3.6-5.0) mmol/L Carbon Dioxide 22 (21-33) mmol/L Anion Gap 14 (10-20) BUN 20 (7-21) mg/dL Creatinine 0.9 (0.8-1.5) mg/dl Est GFR ( Amer) > 60 Est GFR (Non-Af Amer) > 60 POC Glucose (mg/dL) 244 H (65-110) mg/dL Random Glucose 278 H (70-110) mg/dL Calcium 7.7 L (8.4-10.5) mg/dL Phosphorus (2.5-4.5) mg/dL Magnesium (1.7-2.2) mg/dL Total Bilirubin 0.4 (0.2-1.3) mg/dL AST 14 L D (17-59) U/L ALT 23 (7-56) U/L Alkaline Phosphatase 71 (38-126) U/L Troponin I 0.21 H* D ng/mL Total Protein 5.2 L (5.8-8.3) g/dL Albumin 2.9 L (3.0-4.8) g/dL Globulin 2.3 gm/dL Albumin/Globulin Ratio 1.3 (1.1-1.8) Triglycerides (35-160) mg/dL Cholesterol (130-200) mg/dL LDL Cholesterol Direct (0-129) mg/dL HDL Cholesterol (29-60) mg/dL TSH 3rd Generation (0.46-4.68) mIU/mL Venous Blood Potassium 3.8 (3.6-5.2) mmol/L Urine Color (YELLOW) Urine Appearance (CLEAR) Urine pH (4.7-8.0) Ur Specific [place] (1.005-1.035) Urine Protein (<30 mg/dL) mg/dL Urine Glucose (UA) (NEGATIVE) mg/dL Urine Ketones (NEGATIVE) mg/dL Urine Blood (NEGATIVE) Urine Nitrate (NEGATIVE) Urine Bilirubin (NEGATIVE) Urine Urobilinogen (<1 E.U./dL) E.U./dL Ur Leukocyte Esterase (NEGATIVE) Sharath/uL Urine RBC (0-2) /hpf Urine WBC (0-6) /hpf Ur Epithelial Cells (0-5) /hpf Urine Osmolality (300-1000) mosm/kg Ur Random Sodium meq/L 05/11/18 Range/Units 21:35 WBC (4.5-11.0) 10^3/ul RBC (3.5-6.1) 10^6/uL Hgb (14.0-18.0) g/dL Hct (42.0-52.0) % MCV (80.0-105.0) fl MCH (25.0-35.0) pg MCHC (31.0-37.0) g/dl RDW (11.5-14.5) % Plt Count (120.0-450.0) 10^3/uL MPV (7.0-11.0) fl Gran % (50.0-68.0) % Lymph % (Auto) (22.0-35.0) % [place] % (Auto) (1.0-6.0) % Eos % (Auto) (1.5-5.0) % Baso % (Auto) (0.0-3.0) % Gran # (1.4-6.5) Lymph # (Auto) (1.2-3.4) [place] # (Auto) (0.1-0.6) Eos # (Auto) (0.0-0.7) Baso # (Auto) (0.0-2.0) K/mm3 APTT (25.1-36.5) Seconds pO2 (30-55) mm/Hg VBG pH (7.32-7.43) VBG pCO2 (40-60) VBG HCO3 (21-28) mmol/l VBG Total CO2 (22-28) mmol.L VBG O2 Sat (Calc) (40-65) % VBG Base Excess (0.0-2.0) mmol/L VBG Potassium (3.6-5.2) mmol/L Sodium (132-148) mmol/L Chloride (98-107) mmol/L Glucose (75-110) mg/dl Lactate (0.7-2.1) mmol/L FiO2 % Potassium (3.6-5.0) mmol/L Carbon Dioxide (21-33) mmol/L Anion Gap (10-20) BUN (7-21) mg/dL Creatinine (0.8-1.5) mg/dl Est GFR ( Amer) Est GFR (Non-Af Amer) POC Glucose (mg/dL) 270 H (65-110) mg/dL Random Glucose (70-110) mg/dL Calcium (8.4-10.5) mg/dL Phosphorus (2.5-4.5) mg/dL Magnesium (1.7-2.2) mg/dL Total Bilirubin (0.2-1.3) mg/dL AST (17-59) U/L ALT (7-56) U/L Alkaline Phosphatase (38-126) U/L Troponin I ng/mL Total Protein (5.8-8.3) g/dL Albumin (3.0-4.8) g/dL Globulin gm/dL Albumin/Globulin Ratio (1.1-1.8) Triglycerides (35-160) mg/dL Cholesterol (130-200) mg/dL LDL Cholesterol Direct (0-129) mg/dL HDL Cholesterol (29-60) mg/dL TSH 3rd Generation (0.46-4.68) mIU/mL Venous Blood Potassium (3.6-5.2) mmol/L Urine Color (YELLOW) Urine Appearance (CLEAR) Urine pH (4.7-8.0) Ur Specific [place] (1.005-1.035) Urine Protein (<30 mg/dL) mg/dL Urine Glucose (UA) (NEGATIVE) mg/dL Urine Ketones (NEGATIVE) mg/dL Urine Blood (NEGATIVE) Urine Nitrate (NEGATIVE) Urine Bilirubin (NEGATIVE) Urine Urobilinogen (<1 E.U./dL) E.U./dL Ur Leukocyte Esterase (NEGATIVE) Sharath/uL Urine RBC (0-2) /hpf Urine WBC (0-6) /hpf Ur Epithelial Cells (0-5) /hpf Urine Osmolality (300-1000) mosm/kg Ur Random Sodium meq/L Laboratory Results - last 24 hr 05/11/18 05/11/18 05/12/18 21:35 22:37 00:45 WBC RBC Hgb Hct MCV MCH MCHC RDW Plt Count MPV Gran % Lymph % (Auto) [place] % (Auto) Eos % (Auto) Baso % (Auto) Gran # Lymph # (Auto) [place] # (Auto) Eos # (Auto) Baso # (Auto) APTT pO2 63 H VBG pH 7.30 L VBG pCO2 46.0 VBG HCO3 22.6 VBG Total CO2 24.0 VBG O2 Sat (Calc) 94.7 H VBG Base Excess -4.0 L VBG Potassium 3.8 Sodium 133.0 Chloride 105.0 Glucose 303 H Lactate 2.3 H FiO2 21.0 Potassium Carbon Dioxide Anion Gap BUN Creatinine Est GFR ( Amer) Est GFR (Non-Af Amer) POC Glucose (mg/dL) 270 H 244 H Random Glucose Calcium Phosphorus Magnesium Total Bilirubin AST ALT Alkaline Phosphatase Troponin I Total Protein Albumin Globulin Albumin/Globulin Ratio Triglycerides Cholesterol LDL Cholesterol Direct HDL Cholesterol TSH 3rd Generation Venous Blood Potassium 3.8 Urine Color Urine Appearance Urine pH Ur Specific [place] Urine Protein Urine Glucose (UA) Urine Ketones Urine Blood Urine Nitrate Urine Bilirubin Urine Urobilinogen Ur Leukocyte Esterase Urine RBC Urine WBC Ur Epithelial Cells Urine Osmolality Ur Random Sodium 05/12/18 05/12/18 05/12/18 00:45 01:28 02:17 WBC RBC Hgb Hct MCV MCH MCHC RDW Plt Count MPV Gran % Lymph % (Auto) [place] % (Auto) Eos % (Auto) Baso % (Auto) Gran # Lymph # (Auto) [place] # (Auto) Eos # (Auto) Baso # (Auto) APTT pO2 VBG pH VBG pCO2 VBG HCO3 VBG Total CO2 VBG O2 Sat (Calc) VBG Base Excess VBG Potassium Sodium 135 Chloride 104 Glucose Lactate FiO2 Potassium 3.9 Carbon Dioxide 22 Anion Gap 14 BUN 20 Creatinine 0.9 Est GFR ( Amer) > 60 Est GFR (Non-Af Amer) > 60 POC Glucose (mg/dL) 246 H 255 H Random Glucose 278 H Calcium 7.7 L Phosphorus Magnesium Total Bilirubin 0.4 AST 14 L D ALT 23 Alkaline Phosphatase 71 Troponin I 0.21 H* D Total Protein 5.2 L Albumin 2.9 L Globulin 2.3 Albumin/Globulin Ratio 1.3 Triglycerides Cholesterol LDL Cholesterol Direct HDL Cholesterol TSH 3rd Generation Venous Blood Potassium Urine Color Urine Appearance Urine pH Ur Specific [place] Urine Protein Urine Glucose (UA) Urine Ketones Urine Blood Urine Nitrate Urine Bilirubin Urine Urobilinogen Ur Leukocyte Esterase Urine RBC Urine WBC Ur Epithelial Cells Urine Osmolality Ur Random Sodium 05/12/18 05/12/18 05/12/18 03:29 04:22 04:30 WBC 10.1 D RBC 4.58 Hgb 14.7 D Hct 40.9 L MCV 89.3 MCH 32.1 MCHC 35.9 RDW 12.4 Plt Count 192 MPV 10.8 Gran % 56.5 Lymph % (Auto) 36.5 H [place] % (Auto) 5.4 Eos % (Auto) 1.3 L Baso % (Auto) 0.3 Gran # 5.70 Lymph # (Auto) 3.7 H [place] # (Auto) 0.5 Eos # (Auto) 0.1 Baso # (Auto) 0.03 APTT pO2 VBG pH VBG pCO2 VBG HCO3 VBG Total CO2 VBG O2 Sat (Calc) VBG Base Excess VBG Potassium Sodium Chloride Glucose Lactate FiO2 Potassium Carbon Dioxide Anion Gap BUN Creatinine Est GFR ( Amer) Est GFR (Non-Af Amer) POC Glucose (mg/dL) 219 H 201 H Random Glucose Calcium Phosphorus Magnesium Total Bilirubin AST ALT Alkaline Phosphatase Troponin I Total Protein Albumin Globulin Albumin/Globulin Ratio Triglycerides Cholesterol LDL Cholesterol Direct HDL Cholesterol TSH 3rd Generation Venous Blood Potassium Urine Color Urine Appearance Urine pH Ur Specific [place] Urine Protein Urine Glucose (UA) Urine Ketones Urine Blood Urine Nitrate Urine Bilirubin Urine Urobilinogen Ur Leukocyte Esterase Urine RBC Urine WBC Ur Epithelial Cells Urine Osmolality Ur Random Sodium 05/12/18 05/12/18 05/12/18 04:30 04:30 04:30 WBC RBC Hgb Hct MCV MCH MCHC RDW Plt Count MPV Gran % Lymph % (Auto) [place] % (Auto) Eos % (Auto) Baso % (Auto) Gran # Lymph # (Auto) [place] # (Auto) Eos # (Auto) Baso # (Auto) APTT 36.1 pO2 VBG pH VBG pCO2 VBG HCO3 VBG Total CO2 VBG O2 Sat (Calc) VBG Base Excess VBG Potassium Sodium 136 Chloride 104 Glucose Lactate FiO2 Potassium 3.4 L Carbon Dioxide 23 Anion Gap 13 BUN 20 Creatinine 0.8 Est GFR ( Amer) > 60 Est GFR (Non-Af Amer) > 60 POC Glucose (mg/dL) Random Glucose 214 H Calcium 8.0 L Phosphorus Magnesium 1.8 Total Bilirubin 0.4 AST 13 L ALT 22 Alkaline Phosphatase 74 Troponin I 0.37 H* D Total Protein 5.4 L Albumin 3.0 Globulin 2.4 Albumin/Globulin Ratio 1.2 Triglycerides Cholesterol LDL Cholesterol Direct HDL Cholesterol TSH 3rd Generation 1.44 Venous Blood Potassium Urine Color Urine Appearance Urine pH Ur Specific [place] Urine Protein Urine Glucose (UA) Urine Ketones Urine Blood Urine Nitrate Urine Bilirubin Urine Urobilinogen Ur Leukocyte Esterase Urine RBC Urine WBC Ur Epithelial Cells Urine Osmolality Ur Random Sodium 05/12/18 05/12/18 05/12/18 04:40 04:40 05:30 WBC RBC Hgb Hct MCV MCH MCHC RDW Plt Count MPV Gran % Lymph % (Auto) [place] % (Auto) Eos % (Auto) Baso % (Auto) Gran # Lymph # (Auto) [place] # (Auto) Eos # (Auto) Baso # (Auto) APTT pO2 VBG pH VBG pCO2 VBG HCO3 VBG Total CO2 VBG O2 Sat (Calc) VBG Base Excess VBG Potassium Sodium Chloride Glucose Lactate FiO2 Potassium Carbon Dioxide Anion Gap BUN Creatinine Est GFR ( Amer) Est GFR (Non-Af Amer) POC Glucose (mg/dL) Random Glucose Calcium Phosphorus 3.0 Magnesium Total Bilirubin AST ALT Alkaline Phosphatase Troponin I Total Protein Albumin Globulin Albumin/Globulin Ratio Triglycerides 258 H Cholesterol 106 L LDL Cholesterol Direct 55 HDL Cholesterol 23 L TSH 3rd Generation Venous Blood Potassium Urine Color Yellow Urine Appearance Clear Urine pH 6.0 Ur Specific [place] 1.025 Urine Protein Trace H Urine Glucose (UA) >=1000 Urine Ketones Negative Urine Blood Negative Urine Nitrate Negative Urine Bilirubin Negative Urine Urobilinogen 0.2 Ur Leukocyte Esterase Negative Urine RBC 0 - 2 Urine WBC 0 - 2 Ur Epithelial Cells 0 - 2 Urine Osmolality 276 L Ur Random Sodium 164 05/12/18 05/12/18 05/12/18 06:15 07:24 09:51 WBC RBC Hgb Hct MCV MCH MCHC RDW Plt Count MPV Gran % Lymph % (Auto) [place] % (Auto) Eos % (Auto) Baso % (Auto) Gran # Lymph # (Auto) [place] # (Auto) Eos # (Auto) Baso # (Auto) APTT pO2 176 H VBG pH 7.35 VBG pCO2 41.0 VBG HCO3 22.6 VBG Total CO2 23.9 VBG O2 Sat (Calc) 99.9 H VBG Base Excess -2.9 L VBG Potassium 3.4 L Sodium 134.0 Chloride 106.0 Glucose 185 H Lactate 1.7 FiO2 21.0 Potassium Carbon Dioxide Anion Gap BUN Creatinine Est GFR ( Amer) Est GFR (Non-Af Amer) POC Glucose (mg/dL) 222 H 358 H Random Glucose Calcium Phosphorus Magnesium Total Bilirubin AST ALT Alkaline Phosphatase Troponin I Total Protein Albumin Globulin Albumin/Globulin Ratio Triglycerides Cholesterol LDL Cholesterol Direct HDL Cholesterol TSH 3rd Generation Venous Blood Potassium 3.4 L Urine Color Urine Appearance Urine pH Ur Specific [place] Urine Protein Urine Glucose (UA) Urine Ketones Urine Blood Urine Nitrate Urine Bilirubin Urine Urobilinogen Ur Leukocyte Esterase Urine RBC Urine WBC Ur Epithelial Cells Urine Osmolality Ur Random Sodium 05/12/18 11:13 WBC RBC Hgb Hct MCV MCH MCHC RDW Plt Count MPV Gran % Lymph % (Auto) [place] % (Auto) Eos % (Auto) Baso % (Auto) Gran # Lymph # (Auto) [place] # (Auto) Eos # (Auto) Baso # (Auto) APTT pO2 VBG pH VBG pCO2 VBG HCO3 VBG Total CO2 VBG O2 Sat (Calc) VBG Base Excess VBG Potassium Sodium Chloride Glucose Lactate FiO2 Potassium Carbon Dioxide Anion Gap BUN Creatinine Est GFR ( Amer) Est GFR (Non-Af Amer) POC Glucose (mg/dL) 293 H Random Glucose Calcium Phosphorus Magnesium Total Bilirubin AST ALT Alkaline Phosphatase Troponin I Total Protein Albumin Globulin Albumin/Globulin Ratio Triglycerides Cholesterol LDL Cholesterol Direct HDL Cholesterol TSH 3rd Generation Venous Blood Potassium Urine Color Urine Appearance Urine pH Ur Specific [place] Urine Protein Urine Glucose (UA) Urine Ketones Urine Blood Urine Nitrate Urine Bilirubin Urine Urobilinogen Ur Leukocyte Esterase Urine RBC Urine WBC Ur Epithelial Cells Urine Osmolality Ur Random Sodium EKG/Cardiology Studies: Cardiology / EKG Studies 05/11/18 21:47 ELECTROCARDIOGRAM Stat Comment: Reason For Exam: syncope 05/12/18 03:39 ELECTROCARDIOGRAM Stat Comment: Reason For Exam: positive troponins Critical Care Progress Note - Nutrition Nutrition: Nutrition Category Date Time Status NPO Diet [DIET] Diets 05/12/18 Breakfast Ordered Assessment/Plan - Assessment and Plan (Free Text) Plan: Patient seen and examined on rounds with resident, agree with note with following additions/exceptions: Patient is 48yo male with PMHx bipolar disorder, anxiety, psychosis, vertigo, TIA, HTN, COPD, Asthma, Arthritis, DJD a/w mild DKA, dizziness, and elevated troponin. Currently the patient is afebrile, BP stable, OFF insulin drip, AG closed. Troponin and EKG noted, cardiology following, plan for cath today. DKA NSTEMI Dizziness COPD HTN Dehydration Recommend: - supp o2 as needed, duonebs PRN - abx as per ID, follow up cultures, procal - BP control - IVF - ASA, Plavix, heparin, Statin - cath today, NPO - sliding scale - check HgbA1C, TSH, Lipid Panel - ECHO - resume psych meds - pain control - GI ppx - DVT ppx - Monitor in MICU
[2018-05-12] MEDS ORDERED: Iodixanol 320 MG/ML 200 ML BOTTLE IV ONE (12:01)
[2018-05-12] MEDS ORDERED: Lidocaine 2% Inj (20ml) ONE (12:01)
[2018-05-12] MEDS ORDERED: Midazolam 2 MG/2 ML VIAL ONE ×2 (12:16→12:40)
[2018-05-12] MEDS ORDERED: Nitroglycerin 50mg in D5W 0 MG/0 ML BOTTLE IV ONE (12:17)
[2018-05-12] MEDS ORDERED: Phenylephrine 10 mg/ml Inj ONE (12:17)
[2018-05-12] MEDS ORDERED: Iohexol 350mgl/ml 50 ML ONE (12:17)
[2018-05-12] MEDS ORDERED: Iodixanol 320 MG/ML 100 ML BOTTLE IV ONE (12:17)
[2018-05-12] MEDS ORDERED: Sodium Chloride 0.9% 1,000 ML IV SCH (13:30)
--- NOTE | 2018-05-12 13:31 | CARD ---
APPROVED REPORT EXAM: Two-dimensional and M-mode echocardiogram with Doppler and color Doppler. INDICATION Syncope 2D DIMENSIONS Left Atrium (2D)3.8 (1.6-4.0cm)IVSd1.3 (0.7-1.1cm) LVDd4.4 (3.9-5.9cm)PWd1.1 (0.7-1.1cm) LVDs3.2 (2.5-4.0cm)FS (%) 28.5 % LVEF (%)55.2 (>50%) M-Mode DIMENSIONS Aortic Root2.80 (2.2-3.7cm)Aortic Cusp Exc.2.10 (1.5-2.0cm) Aortic Valve AoV Peak Ppymuwdp65.1cm/Tiffanie Peak GR.4mmHg Mitral Valve MV E Ossxwody60.5cm/sMV A Ekrvmnir28.8cm/sE/A ratio0.8 TDI E/Lateral E'0.0E/Medial E'0.0 Tricuspid Valve TR Peak Erwzcupf474uh/sRAP [id number] Peak Gr.5mmHg [id number] LEFT VENTRICLE The left ventricle is normal size. There is mild concentric left ventricular hypertrophy. The left ventricular function is normal. The left ventricular ejection fraction is within the normal range. There is normal LV segmental wall motion. RIGHT VENTRICLE The right ventricle is normal size. The right ventricular systolic function is normal. ATRIA The left atrium size is normal. The right atrium size is normal. The interatrial septum is intact with no evidence for an atrial septal defect. AORTIC VALVE The aortic valve is trileaflet. The aortic valve is normal in structure. No aortic regurgitation is present. There is no aortic valvular stenosis. MITRAL VALVE The mitral valve is normal in structure. There is no mitral valve regurgitation noted. TRICUSPID VALVE The tricuspid valve is normal in structure. There is no tricuspid valve regurgitation noted. PULMONIC VALVE The pulmonary valve is normal in structure. There is mild pulmonic valvular regurgitation. GREAT VESSELS The aortic root is normal in size. The IVC is normal in size and collapses >50% with inspiration. PERICARDIAL EFFUSION There is no pleural effusion. There is no pericardial effusion. <Conclusion> Normal chamber size. Mild concentric LVH. Normal LV systolic function. Mild PI.
[2018-05-12] MEDS: Piperacillin/Tazobact 3.375 gm 100 ML IVPB SCH ×2 (13:55→17:54)
--- NOTE | 2018-05-12 14:16 | CARD ---
APPROVED REPORT EKG Measurement Heart [id number] <Conclusion> Normal sinus rhythm Slight ST elevations 2,3,F Mildly prolonged QTc. No change
--- NOTE | 2018-05-12 14:25 | PCM.EEG ---
Electroencephalogram Report - Electroencephalogram Report Procedure Date: 05/12/18 Interpretation: Indication: History of seizure. Medications were reviewed. Technical: This is a digitally recorded electroencephalogram. The international 10-20 electrode placement system is used for scalp electrode placement. Eighteen channels of scalp EEG are recorded Another channel was used for for ECG. The data are stored digitally and reviewed in reformatted montages for optimal display. Diffuse Abnormality: No well formed alpha activity was seen. Mixed diffuse theta and delta activity was seen. Focal abnormality: Intermittent focal slowing was seen. Periodic lateralized discharge was seen. Mostly noted over the left parietal region. Impression: This EEG is abnormal. Epileptiform discharge was seen. This can represent a potential seizure focus. Some focal slowing was seen, suggestive of a focal abnormality. Clinical correlation is needed.
[2018-05-12] MEDS ORDERED: Alum-Mag Hydrox-Simethicone Susp (30 mL) PO ONE (15:32)
[2018-05-12 15:37] LABS: ALB/GLOB RATIO 1.3 (1.1-1.8); ALBUMIN 3.2 g/dL (3.0-4.8); ALT/SGPT 29 U/L (7-56); AST/SGOT 21 U/L (17-59); BLOOD UREA NITROGEN 12 mg/dL (7-21); GFR AFRICAN-AMERICAN > 60; GFR NON-AFRICAN AMERICAN > 60
[2018-05-12] MEDS ORDERED: Divalproex 500 mg DR(BID formulation) PO ONE (16:00)
--- NOTE | 2018-05-12 17:10 | CP.PCM.PN ---
<Julio Echavarria - Last Filed: 05/12/18 19:04> Subjective - Date & Time of Evaluation Date of Evaluation: 05/12/18 Time of Evaluation: 16:55 - Subjective Subjective: Julio Echavarria D.O. - PGY1 Internal Medicine Resident - Medicine Progress Note Pt. was seen this AM at bedside; has not reported any dizziness or near syncopal episodes over night or this AM. Pt. also denying any seizure type activity or post ictal state at time of evaluation. Pt. denies CORNEJO, BV, CP, Palp, Dizziness, SOB, Cough, HARMON, Abd Pain, N/V/D/C, Hematuria, dysuria. Objective - Vital Signs/Intake and Output Vital Signs (last 24 hours): Temp Pulse Resp BP Pulse Ox 98 F 73 18 152/98 H 99 05/12/18 11:51 05/12/18 15:43 05/12/18 15:20 05/12/18 15:43 05/12/18 15:20 Intake and Output: 05/12/18 05/12/18 06:59 18:59 Intake Total 737 0 Output Total 550 Balance 187 0 - Medications Medications: Current Medications Alprazolam (Xanax) 2 mg PO QID PRN PRN Reason: Anxiety Aspirin (Aspirin Chewable) 81 mg PO DAILY [facility] Last Admin: 05/12/18 09:32 Dose: Not Given Atorvastatin Calcium (Lipitor) 40 mg PO DIN [facility] Chlorpromazine (Thorazine) 100 mg PO BID [facility] PRN Reason: Protocol Clopidogrel Bisulfate (Plavix) 75 mg PO DAILY [facility] Divalproex Sodium (Depakote Dr(*Bid*)) 500 mg PO BID [facility] Haloperidol (Haldol) 5 mg PO BID [facility] PRN Reason: Protocol Vancomycin HCl (Vancomycin 1gm) 1 gm in 250 mls @ 167 mls/hr IVPB Q12H [facility] PRN Reason: Protocol Last Admin: 05/12/18 10:50 Dose: Not Given Piperacillin Sod/Tazobactam Sod (Zosyn 3.375 In Ns 100ml) 100 mls @ 200 mls/hr IVPB Q6 [facility] PRN Reason: Protocol Stop: 05/21/18 12:01 Last Admin: 05/12/18 13:55 Dose: 200 mls/hr Sodium Chloride (Sodium Chloride 0.9%) 1,000 mls @ 100 mls/hr IV .Q10H [facility] Stop: 05/12/18 20:00 Last Admin: 05/12/18 13:42 Dose: 100 mls/hr Insulin Human Regular (Humulin R Low) 0 units SC ACHS [facility] PRN Reason: Protocol Last Admin: 05/12/18 11:30 Dose: Not Given Lisinopril (Zestril) 20 mg PO DAILY [facility] Last Admin: 05/12/18 15:43 Dose: 20 mg Oxycodone HCl (Oxycodone Immediate Release Tab) 15 mg PO QID [facility] Last Admin: 05/12/18 14:11 Dose: 15 mg Pantoprazole Sodium (Protonix Ec Tab) 40 mg PO ACB [facility] Paroxetine HCl (Paxil) 40 mg PO DAILY [facility] Last Admin: 05/12/18 14:09 Dose: 40 mg - Labs Labs: 05/12/18 04:30 05/12/18 15:00 PT 11.3 SECONDS (9.4-12.5) 05/11/18 18:43 INR 0.99 (0.93-1.08) 05/11/18 18:43 APTT 35.1 Seconds (25.1-36.5) 05/12/18 15:00 - Constitutional Appears: Well, Non-toxic, No Acute Distress - Head Exam Head Exam: NORMAL INSPECTION, NORMOCEPHALIC - Eye Exam Eye Exam: EOMI, PERRL. absent: Scleral icterus - ENT Exam ENT Exam: Mucous Membranes Moist, Normal Exam - Respiratory Exam Respiratory Exam: Clear to Ausculation Bilateral. absent: Rhonchi, Wheezes - Cardiovascular Exam Cardiovascular Exam: REGULAR RHYTHM, RRR, +S1, +S2. absent: Murmur - GI/Abdominal Exam GI & Abdominal Exam: Soft, Normal Bowel Sounds. absent: Tenderness - Extremities Exam Extremities Exam: absent: Pedal Edema Additional comments: 2+ TP/DP BL - Neurological Exam Neurological Exam: Alert, Awake, CN II-XII Intact, Oriented x3 - Skin Skin Exam: Dry, Intact, Warm Assessment and Plan - Assessment and Plan (Free Text) Assessment: Pt. is a 48M w/ a PMH significant for syncopal episodes, new onset dx DM, HTN, Obstructive airway disease, depressive disorder, anxiety, and psychosis presenting w/ near syncopal episode and x2 falls prior to admission. On admission pt was found to have DKA, and met sepsis criteria. Further workup revealing inf wall STEMI, and abnormal discharges on EEG. DKA anion gap has now closed, sepsis workup started, pt is now post PCI w/ placement of drug eluting stent in the [facility]. Plan: DKA Anion gap 21 on admission; now 13 Glucose 572 on admission; POC range 474-201 17U insulin administered within first 24 hours Pt. started on Levemir 8 Pt. started on ISS Moderate A1C pending Hold PO antiglycemics Pre-Syncopal Episode Hypovolemic vs. Cardiogenic vs Neurogenic Pt. denies loss of consciousness 03/2018 Carotid US has no significant stenosis EKG w/ sinus tach and elevated inferior leads Orthostatics pending Neurology Following appreciate reccs Hx Seizure Head CT w/ no acute intracranial abnormalities MRI Brain Pending Load Depakote 1mg today Start Depakote 500mg BID tomorrow Neurology Following appreciate reccs STEMI 1mm ST elevations on admission in R INF leads Pt initially managed with a heparin drip S/p R heart cath w/ drug eluting stent to the [facility] Lisinopril/Lipitor/ASA81/ Plavix/ Cardiology Following appreciate reccs NEEL Score - 1 Sepsis Hypotensive and tachy on admission; lactate on admission 3.5 3L bolus; IVF throughout day @ 100NS/hr VSS now; Afebrile Hall Cultures pending Empiric Abx- Vancomycin Day 1 ; Zosyn Day 1 ID Following Appreciate reccs Hx HTN Hold HTN RX Hx Pysch Alprazolam Chlorpromazine Haldol Paroxetine DIET: Heart Healthy Diet DISPO: Transfer to floor once medically stable PROPHYLAXIS: Protonix SCD Patient is to follow up w/ PMD Dr. Patsy Campbell post discharge. Case discussed w/ attending Dr. Maureen Echavarria PGY1 <Iraj Reddy - Last Filed: 05/13/18 08:19> Objective - Vital Signs/Intake and Output Vital Signs (last 24 hours): Temp Pulse Resp BP Pulse Ox 97.6 F 86 29 H 117/70 98 05/13/18 04:20 05/13/18 05:53 05/13/18 05:50 05/13/18 05:30 05/12/18 15:40 Intake and Output: 05/13/18 05/13/18 06:59 18:59 Intake Total 860 Output Total 1500 Balance -640 - Medications Medications: Current Medications Alprazolam (Xanax) 2 mg PO QID PRN PRN Reason: Anxiety Last Admin: 05/12/18 21:40 Dose: 2 mg Aspirin (Aspirin Chewable) 81 mg PO DAILY [facility] Last Admin: 05/12/18 09:32 Dose: Not Given Atorvastatin Calcium (Lipitor) 40 mg PO DIN [facility] Last Admin: 05/12/18 17:54 Dose: 40 mg Chlorpromazine (Thorazine) 100 mg PO BID [facility] PRN Reason: Protocol Last Admin: 05/12/18 19:32 Dose: 100 mg Clopidogrel Bisulfate (Plavix) 75 mg PO DAILY [facility] Divalproex Sodium (Depakote Dr(*Bid*)) 500 mg PO BID [facility] Haloperidol (Haldol) 5 mg PO BID [facility] PRN Reason: Protocol Last Admin: 05/12/18 17:51 Dose: 5 mg Piperacillin Sod/Tazobactam Sod (Zosyn 3.375 In Ns 100ml) 100 mls @ 200 mls/hr IVPB Q6 [facility] PRN Reason: Protocol Stop: 05/21/18 12:01 Last Admin: 05/13/18 06:08 Dose: 200 mls/hr Insulin Detemir (Levemir) 8 unit SC QAM [facility] Insulin Human Regular (Humulin R Med) 0 units SC ACHS [facility] PRN Reason: Protocol Last Admin: 05/13/18 07:48 Dose: 1 u Lisinopril (Zestril) 20 mg PO DAILY [facility] Last Admin: 05/12/18 15:43 Dose: 20 mg Oxycodone HCl (Oxycodone Immediate Release Tab) 15 mg PO QID [facility] Last Admin: 05/12/18 21:40 Dose: 15 mg Pantoprazole Sodium (Protonix Ec Tab) 40 mg PO ACB [facility] Last Admin: 05/13/18 07:46 Dose: 40 mg Paroxetine HCl (Paxil) 40 mg PO DAILY [facility] Last Admin: 05/12/18 14:09 Dose: 40 mg - Labs Labs: 05/13/18 05:05 05/13/18 05:05 PT 11.3 SECONDS (9.4-12.5) 05/11/18 18:43 INR 0.99 (0.93-1.08) 05/11/18 18:43 APTT 35.1 Seconds (25.1-36.5) 05/12/18 15:00 Attending/Attestation - Attestation I have personally seen and examined this patient.: Yes I have fully participated in the care of the patient.: Yes I have reviewed all pertinent clinical information, including history, physical exam and plan: Yes Notes (Text): 05/12/18 48 year old male with past medical history of diabetes and hypertension who presented with complaint of dizziness and near syncope. He was found to have DKA, NSTEMI, lactic acidosis and SIRS with possible sepsis and admitted to the ICU. Anion gap has closed and insulin drip was discontinued. A1c is 9.5. He will be started on levemir. Metformin and januvia were discontinued. Cardiology evaluation was appreciated and patient underwent cardiac cath with RCA stent placement. He is on aspirin, plavix, statin and lisinopril. Echocardiogram was reviewed. CT head was negative. EEG was reviewed as abnormal. Neurology is following and ordered for MRI brain. He is on depakote. He is on empiric antibiotics while awaiting cultures. Will follow up with ID recommendations. Iraj Reddy MD Hospitalist.
[2018-05-12] MEDS ORDERED: Dextrose 50% SYRINGE Inj (50 ml) IV PRN (17:12)
[2018-05-12] MEDS: Insulin Reg-MEDIUM-Coverage SC SCH (21:56)
[2018-05-12] MEDS ORDERED: Insulin Reg-LOW-Coverage SC SCH (22:00)
[2018-05-13] MEDS: Piperacillin/Tazobact 3.375 gm 100 ML IVPB SCH ×4 (00:35→17:06)
[2018-05-13 05:46] LABS: BASO # 0.03 K/mm3 (0.0-2.0); BASO % 0.4 % (0.0-3.0); EOS # 0.1 (0.0-0.7); EOS % 1.8 % (1.5-5.0); GRAN # 4.25 (1.4-6.5); GRAN % 58.4 % (50.0-68.0); HEMOGLOBIN 14.8 g/dL (14.0-18.0); LYMPH # 2.4 (1.2-3.4); LYMPH % 33.1 % (22.0-35.0); MEAN CELL VOLUME 89.5 fl (80.0-105.0); MEAN CORPUSCULAR HEMOGLOBIN 31.8 pg (25.0-35.0); MEAN CORPUSCULAR HGB CONC 35.5 g/dl (31.0-37.0); MEAN PLATELET VOLUME 10.8 fl (7.0-11.0); MONO # 0.5 (0.1-0.6); MONO % 6.3 % (1.0-6.0); RBC 4.66 10^6/uL (3.5-6.1); RED CELL DISTRIBUTION WIDTH 12.4 % (11.5-14.5); WHITE BLOOD COUNT 7.3 10^3/ul (4.5-11.0)
[2018-05-13 06:11] LABS: ALB/GLOB RATIO 1.3 (1.1-1.8); ALBUMIN 3.2 g/dL (3.0-4.8); ALT/SGPT 29 U/L (7-56); AST/SGOT 15 U/L (17-59); BLOOD UREA NITROGEN 13 mg/dL (7-21); CALCIUM 8.4 mg/dL (8.4-10.5); GFR AFRICAN-AMERICAN > 60; GFR NON-AFRICAN AMERICAN > 60
[2018-05-13] MEDS: Pantoprazole 40 mg EC Tab PO SCH (07:46)
[2018-05-13] MEDS: Insulin Reg-MEDIUM-Coverage SC SCH ×4 (07:48→21:59)
[2018-05-13] MEDS: oxyCODONE 15 mg Immediate Release Tab PO SCH ×4 (09:05→22:01)
--- NOTE | 2018-05-13 09:54 | PN ---
DATE: 05/13/2018 CARDIOLOGY FOLLOWUP SUBJECTIVE: The patient is asymptomatic. No chest pain. No shortness of breath. PHYSICAL EXAMINATION: VITAL SIGNS: Blood pressure is 111/59, heart rate is in the 80s. NECK: Negative JVD. LUNGS: Without rales. HEART: Reveals S1, S2. EXTREMITIES: Without edema. LABORATORY DATA: Glucose is 162. The right groin site is stable. Hemoglobin is 14.8. IMPRESSION: 1. Stable post [id number] myocardial infarction. 2. Stable post percutaneous transluminal coronary angioplasty and stent of a right coronary artery. 3. Coronary artery disease. 4. Hypercholesterolemia. 5. Chronic obstructive pulmonary disease. 6. History of bipolar disease. PLAN: Given these findings, the patient can be transferred to telemetry today. I have discussed with the patient about the need for cessation of smoking. Brian Zapien MD
--- NOTE | 2018-05-13 09:56 | CP.CCUPN ---
CCU Subjective - Physician Review Subjective (Free Text): Steve Abreu PGY1 ICU Progress Note for Dr. Hess Patient was examined at bedside this morning. He denied dizziness, palpatations , chest pain, shortness of breath, polyuria, and polydipsia. As per patient, he claims that he had a "severe seizure" in the past around October, where he was resuscitated. 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 Patient said that he had never had an EEG or echo done before. He also states that he was taken off his diabetes medications by his PMD Dr. Patsy Campbell about two weeks ago for a test. Full 12 point ROS was reviewed and unremarkable except as stated above. CCU Objective - Vital Signs / Intake & Output Vital Signs (Last 4 hours): Vital Signs Pulse Resp BP 05/13/18 09:06 80 111/59 L 05/13/18 08:20 78 14 05/13/18 08:10 95 H 16 05/13/18 08:01 100 H 16 116/87 05/13/18 08:00 96 H 17 05/13/18 07:50 92 H 25 H 05/13/18 07:40 77 14 05/13/18 07:30 76 12 121/63 05/13/18 07:20 81 13 05/13/18 07:10 78 13 05/13/18 07:01 74 11 L 104/66 05/13/18 07:00 89 05/13/18 06:50 76 19 05/13/18 06:40 76 12 05/13/18 06:30 70 13 102/61 05/13/18 06:20 74 15 05/13/18 06:10 80 14 05/13/18 06:00 94 H 16 118/76 05/13/18 05:53 86 05/13/18 05:50 86 29 H Intake and Output (Last 8hrs): Intake & Output 05/12/18 05/13/18 05/13/18 22:59 06:59 14:59 Intake Total 1782 860 Output Total 1160 1500 Balance 622 -640 Intake: IV 1302 Left Forearm 1302 Oral 480 410 Other 450 Output: Urine 1160 1500 Urine, Voided 1160 1500 Other: # Bowel Movements 1 - Physical Exam Head: Positive for: Atraumatic, Normocephalic Pupils: Positive for: PERRL Extroacular Muscles: Positive for: EOMI Conjunctiva: Positive for: Normal Mouth: Positive for: Moist Mucous Membranes Neck: Positive for: Normal Range of Motion Respiratory/Chest: Positive for: Clear to Auscultation, Good Air Exchange. Negative for: Wheezes, Rales, Rhonchi Cardiovascular: Positive for: Regular Rate and Rhythm, Normal S1, S2. Negative for: Murmurs Abdomen: Positive for: Normal Bowel Sounds. Negative for: Tenderness, Distention, Peritoneal Signs Back: Positive for: Normal Inspection Upper Extremity: Positive for: Normal Inspection. Negative for: Cyanosis, Edema Lower Extremity: Positive for: Normal Inspection. Negative for: Edema Neurological: Positive for: GCS=15, CN II-XII Intact, Speech Normal Skin: Positive for: Warm, Dry Psychiatric: Positive for: Alert, Oriented x 3 - Medications Active Medications: Active Medications Generic Name Dose Route Start Last Admin Trade Name Freq PRN Reason Stop Dose Admin Alprazolam 2 mg 05/12/18 09:35 05/12/18 21:40 Xanax PO 2 mg QID PRN Administration Anxiety Aspirin 81 mg 05/12/18 10:00 05/13/18 09:06 Aspirin Chewable PO 81 mg DAILY MALENA Administration Atorvastatin Calcium 40 mg 05/12/18 17:00 05/12/18 17:54 Lipitor PO 40 mg DIN MALENA Administration Chlorpromazine 100 mg 05/12/18 18:00 05/13/18 09:05 Thorazine PO 100 mg BID MALENA Administration Protocol Clopidogrel Bisulfate 75 mg 05/13/18 10:00 05/13/18 09:05 Plavix PO 75 mg DAILY MALENA Administration Divalproex Sodium 500 mg 05/13/18 18:00 Claudia Johnson(*Bid*) PO BID MALENA Haloperidol 5 mg 05/12/18 18:00 05/13/18 09:05 Haldol PO 5 mg BID MALENA Administration Protocol Piperacillin Sod/Tazobactam Sod 100 mls @ 200 mls/hr 05/12/18 12:00 05/13/18 06:08 Zosyn 3.375 In Ns 100ml IVPB 05/21/18 12:01 200 mls/hr Q6 MALENA Administration Protocol Insulin Detemir 8 unit 05/13/18 10:00 Levemir SC QAM [facility] Insulin Human Regular 0 units 05/12/18 22:00 05/13/18 07:48 Humulin R Med SC 1 u ACHS [facility] Administration Protocol Lisinopril 10 mg 05/13/18 09:28 Zestril PO DAILY MALENA Oxycodone HCl 15 mg 05/12/18 10:00 05/13/18 09:05 Oxycodone Immediate Release Tab PO 15 mg QID MALENA Administration Pantoprazole Sodium 40 mg 05/13/18 07:30 05/13/18 07:46 Protonix Ec Tab PO 40 mg ACB MALENA Administration Paroxetine HCl 40 mg 05/12/18 10:00 05/12/18 14:09 Paxil PO 40 mg DAILY [facility] Administration - Patient Studies Lab Studies: Microbiology Studies 05/12/18 00:45 Blood Culture - Preliminary Blood NO GROWTH AFTER 24 HOURS 05/12/18 00:30 Blood Culture - Preliminary Blood NO GROWTH AFTER 24 HOURS Lab Studies 05/13/18 05/13/18 05/13/18 Range/Units 07:28 05:05 05:05 WBC 7.3 D (4.5-11.0) 10^3/ul RBC 4.66 (3.5-6.1) 10^6/uL Hgb 14.8 (14.0-18.0) g/dL Hct 41.7 L (42.0-52.0) % MCV 89.5 (80.0-105.0) fl MCH 31.8 (25.0-35.0) pg MCHC 35.5 (31.0-37.0) g/dl RDW 12.4 (11.5-14.5) % Plt Count 181 (120.0-450.0) 10^3/uL MPV 10.8 (7.0-11.0) fl Gran % 58.4 (50.0-68.0) % Lymph % (Auto) 33.1 (22.0-35.0) % [place] % (Auto) 6.3 H (1.0-6.0) % Eos % (Auto) 1.8 (1.5-5.0) % Baso % (Auto) 0.4 (0.0-3.0) % Gran # 4.25 (1.4-6.5) Lymph # (Auto) 2.4 (1.2-3.4) [place] # (Auto) 0.5 (0.1-0.6) Eos # (Auto) 0.1 (0.0-0.7) Baso # (Auto) 0.03 (0.0-2.0) K/mm3 APTT (25.1-36.5) Seconds Sodium 139 (132-148) mmol/L Potassium 4.1 (3.6-5.0) mmol/L Chloride 105 (98-107) mmol/L Carbon Dioxide 25 (21-33) mmol/L Anion Gap 14 (10-20) BUN 13 (7-21) mg/dL Creatinine 0.8 (0.8-1.5) mg/dl Est GFR ( Amer) > 60 Est GFR (Non-Af Amer) > 60 POC Glucose (mg/dL) 159 H (65-110) mg/dL Random Glucose 162 H (70-110) mg/dL Hemoglobin A1c (4.2-6.5) % Calcium 8.4 (8.4-10.5) mg/dL Total Bilirubin 0.6 (0.2-1.3) mg/dL AST 15 L D (17-59) U/L ALT 29 (7-56) U/L Alkaline Phosphatase 68 (38-126) U/L Total Protein 5.7 L (5.8-8.3) g/dL Albumin 3.2 (3.0-4.8) g/dL Globulin 2.5 gm/dL Albumin/Globulin Ratio 1.3 (1.1-1.8) 05/12/18 05/12/18 05/12/18 Range/Units 21:52 16:34 15:00 WBC (4.5-11.0) 10^3/ul RBC (3.5-6.1) 10^6/uL Hgb (14.0-18.0) g/dL Hct (42.0-52.0) % MCV (80.0-105.0) fl MCH (25.0-35.0) pg MCHC (31.0-37.0) g/dl RDW (11.5-14.5) % Plt Count (120.0-450.0) 10^3/uL MPV (7.0-11.0) fl Gran % (50.0-68.0) % Lymph % (Auto) (22.0-35.0) % [place] % (Auto) (1.0-6.0) % Eos % (Auto) (1.5-5.0) % Baso % (Auto) (0.0-3.0) % Gran # (1.4-6.5) Lymph # (Auto) (1.2-3.4) [place] # (Auto) (0.1-0.6) Eos # (Auto) (0.0-0.7) Baso # (Auto) (0.0-2.0) K/mm3 APTT 35.1 (25.1-36.5) Seconds Sodium (132-148) mmol/L Potassium (3.6-5.0) mmol/L Chloride (98-107) mmol/L Carbon Dioxide (21-33) mmol/L Anion Gap (10-20) BUN (7-21) mg/dL Creatinine (0.8-1.5) mg/dl Est GFR ( Amer) Est GFR (Non-Af Amer) POC Glucose (mg/dL) 217 H 313 H (65-110) mg/dL Random Glucose (70-110) mg/dL Hemoglobin A1c (4.2-6.5) % Calcium (8.4-10.5) mg/dL Total Bilirubin (0.2-1.3) mg/dL AST (17-59) U/L ALT (7-56) U/L Alkaline Phosphatase (38-126) U/L Total Protein (5.8-8.3) g/dL Albumin (3.0-4.8) g/dL Globulin gm/dL Albumin/Globulin Ratio (1.1-1.8) 05/12/18 05/12/18 05/12/18 Range/Units 15:00 13:38 11:13 WBC (4.5-11.0) 10^3/ul RBC (3.5-6.1) 10^6/uL Hgb (14.0-18.0) g/dL Hct (42.0-52.0) % MCV (80.0-105.0) fl MCH (25.0-35.0) pg MCHC (31.0-37.0) g/dl RDW (11.5-14.5) % Plt Count (120.0-450.0) 10^3/uL MPV (7.0-11.0) fl Gran % (50.0-68.0) % Lymph % (Auto) (22.0-35.0) % [place] % (Auto) (1.0-6.0) % Eos % (Auto) (1.5-5.0) % Baso % (Auto) (0.0-3.0) % Gran # (1.4-6.5) Lymph # (Auto) (1.2-3.4) [place] # (Auto) (0.1-0.6) Eos # (Auto) (0.0-0.7) Baso # (Auto) (0.0-2.0) K/mm3 APTT (25.1-36.5) Seconds Sodium 135 (132-148) mmol/L Potassium 5.0 (3.6-5.0) mmol/L Chloride 105 (98-107) mmol/L Carbon Dioxide 22 (21-33) mmol/L Anion Gap 13 (10-20) BUN 12 (7-21) mg/dL Creatinine 0.7 L (0.8-1.5) mg/dl Est GFR ( Amer) > 60 Est GFR (Non-Af Amer) > 60 POC Glucose (mg/dL) 240 H 293 H (65-110) mg/dL Random Glucose 251 H (70-110) mg/dL Hemoglobin A1c (4.2-6.5) % Calcium 8.0 L (8.4-10.5) mg/dL Total Bilirubin 0.8 (0.2-1.3) mg/dL AST 21 (17-59) U/L ALT 29 (7-56) U/L Alkaline Phosphatase 80 (38-126) U/L Total Protein 5.7 L (5.8-8.3) g/dL Albumin 3.2 (3.0-4.8) g/dL Globulin 2.5 gm/dL Albumin/Globulin Ratio 1.3 (1.1-1.8) 05/12/18 05/12/18 Range/Units 09:51 04:30 WBC (4.5-11.0) 10^3/ul RBC (3.5-6.1) 10^6/uL Hgb (14.0-18.0) g/dL Hct (42.0-52.0) % MCV (80.0-105.0) fl MCH (25.0-35.0) pg MCHC (31.0-37.0) g/dl RDW (11.5-14.5) % Plt Count (120.0-450.0) 10^3/uL MPV (7.0-11.0) fl Gran % (50.0-68.0) % Lymph % (Auto) (22.0-35.0) % [place] % (Auto) (1.0-6.0) % Eos % (Auto) (1.5-5.0) % Baso % (Auto) (0.0-3.0) % Gran # (1.4-6.5) Lymph # (Auto) (1.2-3.4) [place] # (Auto) (0.1-0.6) Eos # (Auto) (0.0-0.7) Baso # (Auto) (0.0-2.0) K/mm3 APTT (25.1-36.5) Seconds Sodium (132-148) mmol/L Potassium (3.6-5.0) mmol/L Chloride (98-107) mmol/L Carbon Dioxide (21-33) mmol/L Anion Gap (10-20) BUN (7-21) mg/dL Creatinine (0.8-1.5) mg/dl Est GFR ( Amer) Est GFR (Non-Af Amer) POC Glucose (mg/dL) 358 H (65-110) mg/dL Random Glucose (70-110) mg/dL Hemoglobin A1c 9.5 H (4.2-6.5) % Calcium (8.4-10.5) mg/dL Total Bilirubin (0.2-1.3) mg/dL AST (17-59) U/L ALT (7-56) U/L Alkaline Phosphatase (38-126) U/L Total Protein (5.8-8.3) g/dL Albumin (3.0-4.8) g/dL Globulin gm/dL Albumin/Globulin Ratio (1.1-1.8) Laboratory Results - last 24 hr 05/12/18 05/12/18 05/12/18 04:30 09:51 11:13 WBC RBC Hgb Hct MCV MCH MCHC RDW Plt Count MPV Gran % Lymph % (Auto) [place] % (Auto) Eos % (Auto) Baso % (Auto) Gran # Lymph # (Auto) [place] # (Auto) Eos # (Auto) Baso # (Auto) APTT Sodium Potassium Chloride Carbon Dioxide Anion Gap BUN Creatinine Est GFR ( Amer) Est GFR (Non-Af Amer) POC Glucose (mg/dL) 358 H 293 H Random Glucose Hemoglobin A1c 9.5 H Calcium Total Bilirubin AST ALT Alkaline Phosphatase Total Protein Albumin Globulin Albumin/Globulin Ratio 05/12/18 05/12/18 05/12/18 13:38 15:00 15:00 WBC RBC Hgb Hct MCV MCH MCHC RDW Plt Count MPV Gran % Lymph % (Auto) [place] % (Auto) Eos % (Auto) Baso % (Auto) Gran # Lymph # (Auto) [place] # (Auto) Eos # (Auto) Baso # (Auto) APTT 35.1 Sodium 135 Potassium 5.0 Chloride 105 Carbon Dioxide 22 Anion Gap 13 BUN 12 Creatinine 0.7 L Est GFR ( Amer) > 60 Est GFR (Non-Af Amer) > 60 POC Glucose (mg/dL) 240 H Random Glucose 251 H Hemoglobin A1c Calcium 8.0 L Total Bilirubin 0.8 AST 21 ALT 29 Alkaline Phosphatase 80 Total Protein 5.7 L Albumin 3.2 Globulin 2.5 Albumin/Globulin Ratio 1.3 05/12/18 05/12/18 05/13/18 16:34 21:52 05:05 WBC RBC Hgb Hct MCV MCH MCHC RDW Plt Count MPV Gran % Lymph % (Auto) [place] % (Auto) Eos % (Auto) Baso % (Auto) Gran # Lymph # (Auto) [place] # (Auto) Eos # (Auto) Baso # (Auto) APTT Sodium 139 Potassium 4.1 Chloride 105 Carbon Dioxide 25 Anion Gap 14 BUN 13 Creatinine 0.8 Est GFR ( Amer) > 60 Est GFR (Non-Af Amer) > 60 POC Glucose (mg/dL) 313 H 217 H Random Glucose 162 H Hemoglobin A1c Calcium 8.4 Total Bilirubin 0.6 AST 15 L D ALT 29 Alkaline Phosphatase 68 Total Protein 5.7 L Albumin 3.2 Globulin 2.5 Albumin/Globulin Ratio 1.3 05/13/18 05/13/18 05:05 07:28 WBC 7.3 D RBC 4.66 Hgb 14.8 Hct 41.7 L MCV 89.5 MCH 31.8 MCHC 35.5 RDW 12.4 Plt Count 181 MPV 10.8 Gran % 58.4 Lymph % (Auto) 33.1 [place] % (Auto) 6.3 H Eos % (Auto) 1.8 Baso % (Auto) 0.4 Gran # 4.25 Lymph # (Auto) 2.4 [place] # (Auto) 0.5 Eos # (Auto) 0.1 Baso # (Auto) 0.03 APTT Sodium Potassium Chloride Carbon Dioxide Anion Gap BUN Creatinine Est GFR ( Amer) Est GFR (Non-Af Amer) POC Glucose (mg/dL) 159 H Random Glucose Hemoglobin A1c Calcium Total Bilirubin AST ALT Alkaline Phosphatase Total Protein Albumin Globulin Albumin/Globulin Ratio EKG/Cardiology Studies: Cardiology / EKG Studies 05/12/18 13:24 ELECTROCARDIOGRAM Urgent Comment: 12 lead EKG upon arrival in unit Reason For Exam: post ptca 05/13/18 13:30 ELECTROCARDIOGRAM DAILY Comment: Reason For Exam: chest pain Fingerstick Blood Sugar Results: 159 Critical Care Progress Note - Nutrition Nutrition: Nutrition Category Date Time Status Heart Healthy Diet [DIET] Diets 05/12/18 Lunch Active
--- NOTE | 2018-05-13 10:19 | PN ---
DATE: 05/13/2018 SUBJECTIVE: The patient is seen earlier today in 129, bed 5 in the CCU. Uneventful night. No fevers and chills. No chest pain. OBJECTIVE: VITAL SIGNS: On exam, temperature is 97, blood pressure is 117/70, respiratory rate is 14, heart rate of 93. HEENT: Examination is unremarkable. NECK: Supple. LUNGS: Have decreased breath sounds. HEART: Exam is normal S1, S2. ABDOMEN: Examination is soft, nontender. DATA: Laboratory examination reveals a white count of 13,000, it is down to 7300; hemoglobin of 14; platelets of 181. Coagulation is noted. Chemistries reveals BUN of 13, creatinine of 0.8. Urinalysis is noted. Blood cultures, there are no growth. The patient had cardiac catheterization and an EEG. Dr. Echavarria's progress note from yesterday is reviewed. ASSESSMENT AND PLAN: This is a 48-year-old with diabetes, hypertension, obstructive airway disease, depression, anxiety, psychosis who was admitted with SIRS, systemic inflammatory response syndrome and diabetic ketoacidosis, found to have an acute inferior wall ST elevation myocardial infarction, status post cardiac cath with stent placed to the right RCA in a patient with a history of seizures and hypertension with negative blood cultures, negative chest x-ray and a negative urinalysis and negative abdominal findings, no evidence of infection. We will discontinue the vancomycin since the blood cultures are negative and we will also discontinue the Zosyn if in next 24 hours all of the cultures remain negative. We will follow closely with you. The patient is scheduled for MRI of the brain and we will also order an HIV test, RPR and . Jesse Ribeiro MD
[2018-05-13] MEDS: Insulin Detemir 100 units/ml Vial (Levemir) SC SCH (11:01)
--- NOTE | 2018-05-13 12:31 | CP.CCUPN ---
<Steve Abreu - Last Filed: 05/13/18 14:02> CCU Subjective - Physician Review Subjective (Free Text): Steve Abreu, PGY1 Critical Care Progress Note for Dr. Hensley Patient was examined at bedside this morning. He denied dizziness, blurry vision , palpatations, chest pain, shortness of breath, polyuria, and polydipsia. Patient has had a bowel movement last night and no changes in urination. He said that he was feeling well after the cardiac cath procedure. Spoke to Dr. Zapien (Wireless Sales Expert) and patient is ready for transfer to telemetry. Patient was made aware of the plan. CCU Objective - Vital Signs / Intake & Output Vital Signs (Last 4 hours): Vital Signs Pulse Resp BP 05/13/18 11:30 80 14 05/13/18 11:20 74 12 05/13/18 11:11 76 113/61 05/13/18 11:10 76 15 05/13/18 11:08 77 12 113/61 05/13/18 11:00 78 12 105/59 L 05/13/18 10:50 82 15 05/13/18 10:40 87 20 05/13/18 10:30 82 11 L 128/75 05/13/18 10:20 74 10 L 05/13/18 10:10 75 14 05/13/18 10:00 80 14 98/62 L 05/13/18 09:50 80 14 05/13/18 09:40 84 17 05/13/18 09:30 82 14 125/65 05/13/18 09:20 85 28 H 05/13/18 09:10 84 14 05/13/18 09:06 80 111/59 L 05/13/18 09:02 84 15 111/59 L 05/13/18 09:00 87 22 102/58 L 05/13/18 08:50 84 16 05/13/18 08:40 86 14 05/13/18 08:30 83 14 105/62 Intake and Output (Last 8hrs): Intake & Output 05/12/18 05/13/18 05/13/18 22:59 06:59 14:59 Intake Total 1782 860 Output Total 1160 1500 Balance 622 -640 Weight 220 lb Intake: IV 1302 Left Forearm 1302 Oral 480 410 Other 450 Output: Urine 1160 1500 Urine, Voided 1160 1500 Other: # Bowel Movements 1 - Physical Exam Head: Positive for: Atraumatic, Normocephalic Pupils: Positive for: PERRL Extroacular Muscles: Positive for: EOMI Conjunctiva: Positive for: Normal Mouth: Positive for: Moist Mucous Membranes Neck: Positive for: Normal Range of Motion Respiratory/Chest: Positive for: Clear to Auscultation, Good Air Exchange. Negative for: Wheezes, Rales, Rhonchi Cardiovascular: Positive for: Regular Rate and Rhythm, Normal S1, S2. Negative for: Murmurs Abdomen: Positive for: Normal Bowel Sounds. Negative for: Tenderness, Distention, Peritoneal Signs Back: Positive for: Normal Inspection Upper Extremity: Positive for: Normal Inspection. Negative for: Cyanosis, Edema Lower Extremity: Positive for: Normal Inspection. Negative for: Edema Neurological: Positive for: GCS=15, CN II-XII Intact, Speech Normal Skin: Positive for: Warm, Dry Psychiatric: Positive for: Alert, Oriented x 3 - Medications Active Medications: Active Medications Generic Name Dose Route Start Last Admin Trade Name Freq PRN Reason Stop Dose Admin Alprazolam 2 mg 05/12/18 09:35 05/12/18 21:40 Xanax PO 2 mg QID PRN Administration Anxiety Aspirin 81 mg 05/12/18 10:00 05/13/18 09:06 Aspirin Chewable PO 81 mg DAILY MALENA Administration Atorvastatin Calcium 40 mg 05/12/18 17:00 05/12/18 17:54 Lipitor PO 40 mg DIN MALENA Administration Chlorpromazine 100 mg 05/12/18 18:00 05/13/18 09:05 Thorazine PO 100 mg BID MALENA Administration Protocol Clopidogrel Bisulfate 75 mg 05/13/18 10:00 05/13/18 09:05 Plavix PO 75 mg DAILY MALENA Administration Divalproex Sodium 500 mg 05/13/18 18:[address](*Bid*) PO BID MALENA Haloperidol 5 mg 05/12/18 18:00 05/13/18 09:05 Haldol PO 5 mg BID MALENA Administration Protocol Piperacillin Sod/Tazobactam Sod 100 mls @ 200 mls/hr 05/12/18 12:00 05/13/18 12:02 Zosyn 3.375 In Ns 100ml IVPB 05/21/18 12:01 200 mls/hr Q6 MALENA Administration Protocol Insulin Detemir 8 unit 05/13/18 10:00 05/13/18 11:01 Levemir SC 8 u QAM MALENA Administration Insulin Human Regular 0 units 05/12/18 22:00 05/13/18 11:39 Humulin R Med SC 5 u ACHS MALENA Administration Protocol Lisinopril 10 mg 05/13/18 09:28 05/13/18 11:11 Zestril PO 10 mg DAILY MALENA Administration Oxycodone HCl 15 mg 05/12/18 10:00 05/13/18 09:05 Oxycodone Immediate Release Tab PO 15 mg QID MALENA Administration Pantoprazole Sodium 40 mg 05/13/18 07:30 05/13/18 07:46 Protonix Ec Tab PO 40 mg ACB MALENA Administration Paroxetine HCl 40 mg 05/12/18 10:00 05/13/18 11:06 Paxil PO 40 mg DAILY MALENA Administration - Patient Studies Lab Studies: Microbiology Studies 05/12/18 04:40 Urine Culture - Final Urine No Growth (<1,000 CFU/ML) 05/12/18 00:45 Blood Culture - Preliminary Blood NO GROWTH AFTER 24 HOURS 05/12/18 00:30 Blood Culture - Preliminary Blood NO GROWTH AFTER 24 HOURS Lab Studies 05/13/18 05/13/18 05/13/18 Range/Units 11:16 07:28 05:05 WBC 7.3 D (4.5-11.0) 10^3/ul RBC 4.66 (3.5-6.1) 10^6/uL Hgb 14.8 (14.0-18.0) g/dL Hct 41.7 L (42.0-52.0) % MCV 89.5 (80.0-105.0) fl MCH 31.8 (25.0-35.0) pg MCHC 35.5 (31.0-37.0) g/dl RDW 12.4 (11.5-14.5) % Plt Count 181 (120.0-450.0) 10^3/uL MPV 10.8 (7.0-11.0) fl Gran % 58.4 (50.0-68.0) % Lymph % (Auto) 33.1 (22.0-35.0) % [place] % (Auto) 6.3 H (1.0-6.0) % Eos % (Auto) 1.8 (1.5-5.0) % Baso % (Auto) 0.4 (0.0-3.0) % Gran # 4.25 (1.4-6.5) Lymph # (Auto) 2.4 (1.2-3.4) [place] # (Auto) 0.5 (0.1-0.6) Eos # (Auto) 0.1 (0.0-0.7) Baso # (Auto) 0.03 (0.0-2.0) K/mm3 APTT (25.1-36.5) Seconds Sodium (132-148) mmol/L Potassium (3.6-5.0) mmol/L Chloride (98-107) mmol/L Carbon Dioxide (21-33) mmol/L Anion Gap (10-20) BUN (7-21) mg/dL Creatinine (0.8-1.5) mg/dl Est GFR ( Amer) Est GFR (Non-Af Amer) POC Glucose (mg/dL) 297 H 159 H (65-110) mg/dL Random Glucose (70-110) mg/dL Hemoglobin A1c (4.2-6.5) % Calcium (8.4-10.5) mg/dL Total Bilirubin (0.2-1.3) mg/dL AST (17-59) U/L ALT (7-56) U/L Alkaline Phosphatase (38-126) U/L Total Protein (5.8-8.3) g/dL Albumin (3.0-4.8) g/dL Globulin gm/dL Albumin/Globulin Ratio (1.1-1.8) 05/13/18 05/12/18 05/12/18 Range/Units 05:05 21:52 16:34 WBC (4.5-11.0) 10^3/ul RBC (3.5-6.1) 10^6/uL Hgb (14.0-18.0) g/dL Hct (42.0-52.0) % MCV (80.0-105.0) fl MCH (25.0-35.0) pg MCHC (31.0-37.0) g/dl RDW (11.5-14.5) % Plt Count (120.0-450.0) 10^3/uL MPV (7.0-11.0) fl Gran % (50.0-68.0) % Lymph % (Auto) (22.0-35.0) % [place] % (Auto) (1.0-6.0) % Eos % (Auto) (1.5-5.0) % Baso % (Auto) (0.0-3.0) % Gran # (1.4-6.5) Lymph # (Auto) (1.2-3.4) [place] # (Auto) (0.1-0.6) Eos # (Auto) (0.0-0.7) Baso # (Auto) (0.0-2.0) K/mm3 APTT (25.1-36.5) Seconds Sodium 139 (132-148) mmol/L Potassium 4.1 (3.6-5.0) mmol/L Chloride 105 (98-107) mmol/L Carbon Dioxide 25 (21-33) mmol/L Anion Gap 14 (10-20) BUN 13 (7-21) mg/dL Creatinine 0.8 (0.8-1.5) mg/dl Est GFR ( Amer) > 60 Est GFR (Non-Af Amer) > 60 POC Glucose (mg/dL) 217 H 313 H (65-110) mg/dL Random Glucose 162 H (70-110) mg/dL Hemoglobin A1c (4.2-6.5) % Calcium 8.4 (8.4-10.5) mg/dL Total Bilirubin 0.6 (0.2-1.3) mg/dL AST 15 L D (17-59) U/L ALT 29 (7-56) U/L Alkaline Phosphatase 68 (38-126) U/L Total Protein 5.7 L (5.8-8.3) g/dL Albumin 3.2 (3.0-4.8) g/dL Globulin 2.5 gm/dL Albumin/Globulin Ratio 1.3 (1.1-1.8) 05/12/18 05/12/18 05/12/18 Range/Units 15:00 15:00 13:38 WBC (4.5-11.0) 10^3/ul RBC (3.5-6.1) 10^6/uL Hgb (14.0-18.0) g/dL Hct (42.0-52.0) % MCV (80.0-105.0) fl MCH (25.0-35.0) pg MCHC (31.0-37.0) g/dl RDW (11.5-14.5) % Plt Count (120.0-450.0) 10^3/uL MPV (7.0-11.0) fl Gran % (50.0-68.0) % Lymph % (Auto) (22.0-35.0) % [place] % (Auto) (1.0-6.0) % Eos % (Auto) (1.5-5.0) % Baso % (Auto) (0.0-3.0) % Gran # (1.4-6.5) Lymph # (Auto) (1.2-3.4) [place] # (Auto) (0.1-0.6) Eos # (Auto) (0.0-0.7) Baso # (Auto) (0.0-2.0) K/mm3 APTT 35.1 (25.1-36.5) Seconds Sodium 135 (132-148) mmol/L Potassium 5.0 (3.6-5.0) mmol/L Chloride 105 (98-107) mmol/L Carbon Dioxide 22 (21-33) mmol/L Anion Gap 13 (10-20) BUN 12 (7-21) mg/dL Creatinine 0.7 L (0.8-1.5) mg/dl Est GFR ( Amer) > 60 Est GFR (Non-Af Amer) > 60 POC Glucose (mg/dL) 240 H (65-110) mg/dL Random Glucose 251 H (70-110) mg/dL Hemoglobin A1c (4.2-6.5) % Calcium 8.0 L (8.4-10.5) mg/dL Total Bilirubin 0.8 (0.2-1.3) mg/dL AST 21 (17-59) U/L ALT 29 (7-56) U/L Alkaline Phosphatase 80 (38-126) U/L Total Protein 5.7 L (5.8-8.3) g/dL Albumin 3.2 (3.0-4.8) g/dL Globulin 2.5 gm/dL Albumin/Globulin Ratio 1.3 (1.1-1.8) 05/12/18 Range/Units 04:30 WBC (4.5-11.0) 10^3/ul RBC (3.5-6.1) 10^6/uL Hgb (14.0-18.0) g/dL Hct (42.0-52.0) % MCV (80.0-105.0) fl MCH (25.0-35.0) pg MCHC (31.0-37.0) g/dl RDW (11.5-14.5) % Plt Count (120.0-450.0) 10^3/uL MPV (7.0-11.0) fl Gran % (50.0-68.0) % Lymph % (Auto) (22.0-35.0) % [place] % (Auto) (1.0-6.0) % Eos % (Auto) (1.5-5.0) % Baso % (Auto) (0.0-3.0) % Gran # (1.4-6.5) Lymph # (Auto) (1.2-3.4) [place] # (Auto) (0.1-0.6) Eos # (Auto) (0.0-0.7) Baso # (Auto) (0.0-2.0) K/mm3 APTT (25.1-36.5) Seconds Sodium (132-148) mmol/L Potassium (3.6-5.0) mmol/L Chloride (98-107) mmol/L Carbon Dioxide (21-33) mmol/L Anion Gap (10-20) BUN (7-21) mg/dL Creatinine (0.8-1.5) mg/dl Est GFR ( Amer) Est GFR (Non-Af Amer) POC Glucose (mg/dL) (65-110) mg/dL Random Glucose (70-110) mg/dL Hemoglobin A1c 9.5 H (4.2-6.5) % Calcium (8.4-10.5) mg/dL Total Bilirubin (0.2-1.3) mg/dL AST (17-59) U/L ALT (7-56) U/L Alkaline Phosphatase (38-126) U/L Total Protein (5.8-8.3) g/dL Albumin (3.0-4.8) g/dL Globulin gm/dL Albumin/Globulin Ratio (1.1-1.8) Laboratory Results - last 24 hr 05/12/18 05/12/18 05/12/18 04:30 13:38 15:00 WBC RBC Hgb Hct MCV MCH MCHC RDW Plt Count MPV Gran % Lymph % (Auto) [place] % (Auto) Eos % (Auto) Baso % (Auto) Gran # Lymph # (Auto) [place] # (Auto) Eos # (Auto) Baso # (Auto) APTT Sodium 135 Potassium 5.0 Chloride 105 Carbon Dioxide 22 Anion Gap 13 BUN 12 Creatinine 0.7 L Est GFR ( Amer) > 60 Est GFR (Non-Af Amer) > 60 POC Glucose (mg/dL) 240 H Random Glucose 251 H Hemoglobin A1c 9.5 H Calcium 8.0 L Total Bilirubin 0.8 AST 21 ALT 29 Alkaline Phosphatase 80 Total Protein 5.7 L Albumin 3.2 Globulin 2.5 Albumin/Globulin Ratio 1.3 05/12/18 05/12/18 05/12/18 15:00 16:34 21:52 WBC RBC Hgb Hct MCV MCH MCHC RDW Plt Count MPV Gran % Lymph % (Auto) [place] % (Auto) Eos % (Auto) Baso % (Auto) Gran # Lymph # (Auto) [place] # (Auto) Eos # (Auto) Baso # (Auto) APTT 35.1 Sodium Potassium Chloride Carbon Dioxide Anion Gap BUN Creatinine Est GFR ( Amer) Est GFR (Non-Af Amer) POC Glucose (mg/dL) 313 H 217 H Random Glucose Hemoglobin A1c Calcium Total Bilirubin AST ALT Alkaline Phosphatase Total Protein Albumin Globulin Albumin/Globulin Ratio 05/13/18 05/13/18 05/13/18 05:05 05:05 07:28 WBC 7.3 D RBC 4.66 Hgb 14.8 Hct 41.7 L MCV 89.5 MCH 31.8 MCHC 35.5 RDW 12.4 Plt Count 181 MPV 10.8 Gran % 58.4 Lymph % (Auto) 33.1 [place] % (Auto) 6.3 H Eos % (Auto) 1.8 Baso % (Auto) 0.4 Gran # 4.25 Lymph # (Auto) 2.4 [place] # (Auto) 0.5 Eos # (Auto) 0.1 Baso # (Auto) 0.03 APTT Sodium 139 Potassium 4.1 Chloride 105 Carbon Dioxide 25 Anion Gap 14 BUN 13 Creatinine 0.8 Est GFR ( Amer) > 60 Est GFR (Non-Af Amer) > 60 POC Glucose (mg/dL) 159 H Random Glucose 162 H Hemoglobin A1c Calcium 8.4 Total Bilirubin 0.6 AST 15 L D ALT 29 Alkaline Phosphatase 68 Total Protein 5.7 L Albumin 3.2 Globulin 2.5 Albumin/Globulin Ratio 1.3 05/13/18 11:16 WBC RBC Hgb Hct MCV MCH MCHC RDW Plt Count MPV Gran % Lymph % (Auto) [place] % (Auto) Eos % (Auto) Baso % (Auto) Gran # Lymph # (Auto) [place] # (Auto) Eos # (Auto) Baso # (Auto) APTT Sodium Potassium Chloride Carbon Dioxide Anion Gap BUN Creatinine Est GFR ( Amer) Est GFR (Non-Af Amer) POC Glucose (mg/dL) 297 H Random Glucose Hemoglobin A1c Calcium Total Bilirubin AST ALT Alkaline Phosphatase Total Protein Albumin Globulin Albumin/Globulin Ratio EKG/Cardiology Studies: Cardiology / EKG Studies 05/12/18 13:24 ELECTROCARDIOGRAM Urgent Comment: 12 lead EKG upon arrival in unit Reason For Exam: post ptca 05/13/18 13:30 ELECTROCARDIOGRAM DAILY Comment: Reason For Exam: chest pain Fingerstick Blood Sugar Results: 297 Review of Systems - Review of Systems All systems: reviewed and no additional remarkable complaints except (as per HPI ) Critical Care Progress Note - Extremities/Vascular Does the Patient have a Central Venous Catheter?: No Does the Patient need a Central Venous Catheter?: No Does the Patient have a Bocanegra Catheter?: No Does the Patient need a Bocanegra Catheter?: No - Prophylaxis GI Prophylaxis GI: PPI - Prophylaxis DVT Prophylaxis DVT: Ambulatory - Nutrition Nutrition: Nutrition Category Date Time Status Heart Healthy Diet [DIET] Diets 05/12/18 Lunch Active Assessment/Plan - Assessment and Plan (Free Text) Assessment: Patient is a 48 y/o M with PMHx of bipolar disorder, anxiety, psychosis, vertigo , TIA, HTN, COPD, Asthma, Arthritis, DJD who presented to the ED for dizziness s /p fall x2. Upon admission, patient was under suspicion of DKA but Anion Gap resolved upon initiation of insulin gtt. Patient was also hypotensive on admission but was responsive to fluid resuscitation. Patient was also found to have elevated troponin levels and mild inferior lead ST elevation on EKG - as per Cardio (Dr. Zapien), recommended beta gisella, ASA, and heparin gtt since patient wasn't having active chest pain. Patient was admitted to ICU for DKA management, which resolved; patient now on ISS. Patient was loaded with Plavix and ASA and underwent cardiac cath procedure which indicated RCA occlusion. Patient received stent placement at the [facility]. 24 hours post-op, patient has been doing better and is ready for transfer to telemetry, as per Cardiology. Plan: Neuro: - EEG done (05/12/18): epileptic discharge of L-Parietal lobe - Neuro consulted, recs appreciated - CT Head (05/11): negative for acute hemorrhage Pulm: - Maintain O2Sat > 95% Cardio: - RCA occlusion - s/p PCI with stent placement (05/12) - Inferior Lead ST elevation on EKG - started on statin, ASA, Plavix, Lisinopril; should also be on BB post ACS - f/u cardio recs (Dr. Zapien) - A1C result: 9.5 - Transfer to telemetry GI: - GI ppx - Diet: HHD (carb consistent) Renal: - replete lytes as needed - should hold Meformin post cath for 3 days Heme: - pt is ambulatory not requiring DVT ppx - c/w ASA/Plavix per cardio recs ID: SIRS criteria met - ID consulted, recs appreciated - c/w vanco/zosyn - CXR (05/11): negative for infiltrates Endo: - DKA resolved - AG closed - urine ketones negative (after fluid resuscitation) - Maintain euglycemia - Accuchecks - ISS Psych: - c/w home meds: Haldol, Paxil, Thorazine Dispo: Patient is doing well after Cardiac Cath on 05/12. Patient is stable and medically safe to transfer to telemetry. Case was reviewed and discussed with Attending Physician - Dr. Hensley <Damian Hensley - Last Filed: 05/13/18 17:00> CCU Objective - Vital Signs / Intake & Output Intake and Output (Last 8hrs): Intake & Output 05/13/18 05/13/18 05/13/18 06:59 14:59 22:59 Intake Total 860 Output Total 1500 Balance -640 Weight 220 lb Intake: Oral 410 Other 450 Output: Urine 1500 Urine, Voided 1500 - Medications Active Medications: Active Medications Generic Name Dose Route Start Last Admin Trade Name Freq PRN Reason Stop Dose Admin Alprazolam 2 mg 05/12/18 09:35 05/12/18 21:40 Xanax PO 2 mg QID PRN Administration Anxiety Aspirin 81 mg 05/12/18 10:00 05/13/18 09:06 Aspirin Chewable PO 81 mg DAILY MALENA Administration Atorvastatin Calcium 40 mg 05/12/18 17:00 05/12/18 17:54 Lipitor PO 40 mg DIN MALENA Administration Chlorpromazine 100 mg 05/12/18 18:00 05/13/18 09:05 Thorazine PO 100 mg BID MALENA Administration Protocol Clopidogrel Bisulfate 75 mg 05/13/18 10:00 05/13/18 09:05 Plavix PO 75 mg DAILY MALENA Administration Divalproex Sodium 500 mg 05/13/18 18:[address](*Bid*) PO BID MALENA Haloperidol 5 mg 05/12/18 18:00 05/13/18 09:05 Haldol PO 5 mg BID MALENA Administration Protocol Piperacillin Sod/Tazobactam Sod 100 mls @ 200 mls/hr 05/12/18 12:00 05/13/18 12:02 Zosyn 3.375 In Ns 100ml IVPB 05/21/18 12:01 200 mls/hr Q6 MALENA Administration Protocol Insulin Detemir 8 unit 05/13/18 10:00 05/13/18 11:01 Levemir SC 8 u QAM MALENA Administration Insulin Human Regular 0 units 05/12/18 22:00 05/13/18 11:39 Humulin R Med SC 5 u ACHS [facility] Administration Protocol Lisinopril 10 mg 05/13/18 09:28 05/13/18 11:11 Zestril PO 10 mg DAILY MALENA Administration Oxycodone HCl 15 mg 05/12/18 10:00 05/13/18 15:17 Oxycodone Immediate Release Tab PO 15 mg QID MALENA Administration Pantoprazole Sodium 40 mg 05/13/18 07:30 05/13/18 07:46 Protonix Ec Tab PO 40 mg ACB MALENA Administration Paroxetine HCl 40 mg 05/12/18 10:00 05/13/18 11:06 Paxil PO 40 mg DAILY MALENA Administration - Patient Studies Lab Studies: Microbiology Studies 05/12/18 12:00 MRSA Culture (Admit) - Final Naris MRSA NOT DETECTED 05/12/18 04:40 Urine Culture - Final Urine No Growth (<1,000 CFU/ML) 05/12/18 00:45 Blood Culture - Preliminary Blood NO GROWTH AFTER 24 HOURS 05/12/18 00:30 Blood Culture - Preliminary Blood NO GROWTH AFTER 24 HOURS Lab Studies 05/13/18 05/13/18 05/13/18 Range/Units 11:16 07:28 05:05 WBC 7.3 D (4.5-11.0) 10^3/ul RBC 4.66 (3.5-6.1) 10^6/uL Hgb 14.8 (14.0-18.0) g/dL Hct 41.7 L (42.0-52.0) % MCV 89.5 (80.0-105.0) fl MCH 31.8 (25.0-35.0) pg MCHC 35.5 (31.0-37.0) g/dl RDW 12.4 (11.5-14.5) % Plt Count 181 (120.0-450.0) 10^3/uL MPV 10.8 (7.0-11.0) fl Gran % 58.4 (50.0-68.0) % Lymph % (Auto) 33.1 (22.0-35.0) % [place] % (Auto) 6.3 H (1.0-6.0) % Eos % (Auto) 1.8 (1.5-5.0) % Baso % (Auto) 0.4 (0.0-3.0) % Gran # 4.25 (1.4-6.5) Lymph # (Auto) 2.4 (1.2-3.4) [place] # (Auto) 0.5 (0.1-0.6) Eos # (Auto) 0.1 (0.0-0.7) Baso # (Auto) 0.03 (0.0-2.0) K/mm3 Sodium (132-148) mmol/L Potassium (3.6-5.0) mmol/L Chloride (98-107) mmol/L Carbon Dioxide (21-33) mmol/L Anion Gap (10-20) BUN (7-21) mg/dL Creatinine (0.8-1.5) mg/dl Est GFR ( Amer) Est GFR (Non-Af Amer) POC Glucose (mg/dL) 297 H 159 H (65-110) mg/dL Random Glucose (70-110) mg/dL Calcium (8.4-10.5) mg/dL Total Bilirubin (0.2-1.3) mg/dL AST (17-59) U/L ALT (7-56) U/L Alkaline Phosphatase (38-126) U/L Total Protein (5.8-8.3) g/dL Albumin (3.0-4.8) g/dL Globulin gm/dL Albumin/Globulin Ratio (1.1-1.8) 05/13/18 05/12/18 05/12/18 Range/Units 05:05 21:52 16:34 WBC (4.5-11.0) 10^3/ul RBC (3.5-6.1) 10^6/uL Hgb (14.0-18.0) g/dL Hct (42.0-52.0) % MCV (80.0-105.0) fl MCH (25.0-35.0) pg MCHC (31.0-37.0) g/dl RDW (11.5-14.5) % Plt Count (120.0-450.0) 10^3/uL MPV (7.0-11.0) fl Gran % (50.0-68.0) % Lymph % (Auto) (22.0-35.0) % [place] % (Auto) (1.0-6.0) % Eos % (Auto) (1.5-5.0) % Baso % (Auto) (0.0-3.0) % Gran # (1.4-6.5) Lymph # (Auto) (1.2-3.4) [place] # (Auto) (0.1-0.6) Eos # (Auto) (0.0-0.7) Baso # (Auto) (0.0-2.0) K/mm3 Sodium 139 (132-148) mmol/L Potassium 4.1 (3.6-5.0) mmol/L Chloride 105 (98-107) mmol/L Carbon Dioxide 25 (21-33) mmol/L Anion Gap 14 (10-20) BUN 13 (7-21) mg/dL Creatinine 0.8 (0.8-1.5) mg/dl Est GFR ( Amer) > 60 Est GFR (Non-Af Amer) > 60 POC Glucose (mg/dL) 217 H 313 H (65-110) mg/dL Random Glucose 162 H (70-110) mg/dL Calcium 8.4 (8.4-10.5) mg/dL Total Bilirubin 0.6 (0.2-1.3) mg/dL AST 15 L D (17-59) U/L ALT 29 (7-56) U/L Alkaline Phosphatase 68 (38-126) U/L Total Protein 5.7 L (5.8-8.3) g/dL Albumin 3.2 (3.0-4.8) g/dL Globulin 2.5 gm/dL Albumin/Globulin Ratio 1.3 (1.1-1.8) Laboratory Results - last 24 hr 05/12/18 05/12/18 05/13/18 16:34 21:52 05:05 WBC RBC Hgb Hct MCV MCH MCHC RDW Plt Count MPV Gran % Lymph % (Auto) [place] % (Auto) Eos % (Auto) Baso % (Auto) Gran # Lymph # (Auto) [place] # (Auto) Eos # (Auto) Baso # (Auto) Sodium 139 Potassium 4.1 Chloride 105 Carbon Dioxide 25 Anion Gap 14 BUN 13 Creatinine 0.8 Est GFR ( Amer) > 60 Est GFR (Non-Af Amer) > 60 POC Glucose (mg/dL) 313 H 217 H Random Glucose 162 H Calcium 8.4 Total Bilirubin 0.6 AST 15 L D ALT 29 Alkaline Phosphatase 68 Total Protein 5.7 L Albumin 3.2 Globulin 2.5 Albumin/Globulin Ratio 1.3 05/13/18 05/13/18 05/13/18 05:05 07:28 11:16 WBC 7.3 D RBC 4.66 Hgb 14.8 Hct 41.7 L MCV 89.5 MCH 31.8 MCHC 35.5 RDW 12.4 Plt Count 181 MPV 10.8 Gran % 58.4 Lymph % (Auto) 33.1 [place] % (Auto) 6.3 H Eos % (Auto) 1.8 Baso % (Auto) 0.4 Gran # 4.25 Lymph # (Auto) 2.4 [place] # (Auto) 0.5 Eos # (Auto) 0.1 Baso # (Auto) 0.03 Sodium Potassium Chloride Carbon Dioxide Anion Gap BUN Creatinine Est GFR ( Amer) Est GFR (Non-Af Amer) POC Glucose (mg/dL) 159 H 297 H Random Glucose Calcium Total Bilirubin AST ALT Alkaline Phosphatase Total Protein Albumin Globulin Albumin/Globulin Ratio EKG/Cardiology Studies: Cardiology / EKG Studies 05/13/18 13:30 ELECTROCARDIOGRAM DAILY Comment: Reason For Exam: chest pain Critical Care Progress Note - Nutrition Nutrition: Nutrition Category Date Time Status Heart Healthy Diet [DIET] Diets 05/12/18 Lunch Active Attending/Attestation - Attestation I have personally seen and examined this patient.: Yes I have fully participated in the care of the patient.: Yes I have reviewed all pertinent clinical information: Yes Notes (Text): 05/13/18 16:59 48 yo with STEMI, s/p stent. Hemodynamically and respiratory man stable, DAP, statins, bb-ers, ACEI. Ok to downgrade to tele ccm time 40 min
--- NOTE | 2018-05-13 13:48 | CP.PCM.PN ---
<Julio Echavarria - Last Filed: 05/13/18 15:44> Subjective - Date & Time of Evaluation Date of Evaluation: 05/13/18 Time of Evaluation: 13:36 - Subjective Subjective: Julio Echavarria D.O. PGY 1 - Internal Medicine Resident - Medicine Progress Note Patient was seen this AM at bedside in ICU. Pt underwent cardiac cath yesterday ; tolerating well after procedure. No acute events reported overnight. Patient denied any blurry vision, dizziness, chest pain, palp, seizure like activity, or syncopal episodes overnight. Pt. voicing no complaints at time of evaluation. 12 point ROS negative. Objective - Vital Signs/Intake and Output Vital Signs (last 24 hours): Temp Pulse Resp BP Pulse Ox 98.5 F 74 18 102/65 98 05/13/18 12:00 05/13/18 12:00 05/13/18 12:00 05/13/18 12:00 05/12/18 15:40 Intake and Output: 05/13/18 05/13/18 06:59 18:59 Intake Total 860 Output Total 1500 Balance -640 - Medications Medications: Current Medications Alprazolam (Xanax) 2 mg PO QID PRN PRN Reason: Anxiety Last Admin: 05/12/18 21:40 Dose: 2 mg Aspirin (Aspirin Chewable) 81 mg PO DAILY [facility] Last Admin: 05/13/18 09:06 Dose: 81 mg Atorvastatin Calcium (Lipitor) 40 mg PO DIN [facility] Last Admin: 05/12/18 17:54 Dose: 40 mg Chlorpromazine (Thorazine) 100 mg PO BID [facility] PRN Reason: Protocol Last Admin: 05/13/18 09:05 Dose: 100 mg Clopidogrel Bisulfate (Plavix) 75 mg PO DAILY [facility] Last Admin: 05/13/18 09:05 Dose: 75 mg Divalproex Sodium (Depakote Dr(*Bid*)) 500 mg PO BID [facility] Haloperidol (Haldol) 5 mg PO BID [facility] PRN Reason: Protocol Last Admin: 05/13/18 09:05 Dose: 5 mg Piperacillin Sod/Tazobactam Sod (Zosyn 3.375 In Ns 100ml) 100 mls @ 200 mls/hr IVPB Q6 [facility] PRN Reason: Protocol Stop: 05/21/18 12:01 Last Admin: 05/13/18 12:02 Dose: 200 mls/hr Insulin Detemir (Levemir) 8 unit SC QAM [facility] Last Admin: 05/13/18 11:01 Dose: 8 u Insulin Human Regular (Humulin R Med) 0 units SC ACHS [facility] PRN Reason: Protocol Last Admin: 05/13/18 11:39 Dose: 5 u Lisinopril (Zestril) 10 mg PO DAILY [facility] Last Admin: 05/13/18 11:11 Dose: 10 mg Oxycodone HCl (Oxycodone Immediate Release Tab) 15 mg PO QID [facility] Last Admin: 05/13/18 09:05 Dose: 15 mg Pantoprazole Sodium (Protonix Ec Tab) 40 mg PO ACB [facility] Last Admin: 05/13/18 07:46 Dose: 40 mg Paroxetine HCl (Paxil) 40 mg PO DAILY [facility] Last Admin: 05/13/18 11:06 Dose: 40 mg - Labs Labs: 05/13/18 05:05 05/13/18 05:05 PT 11.3 SECONDS (9.4-12.5) 05/11/18 18:43 INR 0.99 (0.93-1.08) 05/11/18 18:43 APTT 35.1 Seconds (25.1-36.5) 05/12/18 15:00 - Constitutional Appears: Well, No Acute Distress - Head Exam Head Exam: NORMAL INSPECTION, NORMOCEPHALIC - Eye Exam Eye Exam: EOMI, PERRL - ENT Exam ENT Exam: Mucous Membranes Moist, Normal Exam - Respiratory Exam Respiratory Exam: Clear to Ausculation Bilateral, NORMAL BREATHING PATTERN. absent: Rhonchi, Wheezes, Respiratory Distress - Cardiovascular Exam Cardiovascular Exam: REGULAR RHYTHM, +S1, +S2. absent: Murmur - GI/Abdominal Exam GI & Abdominal Exam: Soft, Normal Bowel Sounds. absent: Tenderness - Extremities Exam Extremities Exam: absent: Tenderness Additional comments: 2+ PT/ DP BL - Neurological Exam Neurological Exam: Alert, Awake, Oriented x3 - Skin Skin Exam: Dry, Intact, Warm Assessment and Plan - Assessment and Plan (Free Text) Assessment: Pt. is a 48M w/ a PMH of DM, HTN, Obstructive airway disease, depressive disorder, anxiety, and psychosis presenting w/ near syncopal episode and x2 falls prior to admission. On admission pt was found to have DKA, and met sepsis criteria. Further workup revealing inf wall STEMI, and abnormal discharges on EEG. DKA anion gap has now closed, sepsis workup started, pt is now post PCI w/ placement of drug eluting stent in the [facility] [place] on 05/12. Pt transferred from ICU to tele on 7/ AM. Plan: DKA Anion gap 21 on admission; now closed Glucose 572 on admission; POC range in last 24H 159-313 17U insulin administered within first 24 hours Cont on Levemir 8 QD Cont on ISS Moderate A1C 9.5 Hold PO antiglycemics Pre-Syncopal Episode Hypovolemic vs. Cardiogenic vs Neurogenic Pt. denies loss of consciousness 03/2018 Carotid US has no significant stenosis EKG w/ sinus tach and elevated inferior leads; no rhythm abnl appreciated Orthostatics pending Neurology Following appreciate reccs Hx Seizure Head CT w/ no acute intracranial abnormalities MRI Brain ordered; scheduled for tomorrow Cont Depakote 500mg BID Neurology Following appreciate reccs STEMI 1mm ST elevations on admission in R INF leads Pt initially managed with a heparin drip S/p R heart cath w/ drug eluting stent to the [facility] [place] Lisinopril 10/Lipitor 40 /ASA 81/ Plavix 75/ Transfer to tele from ICU as per cardiology Cardiology Following appreciate reccs NEEL Score - 1 Sepsis Hypotensive and tachy on admission; lactate on admission 3.5 3L bolus; and IVF in first 14H VSS now; Afebrile Blood Cx negative x2 in 24H Curine Cx negative in 24H Vancomycin DC'd as per ID Cont. Zosyn Day 2 ID Following Appreciate reccs Hx HTN Hold HTN RX Hx Pysch Alprazolam Chlorpromazine Haldol Paroxetine DIET: Heart Healthy Diet DISPO: Patient transferred to telemetry today as per cardiology; dispo placement pending PT Eval once medically stable PROPHYLAXIS: Protonix SCD Patient is to follow up w/ PMD Dr. Patsy Campbell post discharge. Case discussed w/ attending Dr. Maureen Echavarria PGY1 <Iraj Reddy - Last Filed: 05/13/18 15:53> Objective - Vital Signs/Intake and Output Vital Signs (last 24 hours): Temp Pulse Resp BP Pulse Ox 98.5 F 74 18 102/65 98 05/13/18 12:00 05/13/18 12:00 05/13/18 12:00 05/13/18 12:00 05/12/18 15:40 Intake and Output: 05/13/18 05/13/18 06:59 18:59 Intake Total 860 Output Total 1500 Balance -640 - Medications Medications: Current Medications Alprazolam (Xanax) 2 mg PO QID PRN PRN Reason: Anxiety Last Admin: 05/12/18 21:40 Dose: 2 mg Aspirin (Aspirin Chewable) 81 mg PO DAILY [facility] Last Admin: 05/13/18 09:06 Dose: 81 mg Atorvastatin Calcium (Lipitor) 40 mg PO DIN [facility] Last Admin: 05/12/18 17:54 Dose: 40 mg Chlorpromazine (Thorazine) 100 mg PO BID [facility] PRN Reason: Protocol Last Admin: 05/13/18 09:05 Dose: 100 mg Clopidogrel Bisulfate (Plavix) 75 mg PO DAILY [facility] Last Admin: 05/13/18 09:05 Dose: 75 mg Divalproex Sodium (Depakote Dr(*Bid*)) 500 mg PO BID [facility] Haloperidol (Haldol) 5 mg PO BID [facility] PRN Reason: Protocol Last Admin: 05/13/18 09:05 Dose: 5 mg Piperacillin Sod/Tazobactam Sod (Zosyn 3.375 In Ns 100ml) 100 mls @ 200 mls/hr IVPB Q6 [facility] PRN Reason: Protocol Stop: 05/21/18 12:01 Last Admin: 05/13/18 12:02 Dose: 200 mls/hr Insulin Detemir (Levemir) 8 unit SC QAM [facility] Last Admin: 05/13/18 11:01 Dose: 8 u Insulin Human Regular (Humulin R Med) 0 units SC ACHS [facility] PRN Reason: Protocol Last Admin: 05/13/18 11:39 Dose: 5 u Lisinopril (Zestril) 10 mg PO DAILY [facility] Last Admin: 05/13/18 11:11 Dose: 10 mg Oxycodone HCl (Oxycodone Immediate Release Tab) 15 mg PO QID [facility] Last Admin: 05/13/18 15:17 Dose: 15 mg Pantoprazole Sodium (Protonix Ec Tab) 40 mg PO ACB [facility] Last Admin: 05/13/18 07:46 Dose: 40 mg Paroxetine HCl (Paxil) 40 mg PO DAILY [facility] Last Admin: 05/13/18 11:06 Dose: 40 mg - Labs Labs: 05/13/18 05:05 05/13/18 05:05 PT 11.3 SECONDS (9.4-12.5) 05/11/18 18:43 INR 0.99 (0.93-1.08) 05/11/18 18:43 APTT 35.1 Seconds (25.1-36.5) 05/12/18 15:00 Attending/Attestation - Attestation I have personally seen and examined this patient.: Yes I have fully participated in the care of the patient.: Yes I have reviewed all pertinent clinical information, including history, physical exam and plan: Yes Notes (Text): 05/13/18 15:50 48 year old male with past medical history of diabetes and hypertension who presented with complaint of dizziness and near syncope. He was found to have DKA, NSTEMI, lactic acidosis and SIRS with possible sepsis and admitted to the ICU. Anion gap has closed and insulin drip was discontinued. A1c is 9.5 and patient was started on levemir. Metformin and januvia were discontinued. Cardiology evaluation was appreciated and patient underwent cardiac cath with RCA stent placement. He is on aspirin, plavix, statin and lisinopril. Echocardiogram was reviewed. CT head was negative. EEG was reviewed as abnormal. Patient is on depakote. Neurology is following the patient. PT evaluation is pending. He is on empiric antibiotics. Consider de-escalating antibiotics as cultures are negative to date. Will follow up with ID recommendations. Iraj Reddy MD Hospitalist.
[2018-05-13] MEDS ORDERED: Divalproex 500 mg DR(BID formulation) PO ONE (16:00)
[2018-05-13] MEDS: Divalproex 500 mg DR(BID formulation) PO SCH (17:07)
[2018-05-13] MEDS ORDERED: Insulin Detemir 100 units/ml Vial (Levemir) SC SCH (17:15)
[2018-05-14] MEDS: Piperacillin/Tazobact 3.375 gm 100 ML IVPB SCH ×2 (00:08→06:18)
[2018-05-14 06:42] VITALS: O2SAT 98
[2018-05-14 07:34] LABS: BASO # 0.02 K/mm3 (0.0-2.0); BASO % 0.3 % (0.0-3.0); EOS # 0.2 (0.0-0.7); EOS % 2.6 % (1.5-5.0); GRAN # 3.58 (1.4-6.5); GRAN % 55.4 % (50.0-68.0); HEMOGLOBIN 14.8 g/dL (14.0-18.0); LYMPH # 2.3 (1.2-3.4); LYMPH % 35.7 % (22.0-35.0); MEAN CELL VOLUME 90.6 fl (80.0-105.0); MEAN CORPUSCULAR HEMOGLOBIN 31.5 pg (25.0-35.0); MEAN CORPUSCULAR HGB CONC 34.7 g/dl (31.0-37.0); MEAN PLATELET VOLUME 10.6 fl (7.0-11.0); MONO # 0.4 (0.1-0.6); RBC 4.7 10^6/uL (3.5-6.1); RED CELL DISTRIBUTION WIDTH 12.3 % (11.5-14.5); WHITE BLOOD COUNT 6.5 10^3/ul (4.5-11.0)
[2018-05-14 07:53] LABS: ALB/GLOB RATIO 1.3 (1.1-1.8); ALBUMIN 3.3 g/dL (3.0-4.8); ALT/SGPT 31 U/L (7-56); AST/SGOT 14 U/L (17-59); BLOOD UREA NITROGEN 17 mg/dL (7-21); CALCIUM 8.8 mg/dL (8.4-10.5); GFR AFRICAN-AMERICAN > 60; GFR NON-AFRICAN AMERICAN > 60
--- NOTE | 2018-05-14 08:06 | CON ---
DATE: 05/11/2018 CARDIOLOGY CONSULTATION: HISTORY: The patient is a 48-year-old male with a history of bipolar disease, who presents with an episode of dizziness 1 week ago. He presented to the emergency room with dizziness. EKG shows suggestions of an inferior wall ischemia versus infarct. Because of this, the patient denies chest pain. No shortness of breath noted. No seizure disorder noted. The patient did result in head trauma a week ago in which he has had no ill effects so far. His cardiac risk factors includes a history of a cardiac arrest several years ago. The details are unsure. His cardiac risk factors include a strong family history of a CAD. In addition, the patient smokes 1-2 packs a day for many years. REVIEW OF SYSTEMS: Fourteen-point review of systems is reviewed in detail. No cardiac symptoms are noted. No shortness of breath. No chest pain. No previous peptic ulcer disease. PHYSICAL EXAMINATION: VITAL SIGNS: Blood pressure is 108/72, the heart is in the 80s. NECK: Negative JVD. LUNGS: Without rales. HEART: Reveals S1, S2. EXTREMITIES: Without edema. LABORATORY DATA: EKG shows abnormal ST changes in lead III with nonspecific changes in the other leads. Hemoglobin is 17.8, white count is 13. His initial troponin was 0.01. IMPRESSION: 1. Status post dizziness and fall. 2. Abnormal EKG suggestive of an inferior wall ischemia. 3. Chronic obstructive pulmonary disease. 4. High probability for coronary artery disease. PLAN: Given these findings, I will start the patient on IV heparin. CT scan of the head has been ordered. We will obtain serial troponins. Brian Zapien MD
--- NOTE | 2018-05-14 08:06 | CON ---
LOCATION: Patient is seen earlier this morning in room 129, bed 5. CHIEF COMPLAINT: Dizziness and . HISTORY OF PRESENT ILLNESS: This is a 48-year-old male with history of diabetes mellitus, bipolar, anxiety, vertigo, TIA, hypertension, chronic obstructive lung disease, asthma, degenerative joint disease, arthritis, and history of spine surgery, who was admitted with diagnoses of hyperglycemia and dehydration. Infectious Disease saw and consultation requested regarding lactic acidosis and elevated white count. REVIEW OF SYSTEMS: Reveals the patient has no fevers, no chills, no nausea, no vomiting, no abdominal pain, no headaches or blurred vision, no dysuria or frequency, no joint pain or rash. PAST MEDICAL HISTORY: Significant for diabetes mellitus, bipolar, anxiety, vertigo, TIA, hypertension, chronic obstructive lung disease, asthma, degenerative joint disease, and arthritis. PAST SURGICAL HISTORY: Significant for spine surgery. ALLERGIES: THE PATIENT IS ALLERGIC TO VARENICLINE AND CARISOPRODOL. MEDICATIONS AT HOME: Reviewed and include chlorpromazine, metformin, Paxil, oxycodone, Haldol, Xanax, and [place]. PHYSICAL EXAMINATION: GENERAL: Patient is in bed, in no acute distress. He is answering questions appropriately. VITAL SIGNS: Temperature of 98; blood pressure is 160/80, it was 78/50; respiratory rate of heart rate is noted, it should be 91. HEENT: Unremarkable. NECK: Supple. LUNGS: Decreased breath sounds. HEART: Normal S1 and S2. ABDOMEN: Soft and nontender. No rebound or guarding. SKIN: Evidence of plaque in the skin. EXTREMITIES: Foot examination is noted. LABORATORY EXAMINATION: Reveals a white count of 13,000, hemoglobin of 17, and platelets of 246. Coagulation is noted. Chemistry reveals BUN of 20, creatinine of 0.8. Troponin is 0.37. Triglycerides are elevated. Urinalysis is noted. There is few wbc's. The patient had a CAT scan of the head, which is negative. Chest x-ray which is negative. ASSESSMENT AND PLAN: This is a 48-year-old male with diabetes mellitus, bipolar, anxiety, vertigo, transient ischemic attack, hypertension, chronic obstructive lung disease, asthma, degenerative joint disease, arthritis systemic inflammatory response syndrome with hypotension, lactic acidosis, and acute inferior wall myocardial infarction. We started the patient on vancomycin and Zosyn. Pending blood cultures and urine cultures. We will follow closely with you. Jesse Ribeiro MD
--- NOTE | 2018-05-14 08:09 | CARDCATH ---
PROCEDURE DATE: 05/12/2018 HISTORY: The patient presented with an abnormal EKG, and status post fall and head trauma 1 week ago. His troponin's were elevated from 0 to 0.21 and finally 0.37 consistent with a non-STEMI. Because of his high probability of CAD, the patient was brought down for cardiac catheterization. PROCEDURE: Left heart catheterization with coronary arteriography and left ventriculogram, supra-aortic valvular injection, followed by percutaneous transluminal coronary angioplasty and stent of the right coronary artery. The right femoral artery was cannulated with a 6-Mosotho sheath. There were no complications. I performed moderate sedation which included the presence of an independent trained observer who assisted in monitoring the patient's level of consciousness and physiologic status. After administration of Versed and fentanyl, my intra-service time was 30 minutes. Findings on catheterization revealed a right dominant circulation. The RCA revealed diffuse atherosclerosis with a long 90% RCA stenoses extending from the proximal to the midportion of the RCA. The left main artery was unremarkable. The LAD and diagonal vessels revealed diffuse atherosclerosis throughout its course. The circumflex artery and obtuse marginal branches revealed diffuse atherosclerosis with a 50% stenosis in the proximal portion. LV function revealed minimal hypokinesis of the inferior wall with overall ejection fraction of 55% to 60%. Supra-aortic valvular injection revealed no aortic insufficiency. The patient was started on intravenous Angiomax on the fluoroscopic guide, the guiding catheter was placed in the ostium of the RCA and a 0.014 ATW wire was used to cross the lesion. A 2.5 balloon was utilized to predilate the lesion. A 3.0 x 18 mm drug-eluting stent was placed and deployed at 17 ounces of pressure. Repeat coronary arteriography revealed an excellent result with no residual stenosis and NEEL-III flow. Angio-Seal was used to close the femoral artery site. The patient tolerated the procedure well. In summary, the procedure was successful for the PTCA and stent of the 90% RCA stenoses with a drug-eluting stent. 90% stenoses in the RCA as well as 50% stenoses in the proximal circumflex artery. Diffuse coronary atherosclerosis. Normal LV function with minimal inferior wall hypokinesis. No aortic insufficiency. Given these findings, the patient will need to remain on aspirin indefinitely and Plavix for at least a year. I have discussed with the patient about his need to stop smoking and undergo a strict cardiac risk reduction program. Brian Zapien MD
--- NOTE | 2018-05-14 08:35 | CARD ---
APPROVED REPORT EKG Measurement Heart [id number] <Conclusion> Normal sinus rhythm NSSTW changes Prolonged QTc
[2018-05-14] MEDS: Insulin Reg-MEDIUM-Coverage SC SCH (08:49)
[2018-05-14] MEDS: Divalproex 500 mg DR(BID formulation) PO SCH ×2 (09:20→17:07)
[2018-05-14] MEDS: oxyCODONE 15 mg Immediate Release Tab PO SCH ×3 (09:20→17:07)
[2018-05-14] MEDS: Pantoprazole 40 mg EC Tab PO SCH (09:20)
[2018-05-14] MEDS: Insulin Detemir 100 units/ml Vial (Levemir) SC SCH (09:21)
--- NOTE | 2018-05-14 09:45 | MRI ---
PROCEDURE: MRI BRAIN WITHOUT CONTRAST HISTORY: Abnormal EEG COMPARISON: Noncontrast head CT from 05/12/2018. TECHNIQUE: Multiplanar, multisequence MR images of the brain were obtained without intravenous contrast enhancement. FINDINGS: HEMORRHAGE: None DWI: No evidence of an acute or early subacute infarction. BRAIN PARENCHYMA: There are scattered T2/FLAIR hyperintense foci in the subcortical supratentorial white matter. There is no mass, mass effect or abnormal extra-axial fluid collection. VENTRICLES: The ventricles are normal in size, shape and configuration. CRANIUM: There is normal bone marrow signal pattern. ORBITS: Grossly unremarkable. PARANASAL SINUSES/MASTOIDS: Predominantly clear. VASCULAR SYSTEM: There are normal signal voids in the larger intracranial arteries. OTHER FINDINGS: None. IMPRESSION: No acute intracranial abnormality. Mild supratentorial white matter changes are strictly nonspecific, the differential considerations include migraine headache effect, gliosis, Lyme disease, vasculitis, early chronic microangiopathic changes and demyelinating disease including multiple sclerosis. Clinical follow-up is advised.
--- NOTE | 2018-05-14 12:10 | PN ---
DATE: 05/14/2018 SUBJECTIVE: The patient is chest pain free. PHYSICAL EXAMINATION: VITAL SIGNS: On physical exam, blood pressure is 139/82, the heart rate is in the 70s. NECK: Negative JVD. LUNGS: Without rales. HEART: Reveals S1, S2. EXTREMITIES: Without edema. LABORATORY DATA: Glucose is 171, hemoglobin 14.8. IMPRESSION: 1. Status post non-ST elevation myocardial infarction. 2. Status post percutaneous transluminal coronary angioplasty and stent of right coronary artery. 3. Coronary artery disease. 4. Hypercholesterolemia. 5. Bipolar disease. Given these findings, the patient can be discharged from a cardiac perspective. He needs to be on aspirin and Plavix with Plavix for at least a year. He needs to undergo a strict cardiac risk reduction program and stop smoking, which I have discussed with him in detail. Brian Zapien MD
[2018-05-14] MEDS: Insulin Reg-HIGH-Coverage SC SCH ×2 (12:23→17:08)
--- NOTE | 2018-05-14 13:17 | PN ---
DATE: 05/14/2018 SUBJECTIVE: The patient is seen in bed 276, bed 2 this morning. No fevers, no chills. He is doing much better. PHYSICAL EXAMINATION: VITAL SIGNS: On exam, temperature is 98, blood pressure is 130/80, respiratory rate of 22, heart rate of 100. HEENT: Examination of HEENT is unremarkable. NECK: Supple. LUNGS: Have decreased breath sounds. HEART: Normal S1, S2. ABDOMEN: Soft, nontender. LABORATORY DATA: laboratory examination reveals the patient's white count is down to 6.5, hemoglobin of 14, platelets of 178. Chemistries reveal a BUN of 17. Urinalysis is noted. Serology: RPR is negative. Microbiology negative. Urine cultures negative. The patient's brain MRI negative. ASSESSMENT AND PLAN: A 48-year-old male who was seen early this morning in 276, bed 2, was initially admitted with history of diabetes, hypertension, obstructive airway disease, depression, anxiety, psychosis and found to have an acute inferior wall ST-elevation myocardial infarction, status post cardiac catheterization with stent placement of right coronary artery in this patient with systemic inflammatory response syndrome with all cultures negative. White count is normal. The urinalysis is negative. Abdomen is soft. We will discontinue Zosyn. No need for any further antibiotics. Jesse Ribeiro MD
[2018-05-14 13:23] VITALS: RESP 20
[2018-05-14 17:44] VITALS: BP 118/68; PULSE 87; TEMP 97.3
--- NOTE | 2018-05-14 23:58 | CP.PCM.DIS ---
Provider - Provider Date of Admission: 05/11/18 21:17 Attending physician: rIaj Reddy MD Primary care physician: Patsy Campbell MD Consults: ICU - Dr. Hensley Cardiology -Dr. Zapien Neurology - Dr. Tapia Infectious Disease - Dr. Ribeiro Time Spent in preparation of Discharge (in minutes): 40 Hospital Course - Lab Results Lab Results: Micro Results 05/12/18 00:45 Blood Blood Culture - Preliminary NO GROWTH AFTER 48 HOURS 05/12/18 00:30 Blood Blood Culture - Preliminary NO GROWTH AFTER 48 HOURS 05/12/18 12:00 Naris MRSA Culture (Admit) - Final MRSA NOT DETECTED 05/12/18 04:40 Urine Urine Culture - Final No Growth (<1,000 CFU/ML) Most Recent Lab Values WBC 6.5 10^3/ul (4.5-11.0) 05/14/18 07:10 RBC 4.70 10^6/uL (3.5-6.1) 05/14/18 07:10 Hgb 14.8 g/dL (14.0-18.0) 05/14/18 07:10 Hct 42.6 % (42.0-52.0) 05/14/18 07:10 MCV 90.6 fl (80.0-105.0) 05/14/18 07:10 MCH 31.5 pg (25.0-35.0) 05/14/18 07:10 MCHC 34.7 g/dl (31.0-37.0) 05/14/18 07:10 RDW 12.3 % (11.5-14.5) 05/14/18 07:10 Plt Count 178 10^3/uL (120.0-450.0) 05/14/18 07:10 MPV 10.6 fl (7.0-11.0) 05/14/18 07:10 Gran % 55.4 % (50.0-68.0) 05/14/18 07:10 Lymph % (Auto) 35.7 % (22.0-35.0) H 05/14/18 07:10 Sutton % (Auto) 6.0 % (1.0-6.0) 05/14/18 07:10 Eos % (Auto) 2.6 % (1.5-5.0) 05/14/18 07:10 Baso % (Auto) 0.3 % (0.0-3.0) 05/14/18 07:10 Gran # 3.58 (1.4-6.5) 05/14/18 07:10 Lymph # (Auto) 2.3 (1.2-3.4) 05/14/18 07:10 Sutton # (Auto) 0.4 (0.1-0.6) 05/14/18 07:10 Eos # (Auto) 0.2 (0.0-0.7) 05/14/18 07:10 Baso # (Auto) 0.02 K/mm3 (0.0-2.0) 05/14/18 07:10 PT 11.3 SECONDS (9.4-12.5) 05/11/18 18:43 INR 0.99 (0.93-1.08) 05/11/18 18:43 APTT 35.1 Seconds (25.1-36.5) 05/12/18 15:00 pO2 176 mm/Hg (30-55) H 05/12/18 06:15 VBG pH 7.35 (7.32-7.43) 05/12/18 06:15 VBG pCO2 41.0 (40-60) 05/12/18 06:15 VBG HCO3 22.6 mmol/l (21-28) 05/12/18 06:15 VBG Total CO2 23.9 mmol.L (22-28) 05/12/18 06:15 VBG O2 Sat (Calc) 99.9 % (40-65) H 05/12/18 06:15 VBG Base Excess -2.9 mmol/L (0.0-2.0) L 05/12/18 06:15 VBG Potassium 3.4 mmol/L (3.6-5.2) L 05/12/18 06:15 Sodium 134.0 mmol/L (132-148) 05/12/18 06:15 Chloride 106.0 mmol/L (98-107) 05/12/18 06:15 Glucose 185 mg/dl (75-110) H 05/12/18 06:15 Lactate 1.7 mmol/L (0.7-2.1) 05/12/18 06:15 FiO2 21.0 % 05/12/18 06:15 Sodium 140 mmol/L (132-148) 05/14/18 07:10 Potassium 4.8 mmol/L (3.6-5.0) 05/14/18 07:10 Chloride 102 mmol/L (98-107) 05/14/18 07:10 Carbon Dioxide 31 mmol/L (21-33) 05/14/18 07:10 Anion Gap 12 (10-20) 05/14/18 07:10 BUN 17 mg/dL (7-21) 05/14/18 07:10 Creatinine 1.0 mg/dl (0.8-1.5) 05/14/18 07:10 Est GFR ( Amer) > 60 05/14/18 07:10 Est GFR (Non-Af Amer) > 60 05/14/18 07:10 POC Glucose (mg/dL) 323 mg/dL (65-110) H 05/14/18 16:12 Random Glucose 171 mg/dL (70-110) H 05/14/18 07:10 Hemoglobin A1c 9.5 % (4.2-6.5) H 05/12/18 04:30 Serum Osmolality 295 mosm/kg (272-300) 05/11/18 18:43 Calcium 8.8 mg/dL (8.4-10.5) 05/14/18 07:10 Phosphorus 3.0 mg/dL (2.5-4.5) 05/12/18 05:30 Magnesium 1.8 mg/dL (1.7-2.2) 05/12/18 04:30 Total Bilirubin 0.7 mg/dL (0.2-1.3) 05/14/18 07:10 AST 14 U/L (17-59) L 05/14/18 07:10 ALT 31 U/L (7-56) 05/14/18 07:10 Alkaline Phosphatase 80 U/L (38-126) 05/14/18 07:10 Lactate Dehydrogenase 357 U/L (333-699) 05/11/18 18:43 Total Creatine Kinase 35 U/L (35-230) 05/11/18 18:43 Troponin I 0.37 ng/mL H* D 05/12/18 04:30 Total Protein 5.8 g/dL (5.8-8.3) 05/14/18 07:10 Albumin 3.3 g/dL (3.0-4.8) 05/14/18 07:10 Globulin 2.5 gm/dL 05/14/18 07:10 Albumin/Globulin Ratio 1.3 (1.1-1.8) 05/14/18 07:10 Triglycerides 258 mg/dL (35-160) H 05/12/18 05:30 Cholesterol 106 mg/dL (130-200) L 05/12/18 05:30 LDL Cholesterol Direct 55 mg/dL (0-129) 05/12/18 05:30 HDL Cholesterol 23 mg/dL (29-60) L 05/12/18 05:30 TSH 3rd Generation 1.44 mIU/mL (0.46-4.68) 05/12/18 04:30 Venous Blood Potassium 3.4 mmol/L (3.6-5.2) L 05/12/18 06:15 Urine Color Yellow (YELLOW) 05/12/18 04:40 Urine Appearance Clear (CLEAR) 05/12/18 04:40 Urine pH 6.0 (4.7-8.0) 05/12/18 04:40 Ur Specific Scuddy 1.025 (1.005-1.035) 05/12/18 04:40 Urine Protein Trace mg/dL (<30 mg/dL) H 05/12/18 04:40 Urine Glucose (UA) >=1000 mg/dL (NEGATIVE) 05/12/18 04:40 Urine Ketones Negative mg/dL (NEGATIVE) 05/12/18 04:40 Urine Blood Negative (NEGATIVE) 05/12/18 04:40 Urine Nitrate Negative (NEGATIVE) 05/12/18 04:40 Urine Bilirubin Negative (NEGATIVE) 05/12/18 04:40 Urine Urobilinogen 0.2 E.U./dL (<1 E.U./dL) 05/12/18 04:40 Ur Leukocyte Esterase Negative Sharath/uL (NEGATIVE) 05/12/18 04:40 Urine RBC 0 - 2 /hpf (0-2) 05/12/18 04:40 Urine WBC 0 - 2 /hpf (0-6) 05/12/18 04:40 Ur Epithelial Cells 0 - 2 /hpf (0-5) 05/12/18 04:40 Urine Osmolality 276 mosm/kg (300-1000) L 05/12/18 04:40 Ur Random Sodium 164 meq/L 05/12/18 04:40 RPR Nonreactive (NONREACTIVE) 05/13/18 08:40 T.pallidum Ab (FTA-ABS) Nonreactive (Nonreactive) 05/13/18 08:40 HIV-1 Antibody TEST NOT PERFORMED 05/13/18 08:40 HIV-2 Antibody TEST NOT PERFORMED 05/13/18 08:40 HIV 1&2 Ag/Ab, 4th Gen Nonreactive (Nonreactive) 05/13/18 08:40 Blood Type O POSITIVE 05/11/18 20:01 Antibody Screen Negative 05/11/18 20:01 BBK History Checked Patient has bt 05/11/18 20:01 - Hospital Course Hospital Course: 48M w/ a PMH significant for recent LLE fracture, bipolar disorder, anxiety, vertigo, TIA, cardiac arrest in 10/2017, asthma, and withdrawal seizure x2 2/2 medication noncompliance; presented to [facility] [place] ED on 05/11 evening w/ CC of near syncopal episode and 2 falls w/o LOC. CT Head in ED was found to be negative for any acute pathology. Patient met SIRS criteria w/ possible sepsis in ED upon presentation, and sepsis workup including blood cx, urine cx, and empiric Vancomycin/Zosyn was started. Pt. was found to be in DKA in ED as well, and insulin drip was also started. EKG during admission course revealed inferior NSTEMI and patient was started on heparin drip. Patient was transferred to ICU where anion gap was closed and patient was stabilized. Clinical Trainer Dr. Zapien performed cardiac catheterization with stenting of the mRCA; post cath echo was unremarkable. Pt. was started on Lisinopril, Lipitor, ASA, Plavix post cath. Pt. was seen by Neurologist in ICU who performed EEG revealing abnormal brain activity described as epileptiform discharge. Pt. was started on depakote for seizure prevention. CT Head , and MRI brain were both read as negative. On floors glucose was managed w/ levemir and sliding scale insulin; A1C was found to be 9.5. Patient remained stable on floor throughout hospitalization w/no major events during this time. Of note, patient was found in diet non compliance when family members were bringing outside foods to the patient. Pt. was educated on the importance of maintaining good glucose ranges and healthy diet. During PT evaluation, pt was encouraged to maintain NWB on LLE without CAM boot. Per PT evaluation, Patient was non compliant with WB safety precautions. Pt was found to be ambulatory w/ BL crutches with MS by PT Andre. Pt was cleared to home w/ family support. Pt. was instructed to follow up w/ PCP Dr. Kumar, Cardiology Dr. Zapien, and Neurology Dr. Tapia once discharged. - Date & Time of H&P Date of H&P: 05/14/18 Time of H&P: 10:00 Discharge Exam - Head Exam Head Exam: NORMAL INSPECTION, NORMOCEPHALIC - Eye Exam Eye Exam: EOMI, PERRL. absent: Scleral icterus - ENT Exam ENT Exam: Mucous Membranes Moist, Normal Exam - Respiratory Exam Respiratory Exam: Clear to PA & Lateral, NORMAL BREATHING PATTERN. absent: Rales, Rhonchi, Wheezes, Respiratory Distress - Cardiovascular Exam Cardiovascular Exam: REGULAR RHYTHM, RRR, +S1, +S2. absent: Diastolic murmur, Systolic Murmur - GI/Abdominal Exam GI & Abdominal Exam: Normal Bowel Sounds, Soft. absent: Tenderness - Extremities Exam Additional comments: No LE edema; DP/PT 2+ BL - Neurological Exam Neurological exam: Alert, CN II-XII Intact, Oriented x3 - Skin Skin Exam: Dry, Intact, Warm Discharge Plan - Discharge Medications Prescriptions: Aspirin [Aspirin Chewable] 81 mg PO DAILY #30 chew Atorvastatin [Lipitor] 40 mg PO DIN #30 tab chlorproMAZINE [Thorazine] 100 mg PO BID #28 tab Clopidogrel [Plavix] 75 mg PO DAILY #30 tab Divalproex [Depakote DR(*BID*)] 500 mg PO BID #60 tcp Haloperidol [Haldol] 5 mg PO BID #14 tab Insulin Detemir [Levemir] 12 unit SC QAM #30 unit Lisinopril [Zestril] 10 mg PO DAILY #30 tab Metoprolol Tartrate [Lopressor] 12.5 mg PO BID #60 tab - Follow Up Plan Condition: IMPROVED Instructions: Coronary Angioplasty, Hyperglycemia, Adult, Heart Attack (DC), Dehydration (DC) Additional Instructions: 1.Please follow up with your PMD within 3-5 days regarding this hospital visit. You stated you will begin seeing Dr. Kumar affiliated with the [facility]. 2.As per cardiology patient needs to be on aspirin and plavix for at least one year 3.Patient is to follow up with care program director Dr. Zapien as outpatient and undergo a strict cardiac risk reduction program and stop smoking 4.You are to stop taking metformin and take levemir instead for control of your diabetes. Please be sure to refrain from a diet high in sugars and carbohydrates.Please follow up with Dr. Szymanski, blower blast furnace as outpatient. 5. Please refrain from driving for the next 90 days, also refrain from swimming alone. 6. Be sure to not bear weight on affected leg; continue to use boot as directed by orthopedic surgery 7. If symptoms worsen or return please be sure to go to your nearest emergency department. Referrals: Thu Szymanski MD [Medical Doctor] - Patsy Campbell MD [Primary Care Provider] - Brian Zapien MD [Staff Provider] -
== END 2018-05-14 19:33 | disposition home or self-care (01) | DRG 581 ==
LOC: ED 17:27 → ERH 21:17 → CCU 05-12 01:55 → 2RSO 05-13 11:48
PROVIDERS: ADMIT Internal Medicine; ATTEND Internal Medicine
PROC: 027034Z Dilation of Coronary Artery, One Artery with Drug-eluting Intraluminal Device, Percutaneous Approach (ICD-10-PCS; principal; 2018-05-12)
PROC: 4A023N7 Measurement of Cardiac Sampling and Pressure, Left Heart, Percutaneous Approach (ICD-10-PCS; 2018-05-12)
PROC: B2151ZZ Fluoroscopy of Left Heart using Low Osmolar Contrast (ICD-10-PCS; 2018-05-12)
PROC: B2111ZZ Fluoroscopy of Multiple Coronary Arteries using Low Osmolar Contrast (ICD-10-PCS; 2018-05-12)
DX: A41.9 Sepsis, unspecified organism (principal); I21.19 ST elevation (STEMI) myocardial infarction involving other coronary artery of inferior wall; E11.10 Type 2 diabetes mellitus with ketoacidosis without coma; J44.9 Chronic obstructive pulmonary disease, unspecified; R56.9 Unspecified convulsions; I25.10 Atherosclerotic heart disease of native coronary artery without angina pectoris; E86.0 Dehydration; E78.00 Pure hypercholesterolemia, unspecified; E83.42 Hypomagnesemia; F29 Unspecified psychosis not due to a substance or known physiological condition; F31.9 Bipolar disorder, unspecified; F41.0 Panic disorder [episodic paroxysmal anxiety]; I10 Essential (primary) hypertension; Z79.82 Long term (current) use of aspirin; Z86.73 Personal history of transient ischemic attack (TIA), and cerebral infarction without residual deficits; M19.90 Unspecified osteoarthritis, unspecified site; Z79.84 Long term (current) use of oral hypoglycemic drugs; Z83.3 Family history of diabetes mellitus; Z87.891 Personal history of nicotine dependence; Z91.14 Patient's other noncompliance with medication regimen; Z86.74 Personal history of sudden cardiac arrest; Z82.49 Family history of ischemic heart disease and other diseases of the circulatory system

== ENCOUNTER 2018-06-08 22:29 | Observation (INO) | payer MEDICAID ==
--- NOTE | 2018-06-08 22:57 | ED PDOC ---
Arrival/HPI - General Chief Complaint: Chest Pain Time Seen by Provider: 06/08/18 22:30 Historian: Patient - History of Present Illness Narrative History of Present Illness (Text): 06/08/18 22:45 48 year old male, whose past medical history includes bipolar disease anxiety TIA, HTN, CAD, COPD, recent cardiac stent placement PTCA 2 weeks prior, presents to the Emergency department complaining of onset left sided chest discomfort that began approximately 12 hours ago. Patient reports associated symptoms including occasional dizziness and dyspnea on exertion. Patient appears to be anxious. Patient denies any fevers, chills, chest pain, abdominal pain, nausea, vomiting, diarrhea, leg pain, back pain, neck pain, urinary symptoms, headache, or any other complaint. PMD: Dr. Lesa Campbell Time/Duration: Other (12 hours) Symptom Onset: Sudden Symptom Course: Unchanged Activities at Onset: Light Context: Home Past Medical History - Provider Review Nursing Documentation Reviewed: Yes - Infectious Disease Hx of Infectious Diseases: None - Tetanus Immunization Tetanus Immunization: Unknown - Cardiac Hx Hypertension: Yes - Pulmonary Hx Chronic Obstructive Pulmonary Disease (COPD): Yes - Neurological HX Cerebrovascular Accident: Yes (TIA) - HEENT Hx HEENT Disorder: No - Renal Hx Renal Disorder: No - Endocrine/Metabolic Hx Endocrine Disorders: Yes Hx Diabetes Mellitus Type 2: Yes - Hematological/Oncological Hx Blood Disorders: Yes Hx Anemia: Yes (Denied by pt.) - Integumentary Hx Dermatological Disorder: Yes (Allergy to red tattoo dye.) - Musculoskeletal/Rheumatological Hx Arthritis: Yes - Gastrointestinal Hx Gastrointestinal Disorders: No - Genitourinary/Gynecological Hx Genitourinary Disorders: No - Psychiatric Hx Psychophysiologic Disorder: Yes (Substance Abuse Disorder.) Hx Anxiety: Yes Hx Bipolar Disorder: Yes Hx Depression: Yes Hx Panic Disorder: Yes Hx Substance Use: No (Denied by patient.) - Surgical History Hx Orthopedic Surgery: Yes (Lower Back reconstructive Sz/ L knee synovitis/ Rt shld Rt Knee Sx.) - Anesthesia Hx Anesthesia: Yes Hx Anesthesia Reactions: No Hx Malignant Hyperthermia: No - Suicidal Assessment Feels Threatened In Home Enviroment: No Family/Social History - Physician Review Nursing Documentation Reviewed: Yes Family/Social History: No Known Family HX Smoking Status: Current Some Days Smoker Hx Alcohol Use: No Hx Substance Use: No (Denied by patient.) Substance used: cocaine formerly Allergies/Home Meds Allergies/Adverse Reactions: Allergies carisoprodol [From Soma] Allergy (Verified 05/11/18 17:57) DIZZINESS varenicline [From Chantix] Allergy (Verified 05/11/18 17:57) VOMITING Home Medications: Home Meds Medication Instructions Recorded Confirmed Alprazolam [Xanax] 2 mg PO QID PRN 05/09/18 06/08/18 Haloperidol [Haldol] 5 mg PO DAILY 05/09/18 06/08/18 Oxycodone HCl [Roxicodone] 15 mg PO QID 05/09/18 06/08/18 Pantoprazole Sodium [Protonix] 40 mg PO DAILY 05/09/18 06/08/18 Paroxetine HCl [Paxil] 40 mg PO DAILY 05/09/18 06/08/18 Review of Systems - Physician Review All systems were reviewed & negative as marked: Yes - Review of Systems Constitutional: absent: Fevers, Other (Chills) Cardiovascular: HARMON. absent: Chest Pain Gastrointestinal: absent: Abdominal Pain, Diarrhea, Nausea, Vomiting Genitourinary Male: absent: Dysuria, Frequency, Hematuria Musculoskeletal: absent: Back Pain, Neck Pain, Other (leg pain) Neurological: Dizziness. absent: Headache Physical Exam Vital Signs Reviewed: Yes Vital Signs Temp Pulse Resp BP Pulse Ox 06/08/18 22:35 97.8 F 86 18 110/37 L 100 Temperature: Afebrile Blood Pressure: Hypotensive Pulse: Regular Respiratory Rate: Normal Appearance: Positive for: Well-Appearing, Non-Toxic, Other (Anxious appearing) Pain Distress: None Mental Status: Positive for: Alert and Oriented X 3 - Systems Exam Head: Present: Atraumatic, Normocephalic Pupils: Present: PERRL Extroacular Muscles: Present: EOMI Conjunctiva: Present: Normal Mouth: Present: Moist Mucous Membranes Neck: Present: Normal Range of Motion Respiratory/Chest: Present: Clear to Auscultation, Good Air Exchange. No: Respiratory Distress, Accessory Muscle Use Cardiovascular: Present: Regular Rate and Rhythm, Normal S1, S2. No: Murmurs Abdomen: No: Tenderness, Distention, Peritoneal Signs Back: Present: Normal Inspection Upper Extremity: Present: Normal Inspection. No: Cyanosis, Edema Lower Extremity: Present: Normal Inspection. No: Edema, CALF TENDERNESS, Carolina' s Sign Neurological: Present: GCS=15, CN II-XII Intact, Speech Normal Skin: Present: Warm, Dry, Normal Color. No: Rashes Psychiatric: Present: Alert, Oriented x 3, Normal Insight, Normal Concentration Medical Decision Making ED Course and Treatment: 06/08/18 22:44 Impression: 48 year old male presents complaining of left-sided chest discomfort that began approximately 12 hours ago associated with occasional dizziness and dyspnea on exertion. Plan: -- EKG -- Labs -- CXR -- Aspirin, Xanax -- Reassess and disposition Prior Visits: Notes and results from previous visits were reviewed. Progress Notes: EKG shows NSR at 92 BPM with nonspecific T wave changes. Interpreted by me. 06/09/18 01:04 CXR Impression: As read by me, no acute process. 06/09/18 01:19 Case discussed with medical support assistant and Dr. Lidia Denton who is aware and agrees with the plan. Accepts patient into hospitalist service. - Lab Interpretations Lab Results: 06/08/18 23:20 06/08/18 23:20 Lab Results 06/08/18 23:20: WBC 9.3 D, RBC 4.93, Hgb 15.9, Hct 42.6, MCV 86.4 D, MCH 32.3 , MCHC 37.3 H, RDW 12.5, Plt Count 225, MPV 10.4 06/08/18 23:20: Sodium 140, Potassium 3.5 L, Chloride 101, Carbon Dioxide 23, Anion Gap 19, BUN 14, Creatinine 1.0, Est GFR ( Amer) > 60, Est GFR (Non- Af Amer) > 60, Random Glucose 230 H, Calcium 9.8, Total Bilirubin 0.7, AST 19, ALT 28, Alkaline Phosphatase 91, Lactate Dehydrogenase 340, Total Creatine Kinase 63, Troponin I < 0.01 D, NT-Pro-B Natriuret Pep 180, Total Protein 7.6, Albumin 4.3, Globulin 3.2, Albumin/Globulin Ratio 1.3 06/08/18 23:20: PT 12.7, INR 1.11, APTT 28.6 I have reviewed the lab results: Yes - RAD Interpretation Radiology Orders: 06/08/18 22:52 CHEST PORTABLE [RAD] Stat - EKG Interpretation Interpreted by ED Physician: Yes Type: 12 lead EKG - Medication Orders Current Medication Orders: Discontinued Medications Alprazolam (Xanax) 1 mg PO ONCE ONE Stop: 06/08/18 22:55 Last Admin: 06/08/18 23:16 Dose: 1 mg Alprazolam (Xanax) 1 mg PO ONCE ONE Stop: 06/09/18 01:17 Last Admin: 06/09/18 02:24 Dose: 1 mg Aspirin (Aspirin) 325 mg PO ONCE STA Stop: 06/08/18 22:55 Last Admin: 06/08/18 23:15 Dose: 325 mg Diazepam (Valium) 1 mg PO ONCE ONE PRN Reason: Protocol Stop: 06/09/18 04:04 Last Admin: 06/09/18 04:12 Dose: 1 mg Behavioural Document 06/09/18 04:12 VALERIA (Rec: 06/09/18 04:12 KOMANDY [id number]) Maintenance Maintenance Dose Yes Nonmedicinal Nonmedicinal Interventions Redirect Therapeutic Communication Activity Behavior Behavior for Medication: Anxiety - Scribe Statement The provider has reviewed the documentation as recorded by the Kitty Ignacio Provider Scribe Attestation: All medical record entries made by the Kitty were at my direction and personally dictated by me. I have reviewed the chart and agree that the record accurately reflects my personal performance of the history, physical exam, medical decision making, and the department course for this patient. I have also personally directed, reviewed, and agree with the discharge instructions and disposition. Disposition/Present on Arrival - Present on Arrival Any Indicators Present on Arrival: No History of DVT/PE: No History of Uncontrolled Diabetes: Yes Urinary Catheter: No History of Decub. Ulcer: No History Surgical Site Infection Following: None - Disposition Have Diagnosis and Disposition been Completed?: Yes Diagnosis: Chest pain Disposition: HOSPITALIZED Disposition Time: :15 Patient Plan: Observation Condition: STABLE
[2018-06-08 23:37] LABS: HEMOGLOBIN 15.9 g/dL (14.0-18.0); MEAN CORPUSCULAR HEMOGLOBIN 32.3 pg (25.0-35.0); MEAN CORPUSCULAR HGB CONC 37.3 g/dl (31.0-37.0); MEAN PLATELET VOLUME 10.4 fl (7.0-11.0); RBC 4.93 10^6/uL (3.5-6.1); RED CELL DISTRIBUTION WIDTH 12.5 % (11.5-14.5); WHITE BLOOD COUNT 9.3 10^3/ul (4.5-11.0)
[2018-06-08 23:45] LABS: INR 1.11; PROTHROMBIN TIME 12.7 SECONDS
[2018-06-08 23:46] LABS: MEAN CELL VOLUME 86.4 fl (80.0-105.0)
[2018-06-08 23:47] LABS: PARTIAL THROMBOPLASTIN TIME 28.6 Seconds
[2018-06-09] LABS: ALB/GLOB RATIO 1.3 (1.1-1.8); ALBUMIN 4.3 g/dL (3.0-4.8); ALT/SGPT 28 U/L (7-56); AST/SGOT 19 U/L (17-59); BLOOD UREA NITROGEN 14 mg/dL (7-21); CALCIUM 9.8 mg/dL (8.4-10.5); GFR AFRICAN-AMERICAN > 60; GFR NON-AFRICAN AMERICAN > 60
[2018-06-09 00:10] LABS: B-TYPE NATRIURETIC PEPTIDE 180 pg/mL (0-450); TROPONIN I < 0.01 ng/mL
--- NOTE | 2018-06-09 02:32 | CP.PCM.HP ---
<Chidi Obando - Last Filed: 06/09/18 07:08> History of Present Illness - History of Present Illness History of Present Illness: HPI for Dr Corrie Obando, DO PGY1 C.C: chest pain HPI: 48 y/o male s/p CA/PTCA with stent palced 2 weeks ago, HTN, DM, TIA, COPD, chronic bronchitis, psychosis, depression, FAYE presents with one day of left sided chest pain, sharp, constant, 5-6/10 in intensity, radiates to left shoulder and scapula, non positional, no worsening or alleviating factors. Pain is associated with lightheaded and dizziness and palpitations. He had to stay in supine position to avoid falling. Patient stated that he has not been compliant with meds but since his PTCA he takes his meds regularly incluiding ASA, plavix, beta blockers, and ACEI. Patient denid fever, chills, abdomenal pain, nausea, vomiting, leg swellings. Last Echo on 05/12/18: EF 55%, concentric LVH Present on Admission - Present on Admission Any Indicators Present on Admission: No Review of Systems - Constitutional Constitutional: absent: Chills, Fatigue, Fever, Malaise, Night Sweats, Weakness - EENT Eyes: absent: Blurred Vision, Change in Vision, Diplopia, Irritation, Sees Flashes, Loss of Vision Ears: absent: Ear Discharge, Ear Pain, Dizziness Nose/Mouth/Throat: absent: Epistaxis, Nasal Congestion, Dry Mouth, Dysphagia, Halitosis - Cardiovascular Cardiovascular: Chest Pain, Dyspnea, Pain Radiating to Arm/Neck/Jaw, Lightheadedness, Orthopnea, Palpitations, Radiating Pain. absent: Claudication , Diaphoresis - Respiratory Respiratory: Cough, Chest Congestion. absent: Hemoptysis, Wheezing, Change in Mucous Color - Gastrointestinal Gastrointestinal: absent: Abdominal Pain, Cramping, Diarrhea, Dyspepsia, Dysphagia, Heartburn, Melena, Nausea - Genitourinary Genitourinary: absent: Change in Urinary Stream, Difficulty Urinating, Dysuria, Hematuria, Pyuria, Nocturia - Musculoskeletal Musculoskeletal: absent: Arthralgias, Atrophy, Muscle Cramps, Muscle Weakness, Myalgias, Stiffness - Integumentary Integumentary: absent: Lesions, Rash, Skin Ulcer - Neurological Neurological: Confusion, Dizziness. absent: Abnormal Movements, Burning Sensations, Convulsions, Numbness, Focal Weakness, Frequent Falls, Lack of Coordination, Sensory Deficit, Syncope, Vertigo - Psychiatric Psychiatric: Anxiety, Depression, Irritability, Mood Swings, Panic Attacks - Endocrine Endocrine: absent: Change in Body Appearance, Deepening of Voice, Excessive Sweating, Flushing, Heat Intolorance, Polyphagia, Polyuria - Hematologic/Lymphatic Hematologic: absent: Easy Bleeding, Easy Bruising Past Patient History - Infectious Disease Hx of Infectious Diseases: None - Tetanus Immunizations Tetanus Immunization: Unknown - Past Medical History & Family History Past Medical History?: Yes - Past Social History Smoking Status: Heavy Smoker > 10 Cigarettes Daily Alcohol: None Drugs: Denies Home Situation {Lives}: With Family - CARDIAC Hx Cardiac Disorders: Yes Hx Angina: Yes Hx Heart Attack: Yes Hx Hypercholesterolemia: Yes Hx Hypertension: Yes - PULMONARY Hx Respiratory Disorders: Yes Hx Bronchitis: Yes Hx Chronic Obstructive Pulmonary Disease (COPD): Yes - NEUROLOGICAL HX Cerebrovascular Accident: Yes (TIA) Hx Dizziness: Yes Hx Transient Ischemic Attacks (TIA): Yes - HEENT Hx HEENT Problems: No - RENAL Hx Chronic Kidney Disease: No - ENDOCRINE/METABOLIC Hx Endocrine Disorders: Yes Hx Diabetes Mellitus Type 2: Yes - HEMATOLOGICAL/ONCOLOGICAL Hx Blood Disorders: Yes Hx Anemia: Yes (Denied by pt.) - INTEGUMENTARY Hx Dermatological Problems: Yes (Allergy to red tattoo dye.) - MUSCULOSKELETAL/RHEUMATOLOGICAL Hx Arthritis: Yes - GASTROINTESTINAL Hx Gastrointestinal Disorders: No - GENITOURINARY/GYNECOLOGICAL Hx Genitourinary Disorders: No - PSYCHIATRIC Hx Psychophysiologic Disorder: Yes (Substance Abuse Disorder.) Hx Anxiety: Yes Hx Bipolar Disorder: Yes Hx Depression: Yes Hx Panic Symptoms: Yes Hx Substance Use: No (Denied by patient.) - SURGICAL HISTORY Hx Orthopedic Surgery: Yes (Lower Back reconstructive Sz/ L knee synovitis/ Rt shld Rt Knee Sx.) - ANESTHESIA Hx Anesthesia: Yes Hx Anesthesia Reactions: No Hx Malignant Hyperthermia: No Meds Allergies/Adverse Reactions: Allergies Allergy/AdvReac Type Severity Reaction Status Date / Time carisoprodol [From Soma] Allergy DIZZINESS Verified 05/11/18 17:57 varenicline [From Chantix] Allergy VOMITING Verified 05/11/18 17:57 Physical Exam - Constitutional Appears: Non-toxic, No Acute Distress - Head Exam Head Exam: ATRAUMATIC, NORMAL INSPECTION, NORMOCEPHALIC - Eye Exam Eye Exam: EOMI, Normal appearance, PERRL Pupil Exam: NORMAL ACCOMODATION, PERRL - ENT Exam ENT Exam: Mucous Membranes Moist, Normal Exam - Neck Exam Neck exam: Positive for: Normal Inspection - Respiratory Exam Respiratory Exam: Clear to Auscultation Bilateral, NORMAL BREATHING PATTERN - Cardiovascular Exam Cardiovascular Exam: REGULAR RHYTHM, +S1, +S2 - GI/Abdominal Exam GI & Abdominal Exam: Normal Bowel Sounds, Soft. absent: Tenderness - Rectal Exam Rectal Exam: Deferred - Extremities Exam Extremities exam: Positive for: normal inspection, pedal pulses present. Negative for: calf tenderness, joint swelling, pedal edema - Back Exam Back exam: NORMAL INSPECTION - Neurological Exam Neurological exam: Alert, CN II-XII Intact, Normal Gait, Oriented x3, Reflexes Normal - Psychiatric Exam Psychiatric exam: Normal Affect, Normal Mood - Skin Skin Exam: Dry, Intact, Normal Color, Warm Results - Vital Signs Recent Vital Signs: Last Vital Signs Temp 97.8 F 06/08/18 22:35 Pulse 86 06/08/18 22:35 Resp 18 06/08/18 22:35 BP 110/37 L 06/08/18 22:35 Pulse Ox 100 06/08/18 22:35 - Labs Result Diagrams: 06/08/18 23:20 06/08/18 23:20 Assessment & Plan (1) Chest pain Assessment and Plan: -S/P CA/PTCA stent placed 2 wks ago -Chest pain is likely non cardic in nature -EKG -CXR -Echo -Troponin serial -consult cardiology -CBC -CMP Status: Acute (2) Dizziness Assessment and Plan: -Likely medication induced -Orthostatics -IVF Status: Acute (3) Hyperglycemia Assessment and Plan: -Glycemic control -HbA1c -continue detimir Status: Acute <Moiz Denton N - Last Filed: 06/09/18 22:13> Results - Vital Signs Recent Vital Signs: Last Vital Signs Temp 98.5 F 06/09/18 18:00 Pulse 71 06/09/18 18:00 Resp 16 06/09/18 18:00 BP 127/85 06/09/18 18:00 Pulse Ox 99 06/09/18 02:29 - Labs Result Diagrams: 06/09/18 07:20 06/09/18 07:20 Labs: Laboratory Results - last 24 hr 06/09/18 06/09/18 06/09/18 07:20 07:20 07:20 WBC 8.9 RBC 4.85 Hgb 15.6 Hct 42.5 MCV 87.6 MCH 32.2 MCHC 36.7 RDW 12.6 Plt Count 220 MPV 10.2 Gran % 62.7 Lymph % (Auto) 29.6 Lares % (Auto) 6.8 H Eos % (Auto) 0.7 L Baso % (Auto) 0.2 Gran # 5.58 Lymph # (Auto) 2.6 Lares # (Auto) 0.6 Eos # (Auto) 0.1 Baso # (Auto) 0.02 Sodium 141 Potassium 3.6 Chloride 104 Carbon Dioxide 25 Anion Gap 16 BUN 16 Creatinine 0.8 Est GFR ( Amer) > 60 Est GFR (Non-Af Amer) > 60 POC Glucose (mg/dL) Random Glucose 171 H Hemoglobin A1c 10.0 H Calcium 9.5 Phosphorus 4.4 Magnesium 1.6 L Total Bilirubin 0.7 AST 12 L D ALT 29 Alkaline Phosphatase 87 Troponin I < 0.01 Total Protein 6.8 Albumin 3.9 Globulin 2.8 Albumin/Globulin Ratio 1.4 06/09/18 06/09/18 06/09/18 08:28 11:31 13:00 WBC RBC Hgb Hct MCV MCH MCHC RDW Plt Count MPV Gran % Lymph % (Auto) Lares % (Auto) Eos % (Auto) Baso % (Auto) Gran # Lymph # (Auto) Lares # (Auto) Eos # (Auto) Baso # (Auto) Sodium Potassium Chloride Carbon Dioxide Anion Gap BUN Creatinine Est GFR ( Amer) Est GFR (Non-Af Amer) POC Glucose (mg/dL) 152 H 288 H Random Glucose Hemoglobin A1c Calcium Phosphorus Magnesium Total Bilirubin AST ALT Alkaline Phosphatase Troponin I < 0.01 Total Protein Albumin Globulin Albumin/Globulin Ratio 06/09/18 06/09/18 06/09/18 16:36 18:53 21:02 WBC RBC Hgb Hct MCV MCH MCHC RDW Plt Count MPV Gran % Lymph % (Auto) Lares % (Auto) Eos % (Auto) Baso % (Auto) Gran # Lymph # (Auto) Lares # (Auto) Eos # (Auto) Baso # (Auto) Sodium Potassium Chloride Carbon Dioxide Anion Gap BUN Creatinine Est GFR ( Amer) Est GFR (Non-Af Amer) POC Glucose (mg/dL) 259 H 284 H Random Glucose Hemoglobin A1c Calcium Phosphorus Magnesium Total Bilirubin AST ALT Alkaline Phosphatase Troponin I < 0.01 Total Protein Albumin Globulin Albumin/Globulin Ratio
[2018-06-09 05:06] VITALS: BMI 28.5
[2018-06-09 07:51] LABS: ALB/GLOB RATIO 1.4 (1.1-1.8); ALBUMIN 3.9 g/dL (3.0-4.8); ALT/SGPT 29 U/L (7-56); AST/SGOT 12 U/L (17-59); BLOOD UREA NITROGEN 16 mg/dL (7-21); CALCIUM 9.5 mg/dL (8.4-10.5); GFR AFRICAN-AMERICAN > 60; GFR NON-AFRICAN AMERICAN > 60
[2018-06-09 07:58] LABS: TROPONIN I < 0.01 ng/mL
[2018-06-09] MEDS ORDERED: Potassium Chloride 20 mEq ER Tab PO ONE (08:06)
[2018-06-09] MEDS ORDERED: Magnesium Sulfate 1 gm in D5W 1 GM/100 ML BAG IVPB ONE (08:07)
--- NOTE | 2018-06-09 08:12 | RAD ---
Date of service: 06/08/2018 HISTORY: chest pain COMPARISON: 05/11/2018 FINDINGS: LUNGS: No active pulmonary disease. Trace discoid atelectasis and/or scarring left lung apex similar-appearing PLEURA: No significant pleural effusion identified, no pneumothorax apparent. CARDIOVASCULAR: Normal. OSSEOUS STRUCTURES: No significant abnormalities. VISUALIZED UPPER ABDOMEN: Normal. OTHER FINDINGS: None. IMPRESSION: No active disease. No interval pathology appreciated
[2018-06-09 08:56] LABS: BASO # 0.02 K/mm3 (0.0-2.0); BASO % 0.2 % (0.0-3.0); EOS # 0.1 (0.0-0.7); EOS % 0.7 % (1.5-5.0); GRAN # 5.58 (1.4-6.5); GRAN % 62.7 % (50.0-68.0); HEMOGLOBIN 15.6 g/dL (14.0-18.0); LYMPH # 2.6 (1.2-3.4); LYMPH % 29.6 % (22.0-35.0); MEAN CELL VOLUME 87.6 fl (80.0-105.0); MEAN CORPUSCULAR HEMOGLOBIN 32.2 pg (25.0-35.0); MEAN CORPUSCULAR HGB CONC 36.7 g/dl (31.0-37.0); MEAN PLATELET VOLUME 10.2 fl (7.0-11.0); MONO # 0.6 (0.1-0.6); MONO % 6.8 % (1.0-6.0); RBC 4.85 10^6/uL (3.5-6.1); RED CELL DISTRIBUTION WIDTH 12.6 % (11.5-14.5); WHITE BLOOD COUNT 8.9 10^3/ul (4.5-11.0)
--- NOTE | 2018-06-09 09:07 | CARD ---
APPROVED REPORT Date of service: 06/09/2018 EKG Measurement Heart [id number] <Conclusion> Normal sinus rhythm Nonspecific ST and T wave abnormality Abnormal ECG
--- NOTE | 2018-06-09 09:16 | CARD ---
APPROVED REPORT Date of service: 06/08/2018 EKG Measurement Heart [id number] <Conclusion> Normal sinus rhythm Nonspecific T wave abnormality Prolonged QT Abnormal ECG
[2018-06-09] MEDS: Insulin Detemir 100 units/ml Vial (Levemir) SC SCH (09:20)
[2018-06-09] MEDS: oxyCODONE 15 mg Immediate Release Tab PO PRN ×2 (14:15→21:05)
[2018-06-09] MEDS: Divalproex 250 mg DR (BID formulation) PO SCH (17:04)
[2018-06-09] MEDS: Insulin Lispro (humaLOG) LOW Coverage SC SCH ×2 (17:23→21:05)
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
[2018-06-09] MEDS ORDERED: Iohexol 350 MG/100 ML VIAL ONE (18:42)
[2018-06-09] MEDS ORDERED: Insulin Lispro (humaLOG) LOW Coverage SC SCH (22:00)
[2018-06-10] MEDS: oxyCODONE 15 mg Immediate Release Tab PO PRN ×2 (05:28→12:16)
[2018-06-10] MEDS ORDERED: Pantoprazole 40 mg EC Tab PO SCH (06:00)
[2018-06-10 08:17] LABS: BASO # 0.02 K/mm3 (0.0-2.0); BASO % 0.2 % (0.0-3.0); EOS # 0.1 (0.0-0.7); EOS % 1.4 % (1.5-5.0); GRAN # 6.21 (1.4-6.5); GRAN % 63.1 % (50.0-68.0); HEMOGLOBIN 14.9 g/dL (14.0-18.0); LYMPH # 2.9 (1.2-3.4); LYMPH % 29.2 % (22.0-35.0); MEAN CORPUSCULAR HGB CONC 36.4 g/dl (31.0-37.0); MONO # 0.6 (0.1-0.6); MONO % 6.1 % (1.0-6.0); RBC 4.65 10^6/uL (3.5-6.1); RED CELL DISTRIBUTION WIDTH 12.8 % (11.5-14.5); WHITE BLOOD COUNT 9.8 10^3/ul (4.5-11.0)
[2018-06-10 08:27] LABS: ALB/GLOB RATIO 1.4 (1.1-1.8); ALBUMIN 3.7 g/dL (3.0-4.8); ALT/SGPT 25 U/L (7-56); AST/SGOT 13 U/L (17-59); BLOOD UREA NITROGEN 15 mg/dL (7-21); CALCIUM 8.9 mg/dL (8.4-10.5); GFR AFRICAN-AMERICAN > 60; GFR NON-AFRICAN AMERICAN > 60
--- NOTE | 2018-06-10 09:19 | CP.PCM.PN ---
Subjective - Date & Time of Evaluation Date of Evaluation: 06/10/18 Time of Evaluation: 09:19 - Subjective Subjective: Beatriz Alberto, PGY-1, for Dr. Karlie Echavarria. Objective - Vital Signs/Intake and Output Vital Signs (last 24 hours): Temp Pulse Resp BP Pulse Ox 98.8 F 62 20 100/40 L 100 06/10/18 07:28 06/10/18 07:28 06/10/18 07:28 06/10/18 07:28 06/10/18 07:28 Intake and Output: 06/10/18 06/10/18 06:59 18:59 Intake Total 1500 Balance 1500 - Medications Medications: Current Medications Aspirin (Aspirin Chewable) 81 mg PO DAILY [facility] Last Admin: 06/09/18 09:25 Dose: 81 mg Atorvastatin Calcium (Lipitor) 40 mg PO DIN [facility] Last Admin: 06/09/18 17:04 Dose: 40 mg Clopidogrel Bisulfate (Plavix) 75 mg PO DAILY [facility] Last Admin: 06/09/18 09:22 Dose: 75 mg Divalproex Sodium (Depakote Dr (*Bid*)) 500 mg PO BID [facility] PRN Reason: Protocol Last Admin: 06/09/18 17:04 Dose: 500 mg Haloperidol (Haldol) 5 mg PO DAILY [facility] PRN Reason: Protocol Last Admin: 06/09/18 09:21 Dose: 5 mg Insulin Detemir (Levemir) 12 unit SC QAM [facility] Last Admin: 06/09/18 09:20 Dose: 12 units Insulin Human Lispro (Humalog Low) 0 units SC ACHS [facility] PRN Reason: Protocol Last Admin: 06/09/18 21:05 Dose: Not Given Lisinopril (Zestril) 10 mg PO DAILY [facility] Last Admin: 06/09/18 14:14 Dose: 10 mg Meclizine HCl (Antivert) 25 mg PO Q8H PRN PRN Reason: Dizziness Last Admin: 06/09/18 17:04 Dose: 25 mg Metoprolol Tartrate (Lopressor) 12.5 mg PO BID [facility] Last Admin: 06/09/18 17:03 Dose: 12.5 mg Oxycodone HCl (Oxycodone Immediate Release Tab) 15 mg PO Q6H PRN PRN Reason: Pain, severe (8-10) Last Admin: 06/10/18 05:28 Dose: 15 mg Pantoprazole Sodium (Protonix Ec Tab) 40 mg PO 0600 [facility] Last Admin: 06/10/18 05:26 Dose: 40 mg Paroxetine HCl (Paxil) 40 mg PO DAILY [facility] Last Admin: 06/09/18 09:22 Dose: 40 mg - Labs Labs: 06/10/18 08:00 06/10/18 08:00 PT 12.7 SECONDS 06/08/18 23:20 INR 1.11 06/08/18 23:20 APTT 28.6 Seconds 06/08/18 23:20
[2018-06-10] MEDS: Insulin Lispro (humaLOG) LOW Coverage SC SCH (09:53)
--- NOTE | 2018-06-10 09:54 | CT ---
Date of service: 06/09/2018 PROCEDURE: CT Angiography of the neck with contrast HISTORY: dizziness COMPARISON: None. TECHNIQUE: Contiguous axial images of the neck were obtained from the level of the skull-base to the superior mediastinum in the arteriographic phase of enhancement. Coronal and sagittal reformats or also generated. IV contrast dose: Radiation Dose - DLP: mGy-cm This CT exam was performed using one or more of the following dose reduction techniques: Automated exposure control, adjustment of the mA and/or kV according to patient size, and/or use of iterative reconstruction technique. FINDINGS: RIGHT CAROTID ARTERIES: Common Carotid Artery: Normal. Carotid Bifurcation: Normal. Internal Carotid Artery:Normal. External Carotid Artery (proximal branches): Normal. LEFT CAROTID ARTERIES: Common Carotid Artery: Normal. Carotid Bifurcation: Normal. Internal Carotid Artery:Normal. External Carotid Artery (proximal branches): Normal. VERTEBRAL ARTERIES: Right Vertebral Artery: Normal. Left Vertebral Artery: Normal. OTHER FINDINGS: Small nodules and infiltrates are seen in the lung apices. Follow-up chest CT is recommended IMPRESSION: No evidence of stenosis or occlusion. Lung nodules. Follow-up recommended PROCEDURE: CT Angiography of the Brain. HISTORY: dizziness COMPARISON: None available. TECHNIQUE: CT angiography of the intracranial arteries was performed. Coronal and sagittal maximum intensity projection reformated images were generated. This CT exam was performed using one or more of the following dose reduction techniques: Automated exposure control, adjustment of the mA and/or kV according to patient size, and/or use of iterative reconstruction technique. FINDINGS: INTERNAL CEREBRAL ARTERIES: Unremarkable. The skull base, petrous, cavernous and supraclinoid segments are bilaterally widely patent. ANTERIOR CEREBRAL ARTERIES: Unremarkable. A1 and A2 segments are widely patent. Smaller distal branches unremarkable, as visualized. MIDDLE CEREBRAL ARTERIES: Unremarkable. M1 and M2 segments are widely patent. Perisylvian branches grossly symmetric. POSTERIOR CIRCULATION: Basilar Artery: Unremarkable. Distal Vertebral Arteries: Unremarkable. Posterior Cerebral Arteries: Unremarkable. Posterior Inferior Cerebellar Arteries: Unremarkable. ANEURYSM/ VASCULAR MALFORMATIONS: None. OTHER FINDINGS: The report concurs with the preliminary [facility] report IMPRESSION: Unremarkable CT Angiography of the Brain.
[2018-06-10] MEDS: Insulin Detemir 100 units/ml Vial (Levemir) SC SCH (10:02)
[2018-06-10] MEDS: Divalproex 250 mg DR (BID formulation) PO SCH (10:03)
[2018-06-10 15:07] VITALS: BP 122/87; PULSE 61; RESP 18; TEMP 98; O2SAT 95
--- NOTE | 2018-06-10 17:34 | CP.PCM.DIS ---
Provider - Provider Date of Admission: 06/09/18 01:15 Attending physician: Karlie Echavarria DO Primary care physician: Patsy Campbell MD Consults: Neurology: Dr. Tapia Time Spent in preparation of Discharge (in minutes): 100 Diagnosis - Discharge Diagnosis (1) Dizziness Status: Acute Hospital Course - Lab Results Lab Results: Most Recent Lab Values WBC 9.8 10^3/ul (4.5-11.0) 06/10/18 08:00 RBC 4.65 10^6/uL (3.5-6.1) 06/10/18 08:00 Hgb 14.9 g/dL (14.0-18.0) 06/10/18 08:00 Hct 40.9 % (42.0-52.0) L 06/10/18 08:00 MCV 88.0 fl (80.0-105.0) 06/10/18 08:00 MCH 32.0 pg (25.0-35.0) 06/10/18 08:00 MCHC 36.4 g/dl (31.0-37.0) 06/10/18 08:00 RDW 12.8 % (11.5-14.5) 06/10/18 08:00 Plt Count 200 10^3/uL (120.0-450.0) 06/10/18 08:00 MPV 10.0 fl (7.0-11.0) 06/10/18 08:00 Gran % 63.1 % (50.0-68.0) 06/10/18 08:00 Lymph % (Auto) 29.2 % (22.0-35.0) 06/10/18 08:00 [place] % (Auto) 6.1 % (1.0-6.0) H 06/10/18 08:00 Eos % (Auto) 1.4 % (1.5-5.0) L 06/10/18 08:00 Baso % (Auto) 0.2 % (0.0-3.0) 06/10/18 08:00 Gran # 6.21 (1.4-6.5) 06/10/18 08:00 Lymph # (Auto) 2.9 (1.2-3.4) 06/10/18 08:00 [place] # (Auto) 0.6 (0.1-0.6) 06/10/18 08:00 Eos # (Auto) 0.1 (0.0-0.7) 06/10/18 08:00 Baso # (Auto) 0.02 K/mm3 (0.0-2.0) 06/10/18 08:00 PT 12.7 SECONDS 06/08/18 23:20 INR 1.11 06/08/18 23:20 APTT 28.6 Seconds 06/08/18 23:20 Sodium 140 mmol/L (132-148) 06/10/18 08:00 Potassium 3.8 mmol/L (3.6-5.0) 06/10/18 08:00 Chloride 104 mmol/L (98-107) 06/10/18 08:00 Carbon Dioxide 27 mmol/L (21-33) 06/10/18 08:00 Anion Gap 14 (10-20) 06/10/18 08:00 BUN 15 mg/dL (7-21) 06/10/18 08:00 Creatinine 0.8 mg/dl (0.8-1.5) 06/10/18 08:00 Est GFR ( Amer) > 60 06/10/18 08:00 Est GFR (Non-Af Amer) > 60 06/10/18 08:00 POC Glucose (mg/dL) 284 mg/dL (65-110) H 06/09/18 21:02 Random Glucose 124 mg/dL (70-110) H 06/10/18 08:00 Hemoglobin A1c 10.0 % (4.2-6.5) H 06/09/18 07:20 Calcium 8.9 mg/dL (8.4-10.5) 06/10/18 08:00 Phosphorus 4.4 mg/dL (2.5-4.5) 06/09/18 07:20 Magnesium 1.6 mg/dL (1.7-2.2) L 06/09/18 07:20 Total Bilirubin 0.8 mg/dL (0.2-1.3) 06/10/18 08:00 AST 13 U/L (17-59) L 06/10/18 08:00 ALT 25 U/L (7-56) 06/10/18 08:00 Alkaline Phosphatase 84 U/L (38-126) 06/10/18 08:00 Lactate Dehydrogenase 340 U/L (333-699) 06/08/18 23:20 Total Creatine Kinase 63 U/L (35-230) 06/08/18 23:20 Troponin I < 0.01 ng/mL 06/09/18 18:53 NT-Pro-B Natriuret Pep 180 pg/mL (0-450) 06/08/18 23:20 Total Protein 6.5 g/dL (5.8-8.3) 06/10/18 08:00 Albumin 3.7 g/dL (3.0-4.8) 06/10/18 08:00 Globulin 2.7 gm/dL 06/10/18 08:00 Albumin/Globulin Ratio 1.4 (1.1-1.8) 06/10/18 08:00 - Hospital Course Hospital Course: 48 year old male s/p [place]/PTCA with stent placed 2 weeks ago, HTN, DM, TIA, COPD, chronic bronchitis, psychosis, depression, and general anxiety disorder presented with one day of sharp, constant left sided chest pain that radiated to left shoulder and scapula and chronic dizziness. Pain was non-positional without any worsening or alleviating factors. Chest X ray was performed in the ED which showed no active disease. EKG was performed which showed normal sinus rhythm at a heart rate of 74 beats per minute. The following day, patient reported that the sharp chest pain had stopped but a feeling of left sided chest fullness was appreciated which radiated to the axilla and scapula. Troponin was <0.01 4 times and BNP was 180. Cardiac cause of chest pain was ruled out. For patient's dizziness, per neurology, orthostatic vitals and china- hallpike maneuver were performed. Both tests were negative. CTA of head and neck was performed on 06/09 to rule out intracranial pathology as reason for dizziness. CTA showed no intracranial pathology but showed multiple nodules in the apices of the lungs. Patient should follow up with PCP for further evaluation and follow up of the lung nodules. Patient was placed on meclizine 25 mg PO TID PRN for dizziness and today reported that his dizziness had significantly decreased. MRI of brain on 05/14/18 on prior visit showed scattered T2/Flair hyperintense foci in subcortical supratentorial white matter. Echocardiogram on 05/12/18 on previous visit showed normal LV systolic function and mild concentric LVH. Carotid ultrasound on 03/12/18 showed bilateral 20-40% ICA stenoses. Patient was discharged on home medications and new meclizine 25 mg PO TID PRN for dizziness. Patient was advised to follow up with PCP, Dr. Campbell, and ENT, Dr. Orlando, for further workup and evaluation of dizziness. In addition, follow up with PCP regarding lung nodules. Chest CT will need be done for further evaluation of lung nodules outpatient. - Date & Time of H&P Date of H&P: 06/09/18 Time of H&P: 02:28 Discharge Exam - Head Exam Head Exam: ATRAUMATIC, NORMAL INSPECTION - Eye Exam Eye Exam: EOMI, Normal appearance, PERRL - ENT Exam ENT Exam: Mucous Membranes Moist - Neck Exam Neck exam: Full Rom - Respiratory Exam Respiratory Exam: Clear to PA & Lateral, NORMAL BREATHING PATTERN - Cardiovascular Exam Cardiovascular Exam: REGULAR RHYTHM, RRR - GI/Abdominal Exam GI & Abdominal Exam: Normal Bowel Sounds, Soft - Extremities Exam Extremities exam: full ROM, normal inspection, tenderness - Back Exam Back exam: vertebral tenderness - Neurological Exam Neurological exam: Alert, CN II-XII Intact, Oriented x3 - Psychiatric Exam Psychiatric exam: Normal Affect, Normal Mood - Skin Skin Exam: Dry, Intact, Normal Color Discharge Plan - Discharge Medications Prescriptions: Meclizine [Meclizine*] 25 mg PO Q8H PRN #30 tab PRN Reason: Dizziness - Follow Up Plan Condition: STABLE Disposition: HOME/ ROUTINE Patient education suggested?: Yes Instructions: Type 2 Diabetes, Chest Pain, Dangers of Secondhand Smoke, Chest Pain (ED), Chest Pain (DC), Chest Pain (GEN) Additional Instructions: Please follow up with primary care doctor within 3 to 5 days. Please take home medications as previously prescribed. Recommend decreasing the amount of narcotics used for pain. Please take meclizine every 8 hours as needed for dizziness. Please follow up lung nodules that were found on CAT Sca as an outpatient with your primary care doctor for monitoring. You will need a CAT scan with your primary care doctor. Follow up with Ear Nose and Throat doctor of choice for dizziness. Return to the emergency room if symptoms return. Referrals: Patsy Campbell MD [Primary Care Provider] - Adrian Orlando DO [Staff Provider] -
== END 2018-06-10 17:25 | disposition home or self-care (01) ==
LOC: ED 22:29 → ERH 06-09 01:15 → 2RSO 06-09 03:31 → 5RNO 06-09 21:48
PROVIDERS: ADMIT Hospitalist; ATTEND Hospitalist
DX: R07.89 Other chest pain (principal); I25.10 Atherosclerotic heart disease of native coronary artery without angina pectoris; I21.4 Non-ST elevation (NSTEMI) myocardial infarction; J44.9 Chronic obstructive pulmonary disease, unspecified; I10 Essential (primary) hypertension; E11.65 Type 2 diabetes mellitus with hyperglycemia; F41.1 Generalized anxiety disorder; F31.9 Bipolar disorder, unspecified; F11.20 Opioid dependence, uncomplicated; R42 Dizziness and giddiness; E78.00 Pure hypercholesterolemia, unspecified; M19.90 Unspecified osteoarthritis, unspecified site; Z86.73 Personal history of transient ischemic attack (TIA), and cerebral infarction without residual deficits; Z79.02 Long term (current) use of antithrombotics/antiplatelets; Z95.5 Presence of coronary angioplasty implant and graft; Z79.82 Long term (current) use of aspirin
CPT/HCPCS: 36415; 70496; 70498; 71045; 80053; 82550; 82948; 83036; 83615; 83735; 83880; 84100; 84484; 85025; 85027; 85610; 85730; 93005; 97116; 97161; 99285; G0378; G8978; G8979; G8980; J3475; Q9967

== ENCOUNTER 2018-10-17 01:42 | Emergency (ER) | payer MEDICAID ==
[2018-10-17 01:51] VITALS: BMI 28.2
--- NOTE | 2018-10-17 02:04 | ED PDOC ---
Arrival/HPI - General Chief Complaint: Anxiety Time Seen by Provider: 10/17/18 01:43 Historian: Patient - History of Present Illness Narrative History of Present Illness (Text): 10/17/18 01:58 48 year old male, whose past medical history includes AK/PTCA HTN, DM, TIA, COPD, chronic bronchitis, psychosis, bipolar disorder, anxiety, depression, FAYE, presents to the emergency department complaining of feeling anxious associated w ith chest discomfort. Patient states his PMD Dr. Campbell told him to come in for evaluation. Patient is complaint with his psych medication. The patient denies any fever, chills, shortness of breath, abdominal pain, nausea, vomiting, diarrhea, urinary symptoms, back pain, neck pain, headache, dizziness, SI/HI, or any other complaints. PMD Dr. Ovidio Campbell 10/17/18 06:37 Symptom Onset: Gradual Symptom Course: Unchanged Activities at Onset: Light Context: Home Past Medical History - Provider Review Nursing Documentation Reviewed: Yes - Infectious Disease Hx of Infectious Diseases: None - Tetanus Immunization Tetanus Immunization: Unknown - Cardiac Hx Cardiac Disorders: Yes Hx Angina: Yes Hx Congestive Heart Failure: (AK . 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 tattoo dye.) - Musculoskeletal/Rheumatological Hx Falls: No - Gastrointestinal Hx Gastrointestinal Disorders: No - Genitourinary/Gynecological Hx Genitourinary Disorders: No - Psychiatric Hx Psychophysiologic Disorder: Yes (Substance Abuse Disorder.) Hx Anxiety: Yes Hx Bipolar Disorder: Yes Hx Depression: Yes Hx Panic Disorder: Yes Hx Substance Use: No (Denied by patient.) - Surgical History Hx Orthopedic Surgery: Yes (Lower Back reconstructive Sz/ L knee synovitis/ Rt shld Rt Knee Sx.) - Anesthesia Hx Anesthesia: Yes Hx Anesthesia Reactions: No Hx Malignant Hyperthermia: No - Suicidal Assessment Feels Threatened In Home Enviroment: No Family/Social History - Physician Review Nursing Documentation Reviewed: Yes Family/Social History: No Known Family HX Smoking Status: Heavy Smoker > 10 Cigarettes Daily Hx Alcohol Use: No Hx Substance Use: No (Denied by patient.) Substance used: cocaine formerly Allergies/Home Meds Allergies/Adverse Reactions: Allergies carisoprodol [From Soma] Allergy (Verified 05/11/18 17:57) DIZZINESS varenicline [From Chantix] Allergy (Verified 05/11/18 17:57) VOMITING Home Medications: Home Meds Medication Instructions Recorded Confirmed Alprazolam [Xanax] 2 mg PO QID PRN 05/09/18 06/08/18 Haloperidol [Haldol] 5 mg PO DAILY 05/09/18 06/08/18 Oxycodone HCl [Roxicodone] 15 mg PO QID 05/09/18 06/08/18 Pantoprazole Sodium [Protonix] 40 mg PO DAILY 05/09/18 06/08/18 Paroxetine HCl [Paxil] 40 mg PO DAILY 05/09/18 06/08/18 Review of Systems - Physician Review All systems were reviewed & negative as marked: Yes - Review of Systems Constitutional: absent: Fevers, Other (Chills) Respiratory: absent: SOB Cardiovascular: Chest Pain Gastrointestinal: absent: Abdominal Pain, Diarrhea, Nausea, Vomiting Genitourinary Male: absent: Dysuria, Frequency, Hematuria Musculoskeletal: absent: Back Pain, Neck Pain Neurological: absent: Headache, Dizziness Psychiatric: Anxiety. absent: Suicidal Ideation (or HI) Physical Exam Vital Signs Reviewed: Yes Vital Signs Temp Pulse Resp BP Pulse Ox 10/17/18 01:51 98.6 F 97 H 19 138/83 96 Temperature: Afebrile Blood Pressure: Normal Pulse: Regular Respiratory Rate: Normal Appearance: Positive for: Well-Appearing, Non-Toxic, Comfortable Pain Distress: None Mental Status: Positive for: Alert and Oriented X 3 - Systems Exam Head: Present: Atraumatic, Normocephalic Pupils: Present: PERRL Extroacular Muscles: Present: EOMI Conjunctiva: Present: Normal Mouth: Present: Moist Mucous Membranes Neck: Present: Normal Range of Motion Respiratory/Chest: Present: Clear to Auscultation, Good Air Exchange. No: Respiratory Distress, Accessory Muscle Use Cardiovascular: Present: Regular Rate and Rhythm, Normal S1, S2. No: Murmurs Abdomen: No: Tenderness, Distention, Peritoneal Signs Back: Present: Normal Inspection Upper Extremity: Present: Normal Inspection. No: Cyanosis, Edema Lower Extremity: Present: Normal Inspection. No: Edema Neurological: Present: GCS=15, CN II-XII Intact, Speech Normal Skin: Present: Warm, Dry, Normal Color. No: Rashes Psychiatric: Present: Alert, Oriented x 3, Normal Insight, Normal Concentration Medical Decision Making ED Course and Treatment: 10/17/18 01:58 Impression: 48 year old male presents complaining of feeling anxious and chest discomfort. Patient has an extensive psych history. Plan: -- EKG -- Labs -- CXR -- Urinalysis -- PES Eval -- Reassess and disposition Prior Visits: Notes and results from previous visits were reviewed. Progress Notes: EKG shows NSR at 82 BPM with non-specific ST/T wave changes. Interpreted by me 10/17/18 03:06 CXR Impression: As read by me, no NAD. Patient is medically cleared. 10/17/18 04:12 PES seen and evaluated patient. States patient will be transferred to [facility] for psych admission. 10/17/18 06:37 home meds dosed. endorsed to day team pending transfer to [facility]. 10/17/18 06:40 minimal nonspecific leukocytosis, cxr neg ua neg. no cardiopulm complaints, af ebrile. - Lab Interpretations I have reviewed the lab results: Yes - RAD Interpretation Radiology Orders: 10/17/18 01:57 CHEST PORTABLE [RAD] Stat Proposal Analyst: ED Physician - EKG Interpretation Interpreted by ED Physician: Yes Type: 12 lead EKG - Scribe Statement The provider has reviewed the documentation as recorded by the Kitty Ignacio Provider Scribe Attestation: All medical record entries made by the Kitty were at my direction and personally dictated by me. I have reviewed the chart and agree that the record accurately reflects my personal performance of the history, physical exam, medical decision making, and the department course for this patient. I have also personally directed, reviewed, and agree with the discharge instructions and disposition. Disposition/Present on Arrival - Present on Arrival Any Indicators Present on Arrival: No History of DVT/PE: No History of Uncontrolled Diabetes: Yes Urinary Catheter: No History of Decub. Ulcer: No History Surgical Site Infection Following: None - Disposition Have Diagnosis and Disposition been Completed?: Yes Diagnosis: Bipolar disorder, unspecified Disposition: OTHER INSTITUTION Disposition Time: 07:00 Patient Problems: Current Active Problems Problem Status Onset Bipolar disorder, unspecified Acute Condition: STABLE Forms: [employer] (Frisian)
[2018-10-17 02:27] LABS: BASO # 0.02 K/mm3 (0.0-2.0); BASO % 0.2 % (0.0-3.0); EOS # 0.1 (0.0-0.7); EOS % 0.4 % (1.5-5.0); GRAN # 9.92 (1.4-6.5); GRAN % 78.9 % (50.0-68.0); HEMOGLOBIN 17.6 g/dL (14.0-18.0); LYMPH % 15.8 % (22.0-35.0); MEAN CELL VOLUME 90.1 fl (80.0-105.0); MEAN CORPUSCULAR HEMOGLOBIN 33.5 pg (25.0-35.0); MEAN CORPUSCULAR HGB CONC 37.1 g/dl (31.0-37.0); MEAN PLATELET VOLUME 10.8 fl (7.0-11.0); MONO # 0.6 (0.1-0.6); MONO % 4.7 % (1.0-6.0); RBC 5.26 10^6/uL (3.5-6.1); RED CELL DISTRIBUTION WIDTH 12.6 % (11.5-14.5); WHITE BLOOD COUNT 12.6 10^3/uL (4.5-11.0)
[2018-10-17 02:30] LABS: ACETAMINOPHEN < 10.0 ug/ml (10.0-20.0); ALB/GLOB RATIO 1.4 (1.1-1.8); ALBUMIN 4.5 g/dL (3.0-4.8); ALT/SGPT 32 U/L (7-56); AST/SGOT 21 U/L (17-59); BLOOD UREA NITROGEN 14 mg/dL (7-21); CALCIUM 9.4 mg/dL (8.4-10.5); GFR NON-AFRICAN AMERICAN > 60; SALICYLATE < 1 mg/dL (2.0-20.0)
[2018-10-17 02:35] LABS: URINE BILIRUBIN NEGATIVE (NEGATIVE); URINE BLOOD NEGATIVE (NEGATIVE); URINE GLUCOSE (UA) NEGATIVE (NEGATIVE); URINE LEUKOCYTE ESTERASE NEGATIVE Leu/uL (NEGATIVE); URINE PROTEIN 30 mg/dL (<30 mg/dL); URINE UROBILINOGEN 0.2 E.U./dL (<1 E.U./dL)
[2018-10-17 02:37] LABS: URINE APPEARANCE CLEAR (CLEAR); URINE COLOR YELLOW (YELLOW)
[2018-10-17 02:41] LABS: TROPONIN I < 0.01 ng/mL
[2018-10-17 02:43] LABS: INR 0.95; PARTIAL THROMBOPLASTIN TIME 26.7 Seconds (25.1-36.5); PROTHROMBIN TIME 10.9 SECONDS (9.4-12.5)
[2018-10-17 02:58] LABS: BARBITURATES, UR NEGATIVE (NEGATIVE); BENZODIAZEPINES, UR POSITIVE (NEGATIVE); OPIATES, UR POSITIVE (NEGATIVE); PHENCYCLIDINE, UR NEGATIVE (NEGATIVE)
[2018-10-17 03:01] LABS: URINE BACTERIA FEW (NEG); URINE RBC 0 - 2 /hpf (0-2)
[2018-10-17] MEDS ORDERED: Oxycodone/Acetaminophen 5/325 mg Tab PO STA (06:26)
[2018-10-17 06:42] VITALS: BP 141/85; PULSE 95; RESP 16; TEMP 98.3; O2SAT 95
--- NOTE | 2018-10-17 07:18 | ED PDOC ---
Physical Exam Vital Signs Reviewed: Yes Vital Signs Temp Pulse Resp BP Pulse Ox 10/17/18 06:41 98.3 F 95 H 16 141/85 95 10/17/18 03:28 98.4 F 96 H 18 121/88 100 10/17/18 01:51 98.6 F 97 H 19 138/83 96 Temperature: Afebrile Blood Pressure: Normal Pulse: Tachycardic Respiratory Rate: Normal Appearance: Positive for: Well-Appearing, Non-Toxic, Comfortable Pain Distress: None Mental Status: Positive for: Alert and Oriented X 3 Medical Decision Making ED Course and Treatment: 10/17/18 07:17: Case endorsed by Dr. Corrales. Patient is a 48 year old male who presents to the emergency department feeling anxious with associated chest pain. Patient accepted for admission by Dr. Santiago. Pending ER acceptance and transfer to [facility]. 10/17/18 08:32: Discussed case with Dr. Alec Lozada (ER physician) who accepted case for psych admission transfer. 10/17/18 10:15 Urmila NAILS, came to evaluate patient. She informed me that Dr. Santiago did not accept the patient at [facility] and the new Psychiatrist this morning was also consulted who did not accept the patient. At this time she recommended and arranged for the patient to follow up with the [facility] Psych clinic on Friday. She recommended Xanax x 5 tablets to assist with his anxiety. Patient does feel comfortable with the plan for follow up . No SI or HI. - Lab Interpretations Lab Results: 10/17/18 02:07 10/17/18 02:07 Lab Results 10/17/18 02:23: Urine Opiates Screen Positive H, Urine Methadone Screen Negative, Ur Barbiturates Screen Negative, Ur Phencyclidine Scrn Negative, Ur Amphetamines Screen Negative, U Benzodiazepines Scrn Positive H, U Oth Cocaine M etabols Negative, U Cannabinoids Screen Negative 10/17/18 02:23: Urine Color Yellow, Urine Appearance Clear, Urine pH 6.0, Ur Specific [place] 1.025, Urine Protein 30 H, Urine Glucose (UA) Negative, Urine Ketones Negative, Urine Blood Negative, Urine Nitrate Negative, Urine Bilirubin Negative, Urine Urobilinogen 0.2, Ur Leukocyte Esterase Negative, Urine RBC 0 - 2, Urine WBC 1 - 3, Ur Epithelial Cells None, Urine Bacteria Few, Urine Other Mucus 10/17/18 02:07: Alcohol, Quantitative 13 H 10/17/18 02:07: Salicylates < 1 L, Acetaminophen < 10.0 L 10/17/18 02:07: Sodium 141, Potassium 3.4 L, Chloride 102, Carbon Dioxide 25, Anion Gap 16, BUN 14, Creatinine 0.9, Est GFR ( Amer) > 60, Est GFR (Non- Af Amer) > 60, Random Glucose 154 H, Calcium 9.4, Magnesium 1.7, Total Bilirubin 0.8, AST 21, ALT 32, Alkaline Phosphatase 77, Lactate Dehydrogenase 409, Total Creatine Kinase 78, Troponin I < 0.01, Total Protein 7.6, Albumin 4.5, Globulin 3.1, Albumin/Globulin Ratio 1.4 10/17/18 02:07: PT 10.9, INR 0.95, APTT 26.7 10/17/18 02:07: WBC 12.6 H, RBC 5.26, Hgb 17.6 D, Hct 47.4, MCV 90.1, MCH 33.5, MCHC 37.1 H, RDW 12.6, Plt Count 158, MPV 10.8, Gran % 78.9 H, Lymph % (Auto) 15.8 L, [place] % (Auto) 4.7, Eos % (Auto) 0.4 L, Baso % (Auto) 0.2, Gran # 9.92 H, Lymph # (Auto) 2.0, [place] # (Auto) 0.6, Eos # (Auto) 0.1, Baso # (Auto) 0.02 - RAD Interpretation Radiology Orders: 10/17/18 01:57 CHEST PORTABLE [RAD] Stat - Medication Orders Current Medication Orders: Discontinued Medications Alprazolam (Xanax) 1 mg PO STAT STA; Protocol Stop: 10/17/18 04:42 Last Admin: 10/17/18 04:50 Dose: 1 mg Lorazepam (Ativan) 0.5 mg PO ONCE ONE; Protocol Stop: 10/17/18 03:40 Last Admin: 10/17/18 03:57 Dose: 0.5 mg Oxycodone/Acetaminophen (Percocet 5/325 Mg Tab) 2 tab PO STAT STA Stop: 10/17/18 06:27 Last Admin: 10/17/18 06:37 Dose: 2 tab MAR Pain Assessment Document 10/17/18 06:37 AD (Rec: 10/17/18 06:38 AD [id number]) Pain Reassessment Is this a pain reassessment? No Presence of Pain Presence of Pain Yes Location Pain Location Body Site Back - Scribe Statement The provider has reviewed the documentation as recorded by the Scribe Carmelita Roman Provider Scribe Attestation: All medical record entries made by the Scribe were at my direction and personally dictated by me. I have reviewed the chart and agree that the record accurately reflects my personal performance of the history, physical exam, medical decision making, and the department course for this patient. I have also personally directed, reviewed, and agree with the discharge instructions and disposition. a Disposition/Present on Arrival - Present on Arrival Any Indicators Present on Arrival: No History of DVT/PE: No History of Uncontrolled Diabetes: Yes Urinary Catheter: No History of Decub. Ulcer: No History Surgical Site Infection Following: None - Disposition Have Diagnosis and Disposition been Completed?: Yes Diagnosis: Bipolar disorder, unspecified Disposition: HOME/ ROUTINE Disposition Time: 10:16 Patient Problems: Current Active Problems Problem Status Onset Bipolar disorder, unspecified Acute Condition: IMPROVED Discharge Instructions (ExitCare): Bipolar Disorder (DC) Additional Instructions: CATY FRIEND, thank you for letting us take care of you today. Your provider was Gilmar Rodas DO and you were treated for Bipolar. The emergency medical care you received today was directed at your acute symptoms. If you were prescribed any medication, please fill it and take as directed. It may take several days for your symptoms to resolve. Return to the Emergency Department if your symptoms worsen, do not improve, or if you have any other problems. Please contact your doctor or call one of the physicians/clinics you have been referred to that are listed on the Patient Visit Information form that is included in your discharge packet. Bring any paperwork you were given at discharge with you along with any medications you are taking to your follow up visit. Our treatment cannot replace ongoing medical care by a primary care ashley german outside of the emergency department. Thank you for allowing the [facility] team to be part of your care today. If you had an X-Ray or CT scan: A Radiologist will review the ED reading if any change in treatment is needed we will contact you. If you had a blood, urine, or wound culture: It will take several days for the results, if any change in treatment is needed we will contact you. If you had an STI test: It will take 48 hours for the results. Please call after 1 week if you have not heard back. Prescriptions: ALPRAZolam [Xanax] 1 mg PO TID PRN #5 tab PRN Reason: Anxiety Referrals: [facility] [Outside] - Follow up with primary Forms: [employer] (Macedonian), WORK NOTE
--- NOTE | 2018-10-17 08:05 | RAD ---
Date of service: 10/17/2018 HISTORY: cp COMPARISON: 06/08/2018 FINDINGS: LUNGS: No active pulmonary disease. PLEURA: No significant pleural effusion identified, no pneumothorax apparent. CARDIOVASCULAR: No aortic atherosclerotic calcification present. Normal cardiac size. No pulmonary vascular congestion. OSSEOUS STRUCTURES: No significant abnormalities. VISUALIZED UPPER ABDOMEN: Normal. OTHER FINDINGS: None. IMPRESSION: No active disease.
[2018-10-17] MEDS ORDERED: Potassium Chloride 20 mEq ER Tab PO STA (08:38)
--- NOTE | 2018-10-17 09:53 | CARD ---
APPROVED REPORT Date of service: 10/17/2018 EKG Measurement Heart [id number] <Conclusion> Normal sinus rhythm Normal ECG
== END 2018-10-17 10:25 | disposition home or self-care (01) ==
LOC: ED 01:42
DX: F31.9 Bipolar disorder, unspecified (principal); I11.0 Hypertensive heart disease with heart failure; I25.2 Old myocardial infarction; I50.9 Heart failure, unspecified; J44.9 Chronic obstructive pulmonary disease, unspecified; E11.9 Type 2 diabetes mellitus without complications; Z86.73 Personal history of transient ischemic attack (TIA), and cerebral infarction without residual deficits; F17.210 Nicotine dependence, cigarettes, uncomplicated

== ENCOUNTER 2018-10-25 12:29 | Emergency (ER) | payer MEDICAID ==
[2018-10-25 12:30] VITALS: BMI 28.2
--- NOTE | 2018-10-25 13:19 | ED PDOC ---
Arrival/HPI - General Chief Complaint: Anxiety Time Seen by Provider: 10/25/18 12:54 Historian: Patient - History of Present Illness Narrative History of Present Illness (Text): 10/25/18 13:17 A 48 year old male, whose past medical history includes MD/PTCA HTN, DM, TIA, COPD, chronic bronchitis, psychosis, bipolar disorder, anxiety, depression, FAYE, presents to the emergency department with a complaint of of anxiety. Patient notes that he has a six year history of panic attacks. He states that he experiences them every day and today he "couldn't take it anymore"so decided to come in for further evaluation. The patient is requesting medication for his anxiety. Patient denies fevers, chills, headache, dizziness, chest pain, shortness of breath, dyspnea on exertion, cough, abdominal pain, nausea, vomiting, diarrhea, back pain, neck pain, urinary/bowel changes, or any other complaint. PMD: Dr. Lesa Campbell Time/Duration: Other (Today) Symptom Onset: Sudden Symptom Course: Unchanged Activities at Onset: Rest, Light Context: Home Past Medical History - Provider Review Nursing Documentation Reviewed: Yes - Infectious Disease Hx of Infectious Diseases: None - Tetanus Immunization Tetanus Immunization: Unknown - Cardiac Hx Cardiac Disorders: Yes - Pulmonary Hx Bronchitis: Yes - Neurological Hx Transient Ischemic Attacks (TIA): Yes - HEENT Hx HEENT Disorder: No - Renal Hx Renal Disorder: No - Endocrine/Metabolic Hx Endocrine Disorders: Yes Hx Diabetes Mellitus Type 2: Yes - Hematological/Oncological Hx Blood Disorders: Yes Hx Anemia: Yes (Denied by pt.) - Integumentary Hx Dermatological Disorder: Yes (Allergy to red tattoo dye.) - Musculoskeletal/Rheumatological Hx Falls: No - Gastrointestinal Hx Gastrointestinal Disorders: No - Genitourinary/Gynecological Hx Genitourinary Disorders: No - Psychiatric Hx Psychophysiologic Disorder: Yes (Substance Abuse Disorder.) Hx Anxiety: Yes Hx Bipolar Disorder: Yes Hx Depression: Yes Hx Panic Disorder: Yes Hx Substance Use: No (Denied by patient.) - Surgical History Hx Orthopedic Surgery: Yes (Lower Back reconstructive Sz/ L knee synovitis/ Rt shld Rt Knee Sx.) - Anesthesia Hx Anesthesia: Yes Hx Anesthesia Reactions: No Hx Malignant Hyperthermia: No - Suicidal Assessment Feels Threatened In Home Enviroment: No Family/Social History - Physician Review Nursing Documentation Reviewed: Yes Family/Social History: No Known Family HX Smoking Status: Heavy Smoker > 10 Cigarettes Daily Hx Alcohol Use: No Hx Substance Use: No (Denied by patient.) Substance used: cocaine formerly Allergies/Home Meds Allergies/Adverse Reactions: Allergies carisoprodol [From Soma] Allergy (Verified 10/28/18 20:26) DIZZINESS varenicline [From Chantix] Allergy (Verified 10/28/18 20:26) VOMITING Home Medications: Home Meds Medication Instructions Recorded Confirmed RX: Oxycodone HCl [Roxicodone] 15 mg PO QID 05/09/18 10/28/18 RX: Pantoprazole Sodium [Protonix] 40 mg PO DAILY 05/09/18 10/28/18 Bupropion HCl [Wellbutrin Sr] 200 mg PO BID 10/28/18 10/28/18 clonazePAM [Klonopin] 1 mg PO BID 10/28/18 10/28/18 Review of Systems - Physician Review All systems were reviewed & negative as marked: Yes - Review of Systems Constitutional: absent: Fevers Respiratory: absent: SOB, Cough Cardiovascular: absent: Chest Pain, HARMON Gastrointestinal: absent: Abdominal Pain, Stool Changes, Diarrhea, Nausea, Vomiting Genitourinary Male: absent: Urinary Output Changes Musculoskeletal: absent: Back Pain, Neck Pain Neurological: absent: Headache, Dizziness Psychiatric: Anxiety Physical Exam - Physical Exam Narrative Physical Exam (Text): 10/25/18 13:18 Gen: VS reviewed, alert, well developed, well nourished, nontoxic, mild distress. ENT: normal pharynx. Eye: EOMI, PERRL. Neck: no JVD, supple, no adenopathy. CV: regular rate, regular rhythm, no rubs, no murmur, no gallops, S1, S2, pulses equal and strong. Pulm: no distress, clear to auscultation, no wheeze, no rhonchi, breath sounds equal, no rales. Abd: soft, nontender, no guarding, no rebound, no rigidity, normal bowel sounds. Ext: no edema. Skin: good color, no rash, no cyanosis. Psych: responds appropriately to questions, normal affect. Neuro: oriented x 3, CN2-12 intact grossly, motor intact, sensation intact. Vital Signs Reviewed: Yes Vital Signs Temp Pulse Resp BP Pulse Ox 12/16/18 12:48 98.2 F 85 18 191/90 H 98 Temperature: Afebrile Blood Pressure: Hypertensive Pulse: Regular Respiratory Rate: Normal Appearance: Positive for: Well-Appearing, Non-Toxic, Comfortable Pain Distress: None Mental Status: Positive for: Alert and Oriented X 3 Medical Decision Making ED Course and Treatment: 10/25/18 13:19 Impression: A 48 year old male with a history of panic attacks presents to the emergency department for anxiety. Plan: -- EKG -- Chest X-ray -- Urinalysis -- Labs -- Xanax -- Reassess and disposition Prior Visits: Notes and results from previous visits were reviewed. Progress Notes: 10/25/18 15:50 patient is medically stable for psychiatric eval, admit, transfer if needed 10/25/18 18:17 admit accepted to [facility] for inpt tx of severe anxiety. - Lab Interpretations I have reviewed the lab results: Yes - RAD Interpretation Narrative RAD Interpretations (Text): CHEST ONE VIEW Date Signed: 10/25/18 133 Signed By: Chetna Robin MD IMPRESSION: No focal consolidation. Radiology Orders: 10/25/18 13:06 CHEST ONE VIEW [RAD] Stat - EKG Interpretation EKG Interpretation (Text): 10/25/18 15:47 1318: nsr at 86 bpm, nml qrs, nml axis, no acute sttw abn Interpreted by ED Physician: Yes Type: 12 lead EKG - Medication Orders Current Medication Orders: Discontinued Medications Alprazolam (Xanax) 1 mg PO ONCE STA; Protocol Stop: 10/25/18 13:08 - Scribe Statement The provider has reviewed the documentation as recorded by the Kitty Roman Provider Scribe Attestation: All medical record entries made by the Scribe were at my direction and personally dictated by me. I have reviewed the chart and agree that the record accurately reflects my personal performance of the history, physical exam, medical decision making, and the department course for this patient. I have also personally directed, reviewed, and agree with the discharge instructions and disposition. Disposition/Present on Arrival - Present on Arrival Any Indicators Present on Arrival: No History of DVT/PE: No History of Uncontrolled Diabetes: Yes Urinary Catheter: No History of Decub. Ulcer: No History Surgical Site Infection Following: None - Disposition Have Diagnosis and Disposition been Completed?: Yes Diagnosis: Anxiety Disposition: HOME/ ROUTINE Disposition Time: 18:17 Patient Plan: Admission Condition: STABLE
--- NOTE | 2018-10-25 13:43 | RAD ---
HISTORY: medical screening COMPARISON: Chest x-ray performed 10/17/18 TECHNIQUE: Chest, one view. FINDINGS: LUNGS: No focal consolidation. Please note that chest x-ray has limited sensitivity for the detection of pulmonary masses. PLEURA: No significant pleural effusion identified. No definite pneumothorax . CARDIOVASCULAR: Heart size appears within normal limits. No significant atherosclerotic calcification present. OSSEOUS STRUCTURES: No acute osseous abnormality identified. VISUALIZED UPPER ABDOMEN: Unremarkable. OTHER FINDINGS: None. IMPRESSION: No focal consolidation.
[2018-10-25 13:45] LABS: URINE BILIRUBIN NEGATIVE (NEGATIVE); URINE BLOOD NEGATIVE (NEGATIVE); URINE GLUCOSE (UA) NEGATIVE (NEGATIVE); URINE LEUKOCYTE ESTERASE NEGATIVE Leu/uL (NEGATIVE); URINE PROTEIN 30 mg/dL (<30 mg/dL); URINE UROBILINOGEN 0.2 E.U./dL (<1 E.U./dL)
[2018-10-25 13:46] LABS: URINE APPEARANCE CLEAR (CLEAR); URINE COLOR YELLOW (YELLOW)
[2018-10-25 13:53] LABS: BASO # 0.02 K/mm3 (0.0-2.0); BASO % 0.2 % (0.0-3.0); EOS # 0.1 (0.0-0.7); EOS % 0.6 % (1.5-5.0); GRAN # 8.46 (1.4-6.5); GRAN % 75.8 % (50.0-68.0); LYMPH % 17.8 % (22.0-35.0); MEAN CELL VOLUME 89.8 fl (80.0-105.0); MEAN CORPUSCULAR HEMOGLOBIN 32.6 pg (25.0-35.0); MEAN CORPUSCULAR HGB CONC 36.2 g/dl (31.0-37.0); MEAN PLATELET VOLUME 10.7 fl (7.0-11.0); MONO # 0.6 (0.1-0.6); MONO % 5.6 % (1.0-6.0); RBC 5.22 10^6/uL (3.5-6.1); RED CELL DISTRIBUTION WIDTH 12.5 % (11.5-14.5); WHITE BLOOD COUNT 11.2 10^3/uL (4.5-11.0)
[2018-10-25 13:56] LABS: URINE BACTERIA FEW (NEG); URINE CALCIUM OXALATE CRYSTALS SMALL /hpf; URINE RBC NEGATIVE /hpf (0-2); URINE WBC 0 - 2 /hpf (0-6)
[2018-10-25 14:11] LABS: ACETAMINOPHEN < 10.0 ug/ml (10.0-20.0); SALICYLATE < 1 mg/dL (2.0-20.0)
[2018-10-25 14:19] LABS: ALB/GLOB RATIO 1.5 (1.1-1.8); ALBUMIN 4.3 g/dL (3.0-4.8); ALT/SGPT 24 U/L (7-56); AST/SGOT 24 U/L (17-59); BLOOD UREA NITROGEN 16 mg/dL (7-21); CALCIUM 9.3 mg/dL (8.4-10.5); GFR NON-AFRICAN AMERICAN > 60
[2018-10-25 15:02] LABS: TROPONIN I < 0.01 ng/mL
[2018-10-25 16:00] LABS: BARBITURATES, UR NEGATIVE (NEGATIVE)
[2018-10-25 16:01] LABS: BENZODIAZEPINES, UR POSITIVE (NEGATIVE)
[2018-10-25 16:02] LABS: OPIATES, UR POSITIVE (NEGATIVE); PHENCYCLIDINE, UR NEGATIVE (NEGATIVE)
[2018-10-25 18:17] VITALS: TEMP 97
--- NOTE | 2018-10-25 18:30 | CARD ---
APPROVED REPORT Date of service: 10/25/2018 EKG Measurement Heart [id number] [id number] <Conclusion> Normal sinus rhythm Normal ECG
[2018-10-25 19:48] VITALS: BP 128/68; PULSE 80; RESP 18; O2SAT 100
== END 2018-10-25 19:45 | disposition home or self-care (01) ==
LOC: ED 12:29 → UNDOADMIN 18:18 → ERH 18:18 → ED 19:45
DX: F41.9 Anxiety disorder, unspecified (principal); E11.9 Type 2 diabetes mellitus without complications; F17.210 Nicotine dependence, cigarettes, uncomplicated; I10 Essential (primary) hypertension; J44.9 Chronic obstructive pulmonary disease, unspecified; Z86.73 Personal history of transient ischemic attack (TIA), and cerebral infarction without residual deficits; I25.2 Old myocardial infarction

== ENCOUNTER 2018-10-28 20:20 | Emergency (ER) | payer MEDICAID ==
[2018-10-28 20:20] VITALS: BMI 28.2
[2018-10-28 20:31] VITALS: TEMP 98.1
[2018-10-28 21:21] LABS: BASO # 0.03 K/mm3 (0.0-2.0); BASO % 0.3 % (0.0-3.0); EOS # 0.1 (0.0-0.7); EOS % 1.2 % (1.5-5.0); GRAN # 7.52 (1.4-6.5); GRAN % 68.5 % (50.0-68.0); HEMOGLOBIN 17.9 g/dL (14.0-18.0); LYMPH # 2.5 (1.2-3.4); MEAN CELL VOLUME 89.9 fl (80.0-105.0); MEAN CORPUSCULAR HGB CONC 36.7 g/dl (31.0-37.0); MEAN PLATELET VOLUME 10.5 fl (7.0-11.0); MONO # 0.8 (0.1-0.6); RBC 5.43 10^6/uL (3.5-6.1); RED CELL DISTRIBUTION WIDTH 12.4 % (11.5-14.5)
[2018-10-28 21:25] LABS: URINE BILIRUBIN SMALL (NEGATIVE); URINE BLOOD NEGATIVE (NEGATIVE); URINE GLUCOSE (UA) NEGATIVE (NEGATIVE); URINE LEUKOCYTE ESTERASE NEGATIVE Leu/uL (NEGATIVE); URINE PROTEIN 30 mg/dL (<30 mg/dL); URINE UROBILINOGEN 0.2 E.U./dL (<1 E.U./dL)
[2018-10-28 21:27] LABS: URINE APPEARANCE CLEAR (CLEAR); URINE COLOR YELLOW (YELLOW)
[2018-10-28 21:28] LABS: ACETAMINOPHEN < 10.0 ug/ml (10.0-20.0); SALICYLATE < 1 mg/dL (2.0-20.0)
[2018-10-28 21:29] LABS: ALB/GLOB RATIO 1.4 (1.1-1.8); ALBUMIN 4.5 g/dL (3.0-4.8); ALT/SGPT 28 U/L (7-56); AST/SGOT 21 U/L (17-59); BLOOD UREA NITROGEN 17 mg/dL (7-21); CALCIUM 9.7 mg/dL (8.4-10.5); GFR NON-AFRICAN AMERICAN > 60
--- NOTE | 2018-10-28 21:35 | ED PDOC ---
Arrival/HPI - General Chief Complaint: Anxiety Time Seen by Provider: 10/28/18 20:29 Historian: Patient - History of Present Illness Narrative History of Present Illness (Text): 10/28/18 21:33 48-year-old male presents today complaining of worsening anxiety. He denies chest pain or shortness of breath. He denies fevers or chills. He denies any recent trauma or injury. Patient states he feels like he is jumping out of his skin. Patient states they gave him clonidine pen to go home with what he states is not working for the anxiety. He denies depression or suicidal ideation. Denies dizziness or weakness. No headaches or blurred vision. No urinary symptoms. No other complaints Past Medical History - Provider Review Nursing Documentation Reviewed: Yes - Travel History Have you recently traveled outside [place] w/in the past 3 mons?: No - Infectious Disease Hx of Infectious Diseases: None - Tetanus Immunization Tetanus Immunization: Unknown - Cardiac Hx Cardiac Disorders: No Hx Hypertension: No - Pulmonary Hx Respiratory Disorders: No - Neurological Hx Neurological Disorder: No - HEENT Hx HEENT Disorder: No - Renal Hx Renal Disorder: No - Endocrine/Metabolic Hx Endocrine Disorders: Yes Hx Diabetes Mellitus Type 2: Yes - Hematological/Oncological Hx Blood Disorders: No - Integumentary Hx Dermatological Disorder: Yes (Allergy to red tattoo dye.) - Musculoskeletal/Rheumatological Hx Musculoskeletal Disorders: No - Gastrointestinal Hx Gastrointestinal Disorders: No - Genitourinary/Gynecological Hx Genitourinary Disorders: No - Psychiatric Hx Psychophysiologic Disorder: Yes (Substance Abuse Disorder.) Hx Anxiety: Yes Hx Bipolar Disorder: Yes Hx Depression: Yes Hx Panic Disorder: Yes Hx Substance Use: No (Denied by patient.) - Surgical History Hx Orthopedic Surgery: Yes (Lower Back reconstructive Sz/ L knee synovitis/ Rt shld Rt Knee Sx.) - Anesthesia Hx Anesthesia: Yes Hx Anesthesia Reactions: No Hx Malignant Hyperthermia: No - Suicidal Assessment Feels Threatened In Home Enviroment: No Family/Social History - Physician Review Nursing Documentation Reviewed: Yes Family/Social History: Unknown Family HX Smoking Status: Heavy Smoker > 10 Cigarettes Daily Hx Alcohol Use: No Hx Substance Use: No (Denied by patient.) Substance used: cocaine formerly Allergies/Home Meds Allergies/Adverse Reactions: Allergies carisoprodol [From Soma] Allergy (Verified 10/28/18 20:26) DIZZINESS varenicline [From Chantix] Allergy (Verified 10/28/18 20:26) VOMITING Home Medications: Home Meds Medication Instructions Recorded Confirmed Oxycodone HCl [Roxicodone] 15 mg PO QID 05/09/18 10/28/18 Pantoprazole Sodium [Protonix] 40 mg PO DAILY 05/09/18 10/28/18 Bupropion HCl [Wellbutrin Sr] 200 mg PO BID 10/28/18 10/28/18 clonazePAM [Klonopin] 1 mg PO BID 10/28/18 10/28/18 Review of Systems - Review of Systems Constitutional: absent: Fatigue, Fevers Respiratory: absent: SOB, Cough Cardiovascular: absent: Chest Pain, Palpitations Gastrointestinal: absent: Abdominal Pain, Nausea, Vomiting Genitourinary Male: absent: Dysuria Musculoskeletal: absent: Arthralgias Skin: absent: Rash, Pruritis Neurological: absent: Headache, Dizziness Psychiatric: Anxiety. absent: Depression, Suicidal Ideation Physical Exam Vital Signs Reviewed: Yes Vital Signs Temp Pulse Resp BP Pulse Ox 10/28/18 20:30 98.1 F 97 H 22 180/103 H 97 Temperature: Afebrile Blood Pressure: Hypertensive Pulse: Regular Respiratory Rate: Normal Appearance: Positive for: Well-Appearing, Non-Toxic, Comfortable Pain Distress: None Mental Status: Positive for: Alert and Oriented X 3 - Systems Exam Head: Present: Atraumatic Mouth: Present: Moist Mucous Membranes Neck: Present: Normal Range of Motion Respiratory/Chest: Present: Clear to Auscultation, Good Air Exchange. No: Respiratory Distress, Accessory Muscle Use Cardiovascular: Present: Regular Rate and Rhythm, Normal S1, S2. No: Murmurs Abdomen: No: Tenderness, Distention, Rebound, Guarding Back: Present: Normal Inspection Upper Extremity: Present: Normal ROM Lower Extremity: Present: Normal ROM Neurological: Present: GCS=15, Speech Normal Skin: Present: Warm, Dry, Normal Color. No: Rashes Psychiatric: Present: Alert, Oriented x 3 Medical Decision Making ED Course and Treatment: 10/28/18 21:35 Patient is nontoxic well-appearing in no distress vital signs are stable. CBC WNL CMP WNL Tylenol WNL Salicylate WNL Alcohol level WNL Urine drug screen + opiates, + benzos UA; wnl ekg normal sinus rhythm at 87 bpm normal axis no ST elevations QTC 464 pt is medically cleared for PES evaluation Patient was seen and evaluated by PES screener: Manuel Patient was cleared psychiatrically for discharge advised the patient follow-up with the PMD and psychiatrist within the next 2 days. Advised me to return if symptoms worsen persist or if new concerning symptoms develop I advised patient of his elevated blood pressure and need to take his blood pressure medications as prescribed. Patient/parent verbalizes understanding of discharge instructions and need for immediate followup. All aspects of this case were discussed the attending of record. Impression; anxiety Follow up with your psychiatrist within the next 2 days. Follow-up with your primary care physician within the next 2 days Return if symptoms worsen persist or if new concerning symptoms develop - Lab Interpretations Lab Results: 10/28/18 21:05 10/28/18 21:05 Lab Results 10/28/18 21:05: Alcohol, Quantitative < 10 10/28/18 21:05: Salicylates < 1 L, Acetaminophen < 10.0 L 10/28/18 21:05: Sodium 139, Potassium 3.4 L, Chloride 106, Carbon Dioxide 23, Anion Gap 13, BUN 17, Creatinine 1.0, Est GFR ( Amer) > 60, Est GFR (Non- Af Amer) > 60, Random Glucose 136 H, Calcium 9.7, Total Bilirubin 0.8, AST 21, ALT 28, Alkaline Phosphatase 77, Total Protein 7.6, Albumin 4.5, Globulin 3.1, Albumin/Globulin Ratio 1.4 10/28/18 21:05: Urine Color Yellow, Urine Appearance Clear, Urine pH 6.0, Ur S pecific [place] >= 1.030, Urine Protein 30 H, Urine Glucose (UA) Negative, Urine Ketones Trace H, Urine Blood Negative, Urine Nitrate Negative, Urine Bilirubin Small H, Urine Urobilinogen 0.2, Ur Leukocyte Esterase Negative, Urine RBC Pending, Urine WBC Pending 10/28/18 21:05: WBC 11.0, RBC 5.43, Hgb 17.9, Hct 48.8, MCV 89.9, MCH 33.0, MCHC 36.7, RDW 12.4, Plt Count 175, MPV 10.5, Gran % 68.5 H, Lymph % (Auto) 23.0, [place] % (Auto) 7.0 H, Eos % (Auto) 1.2 L, Baso % (Auto) 0.3, Gran # 7.52 H, Lymph # (Auto) 2.5, [place] # (Auto) 0.8 H, Eos # (Auto) 0.1, Baso # (Auto) 0.03 - Medication Orders Current Medication Orders: Discontinued Medications Alprazolam (Xanax) 1 mg PO STAT STA; Protocol Stop: 10/28/18 21:07 Last Admin: 10/28/18 21:14 Dose: 1 mg Disposition/Present on Arrival - Present on Arrival Any Indicators Present on Arrival: Yes History of DVT/PE: No History of Uncontrolled Diabetes: Yes Urinary Catheter: No History of Decub. Ulcer: No History Surgical Site Infection Following: None - Disposition Have Diagnosis and Disposition been Completed?: Yes Diagnosis: Anxiety Disposition: HOME/ ROUTINE Disposition Time: 23:49 Patient Plan: Discharge Patient Problems: Current Active Problems Problem Status Onset Anxiety Acute Condition: GOOD Discharge Instructions (ExitCare): Anxiety, Adult (DC) Additional Instructions: Follow up with your psychiatrist within the next 2 days. Follow-up with your primary care physician within the next 2 days Return if symptoms worsen persist or if new concerning symptoms develop Prescriptions: ALPRAZolam [Xanax] 1 mg PO Q8H PRN #4 tab PRN Reason: anxiety Referrals: Patsy Campbell MD [Primary Care Provider] - Follow up with primary [facility] [Outside] - Follow up with primary [facility] [Outside] - Follow up with primary Sarah Park MD [Medical Doctor] - Follow up with primary Forms: WORK NOTE, [employer] (Puerto Rican)
[2018-10-28 21:55] LABS: BARBITURATES, UR NEGATIVE (NEGATIVE); BENZODIAZEPINES, UR POSITIVE (NEGATIVE); OPIATES, UR POSITIVE (NEGATIVE); PHENCYCLIDINE, UR NEGATIVE (NEGATIVE)
[2018-10-28 22:09] LABS: URINE EPITHELIAL CELLS 0 - 2 /hpf (0-5); URINE RBC 0 - 2 /hpf (0-2); URINE WBC NEGATIVE /hpf (0-6)
[2018-10-28 22:10] LABS: URINE BACTERIA SMALL /hpf; URINE CALCIUM OXALATE CRYSTALS SMALL /hpf
[2018-10-28 23:57] VITALS: BP 153/92; PULSE 89; RESP 18; O2SAT 98
--- NOTE | 2018-10-29 09:16 | CARD ---
APPROVED REPORT Date of service: 10/28/2018 EKG Measurement Heart [id number] PA 160P22 [id number] <Conclusion> Normal sinus rhythm NSSTW changes Prolonged QT, new
== END 2018-10-28 23:57 | disposition home or self-care (01) ==
LOC: ED 20:20
DX: F41.9 Anxiety disorder, unspecified (principal); E11.9 Type 2 diabetes mellitus without complications; F17.210 Nicotine dependence, cigarettes, uncomplicated

== ENCOUNTER 2018-12-03 10:06 | Observation (INO) | payer MEDICAID ==
[2018-12-03 10:07] VITALS: BMI 28.2
[2018-12-03] MEDS ORDERED: Aspirin 325 mg EC Tablets PO STA (10:20)
--- NOTE | 2018-12-03 10:31 | ED PDOC ---
Arrival/HPI - General Chief Complaint: Chest Pain Time Seen by Provider: 12/03/18 10:14 Historian: Patient, Family (cousin) - History of Present Illness Narrative History of Present Illness (Text): 12/03/18 10:31 48 year old male, whose past medical history includes PR, PTCA, hypertension, diabetes, TIA, COPD, anxiety, depression, and CAD, presents to the emergency department complaining of sharp chest pain since earlier today. Patient reports associated numbness in his left hand and palpitations. He notes secondary anxiety and cough with white phlegm. Cousin notes patient uses Xanax and oxycodone frequently and too much, they have been trying to get the patient to rehab. He denies fevers, chills, headache, dizziness, shortness of breath, dyspnea on exertion, abdominal pain, nausea, vomiting, diarrhea, back pain, neck pain, or any other complaint. PMD: Dr. Campbell Time/Duration: 4-6 hours Symptom Onset: Gradual Symptom Course: Unchanged Activities at Onset: Light Context: Home Past Medical History - Provider Review Nursing Documentation Reviewed: Yes - Infectious Disease Hx of Infectious Diseases: None - Tetanus Immunization Tetanus Immunization: Unknown - Cardiac Hx Cardiac Disorders: No Hx PR: Yes Hx Hypertension: Yes - Pulmonary Hx Respiratory Disorders: No Hx Asthma: Yes Hx Chronic Obstructive Pulmonary Disease (COPD): Yes - Neurological Hx Neurological Disorder: No - HEENT Hx HEENT Disorder: No - Renal Hx Renal Disorder: No - Endocrine/Metabolic Hx Endocrine Disorders: Yes Hx Diabetes Mellitus Type 2: Yes - Hematological/Oncological Hx Blood Disorders: No - Integumentary Hx Dermatological Disorder: Yes (Allergy to red tattoo dye.) - Musculoskeletal/Rheumatological Hx Musculoskeletal Disorders: No - Gastrointestinal Hx Gastrointestinal Disorders: No - Genitourinary/Gynecological Hx Genitourinary Disorders: No - Psychiatric Hx Psychophysiologic Disorder: Yes (Substance Abuse Disorder.) Hx Anxiety: Yes Hx Bipolar Disorder: Yes Hx Depression: Yes Hx Panic Disorder: Yes Hx Substance Use: No (Denied by patient.) - Surgical History Hx Orthopedic Surgery: Yes (Lower Back reconstructive Sz/ L knee synovitis/ Rt shld Rt Knee Sx.) Other/Comment: R shoulder sx. L ankle sx - Anesthesia Hx Anesthesia: Yes Hx Anesthesia Reactions: No Hx Malignant Hyperthermia: No - Suicidal Assessment Feels Threatened In Home Enviroment: No Family/Social History - Physician Review Nursing Documentation Reviewed: Yes Family/Social History: No Known Family HX Smoking Status: Heavy Smoker > 10 Cigarettes Daily Hx Alcohol Use: Yes Frequency of alcohol use: Socially Hx Substance Use: No (Denied by patient.) Substance used: cocaine formerly Allergies/Home Meds Allergies/Adverse Reactions: Allergies carisoprodol [From Soma] Allergy (Verified 10/28/18 20:26) DIZZINESS varenicline [From Chantix] Allergy (Verified 10/28/18 20:26) VOMITING Home Medications: Home Meds Medication Instructions Recorded Confirmed Oxycodone HCl [Roxicodone] 15 mg PO QID 05/09/18 10/28/18 Pantoprazole Sodium [Protonix] 40 mg PO DAILY 05/09/18 10/28/18 Bupropion HCl [Wellbutrin Sr] 200 mg PO BID 10/28/18 10/28/18 clonazePAM [Klonopin] 1 mg PO BID 10/28/18 10/28/18 Review of Systems - Physician Review All systems were reviewed & negative as marked: Yes - Review of Systems Constitutional: absent: Fevers Respiratory: absent: SOB, Cough Cardiovascular: Chest Pain, Palpitations Gastrointestinal: absent: Abdominal Pain, Diarrhea, Nausea, Vomiting Genitourinary Male: absent: Dysuria, Frequency Musculoskeletal: absent: Back Pain, Neck Pain Neurological: Other (numbness in left arm ). absent: Headache, Dizziness Psychiatric: Anxiety Physical Exam Vital Signs Reviewed: Yes Temperature: Afebrile Blood Pressure: Hypertensive Pulse: Regular Respiratory Rate: Normal Appearance: Positive for: Well-Appearing, Non-Toxic, Comfortable Pain Distress: None Mental Status: Positive for: Alert and Oriented X 3 - Systems Exam Head: Present: Atraumatic, Normocephalic Pupils: Present: PERRL Extroacular Muscles: Present: EOMI Conjunctiva: Present: Normal Mouth: Present: Moist Mucous Membranes Neck: Present: Normal Range of Motion Respiratory/Chest: Present: Clear to Auscultation, Good Air Exchange, Other (no chest wall tenderness ). No: Respiratory Distress, Accessory Muscle Use, Tender to Palpation Cardiovascular: Present: Regular Rate and Rhythm, Normal S1, S2. No: Murmurs Abdomen: No: Tenderness, Distention, Peritoneal Signs Back: Present: Normal Inspection Upper Extremity: Present: Normal Inspection. No: Cyanosis, Edema Lower Extremity: Present: Normal Inspection. No: Edema Neurological: Present: GCS=15, CN II-XII Intact, Speech Normal, Motor Func Grossly Intact, Normal Sensory Function Skin: Present: Warm, Dry, Normal Color. No: Rashes Psychiatric: Present: Alert, Oriented x 3, Normal Insight, Normal Concentration, Anxious Medical Decision Making ED Course and Treatment: 12/03/18 10:31 Impression: 48 year old male who presents to the emergency department complaining of chest pain. Differential Diagnosis included but are not limited to: Chest pain r/o ACS Anxiety Plan: -- EKG -- Labs -- Chest X-ray -- Ativan -- Ecotrin -- IV fluids -- Xanax -- Reassess and disposition Prior Visits: Notes and results from previous visits were reviewed. Progress Notes: EKG reviewed, shows: Sinus tacchycardia at 107 bpm, No ST/T wave changes. 12/03/18 11:30 Chest X-ray reviewed, shows: IMPRESSION: Minor bibasilar atelectasis 12/03/18 12:10 Patient appearing very anxious and needed more Xanax for symptoms. CXR noted. EKG reviewed. Case discussed with Dr. Wilkinson and will admit to Telemetry. Dr. Ramírez technical support professional for cardiology and consulted. - Lab Interpretations I have reviewed the lab results: Yes - RAD Interpretation Radiology Orders: 12/03/18 10:20 CHEST PORTABLE [RAD] Stat - EKG Interpretation Interpreted by ED Physician: Yes Type: 12 lead EKG - Medication Orders Current Medication Orders: Discontinued Medications Aspirin (Ecotrin) 325 mg PO STAT STA Stop: 12/03/18 10:21 Lorazepam (Ativan) 1 mg PO ONCE ONE; Protocol Stop: 12/03/18 10:22 - Scribe Statement The provider has reviewed the documentation as recorded by the Kitty Garcia Provider Scribe Attestation: All medical record entries made by the Scribe were at my direction and personally dictated by me. I have reviewed the chart and agree that the record accurately reflects my personal performance of the history, physical exam, medical decision making, and the department course for this patient. I have also personally directed, reviewed, and agree with the discharge instructions and disposition. Disposition/Present on Arrival - Present on Arrival Any Indicators Present on Arrival: Yes History of DVT/PE: No History of Uncontrolled Diabetes: Yes Urinary Catheter: No History of Decub. Ulcer: No History Surgical Site Infection Following: None - Disposition Have Diagnosis and Disposition been Completed?: Yes Diagnosis: Chest pain, Benzodiazepine withdrawal, Anxiety Disposition: HOSPITALIZED Disposition Time: 12:14 Patient Plan: Observation Condition: FAIR Discharge Instructions (ExitCare): Chest Pain (ED) Forms: [employer] (Bel[place]ian)
[2018-12-03 10:43] LABS: BASO # 0.02 K/mm3 (0.0-2.0); BASO % 0.2 % (0.0-3.0); EOS # 0.1 (0.0-0.7); EOS % 0.7 % (1.5-5.0); GRAN # 7.82 (1.4-6.5); GRAN % 70.9 % (50.0-68.0); LYMPH # 2.5 (1.2-3.4); LYMPH % 22.8 % (22.0-35.0); MEAN CORPUSCULAR HEMOGLOBIN 32.2 pg (25.0-35.0); MEAN CORPUSCULAR HGB CONC 36.2 g/dl (31.0-37.0); MEAN PLATELET VOLUME 10.5 fl (7.0-11.0); MONO # 0.6 (0.1-0.6); MONO % 5.4 % (1.0-6.0); RBC 5.62 10^6/uL (3.5-6.1); RED CELL DISTRIBUTION WIDTH 12.7 % (11.5-14.5)
[2018-12-03 10:45] LABS: ALB/GLOB RATIO 1.4 (1.1-1.8); ALBUMIN 4.6 g/dL (3.0-4.8); ALT/SGPT 32 U/L (7-56); AST/SGOT 22 U/L (17-59); BLOOD UREA NITROGEN 19 mg/dL (7-21); CALCIUM 9.8 mg/dL (8.4-10.5); GFR NON-AFRICAN AMERICAN > 60
[2018-12-03 10:55] LABS: TROPONIN I < 0.01 ng/mL
[2018-12-03 10:58] LABS: HEMOGLOBIN 18.1 g/dL (14.0-18.0)
--- NOTE | 2018-12-03 11:07 | RAD ---
Date of service: 12/03/2018 HISTORY: chest pain COMPARISON: Comparison made with chest radiograph 10/25/2018. FINDINGS: LUNGS: Minor bibasilar atelectasis. PLEURA: No significant pleural effusion identified, no pneumothorax apparent. CARDIOVASCULAR: Questionable artifact versus mild aortic atherosclerotic calcification present. Normal cardiac size. No pulmonary vascular congestion. OSSEOUS STRUCTURES: No significant abnormalities. VISUALIZED UPPER ABDOMEN: Normal. OTHER FINDINGS: None. IMPRESSION: Minor bibasilar atelectasis
[2018-12-03] MEDS ORDERED: Sodium Chloride 0.9% 1,000 ML IV STA (11:13)
--- NOTE | 2018-12-03 12:55 | CP.PCM.HP ---
<Steve Abreu - Last Filed: 12/03/18 15:26> History of Present Illness - History of Present Illness History of Present Illness: Steve Abreu, PGY1 History & Physical for Dr. Wilkinson cc: cp and anxiety Patient is a 48 year old male with PMHx CAD (stent placement in 05/27), HTN, DM II, HLD, TIA, COPD, Depression, Generalized Anxiety Disorder who presented to the emergency department complaining of chest pain several days in duration with associated anxiety. Patient had associated palpitations and tremors. Patient was also feeling very anxious. In the ED, vital signs stable. Patient was given at rafy, aspirin, fluids, and xanax. Medical team was consulted for evaluation. EKG showed sinus tachy without acute ST or T wave changes. Medical team was consulted for evaluation. Patient said his symptoms felt like he had a heart attack. Patient explained that he has not taken his medications today. He last took his xanax a few days ago and oxycodone home medication yesterday. Patient does not have any sick contacts or recent travel history. He says that since arriving to the ED, he feels like his symptoms have improved. He also had associated nausea, vomiting, and tremors. However, since admission he no longer endorses these symptoms. Denies excess sweating, visual, auditory, and tactile hallucinations. A full 12 point ROS was conducted and unremarkable except as stated above. PMD: Dr. Campbell PMHx: CAD (stent placement in 05/27), HTN, DM II, HLD, TIA, COPD, Depression, Generalized Anxiety Disorder PSHx: Lower Back reconstructive surgery, right knee surgery Meds: oxycodone, wellbutrin, toprol, neurontin, cozaar, xanax, oxycontin, metformin, protonix, levemir, plavix, lipitor, asa Allergies: carisoprodol, varenicline SocialHx: 10 cigarettes daily, former cocaine user, social drinker FamHx: father had DM and COPD, mother has heart disease Present on Admission - Present on Admission Any Indicators Present on Admission: No Review of Systems - Review of Systems All systems: reviewed and no additional remarkable complaints except (as per H PI) Past Patient History - Infectious Disease Hx of Infectious Diseases: None - Tetanus Immunizations Tetanus Immunization: Unknown - Past Medical History & Family History Past Medical History?: Yes - Past Social History Smoking Status: Heavy Smoker > 10 Cigarettes Daily - CARDIAC Hx Cardiac Disorders: No Hx Heart Attack: Yes Hx Hypertension: Yes - PULMONARY Hx Respiratory Disorders: No Hx Asthma: Yes Hx Chronic Obstructive Pulmonary Disease (COPD): Yes - NEUROLOGICAL Hx Neurological Disorder: No - HEENT Hx HEENT Problems: No - RENAL Hx Chronic Kidney Disease: No - ENDOCRINE/METABOLIC Hx Endocrine Disorders: Yes Hx Diabetes Mellitus Type 2: Yes - HEMATOLOGICAL/ONCOLOGICAL Hx Blood Disorders: No - INTEGUMENTARY Hx Dermatological Problems: Yes (Allergy to red tattoo dye.) - MUSCULOSKELETAL/RHEUMATOLOGICAL Hx Musculoskeletal Disorders: No - GASTROINTESTINAL Hx Gastrointestinal Disorders: No - GENITOURINARY/GYNECOLOGICAL Hx Genitourinary Disorders: No - PSYCHIATRIC Hx Psychophysiologic Disorder: Yes (Substance Abuse Disorder.) Hx Anxiety: Yes Hx Bipolar Disorder: Yes Hx Depression: Yes Hx Panic Symptoms: Yes Hx Substance Use: No (Denied by patient.) - SURGICAL HISTORY Hx Orthopedic Surgery: Yes (Lower Back reconstructive Sz/ L knee synovitis/ Rt shld Rt Knee Sx.) Other/Comment: R shoulder sx. L ankle sx - ANESTHESIA Hx Anesthesia: Yes Hx Anesthesia Reactions: No Hx Malignant Hyperthermia: No Meds Allergies/Adverse Reactions: Allergies Allergy/AdvReac Type Severity Reaction Status Date / Time carisoprodol [From Soma] Allergy DIZZINESS Verified 12/03/18 20:55 varenicline [From Chantix] Allergy VOMITING Verified 12/03/18 20:55 Physical Exam - Constitutional Appears: No Acute Distress - Head Exam Head Exam: ATRAUMATIC, NORMAL INSPECTION, NORMOCEPHALIC - Eye Exam Eye Exam: EOMI, Normal appearance, PERRL Pupil Exam: Mydriatic (dilated pupils bilaterally) - ENT Exam ENT Exam: Mucous Membranes Moist, Normal Exam - Respiratory Exam Respiratory Exam: Clear to Auscultation Bilateral. absent: Chest Wall Tenderness, Rales, Rhonchi, Wheezes - Cardiovascular Exam Cardiovascular Exam: RRR, +S1, +S2 - GI/Abdominal Exam GI & Abdominal Exam: Normal Bowel Sounds, Soft. absent: Firm, Guarding, Rebound, Rigid, Tenderness - Extremities Exam Extremities exam: Positive for: full ROM, normal capillary refill, normal inspection, pedal pulses present. Negative for: calf tenderness, pedal edema, tenderness - Back Exam Back exam: NORMAL INSPECTION - Neurological Exam Neurological exam: Alert, CN II-XII Intact, Oriented x3, Reflexes Normal - Psychiatric Exam Psychiatric exam: Normal Affect, Normal Mood - Skin Skin Exam: Dry, Intact, Normal Color, Warm Results - Vital Signs Recent Vital Signs: Last Vital Signs Temp Pulse 90 12/03/18 11:18 Resp 19 12/03/18 11:18 BP 134/93 H 12/03/18 11:18 Pulse Ox 96 12/03/18 11:18 - Labs Result Diagrams: 12/03/18 10:30 12/03/18 10:30 Labs: Laboratory Results - last 24 hr 12/03/18 12/03/18 10:30 10:30 WBC 11.0 RBC 5.62 Hgb 18.1 H* Hct 50.0 MCV 89.0 MCH 32.2 MCHC 36.2 RDW 12.7 Plt Count 242 MPV 10.5 Gran % 70.9 H Lymph % (Auto) 22.8 Hall % (Auto) 5.4 Eos % (Auto) 0.7 L Baso % (Auto) 0.2 Gran # 7.82 H Lymph # (Auto) 2.5 Hall # (Auto) 0.6 Eos # (Auto) 0.1 Baso # (Auto) 0.02 Sodium 140 Potassium 3.9 Chloride 104 Carbon Dioxide 23 Anion Gap 17 BUN 19 Creatinine 0.9 Est GFR ( Amer) > 60 Est GFR (Non-Af Amer) > 60 Random Glucose 183 H Calcium 9.8 Magnesium 2.0 Total Bilirubin 1.3 AST 22 ALT 32 Alkaline Phosphatase 80 Lactate Dehydrogenase 367 Total Creatine Kinase 76 Troponin I < 0.01 Total Protein 7.9 Albumin 4.6 Globulin 3.3 Albumin/Globulin Ratio 1.4 Assessment & Plan - Assessment and Plan (Free Text) Assessment: Patient is a 48 year old male with PMHx CAD (stent placement in 05/27), HTN, DM II, HLD, TIA, COPD, Depression, Generalized Anxiety Disorder who presented to the emergency department complaining of chest pain several days in duration with associated anxiety. Patient will be admitted to telemetry for unstable angina and possible benzodiazepine withdrawal. Plan: Unstable Angina with Hx of Anxiety - troponin negative x1; will f/u serial trop - Cardiology is on consult. Follow up recommendations. - Psych is on consult. Follow up recommendations. - TSH - daily labs - urine drug screen - IVF NS at 75 cc/hr - Lovenox 1 mg/kg BID - maintenance fluids Possible Benzodiazepine Withdrawal - ativan 1mg q6 prn - will continue to monitor for signs of withdrawal; sx improved since ED admission Hx CAD - c/w ASA home med - c/w plavix home med - c/w lipitor 40mg home med Hx of tobacco use - c/w home wellbutrin Hx DM - Levemir - ISS (low) - Accuchecks - started on gabapentin home med Hx HTN - c/w Cozaar home med - c/w Toprol home med Hx low back and knee surgeries - c/w oxycontin and oxycodone home meds DVT ppx: lovenox GI ppx: ptx Diet: HHD Dispo: Will monitor patient on telemetry. Further recommendations as per Cardiology and Psychiatry. Case was discussed and reviewed with Attending Physician, Dr. Wilkinson <Miriam Wilkinson - Last Filed: 12/04/18 15:46> Results - Vital Signs Recent Vital Signs: Last Vital Signs Temp 98.2 F 12/04/18 12:00 Pulse 78 12/04/18 12:00 Resp 20 12/04/18 12:00 BP 137/98 H 12/04/18 12:00 Pulse Ox 95 12/04/18 09:00 - Labs Result Diagrams: 12/04/18 05:41 12/04/18 05:41 Labs: Laboratory Results - last 24 hr 12/03/18 12/03/18 12/03/18 15:58 16:09 16:57 WBC RBC Hgb Hct MCV MCH MCHC RDW Plt Count MPV D-Dimer, Quantitative < 200 Sodium Potassium Chloride Carbon Dioxide Anion Gap BUN Creatinine Est GFR ( Amer) Est GFR (Non-Af Amer) POC Glucose (mg/dL) 206 H Random Glucose Calcium Phosphorus Magnesium Total Bilirubin AST ALT Alkaline Phosphatase Troponin I < 0.01 Total Protein Albumin Globulin Albumin/Globulin Ratio 12/03/18 12/03/18 12/04/18 21:44 21:50 05:41 WBC 8.9 RBC 5.14 Hgb 16.7 Hct 47.2 MCV 91.8 MCH 32.5 MCHC 35.4 RDW 12.7 Plt Count 188 MPV 10.0 D-Dimer, Quantitative Sodium Potassium Chloride Carbon Dioxide Anion Gap BUN Creatinine Est GFR ( Amer) Est GFR (Non-Af Amer) POC Glucose (mg/dL) 212 H Random Glucose Calcium Phosphorus Magnesium Total Bilirubin AST ALT Alkaline Phosphatase Troponin I < 0.01 Total Protein Albumin Globulin Albumin/Globulin Ratio 12/04/18 12/04/18 12/04/18 05:41 07:31 12:09 WBC RBC Hgb Hct MCV MCH MCHC RDW Plt Count MPV D-Dimer, Quantitative Sodium 137 Potassium 4.1 Chloride 105 Carbon Dioxide 25 Anion Gap 11 BUN 23 H Creatinine 0.9 Est GFR ( Amer) > 60 Est GFR (Non-Af Amer) > 60 POC Glucose (mg/dL) 166 H 161 H Random Glucose 145 H Calcium 8.9 Phosphorus 3.7 Magnesium 1.9 Total Bilirubin 1.2 AST 20 ALT 34 Alkaline Phosphatase 68 Troponin I Total Protein 6.7 Albumin 3.8 Globulin 2.8 Albumin/Globulin Ratio 1.4 Attending/Attestation - Attestation I have personally seen and examined this patient.: Yes I have fully participated in the care of the patient.: Yes I have reviewed all pertinent clinical information: Yes Notes (Text): 12/04/18 15:43 Medical record note made by the resident after discussion with my direction and input after the patient was personally seen and examined by me. I have reviewed the chart and agree that the record accurately reflects by personal performance of the history, physical exam, data review, and medical decision-making, in the course for the patient. I have also personally directed the plan of care. 48 year old male with past medical history significant for CAD s/p stent placement, hypertension, DM2, TIA, COPD, chronic bronchitis, psychosis, depression, and anxiety is admitted with chest pain and severe anxiety. Pain was improved after he was given Xanax in ED. EKG is negative for ischemic changes, Due to H/O PTCA and RCA stent, will admit patient to telemetry, we will get serial troponinin. We will also get cardiology consult. We will also watch patient for Benzodiazepam withdrawal. We will also get Psychiatry consult. Management plan was discussed in detail with patient. Education was provided
[2018-12-03] MEDS ORDERED: Enoxaparin 100 mg Syringe SC SCH (14:15)
[2018-12-03] MEDS: Sodium Chloride 0.9% 1,000 ML IV SCH (14:53)
[2018-12-03] MEDS: oxyCODONE 10 mg Immediate Release Tab PO PRN ×2 (16:11→23:38)
[2018-12-03] MEDS: Insulin Reg-LOW-Coverage SC SCH ×2 (19:04→21:59)
[2018-12-03] MEDS: oxyCODONE 10 mg ER Tab (oxyCONTIN) PO SCH (19:05)
[2018-12-03] MEDS ORDERED: Pneumococcal 23-Valent Vaccine IM ONE (21:19)
[2018-12-03] MEDS ORDERED: Influenza Vaccine 60 mcg/0.5 mL SYR (4YR UP) IM ONE (21:19)
--- NOTE | 2018-12-03 23:03 | CARD ---
APPROVED REPORT Date of service: 12/03/2018 EKG Measurement Heart [id number] <Conclusion> Sinus tachycardia Otherwise normal ECG
[2018-12-04] MEDS: Sodium Chloride 0.9% 1,000 ML IV SCH (03:30)
[2018-12-04 05:47] VITALS: O2SAT 95
[2018-12-04] MEDS ORDERED: Enoxaparin 100 mg Syringe SC SCH ×2 (06:00→10:00)
[2018-12-04 06:01] LABS: HEMOGLOBIN 16.7 g/dL (14.0-18.0); MEAN CELL VOLUME 91.8 fl (80.0-105.0); MEAN CORPUSCULAR HEMOGLOBIN 32.5 pg (25.0-35.0); MEAN CORPUSCULAR HGB CONC 35.4 g/dl (31.0-37.0); RBC 5.14 10^6/uL (3.5-6.1); RED CELL DISTRIBUTION WIDTH 12.7 % (11.5-14.5); WHITE BLOOD COUNT 8.9 10^3/uL (4.5-11.0)
[2018-12-04 06:30] LABS: ALB/GLOB RATIO 1.4 (1.1-1.8); ALBUMIN 3.8 g/dL (3.0-4.8); ALT/SGPT 34 U/L (7-56); AST/SGOT 20 U/L (17-59); BLOOD UREA NITROGEN 23 mg/dL (7-21); CALCIUM 8.9 mg/dL (8.4-10.5); GFR NON-AFRICAN AMERICAN > 60
[2018-12-04] MEDS: Insulin Reg-LOW-Coverage SC SCH ×2 (08:09→12:38)
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
[2018-12-04] MEDS: oxyCODONE 10 mg ER Tab (oxyCONTIN) PO SCH (09:38)
[2018-12-04] MEDS ORDERED: Insulin Detemir 100 units/ml Vial (Levemir) SC SCH (10:00)
[2018-12-04] MEDS ORDERED: Metoprolol Succinate 25 mg XL Tab PO SCH (10:00)
[2018-12-04] MEDS ORDERED: Pantoprazole 40 mg EC Tab PO SCH (10:00)
[2018-12-04] MEDS: oxyCODONE 10 mg Immediate Release Tab PO PRN (11:13)
[2018-12-04 12:35] VITALS: BP 137/98; PULSE 78; RESP 20; TEMP 98.2
--- NOTE | 2018-12-04 13:40 | CP.PCM.DIS ---
<Steve Abreu - Last Filed: 12/04/18 15:27> Provider - Provider Date of Admission: 12/03/18 12:08 Attending physician: Miriam Wilkinson MD Consults: 12/03/18 14:07 Physician Consult Routine Comment: Consulting Provider: Otoniel Ramírez Consulting Physician: Otoniel Ramírez Reason for Consult: CP r/o ACS, hx of RCA stent, med noncompliance 12/03/18 14:08 Consult [Physician Consult] Routine Comment: Consulting Provider: Porsche Gutierrez Consulting Physician: Porsche Gutierrez Reason for Consult: hx of anxiety, benzo withdrawal 12/03/18 21:19 Diabetic Education Referral Routine Comment: TEACHING Physician Instructions: Reason For Exam: EVALUATION 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 Physician Instructions: Reason For Exam: EVALUATION Time Spent in preparation of Discharge (in minutes): 35 Hospital Course - Lab Results Lab Results: Most Recent Lab Values WBC 8.9 10^3/uL (4.5-11.0) 12/04/18 05:41 RBC 5.14 10^6/uL (3.5-6.1) 12/04/18 05:41 Hgb 16.7 g/dL (14.0-18.0) 12/04/18 05:41 Hct 47.2 % (42.0-52.0) 12/04/18 05:41 MCV 91.8 fl (80.0-105.0) 12/04/18 05:41 MCH 32.5 pg (25.0-35.0) 12/04/18 05:41 MCHC 35.4 g/dl (31.0-37.0) 12/04/18 05:41 RDW 12.7 % (11.5-14.5) 12/04/18 05:41 Plt Count 188 10^3/uL (120.0-450.0) 12/04/18 05:41 MPV 10.0 fl (7.0-11.0) 12/04/18 05:41 Gran % 70.9 % (50.0-68.0) H 12/03/18 10:30 Lymph % (Auto) 22.8 % (22.0-35.0) 12/03/18 10:30 Vigo % (Auto) 5.4 % (1.0-6.0) 12/03/18 10:30 Eos % (Auto) 0.7 % (1.5-5.0) L 12/03/18 10:30 Baso % (Auto) 0.2 % (0.0-3.0) 12/03/18 10:30 Gran # 7.82 (1.4-6.5) H 12/03/18 10:30 Lymph # (Auto) 2.5 (1.2-3.4) 12/03/18 10:30 Vigo # (Auto) 0.6 (0.1-0.6) 12/03/18 10:30 Eos # (Auto) 0.1 (0.0-0.7) 12/03/18 10:30 Baso # (Auto) 0.02 K/mm3 (0.0-2.0) 12/03/18 10:30 D-Dimer, Quantitative < 200 ng/mlDDU (0-243) 12/03/18 16:09 Sodium 137 mmol/L (132-148) 12/04/18 05:41 Potassium 4.1 mmol/L (3.6-5.0) 12/04/18 05:41 Chloride 105 mmol/L (98-107) 12/04/18 05:41 Carbon Dioxide 25 mmol/L (21-33) 12/04/18 05:41 Anion Gap 11 (10-20) 12/04/18 05:41 BUN 23 mg/dL (7-21) H 12/04/18 05:41 Creatinine 0.9 mg/dl (0.8-1.5) 12/04/18 05:41 Est GFR ( Amer) > 60 12/04/18 05:41 Est GFR (Non-Af Amer) > 60 12/04/18 05:41 POC Glucose (mg/dL) 166 mg/dL (65-110) H 12/04/18 07:31 Random Glucose 145 mg/dL (70-110) H 12/04/18 05:41 Calcium 8.9 mg/dL (8.4-10.5) 12/04/18 05:41 Phosphorus 3.7 mg/dL (2.5-4.5) 12/04/18 05:41 Magnesium 1.9 mg/dL (1.7-2.2) 12/04/18 05:41 Total Bilirubin 1.2 mg/dL (0.2-1.3) 12/04/18 05:41 AST 20 U/L (17-59) 12/04/18 05:41 ALT 34 U/L (7-56) 12/04/18 05:41 Alkaline Phosphatase 68 U/L (38-126) 12/04/18 05:41 Lactate Dehydrogenase 367 U/L (333-699) 12/03/18 10:30 Total Creatine Kinase 76 U/L (35-230) 12/03/18 10:30 Troponin I < 0.01 ng/mL 12/03/18 21:50 Total Protein 6.7 g/dL (5.8-8.3) 12/04/18 05:41 Albumin 3.8 g/dL (3.0-4.8) 12/04/18 05:41 Globulin 2.8 gm/dL 12/04/18 05:41 Albumin/Globulin Ratio 1.4 (1.1-1.8) 12/04/18 05:41 Alcohol, Quantitative < 10 mg/dL (0-10) 12/03/18 14:00 - Hospital Course Hospital Course: Steve Abreu, PGY1 Discharge Summary for Dr. Wilkinson Patient is a 48 year old male with PMHx CAD (stent placement in 05/27), HTN, DM II, HLD, TIA, COPD, Depression, Generalized Anxiety Disorder who presented to the emergency department complaining of chest pain several days in duration with associated anxiety. Patient presented with associated palpitations and mild tremors. He said he was feeling very anxious. Vital signs were stable in the ED. In the ED, patient was given ativan, aspirin, fluids, and xanax. Medical team was consulted for evaluation. Upon examination, patient said he felt better once he was brought into the ED. Patient also said he hasn't taken his xanax and oxycodone medication in a few days. He had no evidence of tremors, seizures, or auditory/visual/tactile hallucinations. Patient admitted for chest pain, rule out ACS. He was also being monitored for possible benzodiazepine withdrawal. Patient's EKG showed sinus tachy without any acute ST or T wave changes. Troponins were trended and were negative x3. He was administered lovenox. CXR did not show acute cardiopulmonary disease. Cardio was consulted for chest pain. Psychiatry was consulted for anxiety. During hospital course, patient's symptoms improved. Psych recommended that the patient stop taking his home medication, Wellbutrin. As per psych, patient also given paxil and a follow up appointment at [facility]. During hospital stay, patient started to ask for more doses of xanax. Medical team looked at records for controlled substances, which showed that the patient was last prescribed xanax for a month supply on 11/18 and oxycontin supply on 11/13. Patient is exhibiting signs of pain-seeking behavior. Medical team did not supply the patient with inappropriate pain control substances. Patient is hemodynamically stable and cleared by cardiology for discharge. He may follow up with his PMD for outpatient stress test referral. Otherwise, patient is stable to go home. Discharge Exam - Head Exam Head Exam: ATRAUMATIC, NORMAL INSPECTION, NORMOCEPHALIC - Eye Exam Eye Exam: Normal appearance - ENT Exam ENT Exam: Mucous Membranes Moist - Neck Exam Neck exam: Normal Inspection - Respiratory Exam Respiratory Exam: Clear to PA & Lateral. absent: Chest Wall Tenderness, Rales, Rhonchi, Wheezes - Cardiovascular Exam Cardiovascular Exam: RRR, +S1, +S2 - GI/Abdominal Exam GI & Abdominal Exam: Normal Bowel Sounds, Soft. absent: Distended, Firm, Guarding, Rebound, Rigid, Tenderness - Extremities Exam Extremities exam: normal capillary refill, normal inspection, pedal pulses pr esent - Neurological Exam Neurological exam: Alert, CN II-XII Intact, Normal Gait, Oriented x3, Reflexes Normal - Psychiatric Exam Psychiatric exam: Normal Affect, Normal Mood - Skin Skin Exam: Dry, Intact, Normal Color, Warm Discharge Plan - Discharge Medications Prescriptions: RX: PARoxetine [Paxil] 10 mg PO HS #14 tab - Follow Up Plan Condition: FAIR Disposition: HOME/ ROUTINE Instructions: Quitting Smoking, Generalized Anxiety Disorder (DC) Additional Instructions: Please follow up with your primary care doctor, Dr. Campbell, within 3-5 days of discharge. Please follow up with cardiology, Dr. Ramírez, within 1 week of discharge. Recommend outpatient stress test. You have been given a prescription for: 1. Paxil 10mg one pill at night. STOP TAKING WELLBUTRIN. Continue all other medications as prescribed. Please follow up with psychiatry at [facility] for your appointment on December 10 for psych med refills and evaluation. If your symptoms return, please go to the nearest emergency department. Referrals: Otoniel Ramírez MD [Staff Provider] - <Miriam Wilkinson - Last Filed: 12/04/18 15:51> Provider - Provider Date of Admission: 12/03/18 12:08 Attending physician: Miriam Wilkinson MD Consults: 12/03/18 14:07 Physician Consult Routine Comment: Consulting Provider: Otoniel Ramírez Consulting Physician: Otoniel Ramírez Reason for Consult: CP r/o ACS, hx of RCA stent, med noncompliance 12/03/18 14:08 Consult [Physician Consult] Routine Comment: Consulting Provider: Porsche Gutierrez Consulting Physician: Porsche Gutierrez Reason for Consult: hx of anxiety, benzo withdrawal 12/03/18 21:19 Diabetic Education Referral Routine Comment: TEACHING Physician Instructions: Reason For Exam: EVALUATION 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 Physician Instructions: Reason For Exam: EVALUATION Hospital Course - Lab Results Lab Results: Most Recent Lab Values WBC 8.9 10^3/uL (4.5-11.0) 12/04/18 05:41 RBC 5.14 10^6/uL (3.5-6.1) 12/04/18 05:41 Hgb 16.7 g/dL (14.0-18.0) 12/04/18 05:41 Hct 47.2 % (42.0-52.0) 12/04/18 05:41 MCV 91.8 fl (80.0-105.0) 12/04/18 05:41 MCH 32.5 pg (25.0-35.0) 12/04/18 05:41 MCHC 35.4 g/dl (31.0-37.0) 12/04/18 05:41 RDW 12.7 % (11.5-14.5) 12/04/18 05:41 Plt Count 188 10^3/uL (120.0-450.0) 12/04/18 05:41 MPV 10.0 fl (7.0-11.0) 12/04/18 05:41 Gran % 70.9 % (50.0-68.0) H 12/03/18 10:30 Lymph % (Auto) 22.8 % (22.0-35.0) 12/03/18 10:30 Vigo % (Auto) 5.4 % (1.0-6.0) 12/03/18 10:30 Eos % (Auto) 0.7 % (1.5-5.0) L 12/03/18 10:30 Baso % (Auto) 0.2 % (0.0-3.0) 12/03/18 10:30 Gran # 7.82 (1.4-6.5) H 12/03/18 10:30 Lymph # (Auto) 2.5 (1.2-3.4) 12/03/18 10:30 Vigo # (Auto) 0.6 (0.1-0.6) 12/03/18 10:30 Eos # (Auto) 0.1 (0.0-0.7) 12/03/18 10:30 Baso # (Auto) 0.02 K/mm3 (0.0-2.0) 12/03/18 10:30 D-Dimer, Quantitative < 200 ng/mlDDU (0-243) 12/03/18 16:09 Sodium 137 mmol/L (132-148) 12/04/18 05:41 Potassium 4.1 mmol/L (3.6-5.0) 12/04/18 05:41 Chloride 105 mmol/L (98-107) 12/04/18 05:41 Carbon Dioxide 25 mmol/L (21-33) 12/04/18 05:41 Anion Gap 11 (10-20) 12/04/18 05:41 BUN 23 mg/dL (7-21) H 12/04/18 05:41 Creatinine 0.9 mg/dl (0.8-1.5) 12/04/18 05:41 Est GFR ( Amer) > 60 12/04/18 05:41 Est GFR (Non-Af Amer) > 60 12/04/18 05:41 POC Glucose (mg/dL) 161 mg/dL (65-110) H 12/04/18 12:09 Random Glucose 145 mg/dL (70-110) H 12/04/18 05:41 Calcium 8.9 mg/dL (8.4-10.5) 12/04/18 05:41 Phosphorus 3.7 mg/dL (2.5-4.5) 12/04/18 05:41 Magnesium 1.9 mg/dL (1.7-2.2) 12/04/18 05:41 Total Bilirubin 1.2 mg/dL (0.2-1.3) 12/04/18 05:41 AST 20 U/L (17-59) 12/04/18 05:41 ALT 34 U/L (7-56) 12/04/18 05:41 Alkaline Phosphatase 68 U/L (38-126) 12/04/18 05:41 Lactate Dehydrogenase 367 U/L (333-699) 12/03/18 10:30 Total Creatine Kinase 76 U/L (35-230) 12/03/18 10:30 Troponin I < 0.01 ng/mL 12/03/18 21:50 Total Protein 6.7 g/dL (5.8-8.3) 12/04/18 05:41 Albumin 3.8 g/dL (3.0-4.8) 12/04/18 05:41 Globulin 2.8 gm/dL 12/04/18 05:41 Albumin/Globulin Ratio 1.4 (1.1-1.8) 12/04/18 05:41 Alcohol, Quantitative < 10 mg/dL (0-10) 12/03/18 14:00 Attending/Attestation - Attestation I have personally seen and examined this patient.: Yes I have fully participated in the care of the patient.: Yes I have reviewed all pertinent clinical information, including history, physical exam and plan: Yes Notes (Text): 12/04/18 15:47 Medical record note made by the resident after discussion with my direction and input after the patient was personally seen and examined by me. I have reviewed the chart and agree that the record accurately reflects by personal performance of the history, physical exam, data review, and medical decision-making, in the course for the patient. I have also personally directed the plan of care. 48 year old male with past medical history significant for CAD s/p stent placement, hypertension, DM2, TIA, COPD, chronic bronchitis, depression, and anxiety was admitted with chest pain and severe anxiety. Pain was improved after he was given Xanax in ED. EKG is negative for ischemic changes, Serial troponins are normal.. Cardiology evaluation is appreciated.Patient is cleared for discharge , no further inpatient work up is needed. Patient was evaluated by Psychiatry prior to discharge.Case was discussed with . 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 Education was provided
--- NOTE | 2018-12-04 21:49 | CON ---
DATE: 12/04/2018 CARDIOLOGY CONSULT NOTE REASON FOR CONSULTATION: Chest pain. HISTORY OF PRESENT ILLNESS: The patient is a 48-year-old male who had a history of coronary artery disease, underwent stenting and 90% stenosis of the right coronary artery based on drug-eluding stent in 04/2018. The patient claims he has been complaint with his aspirin and Plavix. The patient has a history of anxiety disorder. He was anxiety as well as chest pain radiating to left arm. The patient denies any issues of diaphoresis. SOCIAL HISTORY: The patient is a smoker. He is occasional drinker. MEDICATIONS: Aspirin 81 mg once a day, Cozaar 50 mg daily, Lipitor 40 mg once a day, Lovenox 40, Neurontin 100 mg daily, oxycodone 10 mg t.i.d., Plavix 75 mg once a day, Toprol-XL 25 mg daily. REVIEW OF SYSTEMS: No fever or chills. No nausea or vomiting. No dizziness or syncope. PHYSICAL EXAMINATION GENERAL: The patient is a middle-aged male, who does not appear to be in any distress. VITAL SIGNS: Blood pressure , heart rate 81, temperature 98.2, respirations 20. HEENT: Normocephalic. CHEST: Clear. HEART: Heart sounds were regular. ABDOMEN: Soft. EXTREMITIES: No edema. LABORATORY DATA: Today's SMA-7 is entirely within normal limits, except for glucose 145 and BUN of 23. He says his troponin is negative. CBC is entirely within normal limits. EKG revealed sinus tachycardia at a rate of 107. D-dimer is within normal limits. Chest x-ray revealed minor bibasilar atelectasis. Echocardiographic study revealed normal and normal systolic function, mild PI. ASSESSMENT: 1. Chest pain, myocardial infarction is ruled out. 2. Anxiety disorder. 3. Hypertension and diabetes mellitus. RECOMMENDATIONS: Continue aspirin, Cozaar, Lipitor, subcutaneous Lovenox, Toprol-XL, Paxil, Xanax, Plavix. The patient can be discharged on medical management if cleared by Psychiatry with an outpatient treadmill stress test. Otoniel Ramírez MD
[2018-12-05] MEDS ORDERED: Enoxaparin 40 mg Syringe SC SCH (10:00)
== END 2018-12-04 15:03 | disposition home or self-care (01) ==
LOC: ED 10:06 → ERH 12:08 → 2RNO 15:35
PROVIDERS: ADMIT Internal Medicine; ATTEND Internal Medicine
DX: F41.1 Generalized anxiety disorder (principal); R07.9 Chest pain, unspecified; F41.0 Panic disorder [episodic paroxysmal anxiety]; E11.9 Type 2 diabetes mellitus without complications; I10 Essential (primary) hypertension; E78.5 Hyperlipidemia, unspecified; F13.239 Sedative, hypnotic or anxiolytic dependence with withdrawal, unspecified; F17.210 Nicotine dependence, cigarettes, uncomplicated; F31.81 Bipolar II disorder; Z86.73 Personal history of transient ischemic attack (TIA), and cerebral infarction without residual deficits; I25.10 Atherosclerotic heart disease of native coronary artery without angina pectoris; J44.9 Chronic obstructive pulmonary disease, unspecified; I25.2 Old myocardial infarction; Z82.5 Family history of asthma and other chronic lower respiratory diseases; Z83.3 Family history of diabetes mellitus; Z95.5 Presence of coronary angioplasty implant and graft; F14.21 Cocaine dependence, in remission
CPT/HCPCS: 36415; 71045; 80053; 80320; 82550; 82948; 83615; 83735; 84100; 84484; 85025; 85027; 85378; 93005; 96360; 96372; 99283; G0378; J1650; J7030

== ENCOUNTER 2019-01-02 02:28 | Emergency (ER) | payer MEDICAID ==
[2019-01-02 02:29] VITALS: BMI 28.2
[2019-01-02] MEDS ORDERED: DiphenhydrAMINE 50 mg/ml Inj ONE (02:37)
--- NOTE | 2019-01-02 02:44 | ED PDOC ---
Arrival/HPI - General Historian: EMS, Police EM Caveat: Intoxicated, Uncooperative - History of Present Illness Narrative History of Present Illness (Text): 01/02/19 02:40 48 m presents from home for psychiatric evaluation after witnessed intoxication and holding a knife threatening to harm himself. Police were called to residence by son. Patient arrived in the ED verbally aggressive and uncooperative. Patient awake and alert, intoxicated, no apparent physical injury. <Rodney Walters - Last Filed: 01/02/19 05:26> <Jameson Snider - Last Filed: 01/02/19 11:10> - General Time Seen by Provider: 01/02/19 02:40 Past Medical History - Provider Review Nursing Documentation Reviewed: Yes - Infectious Disease Hx of Infectious Diseases: None - Tetanus Immunization Tetanus Immunization: Unknown - Cardiac Hx Cardiac Arrhythmia: No Hx AL: Yes Hx Hypertension: Yes Hx Mitral Valve Prolapse: No Hx Pacemaker: No Hx Peripheral Edema: No - Pulmonary Hx Asthma: Yes Hx Bronchitis: Yes Hx Chronic Obstructive Pulmonary Disease (COPD): Yes Hx Emphysema: No Hx Pneumonia: No Hx Sleep Apnea: No - Neurological Hx Alzheimer's Disease: No Hx Dementia: No Hx Migraine: No Hx Parkinson's Disease: No Hx Seizures: No Hx Transient Ischemic Attacks (TIA): Yes - HEENT Hx HEENT Disorder: No - Renal Hx Renal Disorder: No Hx Kidney Stones: No - Endocrine/Metabolic Hx Diabetes Mellitus Type 2: Yes - Hematological/Oncological Hx Anemia: Yes (Denied by pt.) Hx Sickle Cell Disease: No - Integumentary Hx Dermatological Disorder: Yes (Allergy to red tattoo dye.) - Musculoskeletal/Rheumatological Hx Arthritis: Yes Hx Osteoporosis: No - Gastrointestinal Hx Crohn's Disease: No Hx Diverticulitis: No Hx Gall Bladder Disease: No Hx Pancreatitis: No - Genitourinary/Gynecological Hx Sexually Transmitted Diseases: No - Psychiatric Hx Substance Use: Yes - Surgical History Hx Coronary Stent: Yes Other/Comment: Reconstructed spine and right shoulder - Anesthesia Hx Anesthesia: Yes Hx Anesthesia Reactions: No Hx Malignant Hyperthermia: No - Suicidal Assessment Feels Threatened In Home Enviroment: No <Rodney Walters - Last Filed: 01/02/19 05:26> Family/Social History - Physician Review Nursing Documentation Reviewed: Yes Family/Social History: No Known Family HX Smoking Status: Heavy Smoker > 10 Cigarettes Daily Hx Alcohol Use: Yes Hx Substance Use: Yes Substance used: cocaine formerly <RomeoRodney - Last Filed: 01/02/19 05:26> Allergies/Home Meds <RomeoRodney - Last Filed: 01/02/19 05:26> <Jameson Snider - Last Filed: 01/02/19 11:10> Allergies/Adverse Reactions: Allergies carisoprodol [From Soma] Allergy (Verified 12/11/18 17:26) DIZZINESS varenicline [From Chantix] Allergy (Verified 12/11/18 17:26) VOMITING Home Medications: Home Meds Medication Instructions Recorded Confirmed Pantoprazole Sodium [Protonix] 40 mg PO DAILY 05/09/18 12/04/18 Insulin Detemir [Levemir] 15 unit SC QAM 12/03/18 12/04/18 Losartan [Cozaar] 50 mg PO DAILY 12/03/18 12/04/18 MetFORMIN ER [Glucophage XR] 500 mg PO BID 12/03/18 12/03/18 Metoprolol Succinate [Toprol Xl] 25 mg PO DAILY 12/03/18 12/04/18 Oxycodone HCl [Oxycontin] 15 mg PO BID PRN 12/03/18 12/04/18 oxyCODONE [oxyCODONE Immediate 10 mg PO TID PRN 12/03/18 12/04/18 Release Tab] Review of Systems - Physician Review All systems were reviewed & negative as marked: Yes - Review of Systems Systems not reviewed;Unavailable: Uncooperative Psychiatric: Suicidal Ideation <RomeoRodney - Last Filed: 01/02/19 05:26> Physical Exam - Physical Exam Narrative Physical Exam (Text): 01/02/19 02:46 Gen: VS reviewed, alert, well developed, well nourished, nontoxic, mild distress CV: regular rate, regular rhythm, no rubs,no murmur, S1, S2 Pulm: no distress, clear to auscultation, no wheeze, no rhonchi, breath sounds equal, no rales Ext: no edema Skin: good color, no rash, no cyanosis Neuro: oriented x3, CN2-12 intact grossly, motor intact, sensation intact Vital Signs Reviewed: Yes <RomeoRodney - Last Filed: 01/02/19 05:26> Vital Signs Temp Pulse Resp BP Pulse Ox 01/02/19 04:52 93 H 18 148/88 96 01/02/19 02:54 98.2 F 81 18 156/93 H 98 <Jameson Snider - Last Filed: 01/02/19 11:10> Medical Decision Making ED Course and Treatment: Impression: 48 year old male presents for alcohol intoxication and suicidal attempt tonight. Plan: -- Labs -- Haldol, Ativan -- Reassess and disposition Prior Visits: Notes and results from previous visits were reviewed. Progress Notes: 01/02/19 02:44 This patients severe and persistent agitated state is preventing me from assessing the patient to determine if a serious underlying medical condition exists. The patient's behavior is creating an unsafe situation and placing himself, staff, and other patients at risk. The patient is: (+) verbally abusive and threatening to staff; apparently under the influence of an illicit substance(s), uncooperative and unable to comprehend his/her situation or make informed choices regarding his/her own health. Non-pharmacologic approaches, including verbal de-escalation and reducing environmental stimulation, were attempted but unsuccessful. In an attempt to develop a provisional diagnosis of the most likely cause of this patients agitated state, I have categorized the patient's condition as follows: agitation due to intoxication. Oral pharmacotherapy was offered to the patient in an effort to calm the patient, permit an accurate assessment and allow the patient to participate in his/her own treatment plan, but the patient was uncooperative, refused, and did not consent to oral therapy so the parenteral route was utilized. Patient sedated with haldol and ativan under my supervision. The patient was reassessed by me 15 minutes after medication administration. Patient re-assessed and found to be with resolved agitation, sleeping comfortably, with stable vitals. In summary, pharmacologic intervention targeted at this patients underlying illness was successful in alleviating agitation, facilitating an accurate assessment and ensuring safety for the patient, staff and others. - RAD Interpretation Narrative RAD Interpretations (Text): 01/02/19 05:26 cxr my read: no focal infiltrate, no ptx, no wide mediastinum Sales Operations: ED Physician <Rodney Walters - Last Filed: 01/02/19 05:26> ED Course and Treatment: 01/02/19 07:14 Patient was turned over to me by Dr. Walters waiting for crisis evaluation. He is comfortable and sleeping soundly and easily aroused. 01/02/19 09:34 Crisis has been called. 01/02/19 11:08 Seen and evaluated by crisis. Patient does not need hospitalization. He will be discharged home accompanied by family. Follow-up with PMD. Follow-up in ER as needed. - Lab Interpretations Lab Results: Total Bilirubin 0.6 mg/dL (0.2-1.3) 01/02/19 03:22 AST 17 U/L (17-59) 01/02/19 03:22 ALT 14 U/L (7-56) 01/02/19 03:22 Alkaline Phosphatase 103 U/L (38-126) 01/02/19 03:22 Total Protein 7.6 g/dL (5.8-8.3) 01/02/19 03:22 Albumin 4.6 g/dL (3.0-4.8) 01/02/19 03:22 Globulin 2.9 gm/dL 01/02/19 03:22 Albumin/Globulin Ratio 1.6 (1.1-1.8) 01/02/19 03:22 - RAD Interpretation Radiology Orders: 01/02/19 03:51 CHEST PORTABLE [RAD] Stat - Medication Orders Current Medication Orders: Discontinued Medications Haloperidol Lactate (Haldol) 5 mg IM STAT STA; Protocol Stop: 01/02/19 03:04 Last Admin: 01/02/19 03:03 Dose: 5 mg IM Administration Charges Document 01/02/19 03:03 IT (Rec: 01/02/19 04:29 IT [facility] [id number]) Injection Site MAR Injection Site Left Deltoid Charges for Administration # of IM Administrations 1 Lorazepam (Ativan) 2 mg IM ONCE ONE; Protocol Stop: 01/02/19 03:05 Last Admin: 01/02/19 03:03 Dose: 2 mg IM Administration Charges Document 01/02/19 03:03 IT (Rec: 01/02/19 04:29 IT [facility] [id number]) Injection Site MAR Injection Site Left Deltoid Charges for Administration # of IM Administrations 1 Potassium Chloride (K-Dur 20 Meq Er Tab) 40 meq PO STAT STA Stop: 01/02/19 06:43 Last Admin: 01/02/19 07:04 Dose: 40 meq Jameson Tan - Last Filed: 01/02/19 11:10> - Scribe Statement The provider has reviewed the documentation as recorded by the Kitty Ignacio Provider Kitty Attestation: All medical record entries made by the Manjeetibsyed were at my direction and personally dictated by me. I have reviewed the chart and agree that the record accurately reflects my personal performance of the history, physical exam, medical decision making, and the department course for this patient. I have also personally directed, reviewed, and agree with the discharge instructions and disposition. <Rodney Walters - Last Filed: 01/02/19 05:26> Disposition/Present on Arrival - Present on Arrival History of DVT/PE: No History of Uncontrolled Diabetes: Yes Urinary Catheter: No History Surgical Site Infection Following: None <Rodney Walters - Last Filed: 01/02/19 05:26> - Present on Arrival Any Indicators Present on Arrival: No History of DVT/PE: No History of Uncontrolled Diabetes: Yes Urinary Catheter: No History of Decub. Ulcer: No - Disposition Have Diagnosis and Disposition been Completed?: Yes Disposition Time: 11:09 Patient Plan: Discharge <Jameson Snider - Last Filed: 01/02/19 11:10> - Disposition Diagnosis: Alcohol intoxication Disposition: HOME/ ROUTINE Condition: GOOD Discharge Instructions (ExitCare): Alcohol Use - When Is Drinking a Problem?, Alcohol Abuse and Alcoholism (DC)
[2019-01-02 03:06] VITALS: RESP 18
[2019-01-02 03:32] LABS: BASO # 0.02 K/mm3 (0.0-2.0); BASO % 0.1 % (0.0-3.0); EOS % 0.1 % (1.5-5.0); HEMOGLOBIN 17.2 g/dL (14.0-18.0); LYMPH # 2.4 (1.2-3.4); MEAN CELL VOLUME 88.8 fl (80.0-105.0); MEAN CORPUSCULAR HGB CONC 36.1 g/dl (31.0-37.0); MEAN PLATELET VOLUME 10.1 fl (7.0-11.0); MONO # 0.6 (0.1-0.6); RBC 5.37 10^6/uL (3.5-6.1); RED CELL DISTRIBUTION WIDTH 12.5 % (11.5-14.5); WHITE BLOOD COUNT 14.1 10^3/uL (4.5-11.0)
[2019-01-02 03:43] LABS: ACETAMINOPHEN < 10.0 ug/ml (10.0-20.0); SALICYLATE < 1 mg/dL (2.0-20.0)
[2019-01-02 03:44] LABS: ALB/GLOB RATIO 1.6 (1.1-1.8); ALBUMIN 4.6 g/dL (3.0-4.8); ALT/SGPT 14 U/L (7-56); AST/SGOT 17 U/L (17-59); BLOOD UREA NITROGEN 15 mg/dL (7-21); CALCIUM 9.6 mg/dL (8.4-10.5); GFR NON-AFRICAN AMERICAN > 60
[2019-01-02] MEDS ORDERED: Potassium Chloride 20 mEq ER Tab PO STA (06:42)
[2019-01-02 08:41] LABS: URINE APPEARANCE CLEAR (CLEAR); URINE BILIRUBIN NEGATIVE (NEGATIVE); URINE BLOOD NEGATIVE (NEGATIVE); URINE COLOR YELLOW (YELLOW); URINE GLUCOSE (UA) NEGATIVE (NEGATIVE); URINE LEUKOCYTE ESTERASE NEGATIVE Leu/uL (NEGATIVE); URINE PROTEIN TRACE mg/dL (<30 mg/dL); URINE UROBILINOGEN 0.2 E.U./dL (<1 E.U./dL)
[2019-01-02 09:11] LABS: URINE BACTERIA FEW /hpf; URINE EPITHELIAL CELLS 0 - 2 /hpf (0-5)
--- NOTE | 2019-01-02 09:29 | RAD ---
Date of service: 01/02/2019 HISTORY: chest pain COMPARISON: 12/03/2018. FINDINGS: LUNGS: The lungs are well inflated and clear. PLEURA: No pleural effusions or pneumothorax. CARDIOVASCULAR: The heart is normal in size. No aortic atherosclerotic calcifications present. OSSEOUS STRUCTURES: Within normal limits for the patient's age. VISUALIZED UPPER ABDOMEN: Normal. OTHER FINDINGS: None. IMPRESSION: No active pulmonary disease.
[2019-01-02 09:32] LABS: BARBITURATES, UR NEGATIVE (NEGATIVE); BENZODIAZEPINES, UR NEGATIVE (NEGATIVE); OPIATES, UR NEGATIVE (NEGATIVE); PHENCYCLIDINE, UR NEGATIVE (NEGATIVE)
--- NOTE | 2019-01-02 10:49 | CARD ---
APPROVED REPORT Date of service: 01/02/2019 EKG Measurement Heart [id number] <Conclusion> Normal sinus rhythm Normal ECG
[2019-01-02 11:24] VITALS: BP 132/80; PULSE 92; TEMP 98.2; O2SAT 98
== END 2019-01-02 11:27 | disposition home or self-care (01) ==
LOC: ED 02:28
DX: F10.129 Alcohol abuse with intoxication, unspecified (principal); E11.9 Type 2 diabetes mellitus without complications; I10 Essential (primary) hypertension; F17.210 Nicotine dependence, cigarettes, uncomplicated
CPT/HCPCS: 71045; 80053; 80320; 80324; 80329; 80345; 80346; 80349; 80353; 80358; 80361; 81001; 83992; 85025; 93005; 96372; 99285; J1630; J2060

== ENCOUNTER 2019-01-04 00:13 | Emergency (ER) | payer MEDICAID | END 2019-01-04 09:20 | disposition home or self-care (01) | LOC: ED 00:13 ==

== ENCOUNTER 2019-01-11 02:26 | Emergency (ER) | payer MEDICAID ==
[2019-01-11 02:26] VITALS: BMI 28.2
[2019-01-11] MEDS ORDERED: Sodium Chloride 0.9% 1,000 ML IV STA (02:35)
[2019-01-11 02:37] VITALS: TEMP 97.3
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
[2019-01-11 03:11] LABS: BASO # 0.03 K/mm3 (0.0-2.0); BASO % 0.2 % (0.0-3.0); EOS # 0.1 (0.0-0.7); EOS % 0.7 % (1.5-5.0); HEMOGLOBIN 17.3 g/dL (14.0-18.0); MEAN CELL VOLUME 88.7 fl (80.0-105.0); MEAN CORPUSCULAR HEMOGLOBIN 32.6 pg (25.0-35.0); MEAN CORPUSCULAR HGB CONC 36.7 g/dl (31.0-37.0); MEAN PLATELET VOLUME 10.7 fl (7.0-11.0); MONO # 0.8 (0.1-0.6); MONO % 6.3 % (1.0-6.0); RBC 5.31 10^6/uL (3.5-6.1); RED CELL DISTRIBUTION WIDTH 12.6 % (11.5-14.5)
[2019-01-11 03:12] LABS: INR 0.87; PARTIAL THROMBOPLASTIN TIME 26.8 Seconds (26.9-38.3)
[2019-01-11 03:16] LABS: PROTHROMBIN TIME 9.7 SECONDS (9.4-12.5)
[2019-01-11 03:31] LABS: ALB/GLOB RATIO 1.6 (1.1-1.8); ALBUMIN 4.5 g/dL (3.0-4.8); ALT/SGPT 20 U/L (7-56); AST/SGOT 23 U/L (17-59); BLOOD UREA NITROGEN 21 mg/dL (7-21); CALCIUM 10.1 mg/dL (8.4-10.5); GFR NON-AFRICAN AMERICAN > 60; LIPASE 174 U/L (23-300)
[2019-01-11 03:43] LABS: B-TYPE NATRIURETIC PEPTIDE 16.2 pg/mL (0-450); TROPONIN I < 0.01 ng/mL
[2019-01-11 06:23] VITALS: BP 141/63; PULSE 89; RESP 18; O2SAT 99
--- NOTE | 2019-01-11 09:04 | RAD ---
Date of service: 01/11/2019 HISTORY: chest pain COMPARISON: 01/04/2019 01/04/2019 FINDINGS: LUNGS: No active pulmonary disease. PLEURA: No significant pleural effusion identified, no pneumothorax apparent. CARDIOVASCULAR: No aortic atherosclerotic calcification present. Normal cardiac size. No pulmonary vascular congestion. OSSEOUS STRUCTURES: No significant abnormalities. VISUALIZED UPPER ABDOMEN: Normal. OTHER FINDINGS: None. IMPRESSION: No active disease.
--- NOTE | 2019-01-11 15:46 | CARD ---
APPROVED REPORT Date of service: 01/11/2019 EKG Measurement Heart [id number] <Conclusion> Sinus tachycardia Otherwise normal ECG
== END 2019-01-11 06:20 | disposition home or self-care (01) ==
LOC: ED 02:26
DX: R07.9 Chest pain, unspecified (principal); F41.9 Anxiety disorder, unspecified; I25.10 Atherosclerotic heart disease of native coronary artery without angina pectoris; I10 Essential (primary) hypertension; E11.9 Type 2 diabetes mellitus without complications; E78.5 Hyperlipidemia, unspecified; Z86.73 Personal history of transient ischemic attack (TIA), and cerebral infarction without residual deficits; Z95.5 Presence of coronary angioplasty implant and graft; F17.210 Nicotine dependence, cigarettes, uncomplicated
CPT/HCPCS: 71045; 80053; 83690; 83735; 83880; 84484; 85025; 85610; 85730; 93005; 96360; 99283; J7030

== ENCOUNTER 2019-01-18 13:32 | Emergency (ER) | payer MEDICAID ==
[2019-01-18 13:33] VITALS: BMI 28.2
[2019-01-18 13:55] VITALS: RESP 18; O2SAT 98
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
--- NOTE | 2019-01-18 15:53 | RAD ---
Date of service: 01/18/2019 HISTORY: Psych clearance. COMPARISON: Comparison chest 01/11/2019. FINDINGS: LUNGS: No active pulmonary disease. PLEURA: No significant pleural effusion identified, no pneumothorax apparent. CARDIOVASCULAR: No aortic atherosclerotic calcification present. Normal cardiac size. No pulmonary vascular congestion. OSSEOUS STRUCTURES: No significant abnormalities. VISUALIZED UPPER ABDOMEN: Normal. OTHER FINDINGS: None. IMPRESSION: No active disease.
[2019-01-18 16:30] LABS: BASO # 0.01 K/mm3 (0.0-2.0); BASO % 0.1 % (0.0-3.0); EOS # 0.1 (0.0-0.7); EOS % 0.8 % (1.5-5.0); HEMOGLOBIN 16.2 g/dL (14.0-18.0); LYMPH # 1.7 (1.2-3.4); LYMPH % 22.4 % (22.0-35.0); MEAN CELL VOLUME 90.4 fl (80.0-105.0); MEAN CORPUSCULAR HEMOGLOBIN 32.4 pg (25.0-35.0); MEAN CORPUSCULAR HGB CONC 35.8 g/dl (31.0-37.0); MEAN PLATELET VOLUME 10.9 fl (7.0-11.0); MONO # 0.4 (0.1-0.6); MONO % 5.7 % (1.0-6.0); RED CELL DISTRIBUTION WIDTH 12.6 % (11.5-14.5); WHITE BLOOD COUNT 7.5 10^3/uL (4.5-11.0)
[2019-01-18 16:35] LABS: ACETAMINOPHEN < 10.0 ug/ml (10.0-20.0); SALICYLATE < 1 mg/dL (2.0-20.0)
[2019-01-18 16:39] LABS: ALB/GLOB RATIO 1.4 (1.1-1.8); ALT/SGPT 23 U/L (7-56); AST/SGOT 20 U/L (17-59); BLOOD UREA NITROGEN 14 mg/dL (7-21); CALCIUM 9.5 mg/dL (8.4-10.5); GFR NON-AFRICAN AMERICAN > 60
--- NOTE | 2019-01-18 17:57 | CARD ---
APPROVED REPORT Date of service: 01/18/2019 EKG Measurement Heart [id number] <Conclusion> Baseline artifact Atrial fibrillation Abnormal ECG
[2019-01-18 20:48] LABS: URINE BILIRUBIN NEGATIVE (NEGATIVE); URINE BLOOD NEGATIVE (NEGATIVE); URINE GLUCOSE (UA) NEGATIVE (NEGATIVE); URINE LEUKOCYTE ESTERASE NEGATIVE Leu/uL (NEGATIVE); URINE PROTEIN 30 mg/dL (<30 mg/dL); URINE UROBILINOGEN 0.2 E.U./dL (<1 E.U./dL)
[2019-01-18 20:49] LABS: URINE APPEARANCE CLEAR (CLEAR); URINE COLOR YELLOW (YELLOW)
[2019-01-18 21:17] LABS: BARBITURATES, UR NEGATIVE (NEGATIVE); BENZODIAZEPINES, UR NEGATIVE (NEGATIVE); OPIATES, UR POSITIVE (NEGATIVE); PHENCYCLIDINE, UR NEGATIVE (NEGATIVE)
[2019-01-18 21:25] LABS: URINE BACTERIA NEG /hpf; URINE EPITHELIAL CELLS 0 - 2 /hpf (0-5); URINE WBC 0 - 2 /hpf (0-6)
[2019-01-18 21:26] LABS: URINE CALCIUM OXALATE CRYSTALS MOD /hpf
--- NOTE | 2019-01-18 22:09 | ED PDOC ---
Physical Exam Vital Signs Reviewed: Yes Vital Signs Temp Pulse Resp BP Pulse Ox 01/18/19 18:30 94 H 18 138/86 98 01/18/19 13:33 97.4 F L 103 H 18 143/97 H 98 Temperature: Afebrile Blood Pressure: Hypertensive Pulse: Tachycardic Respiratory Rate: Normal Appearance: Positive for: Well-Appearing, Non-Toxic, Comfortable Pain Distress: None Mental Status: Positive for: Alert and Oriented X 3 Medical Decision Making ED Course and Treatment: 01/18/19 22:08 Case endorsed to me by Dr. Torres, patient is awaiting transfer to psychiatric facility to be determined. Currently stable. - Lab Interpretations Lab Results: Total Bilirubin 0.8 mg/dL (0.2-1.3) 01/18/19 16:19 AST 20 U/L (17-59) 01/18/19 16:19 ALT 23 U/L (7-56) 01/18/19 16:19 Alkaline Phosphatase 91 U/L (38-126) 01/18/19 16:19 Total Protein 6.9 g/dL (5.8-8.3) 01/18/19 16:19 Albumin 4.0 g/dL (3.0-4.8) 01/18/19 16:19 Globulin 2.9 gm/dL 01/18/19 16:19 Albumin/Globulin Ratio 1.4 (1.1-1.8) 01/18/19 16:19 Urine Color Yellow (YELLOW) 01/18/19 20:40 Urine Appearance Clear (CLEAR) 01/18/19 20:40 Urine pH 6.0 (4.7-8.0) 01/18/19 20:40 Ur Specific [place] >= 1.030 (1.005-1.035) 01/18/19 20:40 Urine Protein 30 mg/dL (<30 mg/dL) H 01/18/19 20:40 Urine Glucose (UA) Negative mg/dL (NEGATIVE) 01/18/19 20:40 Urine Ketones Trace mg/dL (NEGATIVE) H 01/18/19 20:40 Urine Blood Negative (NEGATIVE) 01/18/19 20:40 Urine Nitrate Negative (NEGATIVE) 01/18/19 20:40 Urine Bilirubin Negative (NEGATIVE) 01/18/19 20:40 Urine Urobilinogen 0.2 E.U./dL (<1 E.U./dL) 01/18/19 20:40 Ur Leukocyte Esterase Negative Sharath/uL (NEGATIVE) 01/18/19 20:40 Urine RBC None /hpf (0-2) 01/18/19 20:40 Urine WBC 0 - 2 /hpf (0-6) 01/18/19 20:40 Ur Epithelial Cells 0 - 2 /hpf (0-5) 01/18/19 20:40 Calcium Oxalate Crystal Mod /hpf (NONE) 01/18/19 20:40 Urine Bacteria Neg /hpf (NONE) 01/18/19 20:40 - RAD Interpretation Radiology Orders: 01/18/19 14:54 CHEST PORTABLE [RAD] Stat - Medication Orders Current Medication Orders: Discontinued Medications Lorazepam (Ativan) 1 mg IM ONCE ONE; Protocol Stop: 01/18/19 14:56 Last Admin: 01/18/19 15:58 Dose: 1 mg IM Administration Charges Document 01/18/19 15:58 SRE (Rec: 01/18/19 16:00 SRE [id number]) Injection Site MAR Injection Site Left Deltoid Charges for Administration # of IM Administrations 1 - Scribe Statement The provider has reviewed the documentation as recorded by the Scribsyed Garcia Provider Scribe Attestation: All medical record entries made by the Scribe were at my direction and personally dictated by me. I have reviewed the chart and agree that the record accurately reflects my personal performance of the history, physical exam, medical decision making, and the department course for this patient. I have also personally directed, reviewed, and agree with the discharge instructions and disposition. Disposition/Present on Arrival - Present on Arrival Any Indicators Present on Arrival: No History of DVT/PE: No History of Uncontrolled Diabetes: Yes Urinary Catheter: No History of Decub. Ulcer: No History Surgical Site Infection Following: None - Disposition Have Diagnosis and Disposition been Completed?: Yes Diagnosis: Anxiety, Depression Disposition: [facility] Disposition Time: 23:50 Patient Problems: Current Active Problems Problem Status Onset Anxiety Acute Depression Chronic Condition: STABLE Forms: Integrate (Malay)
[2019-01-19 00:39] VITALS: BP 157/86; PULSE 91; TEMP 97.8
== END 2019-01-19 00:25 | disposition short-term general hospital (02) ==
LOC: ED 13:32
DX: F41.9 Anxiety disorder, unspecified (principal); F32.9 Major depressive disorder, single episode, unspecified; E11.9 Type 2 diabetes mellitus without complications; E78.5 Hyperlipidemia, unspecified; I10 Essential (primary) hypertension; I25.10 Atherosclerotic heart disease of native coronary artery without angina pectoris; J44.9 Chronic obstructive pulmonary disease, unspecified; F17.210 Nicotine dependence, cigarettes, uncomplicated
CPT/HCPCS: 71045; 80053; 80320; 80324; 80329; 80345; 80346; 80349; 80353; 80358; 80361; 81001; 83992; 85025; 90791; 93005; 96372; 99284; J2060

== ENCOUNTER 2019-01-29 05:12 | Emergency (ER) | payer MEDICAID ==
[2019-01-29 05:20] VITALS: TEMP 98.2; O2SAT 96; BMI 27.6
--- NOTE | 2019-01-29 05:39 | ED PDOC ---
Arrival/HPI - General Chief Complaint: Flu-like Symptoms Time Seen by Provider: 01/29/19 05:30 Historian: Patient - History of Present Illness Narrative History of Present Illness (Text): 01/29/19 05:35 48 year old male, whose past medical history includes depression, anxiety, CAD, COPD, diabetes, hypertension, and hyperlipidemia, presents to the emergency department with flu-like symptoms. Patient informs of subjective fever. Patient state he has been coughing up green phlegm. Patient also informs of generalized body aches. Patient denies any headache, dizziness, chest pain, shortness of breath, abdominal pain, nausea, vomiting, diarrhea, back pain, neck pain, or any other complaints. Time/Duration: Prior to Arrival Symptom Onset: Gradual Symptom Course: Unchanged Quality: Aching Severity Level: Moderate Past Medical History - Provider Review Nursing Documentation Reviewed: Yes - Infectious Disease Hx of Infectious Diseases: None - Tetanus Immunization Tetanus Immunization: Unknown - Cardiac Hx Cardiac Arrhythmia: No Hx Congestive Heart Failure: ([place] . S/p TCCA stent placement X 2 weeks ago.) Hx Hypertension: Yes Hx Mitral Valve Prolapse: No Hx Pacemaker: No Hx Peripheral Edema: No - Pulmonary Hx Asthma: Yes Hx Bronchitis: Yes Hx Chronic Obstructive Pulmonary Disease (COPD): Yes Hx Emphysema: No Hx Pneumonia: No Hx Sleep Apnea: No - Neurological Hx Alzheimer's Disease: No Hx Dementia: No Hx Migraine: No Hx Parkinson's Disease: No Hx Seizures: Yes Hx Transient Ischemic Attacks (TIA): Yes - HEENT Hx HEENT Disorder: No - Renal Hx Renal Disorder: No Hx Kidney Stones: No - Endocrine/Metabolic Hx Hyperthyroidism: No Hx Hypothyroidism: No - Hematological/Oncological Hx Anemia: Yes (Denied by pt.) Hx Sickle Cell Disease: No - Integumentary Hx Dermatological Disorder: Yes (Allergy to red tattoo dye.) - Musculoskeletal/Rheumatological Hx Arthritis: Yes Hx Fractures: Yes (L ANKLE FX,LOWER BACK RECONSTRUCTIVE SX,L KNEE SYNOVITIS,R SHOULDER,R KNEE,) Hx Osteoporosis: No - Gastrointestinal Hx Crohn's Disease: No Hx Diverticulitis: No Hx Gall Bladder Disease: No Hx Pancreatitis: No - Genitourinary/Gynecological Hx Sexually Transmitted Diseases: No - Psychiatric Hx Depression: Yes Hx Substance Use: Yes - Surgical History Hx Coronary Stent: Yes - Anesthesia Hx Anesthesia: Yes Hx Anesthesia Reactions: No Hx Malignant Hyperthermia: No - Suicidal Assessment Feels Threatened In Home Enviroment: No Family/Social History - Physician Review Nursing Documentation Reviewed: Yes Family/Social History: No Known Family HX Smoking Status: Light Smoker < 10 Cigarettes Daily Hx Alcohol Use: No Hx Substance Use: Yes Substance used: cocaine formerly Allergies/Home Meds Allergies/Adverse Reactions: Allergies carisoprodol [From Soma] Allergy (Verified 01/11/19 02:32) DIZZINESS varenicline [From Chantix] Allergy (Verified 01/11/19 02:32) VOMITING Home Medications: Home Meds Medication Instructions Recorded Confirmed Pantoprazole Sodium [Protonix] 40 mg PO DAILY 05/09/18 12/04/18 Insulin Detemir [Levemir] 15 unit SC QAM 12/03/18 12/04/18 Losartan [Cozaar] 50 mg PO DAILY 12/03/18 12/04/18 MetFORMIN ER [Glucophage XR] 500 mg PO BID 12/03/18 12/03/18 Metoprolol Succinate [Toprol Xl] 25 mg PO DAILY 12/03/18 12/04/18 Oxycodone HCl [Oxycontin] 15 mg PO BID PRN 12/03/18 12/04/18 oxyCODONE [oxyCODONE Immediate 10 mg PO TID PRN 12/03/18 12/04/18 Release Tab] Review of Systems - Physician Review All systems were reviewed & negative as marked: Yes - Review of Systems Constitutional: Fevers Respiratory: Cough Cardiovascular: absent: Chest Pain Gastrointestinal: absent: Abdominal Pain, Diarrhea, Nausea, Vomiting Musculoskeletal: absent: Back Pain, Neck Pain Neurological: absent: Headache, Dizziness Physical Exam - Physical Exam Narrative Physical Exam (Text): 01/29/19 05:41 Gen: VS reviewed, alert, well developed, well nourished, nontoxic, mild distress, tremulous. ENT: normal pharynx. Eye: EOMI, PERRL. Neck: no JVD, supple, no adenopathy. CV: regular rate, regular rhythm, no rubs, no murmur, no gallops, S1, S2, pulses equal and strong. Pulm: no distress, clear to auscultation, no wheeze, no rhonchi, breath sounds equal, no rales. Abd: soft, nontender, no guarding, no rebound, no rigidity, normal bowel sounds. Ext: no edema. Skin: good color, no rash, no cyanosis. Psych: responds appropriately to questions, normal affect. Neuro: oriented x 3, CN2-12 intact grossly, motor intact, sensation intact. 01/29/19 05:41 Vital Signs Reviewed: Yes Vital Signs Temp Pulse Resp BP Pulse Ox 01/29/19 05:18 98.2 F 92 H 18 131/92 H 96 Temperature: Afebrile Blood Pressure: Normal Pulse: Regular Respiratory Rate: Normal Appearance: Positive for: Well-Appearing, Non-Toxic, Comfortable Pain Distress: None Mental Status: Positive for: Alert and Oriented X 3 Medical Decision Making ED Course and Treatment: 01/29/19 05:42 Impression: 48 year old male presents with flu-like symptoms. Plan: -- CMP, Drug screen -- CBC -- Rapid Flu -- Reassess and disposition Prior Visits: Notes and results from previous visits were reviewed. Progress Notes: 01/29/19 06:59 patient seen for flu-like illness, clear lung exam, labs ok, patient nontoxic appearing. patient advised to follow up with pcp. - Scribe Statement The provider has reviewed the documentation as recorded by the Scribe Brian Beebe All medical record entries made by the Scribe were at my direction and personally dictated by me. I have reviewed the chart and agree that the record accurately reflects my personal performance of the history, physical exam, medical decision making, and the department course for this patient. I have also personally directed, reviewed, and agree with the discharge instructions and disposition. Disposition/Present on Arrival - Present on Arrival Any Indicators Present on Arrival: No History of DVT/PE: No History of Uncontrolled Diabetes: Yes Urinary Catheter: No History of Decub. Ulcer: No History Surgical Site Infection Following: None - Disposition Have Diagnosis and Disposition been Completed?: Yes Diagnosis: Viral upper respiratory illness Disposition: HOME/ ROUTINE Disposition Time: 07:00 Patient Plan: Discharge Patient Problems: Current Active Problems Problem Status Onset Viral upper respiratory illness Acute Condition: STABLE Discharge Instructions (ExitCare): Viral Upper Respiratory Infection, Adult (DC) Prescriptions: Guaifenesin/Pseudoephedrne HCl [Mucinex D ER 600-60 mg Tablet] 1 each PO BID #10 tab.er.12h Referrals: Patsy Campbell MD [Primary Care Provider] - Follow up with primary Forms: [employer] (Khmer)
[2019-01-29 06:05] LABS: BASO # 0.01 K/mm3 (0.0-2.0); BASO % 0.1 % (0.0-3.0); EOS # 0.1 (0.0-0.7); EOS % 0.9 % (1.5-5.0); HEMOGLOBIN 16.8 g/dL (14.0-18.0); LYMPH # 2.3 (1.2-3.4); MEAN CORPUSCULAR HEMOGLOBIN 32.2 pg (25.0-35.0); MEAN CORPUSCULAR HGB CONC 35.4 g/dl (31.0-37.0); MEAN PLATELET VOLUME 11.4 fl (7.0-11.0); MONO # 0.4 (0.1-0.6); MONO % 4.7 % (1.0-6.0); RBC 5.21 10^6/uL (3.5-6.1); RED CELL DISTRIBUTION WIDTH 12.7 % (11.5-14.5); WHITE BLOOD COUNT 8.5 10^3/uL (4.5-11.0)
[2019-01-29 06:48] VITALS: BP 126/75; PULSE 89; RESP 16
[2019-01-29 06:55] LABS: ALB/GLOB RATIO 1.2 (1.1-1.8); ALBUMIN 3.9 g/dL (3.0-4.8); ALT/SGPT 25 U/L (7-56); AST/SGOT 34 U/L (17-59); BLOOD UREA NITROGEN 28 mg/dL (7-21); CALCIUM 9.3 mg/dL (8.4-10.5); GFR NON-AFRICAN AMERICAN > 60
== END 2019-01-29 07:06 | disposition home or self-care (01) ==
LOC: ED 05:12
DX: J06.9 Acute upper respiratory infection, unspecified (principal); F17.210 Nicotine dependence, cigarettes, uncomplicated; Z86.73 Personal history of transient ischemic attack (TIA), and cerebral infarction without residual deficits; I10 Essential (primary) hypertension

== ENCOUNTER 2019-03-24 09:50 | Emergency (ER) | payer MEDICAID ==
[2019-03-24 09:51] VITALS: BMI 28.2
[2019-03-24] MEDS ORDERED: Sodium Chloride 0.9% 1,000 ML IV STA ×3 (10:16→12:55)
--- NOTE | 2019-03-24 10:23 | ED PDOC ---
Arrival/HPI - General Historian: Patient - History of Present Illness Narrative History of Present Illness (Text): 03/24/19 10:20 CC: Elevated Blood Sugars HPI: 48 yo male w/ of PMHx CAD (stent placement in 05/27), HTN, DM II, HLD, TIA, COPD, Depression, Generalized Anxiety Disorder who presented to the emergency department s/p visit at PMD who suggested patient come to the ED for elevated blood pressure and blood sugars. Patient states for the past 10 days he has been having home recorded high blood pressures above 150 and blood sugars above 450. Patient states that he has the urge to drink water and go to the bathroom to urinate. Patient states he has been compliant with home meds but recently his PMD took him off insulin. Patient states he has been having abdominal pain, nausea, with 1 episode of vomiting over the weekend. Denies fevers, chills, chest pain, constipation or diarrhea, and dysuria. Time/Duration: > week Symptom Course: Unchanged Severity Level: 3 Activities at Onset: Rest Context: Sitting <Rodolfo Coppola - Last Filed: 03/24/19 14:56> <Mikey Samayoa DO - Last Filed: 03/24/19 18:22> - General Chief Complaint: High Blood Sugar Time Seen by Provider: 03/24/19 10:04 Past Medical History - Provider Review Nursing Documentation Reviewed: Yes - Infectious Disease Hx of Infectious Diseases: None - Tetanus Immunization Tetanus Immunization: Unknown - Cardiac Hx Cardiac Disorders: Yes Hx Cardiac Arrhythmia: No Hx NE: Yes (stent 05/2018) Hx Hypertension: Yes Hx Mitral Valve Prolapse: No Hx Pacemaker: No Hx Peripheral Edema: No - Pulmonary Hx Asthma: Yes Hx Bronchitis: Yes Hx Chronic Obstructive Pulmonary Disease (COPD): Yes Hx Emphysema: No Hx Pneumonia: No Hx Sleep Apnea: No - Neurological Hx Alzheimer's Disease: No Hx Dementia: No Hx Migraine: No Hx Parkinson's Disease: No Hx Seizures: Yes Hx Transient Ischemic Attacks (TIA): Yes - HEENT Hx HEENT Disorder: No - Renal Hx Renal Disorder: No Hx Kidney Stones: No - Endocrine/Metabolic Hx Hyperthyroidism: No Hx Hypothyroidism: No - Hematological/Oncological Hx Anemia: Yes (Denied by pt.) Hx Sickle Cell Disease: No - Integumentary Hx Dermatological Disorder: Yes (Allergy to red tattoo dye.) - Musculoskeletal/Rheumatological Hx Arthritis: Yes Hx Fractures: Yes (L ANKLE FX,LOWER BACK RECONSTRUCTIVE SX,L KNEE SYNOVITIS,R SHOULDER,R KNEE,) Hx Osteoporosis: No - Gastrointestinal Hx Crohn's Disease: No Hx Diverticulitis: No Hx Gall Bladder Disease: No Hx Gastrointestinal Ulcer: No Hx Pancreatitis: No - Genitourinary/Gynecological Hx Sexually Transmitted Diseases: No - Psychiatric Hx Anxiety: Yes Hx Bipolar Disorder: Yes Hx Depression: Yes Hx Post Traumatic Stress Disorder: No Hx Schizophrenia: No Hx Substance Use: Yes - Surgical History Hx Coronary Stent: Yes - Anesthesia Hx Anesthesia: Yes Hx Anesthesia Reactions: No Hx Malignant Hyperthermia: No - Suicidal Assessment Feels Threatened In Home Enviroment: No <Rodolfo Coppola - Last Filed: 03/24/19 14:56> Family/Social History Family/Social History: No Known Family HX Smoking Status: Light Smoker < 10 Cigarettes Daily Hx Alcohol Use: No Hx Substance Use: Yes Substance used: cocaine formerly <Rodolfo Coppola - Last Filed: 03/24/19 14:56> Allergies/Home Meds <Rodolfo Coppola - Last Filed: 03/24/19 14:56> <Mikey Samayoa DO - Last Filed: 03/24/19 18:22> Allergies/Adverse Reactions: Allergies carisoprodol [From Soma] Allergy (Verified 03/24/19 10:05) DIZZINESS varenicline [From Chantix] Allergy (Verified 03/24/19 10:05) VOMITING Home Medications: Home Meds Medication Instructions Recorded Confirmed Pantoprazole Sodium [Protonix] 40 mg PO DAILY 05/09/18 03/24/19 Insulin Detemir [Levemir] 15 unit SC QAM 12/03/18 03/24/19 Losartan [Cozaar] 50 mg PO DAILY 12/03/18 03/24/19 MetFORMIN ER [Glucophage XR] 500 mg PO BID 12/03/18 03/24/19 Metoprolol Succinate [Toprol Xl] 25 mg PO DAILY 12/03/18 03/24/19 Oxycodone HCl [Oxycontin] 15 mg PO BID PRN 12/03/18 03/24/19 oxyCODONE [oxyCODONE Immediate 10 mg PO TID PRN 12/03/18 03/24/19 Release Tab] Review of Systems - Physician Review All systems were reviewed & negative as marked: Yes - Review of Systems Constitutional: Normal. absent: Fatigue, Weight Change, Fevers Eyes: Normal. absent: Vision Changes, Photophobia ENT: Normal. absent: Hearing Changes, Tinnitus, Sore Throat Respiratory: Normal. absent: SOB, Cough, Sputum Cardiovascular: Normal, Palpitations. absent: Chest Pain, Edema Gastrointestinal: Abdominal Pain, Nausea, Vomiting. absent: Constipation, Diarrhea Genitourinary Male: Frequency. absent: Dysuria, Hematuria Skin: Normal. absent: Rash, Pruritis, Skin Lesions Neurological: Normal. absent: Headache, Dizziness, Speech Changes Endocrine: Polyuria, Polydipsia Psychiatric: Normal. absent: Anxiety, Depression <Abdon,Madaser - Last Filed: 03/24/19 14:56> Physical Exam Vital Signs Temp Pulse Resp BP Pulse Ox 03/24/19 10:11 98.5 F 117 H 17 123/97 H 95 Temperature: Afebrile Blood Pressure: Normal Pulse: Tachycardic Respiratory Rate: Normal Appearance: Positive for: Well-Appearing, Non-Toxic, Comfortable. No: Ill-Marcelina earing, Unkept Pain Distress: None Mental Status: Positive for: Alert and Oriented X 3. No: Confused - Systems Exam Head: Present: Atraumatic, Normocephalic. No: Tenderness, Contusion Pupils: Present: PERRL Extroacular Muscles: Present: EOMI Mouth: Present: Moist Mucous Membranes Respiratory/Chest: Present: Clear to Auscultation, Good Air Exchange. No: Respiratory Distress, Accessory Muscle Use Cardiovascular: Present: Normal S1, S2, Tachycardic. No: Regular Rate and Rhythm, Irregular Rhythm Abdomen: Present: Normal Bowel Sounds. No: Tenderness, Distention, Peritoneal Signs Upper Extremity: Present: Normal Inspection. No: Cyanosis, Edema Lower Extremity: Present: Normal Inspection Neurological: Present: GCS=15, CN II-XII Intact, Speech Normal Skin: Present: Warm, Dry, Normal Color. No: Rashes Psychiatric: Present: Alert, Oriented x 3, Normal Insight, Normal Concentration <Abdon,Madaser - Last Filed: 03/24/19 14:56> Vital Signs Temp Pulse Resp BP Pulse Ox 03/24/19 13:30 98.7 F 77 19 120/83 98 03/24/19 10:11 98.5 F 117 H 17 123/97 H 95 <Yao Mikey FLETCHER - Last Filed: 03/24/19 18:22> Medical Decision Making ED Course and Treatment: 03/24/19 10:27 Impression 48 yo male comes to ED for evaluation of high blood sugars and high blood pressure Plan -CBC -VBG -A1C stat, beta hydroxybutyrate -Lipase -U/A, Urine cx -Chest portable -NS bolus x 2 -Insulin regular 8 units Prior Visits All prior visits and blood work reviewed for current evaluation. Progress Notes Will check blood sugar within an hour after normal saline bolus 03/24/19 11:05 Added another bolus of NS and insulin 8 units regular. Likely d/c if blood sugar falls within acceptable limits 03/24/19 12:55 Repeat BS was above 400. NS 1x bolus additional with 4 units of insulin regular also will be administered at this time. Will recheck blood sugar within an hour. 03/24/19 14:56 Repeat BS sugar was less than 350. Attempts were made to get into contact with Dr. Campbell, however, it was unsuccessful. Patient was discharged with instructions to followup with pmd tomorrow for better blood sugar control. Re-evaluation Time: 14:56 Reassessment Condition: Improved - RAD Interpretation Radiology Orders: 03/24/19 10:16 CHEST PORTABLE [RAD] Stat - Medication Orders Current Medication Orders: Sodium Chloride (Sodium Chloride 0.9%) 1,000 mls @ 999 mls/hr IV .Q1H1M STA Stop: 03/24/19 11:16 <Rodolfo Coppola - Last Filed: 03/24/19 14:56> ED Course and Treatment: 03/24/19 13:36 Patient Seen with Resident: In agreement with resident note which contains more details about the patient. Patient seen and evaluated with resident. Came up with plan and treatment together. - Lab Interpretations Lab Results: pO2 98 mm/Hg (30-55) H 03/24/19 10:25 VBG pH 7.41 (7.32-7.43) 03/24/19 10:25 VBG pCO2 39.0 (40-60) L 03/24/19 10:25 VBG HCO3 24.7 mmol/l (21-28) 03/24/19 10:25 VBG Total CO2 25.9 mmol.L (22-28) 03/24/19 10:25 VBG O2 Sat (Calc) 99.4 % (40-65) H 03/24/19 10:25 VBG Base Excess 0.1 mmol/L (0.0-2.0) 03/24/19 10:25 VBG Potassium 3.8 mmol/L (3.6-5.2) 03/24/19 10:25 Sodium 131.0 mmol/L (132-148) L 03/24/19 10:25 Chloride 91.0 mmol/L (98-107) L 03/24/19 10:25 Glucose 634 mg/dl (75-110) H* D 03/24/19 10:25 Lactate 3.7 mmol/L (0.7-2.1) H 03/24/19 10:25 FiO2 21.0 % 03/24/19 10:25 Crit Value Called To Md yao vallejo 03/24/19 10:25 Crit Value Called By Sherly wang 03/24/19 10:25 Blood Gas Notified Time 1058 03/24/19 10:25 Total Bilirubin 0.8 mg/dL (0.2-1.3) 03/24/19 10:25 AST 24 U/L (17-59) 03/24/19 10:25 ALT 42 U/L (7-56) 03/24/19 10:25 Alkaline Phosphatase 169 U/L (38-126) H D 03/24/19 10:25 Total Protein 7.0 g/dL (5.8-8.3) 03/24/19 10:25 Albumin 4.1 g/dL (3.0-4.8) 03/24/19 10:25 Globulin 2.9 gm/dL 03/24/19 10:25 Albumin/Globulin Ratio 1.4 (1.1-1.8) 03/24/19 10:25 Lipase 67 U/L (23-300) 03/24/19 10:25 - RAD Interpretation Radiology Orders: 03/24/19 10:16 CHEST PORTABLE [RAD] Stat - Medication Orders Current Medication Orders: Sodium Chloride (Sodium Chloride 0.9%) 1,000 mls @ 999 mls/hr IV .Q1H1M STA Stop: 03/24/19 13:55 Last Admin: 03/24/19 13:12 Dose: 999 mls/hr eMAR Start Stop Document 03/24/19 13:12 [email or web address] (Rec: 03/24/19 13:12 [email or web address] [id number]) Intravenous Solution Start Date 03/24/19 Start Time 13:12 Discontinued Medications Sodium Chloride (Sodium Chloride 0.9%) 1,000 mls @ 999 mls/hr IV .Q1H1M STA Stop: 03/24/19 11:16 Last Admin: 03/24/19 10:32 Dose: 999 mls/hr eMAR Start Stop Document 03/24/19 10:32 [email or web address] (Rec: 03/24/19 10:32 [email or web address] [id number]) Intravenous Solution Start Date 03/24/19 Start Time 10:32 Sodium Chloride (Sodium Chloride 0.9%) 1,000 mls @ 999 mls/hr IV .Q1H1M STA Stop: 03/24/19 12:02 Last Admin: 03/24/19 11:25 Dose: 999 mls/hr eMAR Start Stop Document 03/24/19 11:25 [email or web address] (Rec: 03/24/19 11:25 [email or web address] [id number]) Intravenous Solution Start Date 03/24/19 Start Time 11:25 Insulin Human Regular (Humulin R) 8 units IVP STAT STA Stop: 03/24/19 11:04 Last Admin: 03/24/19 11:23 Dose: 8 units MAR Blood Glucose Document 03/24/19 11:23 [email or web address] (Rec: 03/24/19 11:23 [email or web address] [id number]) Blood Glucose Finger Stick Blood Glucose (70-120) 500 IVP Administration Document 03/24/19 11:23 [email or web address] (Rec: 03/24/19 11:23 [email or web address] [id number]) Charges for Administration # of IVP Administrations 1 Insulin Human Regular (Humulin R) 4 units IVP STAT STA Stop: 03/24/19 12:56 Last Admin: 03/24/19 13:11 Dose: 4 units MAR Blood Glucose Document 03/24/19 13:11 [email or web address] (Rec: 03/24/19 13:11 [email or web address] [id number]) Blood Glucose Finger Stick Blood Glucose (70-120) 417 IVP Administration Document 03/24/19 13:11 [email or web address] (Rec: 03/24/19 13:11 [email or web address] [id number]) Charges for Administration # of IVP Administrations 1 <Mikey Samayoa DO - Last Filed: 03/24/19 18:22> - PA / SPECIAL EDUCATION [employer] DRIVER / Resident Statement SHMUEL has reviewed & agrees with the documentation as recorded. SHMUEL has examined the patient and agrees with the treatment plan. <Mikey Samayoa DO - Last Filed: 03/24/19 18:22> Disposition/Present on Arrival - Present on Arrival Any Indicators Present on Arrival: Yes History of DVT/PE: No History of Uncontrolled Diabetes: Yes Urinary Catheter: No History of Decub. Ulcer: No History Surgical Site Infection Following: None - Disposition Have Diagnosis and Disposition been Completed?: Yes Disposition Time: 14:58 Patient Plan: Discharge <AbdonRodolfo - Last Filed: 03/24/19 14:56> - Disposition Disposition Time: 11:00 <Mikey Samayoa DO - Last Filed: 03/24/19 18:22> - Disposition Diagnosis: Hyperglycemia due to type 2 diabetes mellitus, Hyperglycemia Disposition: HOME/ ROUTINE Condition: IMPROVED Discharge Instructions (ExitCare): Hyperglycemia, Adult (DC), Diabetes and Diet Additional Instructions: CATY FRIEND, thank you for letting us take care of you today. The emergency medical care you received today was directed at your acute symptoms. If you were prescribed any medication, please fill it and take as directed. It may take several days for your symptoms to resolve. Return to the Emergency Department if your symptoms worsen, do not improve, or if you have any other problems. Please contact your doctor or call one of the physicians/clinics you have been referred to that are listed on the Patient Visit Information form that is included in your discharge packet. Bring any paperwork you were given at discharge with you along with any medications you are taking to your follow up visit. Our treatment cannot replace ongoing medical care by a primary care provider outside of the emergency department. Thank you for allowing the [facility] team to be part of your care today. Follow up with Dr. Campbell tomorrow morning for re-evaluation and further management of your blood sugar. Referrals: Patsy Campbell MD [Primary Care Provider] - Follow up with primary Forms: [employer] (Sinhala)
[2019-03-24 10:40] LABS: BASO # 0.02 K/mm3 (0.0-2.0); BASO % 0.2 % (0.0-3.0); EOS # 0.1 (0.0-0.7); LYMPH # 2.7 (1.2-3.4); LYMPH % 29.4 % (22.0-35.0); MEAN CELL VOLUME 90.9 fl (80.0-105.0); MEAN CORPUSCULAR HEMOGLOBIN 32.8 pg (25.0-35.0); MEAN CORPUSCULAR HGB CONC 36.1 g/dl (31.0-37.0); MEAN PLATELET VOLUME 11.6 fl (7.0-11.0); MONO # 0.5 (0.1-0.6); MONO % 5.9 % (1.0-6.0); RBC 5.18 10^6/uL (3.5-6.1); RED CELL DISTRIBUTION WIDTH 12.4 % (11.5-14.5); WHITE BLOOD COUNT 9.2 10^3/uL (4.5-11.0)
[2019-03-24 10:59] LABS: VENOUS BLOOD GAS BASE EXCESS 0.1 mmol/L (0.0-2.0); VENOUS BLOOD GAS PO2 98 mm/Hg (30-55); VENOUS BLOOD PH 7.41 (7.32-7.43)
[2019-03-24 11:00] LABS: ALB/GLOB RATIO 1.4 (1.1-1.8); ALBUMIN 4.1 g/dL (3.0-4.8); ALT/SGPT 42 U/L (7-56); AST/SGOT 24 U/L (17-59); BLOOD UREA NITROGEN 17 mg/dL (7-21); CALCIUM 9.6 mg/dL (8.4-10.5); GFR NON-AFRICAN AMERICAN > 60; LIPASE 67 U/L (23-300)
[2019-03-24] MEDS ORDERED: Insulin Regular 1 UNITS/0.01 ML ML IVP STA ×2 (11:03→12:55)
--- NOTE | 2019-03-24 11:06 | RAD ---
HISTORY: r/o infiltrate COMPARISON: Chest x-ray performed 01/18/19 TECHNIQUE: Chest, one view. FINDINGS: Numerous external wires and leads obscure evaluation of the underlying parenchyma.Examination limited by habitus. LUNGS: No focal consolidation. Please note that chest x-ray has limited sensitivity for the detection of pulmonary masses. PLEURA: No significant pleural effusion identified. No definite pneumothorax . CARDIOVASCULAR: The cardiomediastinal silhouette appears within normal limits of size. No significant atherosclerotic calcification present. OSSEOUS STRUCTURES: Mild degenerative changes. VISUALIZED UPPER ABDOMEN: Unremarkable. OTHER FINDINGS: None. IMPRESSION: No acute findings identified.
[2019-03-24 13:31] VITALS: RESP 19
[2019-03-24 14:04] LABS: URINE BILIRUBIN NEGATIVE (NEGATIVE); URINE BLOOD NEGATIVE (NEGATIVE); URINE GLUCOSE (UA) >=1000 mg/dL (NEGATIVE); URINE LEUKOCYTE ESTERASE NEGATIVE Leu/uL (NEGATIVE); URINE PROTEIN NEGATIVE mg/dL (<30 mg/dL); URINE UROBILINOGEN 0.2 E.U./dL (<1 E.U./dL)
[2019-03-24 14:07] LABS: URINE APPEARANCE CLEAR (CLEAR); URINE COLOR YELLOW (YELLOW)
[2019-03-24 15:24] VITALS: BP 122/85; PULSE 89; TEMP 98.3; O2SAT 97
--- NOTE | 2019-03-24 18:35 | CARD ---
APPROVED REPORT Date of service: 03/24/2019 EKG Measurement Heart [id number] <Conclusion> Sinus tachycardia Otherwise normal ECG
== END 2019-03-24 15:24 | disposition home or self-care (01) ==
LOC: ED 09:50
DX: E11.65 Type 2 diabetes mellitus with hyperglycemia (principal); I25.10 Atherosclerotic heart disease of native coronary artery without angina pectoris; I25.2 Old myocardial infarction; I10 Essential (primary) hypertension; J44.9 Chronic obstructive pulmonary disease, unspecified; Z86.73 Personal history of transient ischemic attack (TIA), and cerebral infarction without residual deficits; Z95.5 Presence of coronary angioplasty implant and graft; F17.210 Nicotine dependence, cigarettes, uncomplicated
CPT/HCPCS: 71045; 80053; 80320; 81003; 82009; 82803; 82948; 83036; 83690; 85025; 87086; 93005; 96374; 96376; 99283; J7030

== ENCOUNTER 2019-03-24 18:11 | Observation (INO) | payer MEDICAID ==
[2019-03-24 18:12] VITALS: BMI 28.2
--- NOTE | 2019-03-24 19:33 | ED PDOC ---
Arrival/HPI - General Chief Complaint: High Blood Sugar Time Seen by Provider: 03/24/19 19:10 Historian: Patient - History of Present Illness Narrative History of Present Illness (Text): 03/24/19 19:10 Kaden Marcelo is a 48 year old male, with a past medical history of CAD (stent placement in 05/27), HTN, DM II, HLD, TIA, COPD, Depression, and Generalized Anxiety Disorder, who presents to the emergency department complaining of e levated blood sugar. Patient's blood sugar at home prior to arrival reads to the 600's. Patient also notes right lower quadrant pain and nausea. Patient was evaluated for similar complaints earlier today and was discharged with instructions to follow up with PMD. Patient denies fevers, headache, dizziness, chest pain, shortness of breath, cough, abdominal pain, vomiting, diarrhea, dysuria, hematuria, back pain, neck pain, or any other complaints. Time/Duration: Prior to Arrival Symptom Onset: Sudden Symptom Course: Unchanged Activities at Onset: Light Context: Home Past Medical History - Provider Review Nursing Documentation Reviewed: Yes - Infectious Disease Hx of Infectious Diseases: None - Tetanus Immunization Tetanus Immunization: Unknown - Cardiac Hx Cardiac Disorders: Yes Hx Cardiac Arrhythmia: No Hx AR: Yes (stent 05/2018) Hx Hypertension: Yes Hx Mitral Valve Prolapse: No Hx Pacemaker: No Hx Peripheral Edema: No - Pulmonary Hx Asthma: Yes Hx Bronchitis: Yes Hx Chronic Obstructive Pulmonary Disease (COPD): Yes Hx Emphysema: No Hx Pneumonia: No Hx Sleep Apnea: No - Neurological Hx Alzheimer's Disease: No Hx Dementia: No Hx Migraine: No Hx Parkinson's Disease: No Hx Seizures: Yes Hx Transient Ischemic Attacks (TIA): Yes - HEENT Hx HEENT Disorder: No - Renal Hx Renal Disorder: No Hx Kidney Stones: No - Endocrine/Metabolic Hx Hyperthyroidism: No Hx Hypothyroidism: No - Hematological/Oncological Hx Anemia: Yes (Denied by pt.) Hx Sickle Cell Disease: No - Integumentary Hx Dermatological Disorder: Yes (Allergy to red tattoo dye.) - Musculoskeletal/Rheumatological Hx Arthritis: Yes Hx Fractures: Yes (L ANKLE FX,LOWER BACK RECONSTRUCTIVE SX,L KNEE SYNOVITIS,R SHOULDER,R KNEE,) Hx Osteoporosis: No - Gastrointestinal Hx Crohn's Disease: No Hx Diverticulitis: No Hx Gall Bladder Disease: No Hx Gastrointestinal Ulcer: No Hx Pancreatitis: No - Genitourinary/Gynecological Hx Sexually Transmitted Diseases: No - Psychiatric Hx Anxiety: Yes Hx Bipolar Disorder: Yes Hx Depression: Yes Hx Post Traumatic Stress Disorder: No Hx Schizophrenia: No Hx Substance Use: Yes - Surgical History Hx Coronary Stent: Yes - Anesthesia Hx Anesthesia: Yes Hx Anesthesia Reactions: No Hx Malignant Hyperthermia: No - Suicidal Assessment Feels Threatened In Home Enviroment: No Family/Social History - Physician Review Nursing Documentation Reviewed: Yes Family/Social History: Unknown Family HX Smoking Status: Light Smoker < 10 Cigarettes Daily Hx Alcohol Use: No Hx Substance Use: Yes Substance used: cocaine formerly Allergies/Home Meds Allergies/Adverse Reactions: Allergies carisoprodol [From Soma] Allergy (Verified 03/24/19 10:05) DIZZINESS varenicline [From Chantix] Allergy (Verified 03/24/19 10:05) VOMITING Home Medications: Home Meds Medication Instructions Recorded Confirmed Pantoprazole Sodium [Protonix] 40 mg PO DAILY 05/09/18 03/24/19 Losartan [Cozaar] 50 mg PO DAILY 12/03/18 03/24/19 Metoprolol Succinate [Toprol Xl] 25 mg PO DAILY 12/03/18 03/24/19 Review of Systems - Physician Review All systems were reviewed & negative as marked: Yes - Review of Systems Constitutional: Other (elevated blood sugar). absent: Fevers Respiratory: absent: SOB, Cough Cardiovascular: absent: Chest Pain Gastrointestinal: Nausea. absent: Abdominal Pain, Diarrhea, Vomiting Genitourinary Male: absent: Dysuria, Hematuria Musculoskeletal: absent: Back Pain, Neck Pain Neurological: absent: Headache, Dizziness Physical Exam Vital Signs Reviewed: Yes Vital Signs Temp Pulse Resp BP Pulse Ox 03/24/19 18:45 98.6 F 105 H 18 156/101 H 99 Temperature: Afebrile Blood Pressure: Normal Pulse: Tachycardic Respiratory Rate: Normal Appearance: Positive for: Well-Appearing, Non-Toxic, Comfortable Pain Distress: None Mental Status: Positive for: Alert and Oriented X 3 - Systems Exam Head: Present: Atraumatic, Normocephalic Pupils: Present: PERRL Extroacular Muscles: Present: EOMI Conjunctiva: Present: Normal Mouth: Present: Moist Mucous Membranes Neck: Present: Normal Range of Motion Respiratory/Chest: Present: Clear to Auscultation, Good Air Exchange. No: Respiratory Distress, Accessory Muscle Use, Wheezes, Rales, Rhonchi Cardiovascular: Present: Normal S1, S2, Tachycardic. No: Murmurs Abdomen: Present: Tenderness (RLQ), Normal Bowel Sounds. No: Distention, Peritoneal Signs, Rebound, Guarding Back: Present: Normal Inspection Upper Extremity: Present: Normal Inspection. No: Cyanosis, Edema Lower Extremity: Present: Normal Inspection. No: Edema Neurological: Present: GCS=15, CN II-XII Intact, Speech Normal Skin: Present: Warm, Dry, Normal Color. No: Rashes Psychiatric: Present: Alert, Oriented x 3, Normal Insight, Normal Concentration Medical Decision Making ED Course and Treatment: 03/24/19 19:10 Impression: Pt is a 48 year old male, with a past medical history of CAD (stent placement in 05/27), HTN, DM II, HLD, TIA, COPD, Depression, and Generalized Anxiety Disorder, who presents to the emergency department complaining of elevated blood sugar. Plan: -- Labs -- EKG -- CT Abdomen and Pelvis -- Humulin -- IV Fluids -- Reassess and disposition Prior Visits: Notes and results from previous visits were reviewed. Patient was last seen in the emergency department on Progress Notes: Reviewed EKG, sinus tachycardia at [address]-segment elevations or depressions, no T-wave inversions, normal intervals. 03/24/19 21:15 Case discussed with certified medical technician assistant application packaging consultant, who is aware and agrees with plan. 03/24/19 21:[address] Gray, who is aware and agrees with plan. Accepts pt in to hospitalist service. Pt will go to [facility] observation for hyperglycemia. 03/24/19 23:23 CT Abdomen and Pelvis: LUNG BASES: The lung bases appear clear. No pleural effusions are seen. LIVER: There is hepatomegaly. The liver measured 19.5 cm in the midclavicular line. There is associated hepatic steatosis noted. GALLBLADDER AND BILE DUCTS: The gallbladder is contracted and subsequently suboptimally visualized. No radioopaque gallstones are seen. No biliary ductal dilatation is evident. PANCREAS: Unremarkable. SPLEEN: There is mild splenomegaly. The spleen measured 15.3 x 5.9 cm in craniocaudal and AP dimensions respectively. ADRENAL GLANDS: Unremarkable. KIDNEYS, URETERS, AND BLADDER: The right kidney appears normal in size and position. There is ectopic position of the left kidney which is identified in the right lower quadrant. Both kidneys excrete contrast normally. There is no hydronephrosis or hydroureter. No urinary calculi are seen. The urinary bladder appeared normal in size and configuration. STOMACH AND BOWEL: Unremarkable appearance of the stomach. No evidence of bowel obstruction. There is mucosal wall thickening of the small intestinal tract with fluid in its lumen thought compatible with diffuse enteritis. Infectious or inflammatory etiologies are thought most likely. No evidence suggesting colitis. APPENDIX: No evidence of acute appendicitis on CT examination. PERITONEUM: No free fluid. No free air. LYMPH NODES: No lymphadenopathy is evident. REPRODUCTIVE: Unremarkable as visualized. VASCULATURE: No evidence of abdominal aortic aneurysm. BONES: No aggressive appearing osseous lesion. No acute osseous pathology evident. There has been previous surgical fusion at L3-S1 utilizing bilateral pedicle screws. No complicating process seen to involve the surgical hardware. IMPRESSION: 1. Hepatomegaly with associated steatosis. 2. Mild splenomegaly. 3. Evidence of diffuse enteritis. 4. Ectopic position of the left kidney located within the right lower quadrant. 5. Status post surgical fusion at L3-S1. Electronically signed on March 24, 2019 11:16:09 PM EDT by: Mikey Goldman M.D., M.B.A., Certified By [employer] Trained MRI and CT Specialist case d/w dr gray and certified medical technician assistant will obs - Lab Interpretations I have reviewed the lab results: Yes - EKG Interpretation Interpreted by ED Physician: Yes Type: 12 lead EKG - Medication Orders Current Medication Orders: Sodium Chloride (Sodium Chloride 0.9%) 1,000 mls @ 150 mls/hr IV .[id number] [facility] - Scribe Statement The provider has reviewed the documentation as recorded by the Scribe Mikey Morrison All medical record entries made by the Manjeetibe were at my direction and personally dictated by me. I have reviewed the chart and agree that the record accurately reflects my personal performance of the history, physical exam, medical decision making, and the department course for this patient. I have also personally directed, reviewed, and agree with the discharge instructions and disposition. Disposition/Present on Arrival - Present on Arrival Any Indicators Present on Arrival: No History of DVT/PE: No History of Uncontrolled Diabetes: Yes Urinary Catheter: No History of Decub. Ulcer: No History Surgical Site Infection Following: None - Disposition Have Diagnosis and Disposition been Completed?: Yes Diagnosis: DM2 (diabetes mellitus, type 2) Disposition: HOSPITALIZED Disposition Time: 21:30 Condition: GOOD
[2019-03-24] MEDS: Sodium Chloride 0.9% 1,000 ML IV SCH (19:56)
[2019-03-24 20:00] LABS: BASO # 0.02 K/mm3 (0.0-2.0); BASO % 0.2 % (0.0-3.0); EOS % 0.4 % (1.5-5.0); HEMOGLOBIN 15.2 g/dL (14.0-18.0); LYMPH # 2.2 (1.2-3.4); LYMPH % 24.3 % (22.0-35.0); MEAN CELL VOLUME 91.1 fl (80.0-105.0); MEAN CORPUSCULAR HEMOGLOBIN 32.3 pg (25.0-35.0); MEAN CORPUSCULAR HGB CONC 35.4 g/dl (31.0-37.0); MEAN PLATELET VOLUME 10.9 fl (7.0-11.0); MONO # 0.4 (0.1-0.6); MONO % 4.6 % (1.0-6.0); RBC 4.71 10^6/uL (3.5-6.1); RED CELL DISTRIBUTION WIDTH 12.5 % (11.5-14.5); WHITE BLOOD COUNT 9.1 10^3/uL (4.5-11.0)
[2019-03-24 20:19] LABS: ALB/GLOB RATIO 1.5 (1.1-1.8); ALBUMIN 3.7 g/dL (3.0-4.8); ALT/SGPT 29 U/L (7-56); AST/SGOT 24 U/L (17-59); BLOOD UREA NITROGEN 16 mg/dL (7-21); CALCIUM 8.8 mg/dL (8.4-10.5); GFR NON-AFRICAN AMERICAN > 60
[2019-03-24 20:22] LABS: TROPONIN I < 0.01 ng/mL
[2019-03-24] MEDS ORDERED: Insulin Regular 1 UNITS/0.01 ML ML SC STA (20:22)
[2019-03-24 20:58] LABS: URINE APPEARANCE CLEAR (CLEAR); URINE BILIRUBIN NEGATIVE (NEGATIVE); URINE BLOOD NEGATIVE (NEGATIVE); URINE COLOR LIGHT YELLOW (YELLOW); URINE GLUCOSE (UA) >=1000 mg/dL (NEGATIVE); URINE LEUKOCYTE ESTERASE NEGATIVE Leu/uL (NEGATIVE); URINE PROTEIN NEGATIVE mg/dL (<30 mg/dL); URINE UROBILINOGEN 0.2 E.U./dL (<1 E.U./dL)
[2019-03-24] MEDS ORDERED: Dextrose 50% SYRINGE Inj (50 ml) IV PRN (21:35)
[2019-03-24] MEDS ORDERED: Sodium Chloride 0.9% 1,000 ML IV STA (21:37)
--- NOTE | 2019-03-24 21:41 | CP.PCM.HP ---
<Tony Newberry - Last Filed: 03/25/19 04:07> History of Present Illness - History of Present Illness History of Present Illness: HISTORY & PHYSICAL NOTE FOR HOSPITALIST SERVICE- DR. ISAAC NEWBERRY PGY1 48 y/o m with PMH of DMII, CAD (stent placement in 05/27), HTN, , HLD, TIA, COPD, Depression, FAYE presented to ED with complaints of generalized fatigue, marshall yuria, polydipsia and elevated blood glucose readings at home. Pt reports recent ED when he was discharged and sent to PMD for followup. Upon arrival to PMD, he reports his BS were in 300s. He reports he was stopped on his insulin by PMD and only on metformin 750mg bid. He reports compliance with metformin however denies insulin use. Pt also reports RLQ abdominal pain and reports "gas" in belly after eating. He reports he hasn't had normal bowel movements. He reports nausea/vomiting with clear emesis. He otherwise denies fevers, chills, headache, dizziness, numbness, chest pain, palpitations, shortness of breath, diarrhea. PMHx: DM II, CAD (stent placement in 05/27), HTN, , HLD, TIA, COPD, Depression, FAYE PSHx: Lower Back reconstructive surgery, right knee surgery Meds: oxycodone, wellbutrin, toprol, neurontin, cozaar, xanax, oxycontin, metformin, protonix, plavix, lipitor, asa Allergies: carisoprodol, varenicline SocialHx: 10 cigarettes daily, former cocaine user, social drinker FamHx: father had DM and COPD, mother has heart disease PMD: Dr. Patsy Campbell Pharm: [facility] Present on Admission - Present on Admission Any Indicators Present on Admission: Yes History of Uncontrolled Diabetes: Yes Review of Systems - Review of Systems Review of Systems: per HPI Past Patient History - Infectious Disease Hx of Infectious Diseases: None - Tetanus Immunizations Tetanus Immunization: Unknown - Past Medical History & Family History Past Medical History?: Yes - Past Social History Smoking Status: Light Smoker < 10 Cigarettes Daily - CARDIAC Hx Cardiac Disorders: Yes Hx Cardia Arrhythmia: No Hx Heart Attack: Yes (stent 05/2018) Hx Hypertension: Yes Hx Mitral Valve Prolapse: No Hx Pacemaker: No Hx Peripheral Edema: No - PULMONARY Hx Asthma: Yes Hx Bronchitis: Yes Hx Chronic Obstructive Pulmonary Disease (COPD): Yes Hx Emphysema: No Hx Pneumonia: No Hx Sleep Apnea: No - NEUROLOGICAL Hx Alzheimer's Disease: No Hx Dementia: No Hx Migraine: No Hx Parkinson's Disease: No Hx Seizures: Yes Hx Transient Ischemic Attacks (TIA): Yes - HEENT Hx HEENT Problems: No - RENAL Hx Chronic Kidney Disease: No Hx Kidney Stones: No - ENDOCRINE/METABOLIC Hx Hyperthyroidism: No Hx Hypothyroidism: No - HEMATOLOGICAL/ONCOLOGICAL Hx Anemia: Yes (Denied by pt.) Hx Sickle Cell Disease: No - INTEGUMENTARY Hx Dermatological Problems: Yes (Allergy to red tattoo dye.) - MUSCULOSKELETAL/RHEUMATOLOGICAL Hx Arthritis: Yes Hx Fractures: Yes (L ANKLE FX,LOWER BACK RECONSTRUCTIVE SX,L KNEE SYNOVITIS,R SHOULDER,R KNEE,) Hx Osteoporosis: No - GASTROINTESTINAL Hx Crohn's Disease: No Hx Diverticulitis: No Hx Gall Bladder Disease: No Hx Pancreatitis: No - GENITOURINARY/GYNECOLOGICAL Hx Sexually Transmitted Disorders: No - PSYCHIATRIC Hx Anxiety: Yes Hx Bipolar Disorder: Yes Hx Depression: Yes Hx Post Traumatic Stress Disorder: No Hx Schizophrenia: No Hx Substance Use: Yes - SURGICAL HISTORY Hx Coronary Stent: Yes - ANESTHESIA Hx Anesthesia: Yes Hx Anesthesia Reactions: No Hx Malignant Hyperthermia: No Meds Allergies/Adverse Reactions: Allergies Allergy/AdvReac Type Severity Reaction Status Date / Time carisoprodol [From Soma] Allergy DIZZINESS Verified 03/24/19 10:05 varenicline [From Chantix] Allergy VOMITING Verified 03/24/19 10:05 Physical Exam - Constitutional Appears: Well, Non-toxic, No Acute Distress - Head Exam Head Exam: NORMAL INSPECTION, NORMOCEPHALIC - Eye Exam Eye Exam: EOMI, Normal appearance - ENT Exam ENT Exam: Mucous Membranes Moist, Normal Exam - Neck Exam Neck exam: Positive for: Normal Inspection - Respiratory Exam Respiratory Exam: Clear to Auscultation Bilateral, NORMAL BREATHING PATTERN - Cardiovascular Exam Cardiovascular Exam: REGULAR RHYTHM, +S1, +S2 - GI/Abdominal Exam GI & Abdominal Exam: Soft, Tenderness (minimal RLQ tenderness) - Extremities Exam Extremities exam: Positive for: normal inspection. Negative for: calf tenderness, pedal edema - Back Exam Back exam: NORMAL INSPECTION - Neurological Exam Neurological exam: Alert, Oriented x3 - Psychiatric Exam Psychiatric exam: Normal Affect, Normal Mood - Skin Skin Exam: Dry, Intact, Warm Results - Vital Signs Recent Vital Signs: Last Vital Signs Temp 98.6 F 03/24/19 18:45 Pulse 105 H 03/24/19 18:45 Resp 18 03/24/19 18:45 BP 156/101 H 03/24/19 18:45 Pulse Ox 99 03/24/19 18:45 - Labs Result Diagrams: 03/24/19 19:50 03/24/19 19:50 Labs: Laboratory Results - last 24 hr 03/24/19 03/24/19 03/24/19 18:51 19:50 19:50 WBC 9.1 RBC 4.71 Hgb 15.2 Hct 42.9 MCV 91.1 MCH 32.3 MCHC 35.4 RDW 12.5 Plt Count 154 MPV 10.9 Neut % (Auto) 70.5 H Lymph % (Auto) 24.3 [place] % (Auto) 4.6 Eos % (Auto) 0.4 L Baso % (Auto) 0.2 Lymph # (Auto) 2.2 [place] # (Auto) 0.4 Eos # (Auto) 0.0 Baso # (Auto) 0.02 Absolute Neuts (auto) 6.42 Sodium 135 Potassium 4.0 Chloride 99 Carbon Dioxide 26 Anion Gap 14 BUN 16 Creatinine 0.8 Est GFR ( Amer) > 60 Est GFR (Non-Af Amer) > 60 POC Glucose (mg/dL) 454 H* Random Glucose 445 H* D Calcium 8.8 Total Bilirubin 0.6 AST 24 ALT 29 Alkaline Phosphatase 122 Troponin I < 0.01 Total Protein 6.1 Albumin 3.7 Globulin 2.5 Albumin/Globulin Ratio 1.5 Urine Color Urine Appearance Urine pH Ur Specific [place] Urine Protein Urine Glucose (UA) Urine Ketones Urine Blood Urine Nitrate Urine Bilirubin Urine Urobilinogen Ur Leukocyte Esterase 03/24/19 20:51 WBC RBC Hgb Hct MCV MCH MCHC RDW Plt Count MPV Neut % (Auto) Lymph % (Auto) [place] % (Auto) Eos % (Auto) Baso % (Auto) Lymph # (Auto) [place] # (Auto) Eos # (Auto) Baso # (Auto) Absolute Neuts (auto) Sodium Potassium Chloride Carbon Dioxide Anion Gap BUN Creatinine Est GFR ( Amer) Est GFR (Non-Af Amer) POC Glucose (mg/dL) Random Glucose Calcium Total Bilirubin AST ALT Alkaline Phosphatase Troponin I Total Protein Albumin Globulin Albumin/Globulin Ratio Urine Color Light yellow Urine Appearance Clear Urine pH 6.0 Ur Specific [place] 1.010 Urine Protein Negative Urine Glucose (UA) >=1000 Urine Ketones Negative Urine Blood Negative Urine Nitrate Negative Urine Bilirubin Negative Urine Urobilinogen 0.2 Ur Leukocyte Esterase Negative Assessment & Plan - Assessment and Plan (Free Text) Assessment: 48 y/o M with PMH DMII, CAD (stent placement in 05/27), HTN, , HLD, TIA, COPD, Depression, FAYE admitted for uncontrolled hyperglycemia, not in DKA Plan: Hyperglycemia -Pt hasn't been taking insulin. Only takes metformin. Hgb A1c: 10.9, up from 7.3 two months ago -Administer 2L IVF bolus. Lungs CTA on exam. Continue maintenance IVF -Will administer 10u SC lispro -continue previous levemir 15uAM -will likely need to add short acting premeal insulin, may need to increase long acting -home metformin on hold -high protocol sliding scale insulin Abdominal Pain likely 2/[address] Abd (prelim) revaling diffuse enteritis, no acute abscess. -administer 1x reglan dose CAD s/p stent -continue aspirin, plavix, statin, ARB, Diabetic neuropathy -continue home gabapentin -pt requesting oxycodone, will hold for now and confirm med with pharmacy in am Hypomagansemia -repleted with 2g IVPB Anxiety/Depression -continue paroxetine/trazodone DVT/GI PPx: Lovenox/protonix Case reviewed with attending physician, Dr. Isaac Newberry PGY1 <Miranda Gray - Last Filed: 03/25/19 05:39> Results - Vital Signs Recent Vital Signs: Last Vital Signs Temp 98.6 F 03/24/19 18:45 Pulse 90 03/24/19 22:57 Resp 18 03/24/19 23:16 BP 148/98 H 03/24/19 22:57 Pulse Ox 99 03/24/19 22:57 - Labs Result Diagrams: 03/24/19 19:50 03/24/19 19:50 Labs: Laboratory Results - last 24 hr 03/24/19 03/24/19 03/24/19 18:51 19:50 19:50 WBC 9.1 RBC 4.71 Hgb 15.2 Hct 42.9 MCV 91.1 MCH 32.3 MCHC 35.4 RDW 12.5 Plt Count 154 MPV 10.9 Neut % (Auto) 70.5 H Lymph % (Auto) 24.3 [place] % (Auto) 4.6 Eos % (Auto) 0.4 L Baso % (Auto) 0.2 Lymph # (Auto) 2.2 [place] # (Auto) 0.4 Eos # (Auto) 0.0 Baso # (Auto) 0.02 Absolute Neuts (auto) 6.42 Sodium 135 Potassium 4.0 Chloride 99 Carbon Dioxide 26 Anion Gap 14 BUN 16 Creatinine 0.8 Est GFR ( Amer) > 60 Est GFR (Non-Af Amer) > 60 POC Glucose (mg/dL) 454 H* Random Glucose 445 H* D Calcium 8.8 Magnesium Total Bilirubin 0.6 AST 24 ALT 29 Alkaline Phosphatase 122 Troponin I < 0.01 Total Protein 6.1 Albumin 3.7 Globulin 2.5 Albumin/Globulin Ratio 1.5 Urine Color Urine Appearance Urine pH Ur Specific [place] Urine Protein Urine Glucose (UA) Urine Ketones Urine Blood Urine Nitrate Urine Bilirubin Urine Urobilinogen Ur Leukocyte Esterase 03/24/19 03/24/19 03/25/19 20:51 22:43 00:25 WBC RBC Hgb Hct MCV MCH MCHC RDW Plt Count MPV Neut % (Auto) Lymph % (Auto) [place] % (Auto) Eos % (Auto) Baso % (Auto) Lymph # (Auto) [place] # (Auto) Eos # (Auto) Baso # (Auto) Absolute Neuts (auto) Sodium Potassium Chloride Carbon Dioxide Anion Gap BUN Creatinine Est GFR ( Amer) Est GFR (Non-Af Amer) POC Glucose (mg/dL) 491 H* Random Glucose Calcium Magnesium 1.5 L Total Bilirubin AST ALT Alkaline Phosphatase Troponin I Total Protein Albumin Globulin Albumin/Globulin Ratio Urine Color Light yellow Urine Appearance Clear Urine pH 6.0 Ur Specific [place] 1.010 Urine Protein Negative Urine Glucose (UA) >=1000 Urine Ketones Negative Urine Blood Negative Urine Nitrate Negative Urine Bilirubin Negative Urine Urobilinogen 0.2 Ur Leukocyte Esterase Negative 03/25/19 05:15 WBC RBC Hgb Hct MCV MCH MCHC RDW Plt Count MPV Neut % (Auto) Lymph % (Auto) [place] % (Auto) Eos % (Auto) Baso % (Auto) Lymph # (Auto) [place] # (Auto) Eos # (Auto) Baso # (Auto) Absolute Neuts (auto) Sodium Potassium Chloride Carbon Dioxide Anion Gap BUN Creatinine Est GFR ( Amer) Est GFR (Non-Af Amer) POC Glucose (mg/dL) 271 H Random Glucose Calcium Magnesium Total Bilirubin AST ALT Alkaline Phosphatase Troponin I Total Protein Albumin Globulin Albumin/Globulin Ratio Urine Color Urine Appearance Urine pH Ur Specific [place] Urine Protein Urine Glucose (UA) Urine Ketones Urine Blood Urine Nitrate Urine Bilirubin Urine Urobilinogen Ur Leukocyte Esterase Attending/Attestation - Attestation I have personally seen and examined this patient.: Yes I have fully participated in the care of the patient.: Yes I have reviewed all pertinent clinical information: Yes Notes (Text): 03/25/19 05:38 seen and examined. discussed with resident. RLQ Abdominal pain 2/2 enteritis, or gastroparesis or narcotics induced. Blood sugar improving.
[2019-03-24] MEDS ORDERED: Metoprolol 1 mg/ml Inj IVP PRN (21:44)
[2019-03-24] MEDS: Insulin Reg-HIGH-Coverage SC SCH (23:30)
[2019-03-25] MEDS ORDERED: Magnesium Sulfate 2 gm/50 ml 2 GM/50 ML BAG IVPB ONE (00:44)
[2019-03-25] MEDS ORDERED: Insulin Lispro 1 UNITS/0.01 ML SC STA (00:44)
[2019-03-25] MEDS ORDERED: Sodium Chloride 0.9% 1,000 ML IV STA (00:50)
[2019-03-25] MEDS: Sodium Chloride 0.9% 1,000 ML IV SCH ×2 (02:47→21:46)
[2019-03-25 07:25] LABS: BASO # 0.01 K/mm3 (0.0-2.0); BASO % 0.1 % (0.0-3.0); EOS # 0.1 (0.0-0.7); EOS % 1.3 % (1.5-5.0); HEMOGLOBIN 14.1 g/dL (14.0-18.0); LYMPH # 2.4 (1.2-3.4); LYMPH % 33.5 % (22.0-35.0); MEAN CELL VOLUME 90.9 fl (80.0-105.0); MEAN CORPUSCULAR HGB CONC 35.2 g/dl (31.0-37.0); MEAN PLATELET VOLUME 10.8 fl (7.0-11.0); MONO # 0.5 (0.1-0.6); MONO % 6.8 % (1.0-6.0); RBC 4.41 10^6/uL (3.5-6.1); RED CELL DISTRIBUTION WIDTH 12.5 % (11.5-14.5); WHITE BLOOD COUNT 7.2 10^3/uL (4.5-11.0)
[2019-03-25 07:40] LABS: ALBUMIN 3.2 g/dL (3.0-4.8)
[2019-03-25 07:42] LABS: ALT/SGPT 36 U/L (7-56); AST/SGOT 20 U/L (17-59); BLOOD UREA NITROGEN 12 mg/dL (7-21); CALCIUM 8.1 mg/dL (8.4-10.5); GFR NON-AFRICAN AMERICAN > 60
[2019-03-25] MEDS ORDERED: Meropenem IV 1 gm in NS 1 GM/50 ML BAG IVPB SCH (07:45)
[2019-03-25] MEDS ORDERED: metroNIDAZOLE IV 500 mg/100 ml 500 MG/100 ML BAG IVPB SCH (07:45)
[2019-03-25 07:53] LABS: ALB/GLOB RATIO 1.3 (1.1-1.8)
[2019-03-25 07:58] VITALS: RESP 20; TEMP 97.7
[2019-03-25] MEDS: Insulin Reg-HIGH-Coverage SC SCH ×3 (08:36→16:42)
[2019-03-25] MEDS ORDERED: Insulin Detemir 100 units/ml Vial (Levemir) SC SCH (10:00)
[2019-03-25] MEDS: Pantoprazole 40 mg EC Tab PO SCH (10:30)
[2019-03-25] MEDS: Metoprolol Succinate 25 mg XL Tab PO SCH (10:30)
[2019-03-25] MEDS: Enoxaparin 40 mg Syringe SC SCH (10:37)
--- NOTE | 2019-03-25 11:24 | CT ---
Date of service: 03/24/2019 PROCEDURE: CT Abdomen and Pelvis with contrast HISTORY: rlq pain COMPARISON: None. TECHNIQUE: Contrast dose: 140 cc of Omni 350 Radiation dose: Total exam DLP = 876.49 mGy-cm. This CT exam was performed using one or more of the following dose reduction techniques: Automated exposure control, adjustment of the mA and/or kV according to patient size, and/or use of iterative reconstruction technique. FINDINGS: LOWER THORAX: Unremarkable. LIVER: There is a pattern megaly and fatty infiltration of the liver GALLBLADDER AND BILE DUCTS: The gallbladder is contracted. PANCREAS: Unremarkable. No gross lesion or ductal dilatation. SPLEEN: Unremarkable. ADRENALS: Unremarkable. No mass. KIDNEYS AND URETERS: The right kidney is unremarkable. There is an ectopic left kidney which is in the right lower quadrant. This represents an anatomic variation. VASCULATURE: Unremarkable. No aortic aneurysm. No aortic atherosclerotic calcification or mural plaque present. BOWEL: Unremarkable. No obstruction. No gross mural thickening. APPENDIX: Normal appendix. PERITONEUM: Unremarkable. No free fluid. No free air. LYMPH NODES: Unremarkable. No enlarged lymph nodes. BLADDER: Unremarkable. REPRODUCTIVE: Unremarkable. BONES: Hardware in the lower lumbar spine. Normal alignment OTHER FINDINGS: The report concurs with the preliminary [facility] report IMPRESSION: Hepatomegaly and fatty infiltration of the liver. No acute intra-abdominal findings
[2019-03-25 11:42] LABS: OPIATES, UR NEGATIVE (NEGATIVE)
[2019-03-25 11:47] LABS: BARBITURATES, UR NEGATIVE (NEGATIVE); BENZODIAZEPINES, UR NEGATIVE (NEGATIVE); PHENCYCLIDINE, UR NEGATIVE (NEGATIVE)
--- NOTE | 2019-03-25 13:12 | CON ---
DATE: 03/25/2019 GASTROENTEROLOGY CONSULTATION REQUESTING PHYSICIAN: HISTORY OF PRESENT ILLNESS: I have been asked to see this 48-year-old male with longstanding history of diabetes mellitus, generalized anxiety disorder, chronic back pain, on opiate analgesics, who is admitted to the hospital with poorly-controlled diabetes mellitus and hyperglycemia. The patient was seen in the emergency room with generalized weakness, polyuria, polydipsia, and was discharged to his primary physician. At his primary care doctor's, his blood sugar was in the 300 range. Apparently, his insulin regimen was changed to the point where he was no longer taking it and was on metformin 750 mg twice a day. The patient reports right lower quadrant abdominal pain for approximately one week. CT scan of the abdomen and pelvis revealed some nonspecific mural thickening of the small bowel with fluid. There was increased stool throughout the colon especially on the right side. He denies any diarrhea or rectal bleeding. He does admit to occasional nausea and vomiting. He denies any fevers or chills. PAST MEDICAL HISTORY: Notable for type 2 diabetes mellitus, poorly-controlled; coronary artery disease with stent placement in 2018, TIA, hypertension, hyperlipidemia, chronic back pain, COPD, depression, anxiety disorder. PAST SURGICAL HISTORY: Notable for right knee surgery and lumbar surgery with fusion. HOME MEDICATIONS: Medications at home include oxycodone, Neurontin, Wellbutrin, Toprol, Cozaar, Xanax, metformin, Protonix, Plavix, Lipitor, and aspirin. SOCIAL HISTORY: He smokes up to half pack of cigarettes per day. He used to snort cocaine, he consumes alcohol socially. FAMILY HISTORY: Notable for a father with COPD and diabetes mellitus and mother with coronary artery disease. REVIEW OF SYSTEMS: A 14-point review of systems is notable for generalized weakness and intermittent nausea, vomiting, and right lower quadrant abdominal pain. PHYSICAL EXAMINATION: GENERAL: Well-developed male, lying in bed, in no acute distress. VITAL SIGNS: Reveal a temperature of 97.7, blood pressure 118/71, heart rate of 70. HEENT: Reveal sclerae to be white and conjunctivae to be pink. NECK: Supple. CHEST: Reveals lungs to be clear. HEART: Exam reveals a regular rate and rhythm. ABDOMEN: Soft. Mild right lower quadrant tenderness. No rebound or guarding. EXTREMITIES: Show no edema. LABORATORY DATA: Reveals a white blood cell count of 7.2, hemoglobin of 14.1. Chemistries reveal blood sugar of 247; AST, ALT, and alkaline phosphatase were all normal. IMPRESSION: This is a 48-year-old male admitted to the hospital with uncontrolled diabetes mellitus, recently with a change in his insulin regimen. His insulin was apparently stopped. Clinically, the patient does not have acute enteritis. There is no diarrhea. He does have increased stool in the right side of the colon. This may be responsible for the right lower quadrant abdominal pain. He is on longstanding opiates and most likely has opioid-induced constipation. The nausea and vomiting is most likely related to his poorly-controlled diabetes. RECOMMENDATIONS: 1. We will start the patient on MiraLax 17 g three times a day. 2. The patient has been advised to have an outpatient elective colonoscopy. Pedro Urrutia MD
[2019-03-25] MEDS: oxyCODONE 10 mg Immediate Release Tab PO PRN ×2 (13:41→20:48)
[2019-03-25] MEDS: POLYETHYLENE GLYCOL 3350 17 GM/Dose PACKET PO SCH ×2 (15:25→17:19)
[2019-03-25 21:22] VITALS: O2SAT 97
[2019-03-26] MEDS: Insulin Reg-HIGH-Coverage SC SCH ×3 (00:03→11:52)
[2019-03-26] MEDS: oxyCODONE 10 mg Immediate Release Tab PO PRN ×2 (04:30→10:30)
[2019-03-26] MEDS: Sodium Chloride 0.9% 1,000 ML IV SCH ×2 (04:31→10:33)
[2019-03-26 07:04] LABS: BASO # 0.01 K/mm3 (0.0-2.0); BASO % 0.1 % (0.0-3.0); EOS # 0.1 (0.0-0.7); EOS % 1.2 % (1.5-5.0); HEMOGLOBIN 14.1 g/dL (14.0-18.0); LYMPH # 1.9 (1.2-3.4); LYMPH % 28.7 % (22.0-35.0); MEAN CELL VOLUME 91.2 fl (80.0-105.0); MEAN CORPUSCULAR HGB CONC 35.1 g/dl (31.0-37.0); MONO # 0.4 (0.1-0.6); MONO % 6.1 % (1.0-6.0); RBC 4.41 10^6/uL (3.5-6.1); RED CELL DISTRIBUTION WIDTH 12.6 % (11.5-14.5); WHITE BLOOD COUNT 6.8 10^3/uL (4.5-11.0)
[2019-03-26 07:27] LABS: ALB/GLOB RATIO 1.2 (1.1-1.8); ALBUMIN 3.1 g/dL (3.0-4.8); ALT/SGPT 27 U/L (7-56); AST/SGOT 20 U/L (17-59); BLOOD UREA NITROGEN 11 mg/dL (7-21); CALCIUM 8.2 mg/dL (8.4-10.5); GFR NON-AFRICAN AMERICAN > 60
[2019-03-26] MEDS ORDERED: Insulin Detemir 100 units/ml Vial (Levemir) SC SCH ×2 (10:00→22:00)
[2019-03-26] MEDS: Metoprolol Succinate 25 mg XL Tab PO SCH (10:30)
[2019-03-26] MEDS: Pantoprazole 40 mg EC Tab PO SCH (10:30)
[2019-03-26] MEDS: POLYETHYLENE GLYCOL 3350 17 GM/Dose PACKET PO SCH (10:31)
[2019-03-26] MEDS: Enoxaparin 40 mg Syringe SC SCH (10:32)
[2019-03-26 10:37] VITALS: BP 121/80; PULSE 70
--- NOTE | 2019-03-26 12:46 | PN ---
DATE: 03/26/2019 SUBJECTIVE: The patient is lying in bed, comfortable. He reports fluctuating blood sugar levels with a blood sugar level this morning of 248. He denies any nausea, vomiting, diarrhea, or abdominal pain. He has had bowel movements with MiraLax. PHYSICAL EXAMINATION: VITAL SIGNS: Reveal temperature of 97.7, blood pressure 132/89, heart rate 75. HEENT: Reveal sclerae to be white. Conjunctivae pink. NECK: Supple. CHEST: Lungs are clear. HEART: Reveals regular rate and rhythm. ABDOMEN: Soft, nontender. No mass. EXTREMITIES: Show no edema. LABORATORY DATA: Reveal a blood sugar of 248, BUN 11, creatinine 0.7, bicarb of 26. CBC reveals white blood cell count 6.8, hemoglobin 14.1. Urine tox screen is negative. IMPRESSION: This is a 48-year-old male admitted to the hospital with uncontrolled diabetes mellitus, nausea and vomiting. I suspect that the nausea and vomiting is secondary to the uncontrolled diabetes mellitus and he does not have any further abdominal pain which I suspect may be related to constipation. He did move his bowels with MiraLax 17 g three times a day. RECOMMENDATIONS: 1. Continue current treatment. 2. The patient has been instructed to follow up with his medical doctor for an elective outpatient colonoscopy. Pedro Urrutia MD
--- NOTE | 2019-03-26 16:55 | CP.PCM.DIS ---
<Chidi Obando - Last Filed: 03/26/19 16:43> Provider - Provider Date of Admission: 03/24/19 21:31 Attending physician: John Abraham MD Primary care physician: NO PRIMARY CARE PROVIDER Consults: 03/25/19 07:41 Gastroenterology Consult Routine Comment: Consulting Provider: Pedro Urrutia Consulting Physician: Pedro Urrutia Reason for Consult: enteritis, abdominal pain 03/25/19 07:43 Diabetic Education Referral Routine Comment: Physician Instructions: Reason For Exam: uncontrolled hyperglycemia Time Spent in preparation of Discharge (in minutes): 45 Hospital Course - Lab Results Lab Results: Most Recent Lab Values WBC 6.8 10^3/uL (4.5-11.0) 03/26/19 06:30 RBC 4.41 10^6/uL (3.5-6.1) 03/26/19 06:30 Hgb 14.1 g/dL (14.0-18.0) 03/26/19 06:30 Hct 40.2 % (42.0-52.0) L 03/26/19 06:30 MCV 91.2 fl (80.0-105.0) 03/26/19 06:30 MCH 32.0 pg (25.0-35.0) 03/26/19 06:30 MCHC 35.1 g/dl (31.0-37.0) 03/26/19 06:30 RDW 12.6 % (11.5-14.5) 03/26/19 06:30 Plt Count 145 10^3/uL (120.0-450.0) 03/26/19 06:30 MPV 11.0 fl (7.0-11.0) 03/26/19 06:30 Neut % (Auto) 63.9 % (50.0-68.0) 03/26/19 06:30 Lymph % (Auto) 28.7 % (22.0-35.0) 03/26/19 06:30 [place] % (Auto) 6.1 % (1.0-6.0) H 03/26/19 06:30 Eos % (Auto) 1.2 % (1.5-5.0) L 03/26/19 06:30 Baso % (Auto) 0.1 % (0.0-3.0) 03/26/19 06:30 Lymph # (Auto) 1.9 (1.2-3.4) 03/26/19 06:30 [place] # (Auto) 0.4 (0.1-0.6) 03/26/19 06:30 Eos # (Auto) 0.1 (0.0-0.7) 03/26/19 06:30 Baso # (Auto) 0.01 K/mm3 (0.0-2.0) 03/26/19 06:30 Absolute Neuts (auto) 4.33 (1.4-6.5) 03/26/19 06:30 Sodium 139 mmol/L (132-148) 03/26/19 06:30 Potassium 4.0 mmol/L (3.6-5.0) 03/26/19 06:30 Chloride 106 mmol/L (98-107) 03/26/19 06:30 Carbon Dioxide 26 mmol/L (21-33) 03/26/19 06:30 Anion Gap 11 (10-20) 03/26/19 06:30 BUN 11 mg/dL (7-21) 03/26/19 06:30 Creatinine 0.7 mg/dl (0.8-1.5) L 03/26/19 06:30 Est GFR ( Amer) > 60 03/26/19 06:30 Est GFR (Non-Af Amer) > 60 03/26/19 06:30 POC Glucose (mg/dL) 415 mg/dL (65-110) H* 03/26/19 12:56 Random Glucose 248 mg/dL (70-110) H 03/26/19 06:30 Calcium 8.2 mg/dL (8.4-10.5) L 03/26/19 06:30 Phosphorus 2.9 mg/dL (2.5-4.5) 03/26/19 06:30 Magnesium 1.7 mg/dL (1.7-2.2) 03/26/19 06:30 Total Bilirubin 0.5 mg/dL (0.2-1.3) 03/26/19 06:30 AST 20 U/L (17-59) 03/26/19 06:30 ALT 27 U/L (7-56) 03/26/19 06:30 Alkaline Phosphatase 87 U/L (38-126) 03/26/19 06:30 Troponin I < 0.01 ng/mL 03/24/19 19:50 Total Protein 5.5 g/dL (5.8-8.3) L 03/26/19 06:30 Albumin 3.1 g/dL (3.0-4.8) 03/26/19 06:30 Globulin 2.5 gm/dL 03/26/19 06:30 Albumin/Globulin Ratio 1.2 (1.1-1.8) 03/26/19 06:30 Urine Color Light yellow (YELLOW) 03/24/19 20:51 Urine Appearance Clear (CLEAR) 03/24/19 20:51 Urine pH 6.0 (4.7-8.0) 03/24/19 20:51 Ur Specific [place] 1.010 (1.005-1.035) 03/24/19 20:51 Urine Protein Negative mg/dL (<30 mg/dL) 03/24/19 20:51 Urine Glucose (UA) >=1000 mg/dL (NEGATIVE) 03/24/19 20:51 Urine Ketones Negative mg/dL (NEGATIVE) 03/24/19 20:51 Urine Blood Negative (NEGATIVE) 03/24/19 20:51 Urine Nitrate Negative (NEGATIVE) 03/24/19 20:51 Urine Bilirubin Negative (NEGATIVE) 03/24/19 20:51 Urine Urobilinogen 0.2 E.U./dL (<1 E.U./dL) 03/24/19 20:51 Ur Leukocyte Esterase Negative Sharath/uL (NEGATIVE) 03/24/19 20:51 Urine Opiates Screen Negative (NEGATIVE) 03/25/19 11:00 Urine Methadone Screen Negative (NEGATIVE) 03/25/19 11:00 Ur Barbiturates Screen Negative (NEGATIVE) 03/25/19 11:00 Ur Phencyclidine Scrn Negative (NEGATIVE) 03/25/19 11:00 Ur Amphetamines Screen Negative (NEGATIVE) 03/25/19 11:00 U Benzodiazepines Scrn Negative (NEGATIVE) 03/25/19 11:00 U Oth Cocaine Metabols Negative (NEGATIVE) 03/25/19 11:00 U Cannabinoids Screen Negative (NEGATIVE) 03/25/19 11:00 - Hospital Course Hospital Course: 48 year old male with PMHx CAD (stent placement in 05/27), HTN, DM II, HLD, TIA, COPD, Depression, Generalized Anxiety Disorder who presented to the emergency department complaining of generalized fatigue, polyuria, polydipsia and elevated blood glucose readings at home. BMP showed serium glucose of 618. Patient admitted for hyperglycemia treatment. Patient reported non compliance with insulin regimen. He was give IV fluids, insulin with frequent fingersticks to monitor blood glucose level that downtrended to 270s with above treatment. Patient was given gabapentin for neuropathy, reglan for diabetic neuropathy and lytes repleted. Patient was counseled on medication compliance, diet, tight glycemic control. Patient was hemodynamically stable, afebrile and clinically optimized for home discharge today. Additional instructions as below. Discharge Exam - Head Exam Head Exam: ATRAUMATIC, NORMAL INSPECTION, NORMOCEPHALIC - Eye Exam Eye Exam: EOMI, Normal appearance Pupil Exam: NORMAL ACCOMODATION - ENT Exam ENT Exam: Mucous Membranes Moist, Normal Exam - Neck Exam Neck exam: Normal Inspection - Respiratory Exam Respiratory Exam: Clear to PA & Lateral, NORMAL BREATHING PATTERN - Cardiovascular Exam Cardiovascular Exam: REGULAR RHYTHM, +S1, +S2 - GI/Abdominal Exam GI & Abdominal Exam: Normal Bowel Sounds - Extremities Exam Extremities exam: normal capillary refill, pedal pulses present - Back Exam Back exam: FULL ROM - Neurological Exam Neurological exam: Alert, CN II-XII Intact, Normal Gait, Oriented x3, Reflexes Normal - Psychiatric Exam Psychiatric exam: Normal Affect, Normal Mood - Skin Skin Exam: Dry, Intact, Normal Color, Warm Discharge Plan - Discharge Medications Prescriptions: Alogliptin Benzoate [Alogliptin] 25 mg PO DAILY #30 tablet Gabapentin [Neurontin] 200 mg PO TID #84 capsule Insulin Glargine,Hum.rec.anlog [Basaglar Kwikpen U-100] 20 unit SQ HS #4 insuln.pen MetFORMIN ER [Glucophage XR] 750 mg PO BID #60 ter - Follow Up Plan Condition: GOOD Disposition: HOME/ ROUTINE Instructions: Low Blood Sugar, Adult (DC), Diabetes Diet , Hyperglycemia, Adult (DC), Blood Glucose Monitoring, Opioids for Short-Term Treatment of Pain Additional Instructions: Follow up with your primary care doctor Adrian Garner in 3-5 days. Start taking Basiglar 20 units at bedtime daily subcutaneously, metformin 750mg 1 tablet two times a day and alogliptin 25mg daily. Please go a Gastroenterology doctor for outpatient colonoscopy. Take rest of your home medications as prescribed. Check your blood sugars with each meal and before bedtime. Return to the emergency room should your condition worsen or change in severity. Referrals: Patsy Campbell MD [Family Provider] - PCP,NO [Primary Care Provider] - <John Abraham - Last Filed: 03/26/19 18:41> Provider - Provider Date of Admission: 03/24/19 21:31 Attending physician: John Abraham MD Primary care physician: OSIEL PRIMARY CARE PROVIDER Consults: 03/25/19 07:41 Gastroenterology Consult Routine Comment: Consulting Provider: Pedro Urrutia Consulting Physician: Pedro Urrutia Reason for Consult: enteritis, abdominal pain 03/25/19 07:43 Diabetic Education Referral Routine Comment: Physician Instructions: Reason For Exam: uncontrolled hyperglycemia Hospital Course - Lab Results Lab Results: Most Recent Lab Values WBC 6.8 10^3/uL (4.5-11.0) 03/26/19 06:30 RBC 4.41 10^6/uL (3.5-6.1) 03/26/19 06:30 Hgb 14.1 g/dL (14.0-18.0) 03/26/19 06:30 Hct 40.2 % (42.0-52.0) L 03/26/19 06:30 MCV 91.2 fl (80.0-105.0) 03/26/19 06:30 MCH 32.0 pg (25.0-35.0) 03/26/19 06:30 MCHC 35.1 g/dl (31.0-37.0) 03/26/19 06:30 RDW 12.6 % (11.5-14.5) 03/26/19 06:30 Plt Count 145 10^3/uL (120.0-450.0) 03/26/19 06:30 MPV 11.0 fl (7.0-11.0) 03/26/19 06:30 Neut % (Auto) 63.9 % (50.0-68.0) 03/26/19 06:30 Lymph % (Auto) 28.7 % (22.0-35.0) 03/26/19 06:30 [place] % (Auto) 6.1 % (1.0-6.0) H 03/26/19 06:30 Eos % (Auto) 1.2 % (1.5-5.0) L 03/26/19 06:30 Baso % (Auto) 0.1 % (0.0-3.0) 03/26/19 06:30 Lymph # (Auto) 1.9 (1.2-3.4) 03/26/19 06:30 [place] # (Auto) 0.4 (0.1-0.6) 03/26/19 06:30 Eos # (Auto) 0.1 (0.0-0.7) 03/26/19 06:30 Baso # (Auto) 0.01 K/mm3 (0.0-2.0) 03/26/19 06:30 Absolute Neuts (auto) 4.33 (1.4-6.5) 03/26/19 06:30 Sodium 139 mmol/L (132-148) 03/26/19 06:30 Potassium 4.0 mmol/L (3.6-5.0) 03/26/19 06:30 Chloride 106 mmol/L (98-107) 03/26/19 06:30 Carbon Dioxide 26 mmol/L (21-33) 03/26/19 06:30 Anion Gap 11 (10-20) 03/26/19 06:30 BUN 11 mg/dL (7-21) 03/26/19 06:30 Creatinine 0.7 mg/dl (0.8-1.5) L 03/26/19 06:30 Est GFR ( Amer) > 60 03/26/19 06:30 Est GFR (Non-Af Amer) > 60 03/26/19 06:30 POC Glucose (mg/dL) 415 mg/dL (65-110) H* 03/26/19 12:56 Random Glucose 248 mg/dL (70-110) H 03/26/19 06:30 Calcium 8.2 mg/dL (8.4-10.5) L 03/26/19 06:30 Phosphorus 2.9 mg/dL (2.5-4.5) 03/26/19 06:30 Magnesium 1.7 mg/dL (1.7-2.2) 03/26/19 06:30 Total Bilirubin 0.5 mg/dL (0.2-1.3) 03/26/19 06:30 AST 20 U/L (17-59) 03/26/19 06:30 ALT 27 U/L (7-56) 03/26/19 06:30 Alkaline Phosphatase 87 U/L (38-126) 03/26/19 06:30 Troponin I < 0.01 ng/mL 03/24/19 19:50 Total Protein 5.5 g/dL (5.8-8.3) L 03/26/19 06:30 Albumin 3.1 g/dL (3.0-4.8) 03/26/19 06:30 Globulin 2.5 gm/dL 03/26/19 06:30 Albumin/Globulin Ratio 1.2 (1.1-1.8) 03/26/19 06:30 Urine Color Light yellow (YELLOW) 03/24/19 20:51 Urine Appearance Clear (CLEAR) 03/24/19 20:51 Urine pH 6.0 (4.7-8.0) 03/24/19 20:51 Ur Specific [place] 1.010 (1.005-1.035) 03/24/19 20:51 Urine Protein Negative mg/dL (<30 mg/dL) 03/24/19 20:51 Urine Glucose (UA) >=1000 mg/dL (NEGATIVE) 03/24/19 20:51 Urine Ketones Negative mg/dL (NEGATIVE) 03/24/19 20:51 Urine Blood Negative (NEGATIVE) 03/24/19 20:51 Urine Nitrate Negative (NEGATIVE) 03/24/19 20:51 Urine Bilirubin Negative (NEGATIVE) 03/24/19 20:51 Urine Urobilinogen 0.2 E.U./dL (<1 E.U./dL) 03/24/19 20:51 Ur Leukocyte Esterase Negative Sharath/uL (NEGATIVE) 03/24/19 20:51 Urine Opiates Screen Negative (NEGATIVE) 03/25/19 11:00 Urine Methadone Screen Negative (NEGATIVE) 03/25/19 11:00 Ur Barbiturates Screen Negative (NEGATIVE) 03/25/19 11:00 Ur Phencyclidine Scrn Negative (NEGATIVE) 03/25/19 11:00 Ur Amphetamines Screen Negative (NEGATIVE) 03/25/19 11:00 U Benzodiazepines Scrn Negative (NEGATIVE) 03/25/19 11:00 U Oth Cocaine Metabols Negative (NEGATIVE) 03/25/19 11:00 U Cannabinoids Screen Negative (NEGATIVE) 03/25/19 11:00 Attending/Attestation - Attestation I have personally seen and examined this patient.: Yes I have fully participated in the care of the patient.: Yes I have reviewed all pertinent clinical information, including history, physical exam and plan: Yes Notes (Text): 03/26/19 18:34 Attending note; Patient seen and examined with resident. Patient is alert and awake Denies any polyuria, polyphagia. Blood sugar is improving. Getting IV fluids Patient is a 48 year old male with PMHx CAD (stent placement in 05/27), HTN, DM II, HLD, TIA, COPD, Depression, Generalized Anxiety Disorder who presented to the emergency department complaining of generalized fatigue, polyuria, polydipsia and elevated blood glucose readings at home. BMP showed serum glucose of 618. 1. Uncontrolled diabetes; patient insulin recently as per PMD's recommendation. Currently blood sugar is elevated. Started back on metformin, Levemir and alogliptin. Prescription Called in [facility]. 2. Dietitian evaluation appreciated dietary education given. 3. Diabetic nurse education given. 4. Hypertension; continue Cozaar and metoprolol . 5. History of coronary artery disease and stent placement; continue aspirin, Plavix and Lipitor. 6. Anxiety; continue Xanax and trazodone . 7. Neuropathy; continue gabapentin. 8. Chronic back pain; patient follows up with pain management for oxycodone. Patient is advised to keep a fingerstick diary and adjust insulin as needed. Patient is also advised to follow-up with diabetic nurse educator Ethel Miranda as outpatient. Follow-up with PMD in 3 to 5 days. Upon discharge the patient will follow up with PMD Dr. Bijan Campbell.
== END 2019-03-26 16:35 | disposition home or self-care (01) ==
LOC: ED 18:11 → ERH 21:31 → 5RNO 22:56
PROVIDERS: ADMIT Internal Medicine; ATTEND Internal Medicine
DX: E11.65 Type 2 diabetes mellitus with hyperglycemia (principal); E11.40 Type 2 diabetes mellitus with diabetic neuropathy, unspecified; E11.43 Type 2 diabetes mellitus with diabetic autonomic (poly)neuropathy; K31.84 Gastroparesis; K52.9 Noninfective gastroenteritis and colitis, unspecified; I25.10 Atherosclerotic heart disease of native coronary artery without angina pectoris; I10 Essential (primary) hypertension; F31.9 Bipolar disorder, unspecified; F41.1 Generalized anxiety disorder; J44.9 Chronic obstructive pulmonary disease, unspecified; E78.5 Hyperlipidemia, unspecified; F17.210 Nicotine dependence, cigarettes, uncomplicated; K59.03 Drug induced constipation; T40.2X5A Adverse effect of other opioids, initial encounter; I25.2 Old myocardial infarction; Z91.14 Patient's other noncompliance with medication regimen; Z95.5 Presence of coronary angioplasty implant and graft; Z86.73 Personal history of transient ischemic attack (TIA), and cerebral infarction without residual deficits; Z79.4 Long term (current) use of insulin
CPT/HCPCS: 36415; 74177; 80053; 80324; 80345; 80346; 80349; 80353; 80358; 80361; 81003; 82948; 83735; 83992; 84100; 84484; 85025; 96361; 96365; 96367; 96372; 96375; 99285; G0378; J1650; J2765; J7030; Q9967